=== PATIENT | male | born 1950 | race Caucasian/White ===

== ENCOUNTER 2021-09-29 06:18 | Inpatient (IN) ==
--- NOTE | 2021-09-11 10:18 | PAT Medication Instructions ---
Medication Instructions Date of Service September 11, 2021 Home Medications aspirin 81 mg tablet 81 mg PO QAM lisinopril 5 mg tablet 5 mg PO QAM pravastatin 10 mg tablet 10 mg PO QAM ASK your prescriber and surgeon aspirin 81 mg tablet 81 mg PO QAM DO NOT take the morning of surgery lisinopril 5 mg tablet 5 mg PO QAM Take morning of surgery With a small sip of water, OTHERWISE NOTHING TO EAT OR DRINK AFTER MIDNIGHT: pravastatin 10 mg tablet 10 mg PO QAM Other Notes If you have any questions please call us at [phone] or [phone] or [phone] or [phone]
--- NOTE | 2021-09-16 12:11 | Anesthesiology Consultation ---
Date of Service September 16, 2021 Assessment & Plan (1) Encounter for pre-operative examination: - COVID screening: Per assessment on 09/16: Travel screen negative, no known COVID-19 positive contacts or current COVID-19 related symptoms. Surgeon arrmisa ng preop COVID testing. Awaiting results. 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 Medication instructions provided according to the PAT guidelines. History Surgery Operation Date: 09/29/21 07:30 Proposed Procedures p Robotic Radical Cystoprostetectomy with Ileal Conduit Urinary Diversion and Lymph Node Dissection - Petey Quintero MD Height/Weight Height: 5 ft 7 in Weight: 70.4 kg Allergies Allergy/AdvReac Type Severity Reaction Status Date / Time No Known Allergies Allergy Verified 09/16/21 11:18 Medications Home Medications Medication Instructions Recorded Confirmed Last Taken aspirin 81 mg tablet 81 mg PO QAM 01/12/21 09/16/21 07/05/21 08:00 lisinopril 5 mg tablet 5 mg PO QAM 01/12/21 09/16/21 07/06/21 08:00 pravastatin 10 mg tablet 10 mg PO QAM 01/12/21 09/16/21 07/06/21 08:00 Past Medical History Medical History Bladder cancer hx chemotherapy (Fall 2020) BPH (benign prostatic hyperplasia) Hyperlipidemia Hypertension Lung nodules Under CT surveillance Stroke 2016, 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 Exercise / Class Metabolic Activity II 4-5 Yardwork/Stairs/Walk up hill (one FS (no CP, no SOB)) Past Family History Family History Son Family history of diabetes mellitus Other No family history of adverse response to anesthesia Past Surgical History Surgical History History of bilateral cataract extraction History of bladder surgery TURBT (07/07/21): LMA#5 at [facility] History of cystoscopy Past Anesthesia History No Hx of Anesthesia Complications and No Family Hx of Anesthesia Complications History of PONV No Hx of PONV and No Hx of Motion Sickness Social History Smoking Status: Former smoker tobacco type: cigarettes and pipe Smoking cigarettes per day: Quit pipe 6 yrs ago, Quit cigs 40 yrs ago Do You Dip or Chew Tobacco: No Hx Alcohol Use: Yes Alcohol type: beer alcohol intake frequency: 3 or more drinks per day (3-4 beers daily (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 Physical Exam Vital Signs VITALS BP 120/79 P 83 TEMP 98.2 SP02 98%RA RESP 16 PHYSICAL Decreased cervical extension range of motion. Full TMJ range of motion. TMD 3.5 finger breaths Mallampati Score 3 Dentition: edentulous, + upper/lower dentures Lungs: clear throughout to auscultation Cardiac: regular rate and rhythm, no murmurs noted Spine: normal Carotid arteries: negative bruit Extremities: no edema Lab Results Anesthesia Preop Results Results Anesthesia Widget: WBC 5.91 K/uL (4.8-10.8) 09/16/21 Hgb 12.6 g/dL (14.0-18.0) L 09/16/21 Hct 38.1 % (42-52) L 09/16/21 Plt 229 K/uL (130-400) 09/16/21 Na 137 mmol/L (136-145) 09/16/21 K 4.6 mmol/L (3.5-5.1) 09/16/21 Cl 101 mmol/L (98-107) 09/16/21 CO2 28 mmol/L (21-32) 09/16/21 BUN 18 mg/dl (6-23) 09/16/21 Creat 1.27 mg/dl (0.6-1.4) 09/16/21 Glucose Level 118 mg/dl (70-99(Fasting)) H 09/16/21 Urine Color Yellow 09/16/21 Urine Appearance Clear (Clear) 09/16/21 Urine pH 6.5 (4.5-7.5) 09/16/21 Urine Specific Smoot 1.013 (1.000-1.030) 09/16/21 Urine Protein Negative (Negative) 09/16/21 Urine Glucose (UA) Negative (Negative) 09/16/21 Urine Ketones Negative (Negative) 09/16/21 Urine Blood Negative (Negative) 09/16/21 Urine Nitrite Negative (Negative) 09/16/21 Urine Bilirubin Negative (Negative) 09/16/21 Urine Urobilinogen Negative (Negative) 09/16/21 Urine Leukocyte Esterase Negative (Negative) 09/16/21 Blood Type O Positive 09/16/21 Antibody Screen NEGATIVE 09/16/21 Testing Electrocardiogram Date: 07/03/21 Sinus rhythm with occasional PVCs at 75 bpm. Rightward axis. Chest X-Ray Date: 07/07/21 FINDINGS: Lung volumes are normal. Minimal bibasilar opacities represent atelectasis. There is no pneumothorax or pleural effusion. Cardiac size is normal. Mediastinal contours are normal. There is no evidence for pulmonary edema. IMPRESSION: No acute cardiopulmonary findings. Echocardiogram Date: 02/11/16 LVEF 65%. No significant valvular disease. Valves not well visualized.
[~2021-09-29 06:18] MED LIST: HEPARIN SOD 5,000 UNIT/0.5 ML VIAL SQ SCH; LR 15ML/HR IV SCH; LR 60ML/HR IV SCH; ceFAZolin 2000MG 2,000 MG/15 ML SYR IV SCH; metroNIDAZOLE 500 MG/100 ML BAG IV SCH
--- NOTE | 2021-09-29 06:54 | History & Physical Report ---
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 presenting now for radical cystoprostatectomy with ileal conduit Allergies Allergy/AdvReac Type Severity Reaction Status Date / Time No Known Allergies Allergy Verified 09/29/21 06:36 Home Medications Medication Instructions Recorded Confirmed Type aspirin 81 mg tablet 81 mg PO QAM 01/12/21 09/29/21 History lisinopril 5 mg tablet 5 mg PO QAM 01/12/21 09/29/21 History pravastatin 10 mg tablet 10 mg PO QAM 01/12/21 09/29/21 History Past Med/Surg History Medical History Bladder cancer hx chemotherapy (Fall 2020) BPH (benign prostatic hyperplasia) Hyperlipidemia Hypertension Lung nodules Under CT surveillance Stroke 2015, 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 Surgical History History of bilateral cataract extraction History of bladder surgery TURBT (07/07/21): LMA#5 at [facility] History of cystoscopy Family History Son Family history of diabetes mellitus Other No family history of adverse response to anesthesia Social History Smoking Status: Former smoker Cigarettes Per Day: Quit pipe 6 yrs ago, Quit cigs 40 yrs ago; Second Hand Exposure: No; Do You Dip or Chew Tobacco: No; Tobacco Cessation Education Requested by Patient: No Hx Alcohol Use: Yes Alcohol type: beer Hx Substance Use: No Preferred Language: Malay Communication Ability: Effective 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 Beliefs That Will Affect Care: None Current Living Situation: Spouse Other Information That Helps Us Care for You: No Feels Safe at Home: Yes Safety Concerns: Feels Safe At This Time Assistive Devices: Glasses Physical Exam Constitutional: well developed and well nourished Neck: neck nontender Respiratory: normal respiratory effort; no respiratory distress and does not use accessory muscles Cardiovascular: Rate/Rhythm: regular rate Vessels: radial pulses present Extremities: no edema Gastrointestinal (Abdomen): Inspection/Auscultation: abdomen normal to inspection Percussion/Palpation: abdomen soft; abdomen nontender and no guarding Musculoskeletal: Head/Neck/Chest: normocephalic and head atraumatic Extremities: extremities normal to inspection Skin: no rashes and no lesions Trauma: no evidence of skin trauma Neurologic: awake; not obtunded Speech / Cognition: normal speech Motor/Sensory: no tremor Psychiatric: Orientation: alert and oriented x 3 Genitourinary: no CVA tenderness Lymphatic: no lymphadenopathy
[2021-09-29] MEDS ORDERED: ATROPINE SULFATE 0.1 MG/ML 10ML SYR IV PRN (07:20)
[2021-09-29] MEDS ORDERED: fentaNYL citrate 100 MCG/2 ML VIAL IV PRN (07:20)
[2021-09-29] MEDS ORDERED: ePHEDrine sulfate 50 MG/ML AMP IV PRN (07:20)
[2021-09-29] MEDS ORDERED: ONDANSETRON INJ 2 MG/ML 2 ML VIAL IV PRN (07:20)
[2021-09-29] MEDS ORDERED: HYDROmorphone INJ 1 MG/ML SYRINGE IV PRN (07:20)
[2021-09-29] MEDS ORDERED: NEOSTIGMINE METHYLSULFATE 1 MG/ML 10ML VIAL ONE (07:36)
[2021-09-29] MEDS ORDERED: DEXAMETHASONE SOD INJ 4 MG/ML VIAL ONE (07:36)
[2021-09-29] MEDS ORDERED: ONDANSETRON INJ 2 MG/ML 2 ML VIAL ONE (07:36)
[2021-09-29] MEDS ORDERED: PROPOFOL IV EMULSION 10 MG/ML 20 ML VIAL IV ONE (07:36)
[2021-09-29] MEDS ORDERED: ePHEDrine sulfate 50 MG/ML AMP ONE (07:36)
[2021-09-29] MEDS ORDERED: PHENYLEPHRINE 100MCG/ML 5ML SYR ONE (07:36)
[2021-09-29] MEDS ORDERED: GLYCOPYRROLATE 0.2 MG/ML VIAL ONE (07:36)
[2021-09-29] MEDS ORDERED: LARYING-O-JET KIT (LTA) ONE (07:36)
[2021-09-29] MEDS ORDERED: LIDOCAINE 2% 2 ML VIAL/AMP(20MG/ML) INFIL ONE (07:36)
[2021-09-29] MEDS ORDERED: ROCURONIUM BROMIDE 10 MG/ML 5 ML VIAL IV ONE ×11 (07:36→14:55)
[2021-09-29] MEDS ORDERED: MIDAZOLAM HCL 1 MG/ML 2ML VIAL ONE (07:37)
[2021-09-29] MEDS ORDERED: fentaNYL citrate 100 MCG/2 ML VIAL ONE ×4 (07:37→12:50)
[2021-09-29] MEDS ORDERED: BUPIVACAINE 0.5 % 5 MG/1 ML MPF 30ML VIAL ONE (08:09)
[2021-09-29] MEDS ORDERED: HYDROmorphone INJ 2 MG/ML SYR/VIAL ONE (09:08)
[2021-09-29] MEDS ORDERED: ceFAZolin 330 MG/ML 1 GM VIAL ONE (09:17)
[2021-09-29] MEDS ORDERED: SURGICEL ABSORB HEMOSTAT 2IN X 14IN TOP ONE (10:13)
[2021-09-29] MEDS ORDERED: ceFAZolin 2000MG 2,000 MG/15 ML SYR IV STA (12:45)
--- NOTE | 2021-09-29 16:31 | Operative Report ---
PG Post Operative Report Pre & Post Diagnosis Operation Date: 09/29/21 08:00 Pre-Op Diagnosis: Bladder Cancer Post-Op Diagnosis: Bladder Cancer; duplicated right ureter I identified the patient and participated in the time-out.: Yes Procedure Operation Date: 09/29/21 08:00 Actual Procedures p Robotic assisted Radical Cystoprostatectomy with uretero-ureterostomy and Ileal Conduit Urinary Diversion and Lymph Node Dissection(Not Applicable) - Petey Quintero MD Surgeon Lucio Quintero MD Chief Program Officer Kalin Martinez; Neena Jessica Estimated Blood Loss 150 Findings Consistent with Post-Op Diagnosis Specimens 1. Frozen section of right distal ureter x2 (duplicated system)ureteral 7 #1free of cancer, ureteral segment #2suspected squamous cell/TCC 2. Frozen section of left distal ureterFree of cancer 3. Prostate and bladder 4. Left pelvic lymph nodes 5. Right pelvic lymph nodes 6. Distal left ureter for permanent pathology 7. Distal right ureterduplication, labeled for permanent, however, this specimen was taken distal to a second frozen section as it was resected prior to the return of frozen pathology on the first specimen 8. Second frozen section of the right distal ureter, taken proximal to the permanent specimenreactive atypia, no cancer Description of Procedure Patient was placed in supine position and sterilely prepped and draped in standard fashion, appropriate antibiotics were delivered in the form of Ancef and Flagyl. Subcutaneous heparin was administered and the patient received appropriate general anesthesia. Of note he was seen preoperatively by the stoma nurse and a tentative stomal site was marked, I also confirmed this by remarking him in my preferred location. To begin the case I passed a Veress needle per umbilicus inflated the abdomen to 15 mmHg. Insufflation was symmetrical. I placed the right lateralmost port12 mm Visiport without incident and inspected the abdomen. There was some adhesions around the cecum as well as the sigmoid colon but there was no conflict with port placement locations. I was able to place all other ports in standard fashion consistent with a robotic prostatectomy although shifted approximately 2 cm higher than I would normally have them position for a prostate. Of note, the right robotic port was positioned through the anticipated stomal site. I then docked the robot and began mobilizing the colon. First I began on the left and mobilized the sigmoid and recreated the pouch of Joe. I then proceeded to mobilize the cecum and appendix. I was able to visualize the terminal ileum at that time as well. I mobilized this medially over the anticipated location of the ureter. To my attention back to the left side and identified the ureter at a location just above the iliac vessels. I dissected around this ureter and controlled it circumferentially. I continued to dissect proximally to the maximal extent allowable. I then dissected distally until I encountered the bladder. Care was used throughout this dissection and an umbilical tape helped retract it. I was able to use a combination of monopolar and bipolar electrocautery as I dissected down to the bladder. When I reached the junction of the bladder I placed a Weck clip across the distalmost aspect of the ureter. A second clip was placed approximately 2 cm higher with a suture left attached to this clip to help with later retraction. I transected the ureter close to the distalmost clip and then resected another segment of the ureter which was subsequently passed off the table for frozen section analysis. This frozen section analysis was ultimately returned free of cancer. I then turned my attention to the right ureter. Of note on preoperative imaging he was noted to have a duplicated system. This is an incomplete duplication, however when I began dissecting it appears that this is likely a common sheath or at least the ureters are running in very close proximity to each other. I was able to dissect around both of these just above the level of the vessels and then again traced these down to the junction with the bladder. I treated these as a solitary unit as they reach the bladder. A solitary clip was placed across the distal duplication of the ureter. And 2 clips were placed across the more proximal area approximately 2 cm above the bladder. I transected the ureter close to the bladder but elected not to send a frozen section at that time because I thought it would be important to malissa the ureters and identify them in the future to interpret pathology. Of note, there was a suture left attached to the more proximal clip which helped with the future retraction. I then turned my attention back to the bladder. I incised the peritoneum in the pouch of Joe and identified the seminal vesicles and vasa. The vasa were transected and the seminal vesicles dissected entirely. I then created a plane posterior to the prostate between the prostate and the rectum splitting the fascia. I carried this to the apex of the prostate. I then came out of the pouch of Joe and started to incise the peritoneum lateral to the umbilical ligaments bilaterally. I dissected under the pubic arch and exposed the endopelvic fascia. I then opened the endopelvic fascia bilaterally. I did not entirely defat the prostate but I did incise the fat over the puboprostatic ligaments and traced it back onto the prostate to free the distalmost aspect of the prostate and allow closure and control of the dorsal venous complex. I accomplished this with a 3 OV lock suture in [id number] fashion. The anteriormost connections of the bladder was still intact at that time and I turned my attention to them entirely freeing the dome and anterior aspect of the bladder. I then utilized a vessel seal device to control the vascular pedicle to the bladder as well as the pedicle to the prostate. I traced the path along the lateral edge of the prostate leaving some vessels and nerves intact from the neurovascular bundle. When I reached the apex of the prostate I transected the DVC with a combination of bipolar monopolar electrocautery and then I removed the Savage catheter. I sutured the urethra closed with a 3 OV lock and transected the urethra just distal to my suture. This was used to prevent urine spillage. At that time the bladder and prostate had been entirely removed and the bed of the resection site was inspected for hemostasis which was excellent. I shifted the specimen out of my field and began working on the lymph node dissection I began on the right side and identified the iliac vessels. I dissected all tissue around the inferior aspect of the iliac vein through the superior aspect of the iliac artery and distally as far as the circumflex vein. I came under the pubic bone and identified the obturator nerve and removed all lymph tissue surrounding the nerve tracing this up to the bifurcation of the iliac vessels. This entire specimen was removed en bloc. I attempted to dissect further towards the aortic bifurcation but there was scant material left in that location so I elected to conclude my dissection at that time. I then turned my attention to the left side. The same dissection was performed beginning distally near the external iliac vein and carried my dissection up through the iliac bifurcation but not quite to the aortic bifurcation. The specimen was marked with a clip and placed into an Endo Catch bag with the right-sided specimen. Before concluding the robotic portion of the case, I created a window under the mesentery through which I could pass the left ureter. This was done with the help of the assistant front desk manager port and utilizing the suture that was previously fixed to the Weck clip on the distal ureter we were able to pass this successfully under the mesentery and confirmed that the ureter was not twisted. The cecum and appendix were easily visualized just underneath the right lateralmost port as was the terminal ileum. Because it was so readily visible I did not place any sutures into the ileum at that time. We then concluded the robotic portion of the case and made a midline incision which extended from just above the umbilicus to approximately 2 cm below it. It extended to the left of the umbilicus itself and I utilized an Cristiano retractor to open this wound. I initially grasped the specimen of prostate and bladder and removed it followed by the specimen bag containing the lymph nodes. We then repositioned the 2 ureters through this incision utilizing the previously attached stitches. I was able to visualize the terminal ileum and ileocecal valve I marked an area approximately 10 to 15 cm from the ileocecal valve as our distal transection. We marked a length of potential conduit of approximately 12 cm as well. We transilluminated the mesentery and marked an appropriate path through the mesentery. A stapler was used to control the proximal and distal aspects of our conduit and we used the harmonic scalpel to help transect through the mesentery to our previously marked locations. I oversewed some of the cut m esentery utilizing 2-0 silk pop-off's. The planned conduit portion was pushed distally and on the cephalad side we began reapproximating the bowel. Utilizing Lopez scissors we transected the corner of the previous staple line and passed a single arm of the KATARZYNA stapler down the proximal aspect of the ileum and a second arm down the distal aspect of the ileum. We performed a [id number] functional end-to-end anastomosis after firing the KATARZYNA stapler and then utilizing a TA stapler to control the remaining open area. I oversewed this edge and imbricated a portion of the staple line utilizing 2-0 silk sutures. There was a small amount of bleeding from the TA suture line and we oversewed that area with [id number] sutures of 2-0 silk. After confirming appropriate reconnection of the bowel, we turned our attention back to the conduit. Utilizing Lopez scissors a removed at the distal staple line which will ultimately become our stomal site. We then irrigated the conduit copiously. It was clear and he had been well prepped. We turned our attention to the ureters. Of note, I previously had a negative frozen section analysis of the distal left ureter but I had not yet sent 1 from the right distal ureter. He has a duplicated system and we carefully dissected into the common sheath to expose both ureters. We marked 1 ureter with a silk suture and another with a white Vicryl suture and labeled these as the ureter #1 and ureter #2. Of note ureter #2 was considerably smaller than ureter #1. These were then sent for frozen section analysis. While waiting for the frozen section we turned our attention back to the left ureter. We passed a Yankauer suction down the conduit and marked location near the base of the conduit for insertion of the ureter. We then dissected and expose the distal most aspect of the left ureter and spatulated it for approximately 1 cm in length. The ureter itself was quite healthy and there was a significant amount of urine after removal of the clip. Utilizing a series of 4-0 Vicryl interrupted sutures I was able to perform anastomosis of the ureter to the bowel. Before completing the anastomosis a diversionary urinary stent was plac ed without difficulty. Anastomosis appeared to be quite viable and watertight at the conclusion. I did insulate this with a small amount of the periureteral fat utilizing a 2-0 Vicryl suture. We are still waiting on the final frozen analysis of the distal right ureter. Given the duplication we elected to perform a ureteroureterostomy and solitary reimplant of this ureter. Functionally, this is a Hernandez type reimplant utilizing the duplicated right collecting system. I resected the distal aspect of the ureter for permanent specimen and then dissected and spatulated both ureters for a length of approximately 1 cm. We reanastomosed the back wall of these ureters leaving the front spatulation. Around that time received a call from pathology raising concerns that the second ureter on the right had some residual cancer. There was some squamous differentiation concerning for residual cancer of the ureter. The permanent specimen had already been placed in formalin and was thus not eligible for frozen section analysis. I took a more proximal specimen and sent it for frozen section. This was returned shortly thereafter and revealed reactive atypia but no residual cancer. We the refore elected to continue with our anastomosis and reimplant of the ureter. We picked a location approximately 2 cm more distal on the conduit from the the first implant. Utilizing a Yankauer suction to help identify this location we began to reapproximate the ureter to the ileum utilizing a series of 4-0 interrupted Vicryl sutures. Before completing the anastomosis a stent was placed through this and into the more dilated section of ureter. We did not place a second stent into the smaller ureteral segment. At the conclusion of the anastomosis it appeared to be watertight and quite viable. We then turned our attention to completion and maturation of the stoma. Utilizing the right lateral most robotic port which was through the rectus muscle. We excised a segment of skin and dissected down to the fascia. A cruciate incision was made through the fascia utilizing the previous port site entry and expanding it. This accommodated 2 fingers after full dilation. 4 individual 0 Vicryl sutures were placed through the fascia in each corner of this opening. I then guided the 2 ureteral stents and the stomal aspect of the conduit through this opening. We fixed the previously placed fascial stitches to the midportion of the conduit. We then proceeded to mature the stoma with a series of 2-0 Vicryl sutures which everted the mucosa and left the stoma proud to the skin surface. Care was taken to avoid injury to the mesenteric aspect of the stoma. Stoma remained pink and highly productive throughout the case. A JOSE drain was placed through one of the left robotic ports and positioned into the pelvis. The midline incision was closed with running PDS x2. 0 Vicryl was used to reapproximate some of the subcutaneous tissues before closure of the skin with 4-0 Monocryl. The remaining lap port sites were closed with 4-0 Monocryl. Dermabond was placed over all the incisions after infiltration with half percent Marcaine. A stomal device was placed over the urostomy. He was reversed from anesthesia and taken to the recovery room in stable condition. There were no complications. Dr. Kalin Martinez assisted throughout the case both during the robotic and the open portion. Neena Jessica assisted through all aspects of the case from incision to closure. I attest to the content of the Intraoperative Record and any orders documented therein. Any exceptions are noted below.
--- NOTE | 2021-09-29 16:57 | Anesthesiology Progress Note ---
Date of Service September 29, 2021 Anesthesia Post Procedure Vital Signs Vital Signs: Temp Pulse Pulse Resp BP Pulse Ox 09/29/21 16:50 87 16 132/79 96 09/29/21 16:40 36.5 C 87 16 138/89 96 09/29/21 16:30 97 H 16 144/91 H 96 09/29/21 16:20 93 H 16 163/94 H 96 09/29/21 16:10 98 H 16 159/93 H 98 09/29/21 16:02 36.4 C L 96 H 16 178/95 H 99 09/29/21 06:41 36.2 C L 54 L 20 155/80 H 99 Transfer of Care Handoff Completed per policy Notes Mental Status: alert / awake / arousable and participated in evaluation Patient Amnestic to Procedure: Yes Nausea / Vomiting: adequately controlled Pain: adequately controlled Airway Patency, RR, SpO2: stable & adequate BP & HR: stable & adequate Hydration State: stable & adequate Anesthetic Complications: no major complications apparent
[2021-09-29 17:02] LABS: Eosinophils # (auto) 0.01 K/uL (0-0.5); Eosinophils % (auto) 0.1 %; Hematocrit (blood only) 34.7 % (42-52); Hemoglobin 11.4 g/dL (14.0-18.0); Immature Granulocytes # (auto) 0.01 K/uL (0.00-0.02); Immature Granulocytes % (auto) 0.1 %; Lymphocytes # (auto) 0.59 K/uL (1.2-3.4); Lymphocytes % (auto) 7.1 %; Mean Corpuscular Volume 91.3 fL (80-100); Mean Platelet Volume 9.2 fL (7.4-10.4); Monocytes # (auto) 0.73 K/uL (0.11-0.59); Monocytes % (auto) 8.8 %; Neutrophils # (auto) 6.97 K/uL (1.4-6.5); Neutrophils % (auto) 83.9 %; Platelet Count 170 K/uL (130-400); RDW Coefficient of Variation 13.2 % (11.5-14.5); RDW Standard Deviation 43.8 fL (36.4-46.3); White Blood Count 8.31 K/uL (4.8-10.8)
[2021-09-29 17:18] LABS: BUN Creatinine Ratio 12.2 (10-20); Calcium 8.3 mg/dl (8.5-10.1); Creatinine Clr Calc Pharmacy 47.4 ml/min; Est GFR (African American) 55.6 ml/min; Potassium 4.4 mmol/L (3.5-5.1)
[2021-09-29] MEDS ORDERED: MoRPHine SULFATE 4 MG/ML 1 ML CARP\\VIAL IV PRN (17:24)
[2021-09-29] MEDS ORDERED: oxyCODONE HCL IR 5 MG TAB (IMMEDIATE RELEASE) PO PRN (17:24)
[2021-09-29] MEDS ORDERED: MoRPHine SULFATE 2 MG/ML CARP IV PRN (17:24)
[2021-09-29 17:26] LABS: Mean Corpuscular Hgb Conc 32.9 g/dL (32-36)
[2021-09-29] MEDS: ACETAMINOPHEN 325 MG TAB PO SCH ×2 (17:38→21:48)
[2021-09-29] MEDS: ceFAZolin 2000MG 2,000 MG/15 ML SYR IV SCH (17:54)
[2021-09-29] MEDS: LACTATED RINGER'S 1,000 ML IV SCH (18:23)
--- NOTE | 2021-09-29 19:04 | XRay Report ---
XR KUB/Abdomen 1 view CLINICAL HISTORY: Stent placement TECHNIQUE: 1 view of the abdomen was obtained. Comparison: None available at the time of this dictation. FINDINGS: Bilateral renal stents are seen. Degenerative changes are seen in the visualized skeleton. The bowel gas pattern is nonobstructive. A moderate amount of stool is noted within the large bowel. IMPRESSION: Bilateral renal stents are seen. ACT 112: Negative or not required by law. Electronically signed by: Pepe Keyes M.D. 09/29/2021 7:03 PM
[2021-09-29] MEDS: ONDANSETRON INJ 2 MG/ML 2 ML VIAL IV PRN (21:16)
[2021-09-29] MEDS: HEPARIN SOD 5,000 UNIT/0.5 ML VIAL SQ SCH (21:17)
[2021-09-29] MEDS: metroNIDAZOLE 500 MG TAB PO SCH (21:48)
[2021-09-30] MEDS: LACTATED RINGER'S 1,000 ML IV SCH ×3 (01:40→15:22)
[2021-09-30] MEDS: ceFAZolin 2000MG 2,000 MG/15 ML SYR IV SCH (01:40)
[2021-09-30] MEDS: HEPARIN SOD 5,000 UNIT/0.5 ML VIAL SQ SCH ×3 (05:17→22:07)
[2021-09-30] MEDS: ACETAMINOPHEN 325 MG TAB PO SCH ×4 (05:17→22:09)
[2021-09-30 06:43] LABS: Hematocrit (blood only) 32.5 % (42-52); Hemoglobin 10.8 g/dL (14.0-18.0); Immature Granulocytes # (auto) 0.01 K/uL (0.00-0.02); Immature Granulocytes % (auto) 0.1 %; Lymphocytes # (auto) 1.12 K/uL (1.2-3.4); Lymphocytes % (auto) 14.7 %; Mean Corpuscular Hemoglobin 30.3 pg (25-34); Mean Corpuscular Hgb Conc 33.2 g/dL (32-36); Mean Platelet Volume 9.6 fL (7.4-10.4); Monocytes # (auto) 0.88 K/uL (0.11-0.59); Monocytes % (auto) 11.5 %; Neutrophils # (auto) 5.63 K/uL (1.4-6.5); Neutrophils % (auto) 73.7 %; Platelet Count 192 K/uL (130-400); RDW Coefficient of Variation 13.5 % (11.5-14.5); Red Blood Count 3.57 M/uL (4.7-6.1); White Blood Count 7.64 K/uL (4.8-10.8)
[2021-09-30 07:10] LABS: BUN Creatinine Ratio 11.4 (10-20); Calcium 8.3 mg/dl (8.5-10.1); Creatinine Clr Calc Pharmacy 37.9 ml/min; Est GFR (African American) 42.4 ml/min; Est GFR (Non-African American) 36.6 ml/min; Potassium 4.3 mmol/L (3.5-5.1)
[2021-09-30] MEDS: lisinopril 5 MG TAB PO SCH (07:34)
[2021-09-30] MEDS: PRAVASTATIN SOD 10 MG TAB PO SCH (07:35)
[2021-09-30] MEDS: metroNIDAZOLE 500 MG TAB PO SCH ×3 (07:35→19:41)
[2021-09-30] MEDS: ASPIRIN 81 MG ECTAB PO SCH (07:35)
--- NOTE | 2021-09-30 08:49 | Urology Progress Note ---
Date of Service September 30, 2021 Assessment & Plan (1) Bladder cancer: Plan: Postop day #1 status post radical cystoprostatectomy Recovery seems to be on pace so far Have encouraged him to get out of bed and ambulate Presuming he does well this morning we will likely give him some clear liquids for lunch Creatinine 1.8, this is expected at this stage and I anticipate will plateau and start to come back down over the next several days His hematocrit is 32continue to monitor Admission and Anticipated Discharge Date Admission Date: September 29, 2021 Subjective Initial recovery seems to be very much be on pace He reports that he has modest pain that is tolerable Did have nausea after taking pain medication this morning but otherwise has not experienced nausea He does not have much hunger yet He has been out of bed He had good urine output Physical Exam Physical Exam: Comfortable appearing No respiratory distress Abdomen is soft and not distended Incisions appropriate Some congestion of the stoma but good clear urine output with stents in place JOSE serosanguineous slightly more sanguinous Results & Data ([facility]) Vital Signs (Past 12 Hours) Vital Signs Temp Pulse Resp BP BP Pulse Ox 09/30/21 07:32 36.9 C 91 H 16 101/68 94 09/30/21 03:13 36.6 C 102 H 20 125/82 92 09/29/21 22:19 36.7 C 97 H 16 127/80 94 PG Care Time/CCT Total # of Minutes Spent Total Time Spent with Patient: Total time spent is greater than 50% in coordination of care (as documented) at patient's floor/unit and/or counseling patient: Coding Level of Care Code 38751 Subseq Hosp Care Lvl 2 Diagnoses Bladder cancer C67.9
[2021-09-30] MEDS: MoRPHine SULFATE 2 MG/ML CARP IV PRN ×2 (13:57→22:10)
[2021-09-30] MEDS: oxyCODONE HCL IR 5 MG TAB (IMMEDIATE RELEASE) PO PRN (19:40)
[2021-10-01] MEDS: ACETAMINOPHEN 325 MG TAB PO SCH ×4 (04:30→21:02)
[2021-10-01] MEDS: LACTATED RINGER'S 1,000 ML IV SCH ×3 (04:30→17:14)
[2021-10-01] MEDS: HEPARIN SOD 5,000 UNIT/0.5 ML VIAL SQ SCH ×3 (04:33→21:01)
[2021-10-01 07:37] LABS: Hematocrit (blood only) 26.2 % (42-52); Hemoglobin 8.8 g/dL (14.0-18.0); Lymphocytes # (auto) 0.86 K/uL (1.2-3.4); Lymphocytes % (auto) 16.4 %; Mean Corpuscular Hemoglobin 30.4 pg (25-34); Mean Corpuscular Hgb Conc 33.6 g/dL (32-36); Mean Corpuscular Volume 90.7 fL (80-100); Mean Platelet Volume 9.1 fL (7.4-10.4); Monocytes % (auto) 11.4 %; Neutrophils # (auto) 3.79 K/uL (1.4-6.5); Neutrophils % (auto) 72.2 %; Platelet Count 143 K/uL (130-400); RDW Coefficient of Variation 13.7 % (11.5-14.5); RDW Standard Deviation 45.4 fL (36.4-46.3); Red Blood Count 2.89 M/uL (4.7-6.1); White Blood Count 5.25 K/uL (4.8-10.8)
[2021-10-01 07:53] LABS: BUN Creatinine Ratio 13.8 (10-20); Calcium 8.1 mg/dl (8.5-10.1); Creatinine Clr Calc Pharmacy 45.9 ml/min; Est GFR (African American) 53.4 ml/min; Est GFR (Non-African American) 46.1 ml/min; Potassium 3.9 mmol/L (3.5-5.1)
[2021-10-01] MEDS: ASPIRIN 81 MG ECTAB PO SCH (08:11)
[2021-10-01] MEDS: lisinopril 5 MG TAB PO SCH (08:11)
[2021-10-01] MEDS: PRAVASTATIN SOD 10 MG TAB PO SCH (08:11)
[2021-10-01] MEDS: metroNIDAZOLE 500 MG TAB PO SCH ×2 (08:12→14:58)
--- NOTE | 2021-10-01 10:39 | Urology Progress Note ---
Date of Service October 01, 2021 Assessment & Plan (1) Bladder cancer: Plan: - Postop day #2 status post radical cystoprostatectomy. - Recovery on pace so far. - He is afebrile, Labs reviewed - Wbc 5.25, Hemoglobin 8.8 (10.8 yesterday), Creatinine down to 1.52, previously 1.84. - Advanced to clear liquid diet yesterday, but reports no appetite. Will continue with clears for now. - Urostomy with good urine output, currently draining light red urine. Continue to monitor. - Maintain JOSE drain. - Encourage ambulation and use of incentive spirometer. - See attending note for additional details. Admission and Anticipated Discharge Date Admission Date: September 29, 2021 Supervising Physician Co-Signing Physician Notes Cr trending down, but Hgb is as well recheck hgb tonight ambulate - PT consult placed no bowel function yet - cont clears slow IVF to 100cc/hr stoma is congested/likely has a bit of a hematoma, but overall seems healthy overall, he looks good - making progress Subjective Pt examined at bedside this AM. Awake, resting in bed on arrival. No acute distress. No fevers. Reports pain is tolerable at present, had scheduled Tylenol this morning. He tried some clears yesterday, but felt nauseous/discomfort after. States he does not have an appetite. No nausea or vomiting. He was out of bed to chair yesterday. Urostomy with 350ml urine output overnight. JOSE with 100ml output overnight. Review of Systems Constitutional: as per Subjective / HPI Cardiovascular: no chest pain, no dyspnea and no lightheadedness Gastrointestinal: as per Subjective / HPI Genitourinary: + as per Subjective / HPI Physical Exam Constitutional: no acute distress Respiratory: normal respiratory effort; no respiratory distress and no labored breathing Cardiovascular: Extremities: no calf tenderness Gastrointestinal (Abdomen): Inspection/Auscultation: abdomen not distended Percussion/Palpation: abdomen soft JOSE to left abdomen with serosanguineous slightly more sanguinous Tenderness with palpation to left abdomen Incisions appropriate, dressings intact. Skin: Warm and dry Neurologic: awake Psychiatric: Orientation: alert and oriented x 3 Genitourinary: Urostomy to right abdomen, draining light red urine, with stents in place Results & Data ([facility]) Vital Signs (Past 12 Hours) Vital Signs Temp Pulse Pulse Resp BP Pulse Ox 10/01/21 08:09 37.4 C 99 H 18 97/65 L 94 10/01/21 02:00 36.9 C 81 14 108/66 97 09/30/21 22:40 37.5 C 110 H 16 90/57 L 91 PG Care Time/CCT Total # of Minutes Spent Total Time Spent with Patient: Total time spent is greater than 50% in coordination of care (as documented) at patient's floor/unit and/or counseling patient: Coding Level of Care Code None Diagnoses Bladder cancer C67.9
[2021-10-01 12:55] LABS: Hematocrit (blood only) 28.2 % (42-52); Hemoglobin 9.3 g/dL (14.0-18.0)
[2021-10-01] MEDS: ONDANSETRON INJ 2 MG/ML 2 ML VIAL IV PRN (21:00)
[2021-10-01] MEDS: MoRPHine SULFATE 2 MG/ML CARP IV PRN (21:01)
[2021-10-02] MEDS: oxyCODONE HCL IR 5 MG TAB (IMMEDIATE RELEASE) PO PRN (00:09)
[2021-10-02] MEDS ORDERED: PROMETHAZINE HCL 6.25 MG in SODIUM CHLORIDE 0.9% 50 ML IV STA (01:19)
[2021-10-02] MEDS: MELATONIN 3 MG TAB PO PRN (01:51)
[2021-10-02] MEDS: LANSOPRAZOLE 15 MG SOLTAB PO SCH ×3 (01:51→22:12)
[2021-10-02] MEDS: ONDANSETRON INJ 2 MG/ML 2 ML VIAL IV PRN (02:44)
[2021-10-02] MEDS: ACETAMINOPHEN 325 MG TAB PO SCH ×4 (04:06→22:12)
[2021-10-02] MEDS: HEPARIN SOD 5,000 UNIT/0.5 ML VIAL SQ SCH ×3 (05:12→22:37)
[2021-10-02] MEDS: LACTATED RINGER'S 1,000 ML IV SCH ×2 (05:13→13:03)
[2021-10-02 05:21] LABS: Eosinophils # (auto) 0.04 K/uL (0-0.5); Eosinophils % (auto) 0.7 %; Hematocrit (blood only) 27.9 % (42-52); Hemoglobin 9.3 g/dL (14.0-18.0); Immature Granulocytes # (auto) 0.01 K/uL (0.00-0.02); Immature Granulocytes % (auto) 0.2 %; Lymphocytes # (auto) 0.61 K/uL (1.2-3.4); Lymphocytes % (auto) 10.8 %; Mean Corpuscular Hemoglobin 30.8 pg (25-34); Mean Corpuscular Hgb Conc 33.3 g/dL (32-36); Mean Corpuscular Volume 92.4 fL (80-100); Mean Platelet Volume 9.1 fL (7.4-10.4); Monocytes # (auto) 0.53 K/uL (0.11-0.59); Monocytes % (auto) 9.4 %; Neutrophils # (auto) 4.44 K/uL (1.4-6.5); Neutrophils % (auto) 78.9 %; Platelet Count 159 K/uL (130-400); RDW Coefficient of Variation 13.8 % (11.5-14.5); RDW Standard Deviation 46.2 fL (36.4-46.3); Red Blood Count 3.02 M/uL (4.7-6.1); White Blood Count 5.63 K/uL (4.8-10.8)
[2021-10-02 05:58] LABS: BUN Creatinine Ratio 16.4 (10-20); Calcium 8.1 mg/dl (8.5-10.1); Creatinine Clr Calc Pharmacy 60.1 ml/min; Est GFR (African American) 74.1 ml/min; Est GFR (Non-African American) 63.9 ml/min; Potassium 3.4 mmol/L (3.5-5.1)
--- NOTE | 2021-10-02 07:07 | XRay Report ---
XR chest 1V portable CLINICAL HISTORY: Atypical chest pain. COMPARISON STUDY: Chest CT August 26, 2020. Chest radiograph July 07, 2021. FINDINGS: Lung volumes are diminished. Bibasilar opacities favor atelectasis. No evidence for pulmona ry edema or pneumonia. Cardiomediastinal silhouette is stable. IMPRESSION: Low lung volumes with bibasilar opacities that favor atelectasis. ACT 112: Negative or not required by law. Electronically signed by: Ronen Cartagena M.D. 10/02/2021 7:06 AM
--- NOTE | 2021-10-02 07:09 | XRay Report ---
XR KUB/Abdomen 1 view CLINICAL HISTORY: vomiting. COMPARISON STUDY: 09/29/2021 TECHNIQUE: Single view of the abdomen. FINDINGS: There are a few mildly dilated air-filled loops of small bowel seen within the mid abdomen. Additiona l air is seen within the stomach and within the colon. Findings are not significantly changed from th e previous study and most likely related to an ileus versus gastroenteritis. There is no definite alvarez dence for bowel loop obstruction. Bilateral double-J ureteral stents are again seen. There is no evid ence for organomegaly or gross intra-abdominal mass. No abnormal calcifications are seen along the co urse of the urinary tracts bilaterally. No acute osseous pathology. IMPRESSION: 1. Radiographic most characteristic of mild ileus versus gastroenteritis. No gross obstruction. 2. Bilateral double-J ureteral stents. ACT 112: Negative or not required by law. Electronically signed by: Emory Fuller M.D. 10/02/2021 7:08 AM
--- NOTE | 2021-10-02 08:39 | Urology Progress Note ---
Date of Service October 02, 2021 Assessment & Plan (1) Bladder cancer: Plan: s/p cystectomy with ileal conduit - progressing, but with anticipated ileus - hold diet - sips only - avoid NG tube for now, but if nausea/etc become worse, low threshold to insert - ambulate - dulcolax suppository now - avoid narcotics - ketorolac ok (cr now 1.1) - replete some K Admission and Anticipated Discharge Date Admission Date: September 29, 2021 Subjective difficult night distended abdomen nausea and vomiting x3 GERD symptoms eval of CP without cardiac source no abdominal pain still with nausea GERD is better this AM did ambulate x1 yesterday Physical Exam Physical Exam: uncomfortable appearing distended abdomen stoma healthy urine relatively clear stents in place JOSE serosang - mostly serous Results & Data ([facility]) Vital Signs (Past 12 Hours) Vital Signs Temp Pulse Pulse Resp BP Pulse Ox 10/02/21 08:20 37.0 C 116 H 20 145/89 H 96 10/02/21 03:41 37.2 C 117 H 117 H 18 132/85 94 10/01/21 22:25 37.7 C H 106 H 16 122/76 91 PG Care Time/CCT Total # of Minutes Spent Total Time Spent with Patient: Total time spent is greater than 50% in coordination of care (as documented) at patient's floor/unit and/or counseling patient: Coding Level of Care Code 60917 Subseq Hosp Care Lvl 2 Diagnoses Bladder cancer C67.9
[2021-10-02] MEDS ORDERED: KETOROLAC TROMETHAMINE 15 MG/ML VIAL IV PRN (08:40)
[2021-10-02] MEDS ORDERED: bisacodyL 10 MG SUPP PR STA (08:40)
[2021-10-02] MEDS: PRAVASTATIN SOD 10 MG TAB PO SCH (09:28)
[2021-10-02] MEDS: ASPIRIN 81 MG ECTAB PO SCH (09:29)
[2021-10-02] MEDS: lisinopril 5 MG TAB PO SCH (09:29)
[2021-10-02] MEDS: POTASSIUM CHLORIDE / WTR 10 MEQ/100 ML PLCT IV SCH ×2 (10:55→12:10)
[2021-10-03] MEDS: LACTATED RINGER'S 1,000 ML IV SCH ×3 (03:35→19:53)
[2021-10-03] MEDS: ACETAMINOPHEN 325 MG TAB PO SCH ×4 (05:35→22:11)
[2021-10-03] MEDS: HEPARIN SOD 5,000 UNIT/0.5 ML VIAL SQ SCH ×3 (05:35→22:13)
[2021-10-03 08:27] LABS: Basophils # (auto) 0.01 K/uL (0-0.2); Basophils % (auto) 0.2 %; Eosinophils # (auto) 0.07 K/uL (0-0.5); Eosinophils % (auto) 1.3 %; Hematocrit (blood only) 26.4 % (42-52); Hemoglobin 8.6 g/dL (14.0-18.0); Immature Granulocytes # (auto) 0.02 K/uL (0.00-0.02); Immature Granulocytes % (auto) 0.4 %; Lymphocytes # (auto) 0.78 K/uL (1.2-3.4); Lymphocytes % (auto) 14.7 %; Mean Corpuscular Hemoglobin 30.3 pg (25-34); Mean Corpuscular Hgb Conc 32.6 g/dL (32-36); Mean Platelet Volume 8.8 fL (7.4-10.4); Monocytes # (auto) 0.55 K/uL (0.11-0.59); Monocytes % (auto) 10.3 %; Neutrophils # (auto) 3.89 K/uL (1.4-6.5); Neutrophils % (auto) 73.1 %; Platelet Count 186 K/uL (130-400); RDW Coefficient of Variation 13.7 % (11.5-14.5); RDW Standard Deviation 46.7 fL (36.4-46.3); Red Blood Count 2.84 M/uL (4.7-6.1); White Blood Count 5.32 K/uL (4.8-10.8)
[2021-10-03 08:44] LABS: BUN Creatinine Ratio 22.2 (10-20); Calcium 8.1 mg/dl (8.5-10.1); Creatinine Clr Calc Pharmacy 48.4 ml/min; Est GFR (Non-African American) 49.2 ml/min; Potassium 3.6 mmol/L (3.5-5.1)
[2021-10-03] MEDS: lisinopril 5 MG TAB PO SCH (09:04)
[2021-10-03] MEDS: ASPIRIN 81 MG ECTAB PO SCH (09:04)
[2021-10-03] MEDS: LANSOPRAZOLE 15 MG SOLTAB PO SCH ×2 (09:04→20:22)
[2021-10-03] MEDS: PRAVASTATIN SOD 10 MG TAB PO SCH (09:05)
[2021-10-03] MEDS ORDERED: bisacodyL 10 MG SUPP PR STA (09:08)
--- NOTE | 2021-10-03 09:08 | Urology Progress Note ---
Date of Service October 03, 2021 Assessment & Plan (1) Bladder cancer: Plan: Postop day #4 status post radical cystoprostatectomy Progressing appropriately but still waiting on resumption of normal bowel function Hold n.p.o. 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 I think we will start to turn a corner towards discharge Labs all appropriate Admission and Anticipated Discharge Date Admission Date: September 29, 2021 Subjective Slightly better this morning No nausea or vomiting overnight Ambulated Still distended and still not passing any flatus Good urine output Physical Exam Physical Exam: Incisions all appropriate, stoma healthy, pink, clear urine Serosanguineous JOSE drainage Results & Data ([facility]) Vital Signs (Past 12 Hours) Vital Signs Temp Pulse Resp BP Pulse Ox 10/03/21 07:59 37.2 C 102 H 18 144/84 H 93 10/02/21 22:49 37 C 98 H 16 96/62 L 94 PG Care Time/CCT Total # of Minutes Spent Total Time Spent with Patient: Total time spent is greater than 50% in coordination of care (as documented) at patient's floor/unit and/or counseling patient: Coding Level of Care Code None Diagnoses Bladder cancer C67.9
[2021-10-03] MEDS ORDERED: bisacodyL 10 MG SUPP PR ONE (12:03)
--- NOTE | 2021-10-03 12:31 | Electrocardiogram Report ---
Test Reason : Blood Pressure : / mmHG Vent. Rate : 119 BPM Atrial Rate : 119 BPM P-R Int : 122 ms QRS Dur : 092 ms QT Int : 336 ms P-R-T Axes : 038 074 005 degrees QTc Int : 472 ms Sinus tachycardia with Premature supraventricular complexes and with occasional Premature ventricular complexes T wave abnormality, consider inferior ischemia Abnormal ECG When compared with ECG of 02-OCT-2021 03:57, (unconfirmed) HR has increased Present Confirmed by Adan Pantoja ([id number]) on 10/03/2021 12:31:39 PM Referred By: Petey Quintero Confirmed By:Adan Pantoja
[2021-10-03] MEDS: MELATONIN 3 MG TAB PO PRN (22:11)
[2021-10-04] MEDS: ONDANSETRON INJ 2 MG/ML 2 ML VIAL IV PRN (04:11)
[2021-10-04] MEDS: ACETAMINOPHEN 325 MG TAB PO SCH ×4 (04:11→23:38)
[2021-10-04] MEDS: LACTATED RINGER'S 1,000 ML IV SCH ×2 (05:47→15:52)
[2021-10-04] MEDS: HEPARIN SOD 5,000 UNIT/0.5 ML VIAL SQ SCH ×3 (05:49→23:37)
[2021-10-04 06:42] LABS: Basophils # (auto) 0.02 K/uL (0-0.2); Basophils % (auto) 0.3 %; Eosinophils # (auto) 0.06 K/uL (0-0.5); Hematocrit (blood only) 26.5 % (42-52); Hemoglobin 8.6 g/dL (14.0-18.0); Immature Granulocytes # (auto) 0.09 K/uL (0.00-0.02); Immature Granulocytes % (auto) 1.5 %; Lymphocytes # (auto) 0.86 K/uL (1.2-3.4); Lymphocytes % (auto) 14.3 %; Mean Corpuscular Hemoglobin 30.3 pg (25-34); Mean Corpuscular Hgb Conc 32.5 g/dL (32-36); Mean Corpuscular Volume 93.3 fL (80-100); Mean Platelet Volume 8.7 fL (7.4-10.4); Monocytes # (auto) 0.63 K/uL (0.11-0.59); Monocytes % (auto) 10.4 %; Neutrophils # (auto) 4.37 K/uL (1.4-6.5); Neutrophils % (auto) 72.5 %; Platelet Count 202 K/uL (130-400); RDW Coefficient of Variation 13.7 % (11.5-14.5); RDW Standard Deviation 47.2 fL (36.4-46.3); Red Blood Count 2.84 M/uL (4.7-6.1); White Blood Count 6.03 K/uL (4.8-10.8)
[2021-10-04 07:05] LABS: BUN Creatinine Ratio 22.1 (10-20); Est GFR (African American) 84.5 ml/min; Est GFR (Non-African American) 72.9 ml/min; Potassium 3.3 mmol/L (3.5-5.1)
[2021-10-04] MEDS: LANSOPRAZOLE 15 MG SOLTAB PO SCH ×2 (08:07→22:58)
[2021-10-04] MEDS: ASPIRIN 81 MG ECTAB PO SCH (08:07)
[2021-10-04] MEDS: PRAVASTATIN SOD 10 MG TAB PO SCH (08:07)
[2021-10-04] MEDS: lisinopril 5 MG TAB PO SCH (08:07)
--- NOTE | 2021-10-04 10:10 | XRay Report ---
KUB CLINICAL HISTORY: Ileus. FINDINGS: 2 AP supine abdominal radiographs are compared to study dated 10/02/2021 and correlated with abdominal CT dated 03/17/2021. Suture material projects in the right mid abdomen. A surgical drain is noted in the pelvis. Bilateral ureteral stents are in place and extend towards a conduit in the right lower quadrant. Again seen is gaseous distention of the small bowel loops which measure up to 4.7 cm . There is a paucity of gas in the colon. No evidence of intraperitoneal free air is seen on these [place] images. The lung bases are clear as imaged. The skeletal structures are osteopenic and appear in tact. There is mild lumbosacral spondylosis. IMPRESSION: 1. A ureteral stents are unchanged in position and there is a surgical drain of the pelvis. 2. There is persistent gaseous distention of the small bowel loops which is similar to previous. Give n findings of recent surgery this could represent a postoperative ileus. Small bowel obstruction is n ot excluded. Clinical correlation will be required. Electronically signed by: Wilfrid Palencia M.D. 10/04/2021 10:07 AM
--- NOTE | 2021-10-04 11:19 | Urology Progress Note ---
Date of Service October 04, 2021 Assessment & Plan (1) Bladder cancer: Plan: POD5 status post radical cystoprostatectomy 2 x Bowel movement since yesterday. Did have nausea and small amount of vomiting this AM. Not severe. Distended. Plan to continue with slow return to diet. Patient has not been Ambulating significantly. States issues with transition and need for assistance. PT and OT appear to be ordered. Will plan to encourage ambulation. Labs stable. No significant changes otherwise. Admission and Anticipated Discharge Date Admission Date: September 29, 2021 Subjective Postop from urologic surgery. Has Bladder Cancer s/p Cystoprostatectomy with diversion. Patient has been tolerating well, but is having some pain and discomf ort. Incisions have been mild sore. Having some abdominal distension/gas pains. No major issues with ostomy Has not had severe pain or uncontrollable pain. Patient has been ambulating but not well. Wants more assistance. Bowel movement x 2 Mild nausea and vomiting this am but resolving. Had tolerated anesthesia without major problems Was taken back to sips of clears. Review of Systems Review of Systems: All systems reviewed & are unremarkable except as noted in HPI & below Physical Exam Physical Exam: General: Alert in no acute distress. HEENT: Normocephalic Atraumatic. Inspection normal. Cranial Nerves 2-12 Rafael sly intact. Normal inspection of face. Normal inspection of neck. Psychologic: Normal affect. Respiratory: Nonlabored. No use of accessory muscles. No tachypnea or dyspnea. Cardiovascular: No tachycardia Skin: [place]mec[place] and Dry. No rashes or visible lesions. Ostomy : [place], patent, performing Abdomen: Appropriately tender. Moderately distended. No rebound or guarding. Wound: Clean, dry, covered. Results & Data ([facility]) Vital Signs (Past 12 Hours) Vital Signs Temp Pulse Resp BP Pulse Ox 10/04/21 07:50 37.0 C 92 H 18 130/84 96 10/03/21 23:31 36.7 C 92 H 16 113/67 95 PG Care Time/CCT Total # of Minutes Spent Total Time Spent with Patient: Total time spent is greater than 50% in coordination of care (as documented) at patient's floor/unit and/or counseling patient: Coding Level of Care Code 28551 Subseq Hosp Care Lvl 2 Diagnoses Bladder cancer C67.9
[2021-10-05] MEDS: LACTATED RINGER'S 1,000 ML IV SCH (02:09)
[2021-10-05 05:36] LABS: Basophils # (auto) 0.01 K/uL (0-0.2); Basophils % (auto) 0.1 %; Eosinophils % (auto) 1.4 %; Hematocrit (blood only) 24.9 % (42-52); Hemoglobin 8.2 g/dL (14.0-18.0); Immature Granulocytes # (auto) 0.12 K/uL (0.00-0.02); Immature Granulocytes % (auto) 1.7 %; Lymphocytes # (auto) 0.79 K/uL (1.2-3.4); Lymphocytes % (auto) 11.4 %; Mean Corpuscular Hemoglobin 30.1 pg (25-34); Mean Corpuscular Hgb Conc 32.9 g/dL (32-36); Mean Corpuscular Volume 91.5 fL (80-100); Mean Platelet Volume 8.2 fL (7.4-10.4); Monocytes # (auto) 0.76 K/uL (0.11-0.59); Neutrophils # (auto) 5.15 K/uL (1.4-6.5); Neutrophils % (auto) 74.4 %; Platelet Count 223 K/uL (130-400); RDW Coefficient of Variation 13.9 % (11.5-14.5); RDW Standard Deviation 45.9 fL (36.4-46.3); Red Blood Count 2.72 M/uL (4.7-6.1); White Blood Count 6.93 K/uL (4.8-10.8)
[2021-10-05 06:01] LABS: Creatinine Clr Calc Pharmacy 78.3 ml/min; Est GFR (African American) 101.1 ml/min; Est GFR (Non-African American) 87.2 ml/min; Potassium 3.4 mmol/L (3.5-5.1)
[2021-10-05] MEDS: ACETAMINOPHEN 325 MG TAB PO SCH ×2 (06:05→11:26)
[2021-10-05] MEDS: HEPARIN SOD 5,000 UNIT/0.5 ML VIAL SQ SCH (06:06)
--- NOTE | 2021-10-05 08:09 | Urology Progress Note ---
Date of Service October 05, 2021 Assessment & Plan (1) Bladder cancer: Plan: Status post cystectomy Doing very well Advance diet, DC drain DC homewe will continue Lovenox for 25 days Follow-up as an outpatient Admission and Anticipated Discharge Date Admission Date: September 29, 2021 Subjective Really turned the corner overnight Opened up his bowels and has been passing flatus and having bowel movement since that time Tolerating clear liquids without any issue, asking for regular food now Labs all appropriate Anxious to go home Physical Exam Physical Exam: Incisions all appropriate, stoma pink and healthy with clear urine, stent still in place, JOSE serosanguineous Results & Data ([facility]) Vital Signs (Past 12 Hours) Vital Signs Temp Pulse Resp BP BP Pulse Ox 10/05/21 07:46 37.1 C 99 H 18 157/82 H 97 10/04/21 22:35 36.8 C 106 H 18 141/73 H 98 PG Care Time/CCT Total # of Minutes Spent Total Time Spent with Patient: Total time spent is greater than 50% in coordination of care (as documented) at patient's floor/unit and/or counseling patient: Coding Level of Care Code None Diagnoses Bladder cancer C67.9
[2021-10-05] MEDS ORDERED: POTASSIUM CHLORIDE CRTAB 20 MEQ TABCR PO STA (08:10)
[2021-10-05] MEDS: PRAVASTATIN SOD 10 MG TAB PO SCH (08:22)
[2021-10-05] MEDS: LANSOPRAZOLE 15 MG SOLTAB PO SCH (08:22)
[2021-10-05] MEDS: ASPIRIN 81 MG ECTAB PO SCH (08:22)
[2021-10-05] MEDS: lisinopril 5 MG TAB PO SCH (08:22)
[2021-10-05] MEDS ORDERED: ENOXAPARIN INJ 40 MG/0.4 ML SYR SQ ONE (11:45)
--- NOTE | 2021-10-06 08:04 | Discharge Summary ---
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 Details of that surgery dictated previously, in summary he tolerated the surgery very well. 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 He was producing good urine immediately after surgery and had appropriate levels of drain output. Initial recovery was very much on pace and he was advanced to clear liquids but developed some nausea and distention on postoperative day #2. We backed him off to n.p.o. status and waited out the expected postoperative ileus. He did recover on day 5 and began having bowel movements and significant flatus. He was advanced again to clear liquids which he tolerated well and then to a regular diet. His creatinine improved substantially throughout his hospitalization and his hemoglobin remained stable throughout. He was discharged on the morning of postoperative day #6 in stable condition. Final pathology reported T0 disease with no lymph node involvement or extravesical disease. Total Time Total Time Spent Total Time Spent (In Minutes): 45 Discharge Plan Discharge Items Patient Disposition: Home - Home Health Services Reason For Visit: POST OP Discharge Diagnosis: Bladder Cancer; duplicated right ureter Activity: Per Instructions section Lifting: No more than 10 pounds Bathing Comment: No tub baths or soaks. Sexual Activity: Wait until after follow-up appointment Exercise/Sports: Wait until after follow-up appointment Driving/Machine Use: Do not drive if taking prescription pain medication. Non-emergency contact: Surgeon Call non-emergency contact if: you have any medication questions, your pain is not controlled, your pain is worsening, your wound has increased redness, your wound has increased drainage and your wound pain has increased Follow-up/Referrals: Petey Quintero MD [Physician] - Nakia Farnk MD [Primary Care Provider] - (Dr. Frank's office will call you at home with your follow up appointment time) Diet: Regular Addtl Attending Provider Instructions: Please take all medications as prescribed and keep all follow-ups as scheduled. Please call our office at [phone] with any questions, concerns or need to reschedule appointments for any reason. We are happy to assist you. The urology office will contact you to arrange your follow-up appointment. A prescription for Lovenox 40mg (0.4ml) subcutaneous once daily for 25 days has been sent to your pharmacy as well as a prescription for Colace (stool softener) to be taken twice daily. Please follow the instructions from wound care for caring for your urostomy at home. Recovering at home: We recommend having someone with you for the first few days after surgery to help care for you. It is okay to shower. Please avoid swimming, bathing or using hot tub until incisions are well healed. Avoid driving until you are not requiring pain medication any further. Walk at least a few times a day. Increase your distance, as you feel able. Stairs in your home are okay. Please avoid strenuous or sexual activity until your follow-up. We recommend using stool softener (i.e. Colace) to prevent constipation and straining, especially the first two weeks post operatively. Call [facility] at [phone] if you experience: Chest pain or trouble breathing (call [phone] or go to the hospital). Fever of 101F or higher Symptoms of infection at incision site, including redness or swelling, warmth, or bad-smelling drainage If you have catheter, and you notice: o Bloody urine or drainage that is dark red or has large clots (Please remember a small amount of blood is normal) o No drainage from the catheter for more than 6 hours Pain that is not controlled with medicines Pending Studies at Discharge: Yes (pathology) Stand-Alone Forms: My [employer], Smoking Cessation Medications and DC Order Prescriptions: New docusate sodium [Colace] 100 mg capsule 100 mg PO BID Qty: 30 RF: 0 enoxaparin [Lovenox] 40 mg/0.4 mL syringe 40 mg subcut DAILY 25 Days Qty: 10 RF: 0 Continued lisinopril 5 mg tablet 5 mg PO QAM RF: 0 aspirin 81 mg tablet 81 mg PO QAM RF: 0 pravastatin 10 mg tablet 10 mg PO QAM RF: 0 Discharge Orders: Discharge Order (Routine); Ordered 10/05/21 Ordered By: Lakisha Cortés/Other Patient Handouts: What Is a Urostomy?, Urostomy: Emptying Your Pouch, Urostomy: Changing Your Pouch, Urostomy Night Drainage System Admission Data Admit Date/Time: 09/29/21 15:59 Attending Provider: Petey Quintero Admit Provider: Petey Quintero Primary Care Provider: Nakia Frank Other Providers: [facility],Home Healthcare Other Interventions: Discharge Summary Assessment (RN) Last Done: 10/05/21 12:03 Coding Level of Care Code D/C DAY MANAGEMENT >30 MINS Diagnoses Bladder cancer C67.9
== END 2021-10-05 14:08 | disposition home health service (06) | DRG 654 ==
LOC: ASU 06:18 → 3N 15:59

== ENCOUNTER 2021-10-21 13:50 | Inpatient (IN) ==
[2021-10-21 14:52] LABS: Basophils # (auto) 0.02 K/uL (0-0.2); Basophils % (auto) 0.1 %; Hematocrit (blood only) 27.7 % (42-52); Hemoglobin 8.8 g/dL (14.0-18.0); Immature Granulocytes # (auto) 0.04 K/uL (0.00-0.02); Immature Granulocytes % (auto) 0.3 %; Lymphocytes # (auto) 1.65 K/uL (1.2-3.4); Lymphocytes % (auto) 11.1 %; Mean Corpuscular Hemoglobin 28.1 pg (25-34); Mean Corpuscular Hgb Conc 31.8 g/dL (32-36); Mean Corpuscular Volume 88.5 fL (80-100); Mean Platelet Volume 8.7 fL (7.4-10.4); Monocytes # (auto) 1.22 K/uL (0.11-0.59); Monocytes % (auto) 8.2 %; Neutrophils # (auto) 11.89 K/uL (1.4-6.5); Neutrophils % (auto) 80.3 %; Platelet Count 393 K/uL (130-400); RDW Coefficient of Variation 14.6 % (11.5-14.5); RDW Standard Deviation 47.7 fL (36.4-46.3); Red Blood Count 3.13 M/uL (4.7-6.1); White Blood Count 14.82 K/uL (4.8-10.8)
[2021-10-21 15:36] LABS: Alanine Aminotransferase 10 U/L (7-52); Albumin Globulin Ratio 0.9 (0.9-2); Albumin Level 3.7 gm/dl (3.4-5.0); Alkaline Phosphatase 122 U/L (34-104); Anion Gap 14 (3-11); Aspartate Aminotransferase 15 U/L (13-39); Bilirubin,Total 0.9 mg/dl (0.2-1.0); Blood Urea Nitrogen 16 mg/dl (6-23); Calcium 9.2 mg/dl (8.5-10.1); Carbon Dioxide 24 mmol/L (21-32); Chloride 96 mmol/L (98-107); Est GFR (African American) 50.2 ml/min; Est GFR (Non-African American) 43.3 ml/min; Globulin 3.9 gm/dl (2.5-4.0); Glucose 122 mg/dl (70-99(Fasting)); Lipase 11 U/L (11-82); Potassium 3.6 mmol/L (3.5-5.1); Sodium 134 mmol/L (136-145); Total Protein 7.6 gm/dl (6.0-8.3)
[2021-10-21] MEDS ORDERED: SODIUM CHLORIDE 0.9% 1000ML 2,000 ML IV ONE (15:38)
--- NOTE | 2021-10-21 15:38 | Emergency Department Note ---
Impression & Plan Sepsis, Pyelonephritis, JN (acute kidney injury), Dehydration ED Provider Note NAME: EMILY KEYES AGE: 71 SEX: M : 1950 ARRIVES VIA: Walk-In INFORMANT: Patient, ED PROVIDER(S): Agustín Tony MD Chief Complaint: Abnormal vital signs, fever patient referred HPI: Patient was referred by primary care after home health that evaluated the patient and they noted that his heart rate was elevated. The patient did have a temperature of 102 last night did take Tylenol. Patient did have a recent cystectomy. The patient has had some diarrhea today but no vomiting. The patient denies any abdominal pains. Patient currently does have a urostomy in place. Patient states that he does feel quite thirsty. The patient denies any flank or back pain. The patient did have chills and associated fevers. The p atient denies any lower extremity swelling. Patient was seen in the [address] Quintero. Patient is Pat is status post cyst ectomy which was performed on September 29 and surgical pathology showed no residual disease. No evidence of prostate CA. Patient was to return in 2 weeks to remove his stents. The patient is on Lovenox as prophylaxis but currently at the time of his visit had no evidence of lower extremity swelling or DVT. ROS: See HPI for pertinent positives and negatives. A total of 10 systems were reviewed and otherwise negative. Past medical history: See below Surgical history: See below Social history: See below Physical Exam: GENERAL: NAD, wearing a mask, non-toxic. EYE EXAM: Normal conjunctiva. PERRL, no anisocoria and EOM's grossly intact w/o pain. [OROPHARYNX: Dry mucous membranes, edentulous. NECK: Supple, no nuchal rigidity, no adenopathy, non-tender. No signs of meningismus. LUNGS: Clear to auscultation. Normal chest wall mechanics. HEART: Tachycardic and regular, no MRG. ABDOMEN: Abdomen soft, relatively midline ostomy with dark urine, stents within the cystostomy bag, left vertical incisional site well-appearing. Eschar forming no surrounding erythema or fluctuance normo-active bowel sounds, no masses, no rebound or guarding. BACK: No CVA TTP. SKIN: No rashes and no bruising. UPPER EXTREMITIES: Upper extremities are grossly normal. LOWER EXTREMITIES: Grossly normal, no edema. NEURO EXAM: A&O x3, cranial nerves II-XII grossly intact, normal speech, moves all 4 extremities on command w/o issue. Differential diagnoses: Sepsis, UTI, pneumonia, metabolic, electrolyte abnormalities, cardiac sources, intracerebral event, toxicologic, neurologic, as well as other pathologies. Course: Patient was seen and evaluated the bedside. Full history physical exam was performed. EKG interpreted by me Sinus tachycardia, rate of 1 CLAUDIA, normal intervals, normal axis. Imaging Studies: See Below Cardiac monitoring: An order was placed for continuous cardiac monitoring. The monitor shows a rate of 122 with tachycardic and regular rhythm. MDM: Patient was seen due to concern for fever and elevated heart rate. Blood work is obtained along with cultures and CT abdomen pelvis. Patient did have 2 L saline bolus ordered along with vancomycin and cefepime. Patient is white count of 14 with a hemoglobin of 8. The patient's hemoglobin is chronic and stable. Kidney function with a creat of 1.6 which is slightly changed and may be secondary to dehydration. Pro-Diaz is elevated 2.8. The patient's lactate is not elevated. CT does show possible seroma versus hematoma. I did speak with the on-call urologist Dr. Quintero who did look at t he CAT scan and states he does not require repeat operative treatment but does recommend continuing the antibiotics. There was comment on CT about possible appendicitis but the patient has no right lower quadrant pain. I did speak with the on-call hospitalist and the patient was admitted to the medicine service. I did speak with Valentina Hayward PA-C and the patient was admitted by Dr. Jacinto. 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 Dr Quintero, [facility] Family History Son Family history of diabetes mellitus Other No family history of adverse response to anesthesia Social History Smoking Status: Former smoker Cigarettes Per Day: Quit pipe 6 yrs ago, Quit cigs 40 yrs ago; Second Hand Exposure: No; Hx Alcohol Use: Yes Alcohol type: beer Hx Substance Use: No Preferred Language: Guamanian Communication Ability: Effective Crane Service Technician Required: No Beliefs That Will Affect Care: None Current Living Situation: Spouse Feels Safe at Home: Yes Assistive Devices: Walker Allergies Allergies Allergy/AdvReac Type Severity Reaction Status Date / Time No Known Allergies Allergy Verified 10/21/21 15:50 Home Meds Home Medications Medication Instructions Recorded Confirmed lisinopril 5 mg tablet 5 mg PO QAM 01/12/21 10/21/21 pravastatin 10 mg tablet 10 mg PO QAM 01/12/21 10/21/21 acetaminophen 325 mg tablet 650 mg PO DIRECTED PRN 10/21/21 10/21/21 (Tylenol) aspirin 81 mg tablet,delayed 81 mg PO DAILY 10/21/21 10/21/21 release Previous Rx's Medication Instructions Recorded enoxaparin 40 mg/0.4 mL 40 mg SUBCUT DAILY 25 Days #10 ml 10/05/21 subcutaneous syringe (Lovenox) zolpidem 5 mg tablet (Ambien) 5 mg PO DAILY PRN #30 tab 10/19/21 Results & Data (ED) Vital Signs Vital Signs - 24 hr 10/21/21 14:13 10/21/21 16:51 10/21/21 18:00 Temperature 37.2 C Temperature Source Oral Pulse Rate 95 H Pulse Rate [Apical] 101 H 125 H Pulse Rhythm [Apical] Regular Pulse Strength [Apical] Normal Respiratory Rate 20 21 20 Blood Pressure 157/113 H Blood Pressure [Right Arm] 130/80 128/81 Blood Pressure Mean 127 Blood Pressure Mean [Right Arm] 96 96 Pulse Oximetry 98 100 98 Oxygen Delivery Method Room Air Room Air Sepsis Recent Fever Within 48 Hours Yes Sepsis New/Unexplained Change in Mental Status N/A Sepsis Action Taken by Nursing No Action Required 10/21/21 20:00 Temperature Temperature Source Pulse Rate Pulse Rate [Apical] 117 H Pulse Rhythm [Apical] Pulse Strength [Apical] Respiratory Rate 21 Blood Pressure Blood Pressure [Right Arm] 130/80 Blood Pressure Mean Blood Pressure Mean [Right Arm] 96 Pulse Oximetry Oxygen Delivery Method Sepsis Recent Fever Within 48 Hours Sepsis New/Unexplained Change in Mental Status Sepsis Action Taken by [facility] Medications Current Medication List: was personally reviewed by me Laboratory Data Attestation: I reviewed the patient's lab results. Result diagrams: 10/21/21 14:36 10/21/21 14:36 Lab Results 10/21/21 10/21/21 10/21/21 Range/Units 14:36 14:36 15:58 WBC 14.82 H (4.8-10.8) K/uL RBC 3.13 L (4.7-6.1) M/uL Hgb 8.8 L (14.0-18.0) g/dL Hct 27.7 L (42-52) % MCV 88.5 (80-100) fL MCH 28.1 (25-34) pg MCHC 31.8 L (32-36) g/dL RDW Std Deviation 47.7 H (36.4-46.3) fL RDW Coeff of Concha 14.6 H (11.5-14.5) % Plt Count 393 (130-400) K/uL MPV 8.7 (7.4-10.4) fL Immature Gran % (Auto) 0.3 % Neut % (Auto) 80.3 % Lymph % (Auto) 11.1 % Jay % (Auto) 8.2 % Eos % (Auto) 0.0 % Baso % (Auto) 0.1 % Neut # (Auto) 11.89 H (1.4-6.5) K/uL Lymph # (Auto) 1.65 (1.2-3.4) K/uL Jay # (Auto) 1.22 H (0.11-0.59) K/uL Eos # (Auto) 0.00 (0-0.5) K/uL Baso # (Auto) 0.02 (0-0.2) K/uL Immature Gran # (Auto) 0.04 H (0.00-0.02) K/uL Sodium 134 L (136-145) mmol/L Potassium 3.6 (3.5-5.1) mmol/L Chloride 96 L (98-107) mmol/L Carbon Dioxide 24 (21-32) mmol/L Anion Gap 14 H (3-11) BUN 16 (6-23) mg/dl Creatinine 1.60 H (0.6-1.4) mg/dl Est Cr Clr Drug Dosing Not Reportable Est GFR ( Amer) 50.2 ml/min Est GFR (Non-Af Amer) 43.3 ml/min BUN/Creatinine Ratio 10.0 (10-20) Glucose 122 H (70-99(Fasting)) mg/dl Lactate (0.4-2.0) mmol/L Calcium 9.2 (8.5-10.1) mg/dl Total Bilirubin 0.9 (0.2-1.0) mg/dl AST 15 (13-39) U/L ALT 10 (7-52) U/L Alkaline Phosphatase 122 H (34-104) U/L Total Protein 7.6 (6.0-8.3) gm/dl Albumin 3.7 (3.4-5.0) gm/dl Globulin 3.9 (2.5-4.0) gm/dl Albumin/Globulin Ratio 0.9 (0.9-2) Lipase 11 (11-82) U/L Procalcitonin 2.83 H (0-0.5) ng/ml SARS-CoV-2, RNA, NAAT (NEGATIVE) 10/21/21 10/21/21 Range/Units 15:58 19:25 WBC (4.8-10.8) K/uL RBC (4.7-6.1) M/uL Hgb (14.0-18.0) g/dL Hct (42-52) % MCV (80-100) fL MCH (25-34) pg MCHC (32-36) g/dL RDW Std Deviation (36.4-46.3) fL RDW Coeff of Concha (11.5-14.5) % Plt Count (130-400) K/uL MPV (7.4-10.4) fL Immature Gran % (Auto) % Neut % (Auto) % Lymph % (Auto) % Jay % (Auto) % Eos % (Auto) % Baso % (Auto) % Neut # (Auto) (1.4-6.5) K/uL Lymph # (Auto) (1.2-3.4) K/uL Jay # (Auto) (0.11-0.59) K/uL Eos # (Auto) (0-0.5) K/uL Baso # (Auto) (0-0.2) K/uL Immature Gran # (Auto) (0.00-0.02) K/uL Sodium (136-145) mmol/L Potassium (3.5-5.1) mmol/L Chloride (98-107) mmol/L Carbon Dioxide (21-32) mmol/L Anion Gap (3-11) BUN (6-23) mg/dl Creatinine (0.6-1.4) mg/dl Est Cr Clr Drug Dosing Est GFR ( Amer) ml/min Est GFR (Non-Af Amer) ml/min BUN/Creatinine Ratio (10-20) Glucose (70-99(Fasting)) mg/dl Lactate 0.9 (0.4-2.0) mmol/L Calcium (8.5-10.1) mg/dl Total Bilirubin (0.2-1.0) mg/dl AST (13-39) U/L ALT (7-52) U/L Alkaline Phosphatase (34-104) U/L Total Protein (6.0-8.3) gm/dl Albumin (3.4-5.0) gm/dl Globulin (2.5-4.0) gm/dl Albumin/Globulin Ratio (0.9-2) Lipase (11-82) U/L Procalcitonin (0-0.5) ng/ml SARS-CoV-2, RNA, NAAT NEGATIVE (NEGATIVE) Administered Medications Discontinued Medications Sodium Chloride (Nss 1000ml) 2,000 mls @ 999 mls/hr IV .Q2H1M ONE Stop: 10/21/21 17:38 Last Admin: 10/21/21 16:11 Dose: 999 mls/hr Documented by: [id number] Cefepime HCl (Maxipime) 20 mls @ 5 mls/min IV NOW STA Stop: 10/21/21 15:53 Last Admin: 10/21/21 16:11 Dose: 5 mls/min Documented by: [id number] Vancomycin HCl 1,750 mg/ (Sodium Chloride) 535 mls @ 200 mls/hr IV NOW ONE Stop: 10/21/21 18:42 Last Admin: 10/21/21 16:50 Dose: 200 mls/hr Documented by: [id number] Ioversol (Optiray 320 100ml) 95 ml IV ONCE ONE Stop: 10/21/21 16:30 Last Admin: 10/21/21 16:32 Dose: 95 ml Documented by: [id number] Imaging Data Radiologist's Impression: Abdomen/Pelvis CT 10/21/21 16:03 CT OF THE ABDOMEN AND PELVIS WITH CONTRAST CLINICAL HISTORY: recent cystectomy, fever, tachycardia, stents in place COMPARISON STUDY: KUB October 04, 2021. CT of the abdomen and pelvis March 17, 2021. TECHNIQUE: Following IV administration of 95 mL of Optiray, axial images of the abdomen and pelvis were obtained from the lung bases to the proximal femurs. Images were reviewed in the axial, sagittal, and coronal planes. IV contrast was administered without complication. Automated exposure control was utilized for the study. A dose lowering technique was utilized adhering to the principles of ALARA. CT DOSE: 360.31 mGy.cm FINDINGS: Lung bases are unremarkable. No pneumatosis or portal venous gas is present. There are no hepatic lesions. There are gallstones within the gallbladder without evidence for acute cholecystitis. No biliary or pancreatic ductal dilatation is present. Spleen, adrenal glands and pancreas are unremarkable. There is pancreatic glandular atrophy. No peripancreatic in filtration is noted. Note is made of a 3.5 cm hypoenhancing focus within the medial cortex of the upper pole of the right kidney. A right renal cyst is present. Moderate right and mild left renal cortical thinning is present. No hydronephrosis. There are no urinary calculi. Bilateral ureteral stents are in place. Small amount of fluid stranding within the operative bed is noted. There are postoperative findings consistent with cystectomy. Note is made of a small 5.5 x 2.9 x 0.9 cm rim-enhancing cystectomy bed fluid collection. A few water attenuation pockets of fluid along the left iliac vessels are noted. These have no rim enhancement. These measure up to 2.9 cm. These favor seromas. No add itional rim-enhancing fluid collections are present. Colon is mildly fluid- filled. A few loops of mildly dilated small bowel measure up to 3.6 cm. Small bowel dilatation is decreased when compared to exam of October 04, 2021. Appendicoliths within the appendix is noted. The appendix measures 8 mm in c aliber. Appendiceal wall slightly thickened. There is no periappendiceal stranding. No suspicious lesions within the visualized skeletal structures. No abdominal or pelvic lymphadenopathy is present. Small amount gas and fluid within the anterior abdominal wall is postsurgical. IMPRESSION: 1. Status post cystectomy with right lower quadrant ileal loop diversion. No hydronephrosis. Ureteral stents in place. Small 5.5 x 2.9 x 0.9 cm rim-enhancing cyst cystectomy bed fluid collection. This could reflect a resolving hematoma. However, sterility cannot be assessed by CT. Small pockets of fluid along the left iliac vessels favor seromas. 2. Hypoenhancing focus within the medial cortex of the upper pole of the right kidney. This could reflect pyelonephritis or less likely a renal infarct. 3. Mild small bowel dilatation, decreased since KUB of October 04, 2021. This favors a mild ileus. A partial small bowel obstruction could appear similar although is considered less likely. 4. Mildly dilated appendix which contains an appendicolith. Appendix adjacent to operative bed which makes evaluation difficult. Although acute appendicitis is considered unlikely, although this possibility cannot be excluded. 5. Cholelithiasis. No evidence for acute cholecystitis. ACT 112: Negative or not required by law. Electronically signed by: Ronen Cartagena M.D. 10/21/2021 4:55 PM Discharge Plan Visit Data Chief Complaint: Dehydration Stated Complaint: REFERRED, HR HIGH, FEVER, VOMITING, DIARRHEA ED Provider: Agustín Tony Discharge Problem: Sepsis, Pyelonephritis, JN (acute kidney injury), Dehydration Patient Disposition: Admitted As Inpatient Discharge Instructions Interventions: ED Discharge Assessment Last Done: 10/21/21 21:08 Forms Stand Alone Forms: [facility] [place] Prescriptions Prescriptions: No Action lisinopril 5 mg tablet 5 mg PO QAM RF: 0 pravastatin 10 mg tablet 10 mg PO QAM RF: 0 zolpidem [Ambien] 5 mg tablet 5 mg PO DAILY PRN (Reason: insomnia) Qty: 30 RF: 3 enoxaparin [Lovenox] 40 mg/0.4 mL syringe 40 mg subcut DAILY 25 Days Qty: 10 RF: 0 acetaminophen [Tylenol] 325 mg Tablet 650 mg PO DIRECTED PRN (Reason: Pain) RF: 0 aspirin 81 mg Tablet,Delayed Release (Dr/Ec) 81 mg PO DAILY RF: 0 Referrals Referrals: Nakia Frank MD [Primary Care Provider] - Discharge Problem: Sepsis Qualifiers: Sepsis type: sepsis due to unspecified organism Sepsis acute organ dysfunction status: unspecified Qualified Code(s): A41.9 - Sepsis, unspecified organism
[2021-10-21] MEDS ORDERED: CEFEPIME 20 ML IV STA (15:50)
[2021-10-21] MEDS ORDERED: VANCOMYCIN CONSULT ACTIVE PRN (16:02)
[2021-10-21] MEDS ORDERED: VANCOMYCIN HCL 1,750 MG in SODIUM CHLORIDE 0.9% 500 ML IV ONE (16:02)
[2021-10-21] MEDS ORDERED: OPTIRAY 320 100ml IV ONE (16:29)
--- NOTE | 2021-10-21 16:58 | CT Scan Report ---
CT OF THE ABDOMEN AND PELVIS WITH CONTRAST CLINICAL HISTORY: recent cystectomy, fever, tachycardia, stents in place COMPARISON STUDY: KUB October 04, 2021. CT of the abdomen and pelvis March 17, 2021. TECHNIQUE: Following IV administration of 95 mL of Optiray, axial images of the abdomen and pelvis we re obtained from the lung bases to the proximal femurs. Images were reviewed in the axial, sagittal, and coronal planes. IV contrast was administered without complication. Automated exposure control wa s utilized for the study. A dose lowering technique was utilized adhering to the principles of ALARA . CT DOSE: 360.31 mGy.cm FINDINGS: Lung bases are unremarkable. No pneumatosis or portal venous gas is present. There are no h epatic lesions. There are gallstones within the gallbladder without evidence for acute cholecystitis. No biliary or pancreatic ductal dilatation is present. Spleen, adrenal glands and pancreas are unrem arkable. There is pancreatic glandular atrophy. No peripancreatic infiltration is noted. Note is made of a 3.5 cm hypoenhancing focus within the medial cortex of the upper pole of the right kidney. A ri ght renal cyst is present. Moderate right and mild left renal cortical thinning is present. No hydron ephrosis. There are no urinary calculi. Bilateral ureteral stents are in place. Small amount of fluid stranding within the operative bed is noted. There are postoperative findings consistent with cystec dennis. Note is made of a small 5.5 x 2.9 x 0.9 cm rim-enhancing cystectomy bed fluid collection. A few water attenuation pockets of fluid along the left iliac vessels are noted. These have no rim enhance ment. These measure up to 2.9 cm. These favor seromas. No additional rim-enhancing fluid collections are present. Colon is mildly fluid-filled. A few loops of mildly dilated small bowel measure up to 3. 6 cm. Small bowel dilatation is decreased when compared to exam of October 04, 2021. Appendicoliths wit hin the appendix is noted. The appendix measures 8 mm in caliber. Appendiceal wall slightly thickened . There is no periappendiceal stranding. No suspicious lesions within the visualized skeletal structu res. No abdominal or pelvic lymphadenopathy is present. Small amount gas and fluid within the anterio r abdominal wall is postsurgical. IMPRESSION: 1. Status post cystectomy with right lower quadrant ileal loop diversion. No hydronephrosis. Ureteral stents in place. Small 5.5 x 2.9 x 0.9 cm rim-enhancing cyst cystectomy bed fluid collection. This c ould reflect a resolving hematoma. However, sterility cannot be assessed by CT. Small pockets of flui d along the left iliac vessels favor seromas. 2. Hypoenhancing focus within the medial cortex of the upper pole of the right kidney. This could ref lect pyelonephritis or less likely a renal infarct. 3. Mild small bowel dilatation, decreased since KUB of October 04, 2021. This favors a mild ileus. A pa rtial small bowel obstruction could appear similar although is considered less likely. 4. Mildly dilated appendix which contains an appendicolith. Appendix adjacent to operative bed which makes evaluation difficult. Although acute appendicitis is considered unlikely, although this possibi lity cannot be excluded. 5. Cholelithiasis. No evidence for acute cholecystitis. ACT 112: Negative or not required by law. Electronically signed by: Ronen Cartagena M.D. 10/21/2021 4:55 PM
--- NOTE | 2021-10-21 18:01 | History & Physical Report ---
Date of Service October 21, 2021 Assessment & Plan (1) Sepsis: (2) Pyelonephritis: Plan: Patient is 71-year-old male with PMH bladder CA s/p chemo, s/p TURBT, s/p cystoprostatectomy with ileal conduit on 09/29/[address] Quintero, HTN, HLD, CVA, essential tremor presented to ER with complaint of fever 102F, chills, vomiting, diarrhea In ER patient afebrile, P: 95, R: 20, BP 157/113 down to 130/80, 98% on room air. WBC: 14, lactate: 0.9, procalcitonin: 0.8 CT abdomen pelvis: Status post cystectomy with right lower quadrant ileal loop diversion. No hydronephrosis. Ureteral stents in place. Small 5.5 x 2.9 x 0.9 cm rim-enhancing cyst cystectomy bed fluid collection. This could reflect a resolving hematoma. However, sterility cannot be assessed by CT. Small pockets of fluid along the left iliac vessels favor seromas. Hypoenhancing focus within the medial cortex of the upper pole of the right kidney. This could reflect pyelonephritis or less likely a renal infarct. In ER given 2 L NSS, cefepime, vancomycin Blood cultures pending UA, urine culture pending Stool studies, C-diff pending Zosyn, daptomycin IVF Consider ID consult upon culture results CBC, BMP in a.m. (3) JN (acute kidney injury): Plan: Cr: 1.6. Baseline~1.2 Avoid nephrotoxic agents when possible Monitor renal functions If no improvement or worsening consider nephrology consult (4) Ileus: Plan: R/O SBO CT ABD/PELVIS: Mild small bowel dilatation, decreased since KUB of October 04, 2021. This favors a mild ileus. A partial small bowel obstruction could appear similar although is considered less likely. Mildly dilated appendix which contains an appendicolith. Appendix adjacent to operative bed which makes evaluation difficult. Although acute appendicitis is considered unlikely, although this possibility cannot be excluded. Cholelithiasis. No evidence for acute cholecystitis. No reported abdominal pain. No abdominal tenderness to palpation on examination. Clear liquids N.p.o. midnight KUB in a.m. General surgery consult (5) Anemia: Plan: Hgb: 8.8. Was 8.2 on 10/05/2021 postop day 6. Baseline in the 9s Monitor H&H (6) Hypertension: Plan: Currently stable Hold lisinopril secondary to JN (7) Hyperlipidemia: Plan: Hold pravastatin secondary to daptomycin (8) Stroke: Plan: Continue aspirin Holding statin as above DVT Prophylaxis Lovenox SQ Full code as per discussion with pt Follows with Dr Nakia Frank in [place] for routine care Pt was seen and care coordinated with Dr Jacinto. See addendum History of Present Illness Chief Complaint: Fever Primary Care Provider: Nakia Frank MD Patient is 71-year-old male with PMH bladder CA s/p chemo, s/p TURBT, s/p cystoprostatectomy with ileal conduit on 09/29/[address] Quintero, HTN, HLD, CVA, essential tremor presented to ER with complaint of fever. History obtained from patient and patient's . Reported yesterday patient with chills and last evening with temp of 102F. During the middle the night had episode of vomiting and diarrhea. This morning another episode of vomiting and diarrhea. Reports has had several other episodes of diarrhea today. Denies any hematemesis, melena, hematochezia. Reports had constipation upon hospital discharge and this week has been having bowel movements small hard stool. Denies abdominal pain. Patient states this morning had pain across low back which resolved after taking Tylenol. Denies any recurrent back pain. Reports urine in bag is yellow in coloration without noted hematuria. Denies diaphoresis, ALFARO, dizziness, syncope, vision changes, neck pain, CP, SOB, orthopnea, palpitations, cough, sore throat, choking, otalgia, rhinorrhea, paresthesias, weakness, extremity weakness, extremity edema, rashes. Allergies Allergy/AdvReac Type Severity Reaction Status Date / Time No Known Allergies Allergy Verified 10/21/21 15:50 Home Medications Medication Instructions Recorded Confirmed Type lisinopril 5 mg tablet 5 mg PO QAM 01/12/21 10/21/21 History pravastatin 10 mg tablet 10 mg PO QAM 01/12/21 10/21/21 History enoxaparin 40 mg/0.4 mL 40 mg SUBCUT DAILY 25 Days #10 ml 10/05/21 10/21/21 Rx subcutaneous syringe (Lovenox) zolpidem 5 mg tablet (Ambien) 5 mg PO DAILY PRN #30 tab 10/19/21 10/21/21 Rx acetaminophen 325 mg tablet 650 mg PO DIRECTED PRN 10/21/21 10/21/21 History (Tylenol) aspirin 81 mg tablet,delayed 81 mg PO DAILY 10/21/21 10/21/21 History release Past Med/Surg History Medical History Bladder cancer hx chemotherapy (Fall 2020) BPH (benign prostatic hyperplasia) Essential tremor Hyperlipidemia Hypertension Lung nodules Under CT surveillance Stroke 2015, 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 Surgical History History of bilateral cataract extraction History of bladder surgery TURBT (07/07/21): LMA#5 at [facility] History of cystoscopy S/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 Dr Quintero, [facility] Family History Son Family history of diabetes mellitus Other No family history of adverse response to anesthesia Social History Smoking Status: Former smoker Cigarettes Per Day: Quit pipe 6 yrs ago, Quit cigs 40 yrs ago; Second Hand Exposure: No; Hx Alcohol Use: Yes Alcohol type: beer Hx Substance Use: No Preferred Language: Botswanan Communication Ability: Effective Dental Laboratory Supervisor Required: No Beliefs That Will Affect Care: None Current Living Situation: Spouse Feels Safe at Home: Yes Assistive Devices: Walker Review of Systems Review of Systems: All systems reviewed & are unremarkable except as noted in HPI & below Physical Exam Physical Exam: General: no acute distress, ill appearing, WDWN Head: normocephalic, atraumatic Eyes: PERRL, EOM's intact, conjunctiva non-injected, anicteric ENT: normal inspection external ears, nose, mucous membranes dry Neck: supple, trachea midline Lungs: clear, no respiratory distress, no wheezing/rhonchi/rales CV: rate 102, regular rhythm, no murmur, no pretibial edema Abd: +incisions appear healing without discharge or erythema, +urine in bag yellow in color, normal BS, soft, non-tender Ext: no cyanosis, no calf tenderness Neuro: A&O x 3, no focal deficits noted, normal affect Skin: warm, dry Results & Data Results & Data ([facility]) Vital Signs (Past 12 Hours) Vital Signs Temp Pulse Pulse Resp BP BP Pulse Ox 10/21/21 16:51 101 H 21 130/80 100 10/21/21 14:13 37.2 C 95 H 20 157/113 H 98 Laboratory Results Short CBC 10/21/21 Range/Units 14:36 WBC 14.82 H (4.8-10.8) K/uL Hgb 8.8 L (14.0-18.0) g/dL Hct 27.7 L (42-52) % Plt Count 393 (130-400) K/uL BMP 10/21/21 14:36 Sodium 134 L Potassium 3.6 Chloride 96 L Carbon Dioxide 24 BUN 16 Creatinine 1.60 H Glucose 122 H Calcium 9.2 Liver Function 10/21/21 Range/Units 14:36 Total Bilirubin 0.9 (0.2-1.0) mg/dl AST 15 (13-39) U/L ALT 10 (7-52) U/L Alkaline Phosphatase 122 H (34-104) U/L Albumin 3.7 (3.4-5.0) gm/dl Diagnostic Findings Abdomen/Pelvis CT 10/21/21 16:03 CT OF THE ABDOMEN AND PELVIS WITH CONTRAST CLINICAL HISTORY: recent cystectomy, fever, tachycardia, stents in place COMPARISON STUDY: KUB October 04, 2021. CT of the abdomen and pelvis March 17, 2021. TECHNIQUE: Following IV administration of 95 mL of Optiray, axial images of the abdomen and pelvis were obtained from the lung bases to the proximal femurs. Images were reviewed in the axial, sagittal, and coronal planes. IV contrast was administered without complication. Automated exposure control was utilized for the study. A dose lowering technique was utilized adhering to the principles of ALARA. CT DOSE: 360.31 mGy.cm FINDINGS: Lung bases are unremarkable. No pneumatosis or portal venous gas is present. There are no hepatic lesions. There are gallstones within the gallbladder without evidence for acute cholecystitis. No biliary or pancreatic ductal dilatation is present. Spleen, adrenal glands and pancreas are unremarkable. There is pancreatic glandular atrophy. No peripancreatic infiltration is noted. Note is made of a 3.5 cm hypoenhancing focus within the medial cortex of the upper pole of the right kidney. A right renal cyst is present. Moderate right and mild left renal cortical thinning is present. No hydronephrosis. There are no urinary calculi. Bilateral ureteral stents are in place. Small amount of fluid stranding within the operative bed is noted. There are postoperative findings consistent with cystectomy. Note is made of a small 5.5 x 2.9 x 0.9 cm rim-enhancing cystectomy bed fluid collection. A few water attenuation pockets of fluid along the left iliac vessels are noted. These have no rim enhancement. These measure up to 2.9 cm. These favor seromas. No additional rim-enhancing fluid collections are present. Colon is mildly fluid- filled. A few loops of mildly dilated small bowel measure up to 3.6 cm. Small bowel dilatation is decreased when compared to exam of October 04, 2021. Appendicoliths within the appendix is noted. The appendix measures 8 mm in caliber. Appendiceal wall slightly thickened. There is no periappendiceal stranding. No suspicious lesions within the visualized skeletal structures. No abdominal or pelvic lymphadenopathy is present. Small amount gas and fluid within the anterior abdominal wall is postsurgical. IMPRESSION: 1. Status post cystectomy with right lower quadrant ileal loop diversion. No hydronephrosis. Ureteral stents in place. Small 5.5 x 2.9 x 0.9 cm rim-enhancing cyst cystectomy bed fluid collection. This could reflect a resolving hematoma. However, sterility cannot be assessed by CT. Small pockets of fluid along the left iliac vessels favor seromas. 2. Hypoenhancing focus within the medial cortex of the upper pole of the right kidney. This could reflect pyelonephritis or less likely a renal infarct. 3. Mild small bowel dilatation, decreased since KUB of October 04, 2021. This favors a mild ileus. A partial small bowel obstruction could appear similar although is considered less likely. 4. Mildly dilated appendix which contains an appendicolith. Appendix adjacent to operative bed which makes evaluation difficult. Although acute appendicitis is considered unlikely, although this possibility cannot be excluded. 5. Cholelithiasis. No evidence for acute cholecystitis. ACT 112: Negative or not required by law. Electronically signed by: Ronen Cartagena M.D. 10/21/2021 4:55 PM Supervising Physician Co-Signing Physician Notes Patient is a 71-year-old male with history of bladder cancer S/P TURP, cystoprostatectomy and other medical problems presents with history of fever, chills, back pain associated with the episode of vomiting and diarrhea since yesterday. Patient states back pain is all across lower back, nonradiating. Please review HPI for complete details of presentation. Blood work suggestive of leukocytosis 14.8, anemia hemoglobin 8.8, hematocrit 27.7, sodium 134, chloride 96, creatinine 1.6, glucose 122, procalcitonin 2.83, lactate 0.9. CT abdomen suggestive of postoperative changes, resolving hematoma, findings suggestive of pyelonephritis, ileus mildly dilated appendix. Blood, urine cultures pending. EKG showed sinus tachycardia. QTC of 465. On exam patient is ill-appearing, no apparent distress, normocephalic atraumatic, EOMI, normal breath sounds, clear to auscultation, S1-S2, tachycardic, no murmur, no pedal edema, abdomen soft, nontender, mildly distended, surgical site in dressing,+ colostomy, decreased bowel sounds, alert, awake, oriented, grossly no focal deficits. Patient is admitted for management of sepsis, pyelonephritis. Also JN, ileus. Agree with starting on broad-spectrum antibiotics Dapto, Zosyn. Follow-up cultures. Consulted urology for further recommendations. Consult surgery as CT findings suggestive of developing bowel obstruction. Stool studies requested. Avoid nephrotoxic agents. IV fluids. I personally reviewed the record. Patient is interviewed and examined at bedside. Patient's care is coordinated with America Hayward PA-C. Please refer to the documentation above for details of patient's presentation and for discussion of other issues. (1) Sepsis Sepsis acute organ dysfunction status: unspecified Sepsis type: sepsis due to unspecified organism Qualified Code(s): A41.9 - Sepsis, unspecified organism
[2021-10-21] MEDS ORDERED: CONSULT PHARMACY STA (19:15)
--- NOTE | 2021-10-21 20:14 | Surgery Consultation ---
Date of Consultation October 21, 2021 Assessment & Plan (1) Ileus: pt is consult CT scan finding- ileus, pt denies abdominal pain, IMP: ileus plan, no surgery indication now, recommend conservative treatment, will F/U, History of Present Illness Reason for Consultation: Ileus Requesting Physician: America Galindo History of Present Illness Chief Complaint: Fever Primary Care Provider: Nakia Frank MD Patient is 71-year-old male with PMH bladder CA s/p chemo, s/p TURBT, s/p cystoprostatectomy with ileal conduit on 09/29/[address] Quintero, HTN, HLD, CVA, essential tremor presented to ER with complaint of fever. History obtained from patient and patient's . Reported yesterday patient with chills and last evening with temp of 102F. During the middle the night had episode of vomiting and diarrhea. This morning another episode of vomiting and diarrhea. Reports has had several other episodes of diarrhea today. Denies any hematemesis, melena, hematochezia. Reports had constipation upon hospital discharge and this week has been having bowel movements small hard stool. Denies abdominal pain. Patient states this morning had pain across low back which resolved after taking Tylenol. Denies any recurrent back pain. Reports urine in bag is yellow in coloration without noted hematuria. Denies diaphoresis, ALFARO, dizziness, syncope, vision changes, neck pain, CP, SOB, orthopnea, palpitations, cough, sore throat, choking, otalgia, rhinorrhea, paresthesias, weakness, extremity weakness, extremity edema, rashes. I ( Vanesa Harman MD ) got a call for consult ileus, I reviewed pt's H/P, labs CT scan with pt, pt denies abdominal pain, some diarrhea, Allergies Allergy/AdvReac Type Severity Reaction Status Date / Time No Known Allergies Allergy Verified 10/21/21 15:50 Home Medications Medication Instructions Recorded Confirmed Type lisinopril 5 mg tablet 5 mg PO QAM 01/12/21 10/21/21 History pravastatin 10 mg tablet 10 mg PO QAM 01/12/21 10/21/21 Histor y enoxaparin 40 mg/0.4 mL 40 mg SUBCUT DAILY 25 Days #10 ml 10/05/21 Rx subcutaneous syringe (Lovenox) zolpidem 5 mg tablet (Ambien) 5 mg PO DAILY PRN #30 tab 10/19/2109/26 Rx acetaminophen 325 mg tablet 650 mg PO DIRECTED PRN 10/21/21 History (Tylenol) aspirin 81 mg tablet,delayed 81 mg PO DAILY 10/21/21 10/21/21 Hi story release Past Med/Surg History Medical History(Updated 10/21/21 @ 19:24 by America Hayward PA-C) Bladder cancer hx chemotherapy (Fall 2020)BPH (benign prostatic hyperplasia) Essential tremor Hyperlipidemia Hypertension Lung nodules Under CT surveillanceStroke 2015, 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 Surgical History(Updated 10/21/21 @ 19:25 by America Hayward PA-C) History of bilateral cataract extraction History of bladder [facility]21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 Dr Quintero, [facility] Family History Son Family history of diabetes mellitusOther No family history of adverse response to anesthesia Social History Smoking Status: Former smoker Cigarettes Per Day: Quit pipe 6 yrs ago, Quit cigs 40 yrs ago; Second Hand Exposure: No; Hx Alcohol Use: Yes Alcohol type: beer Hx Substance Use: No Preferred Language: Mosotho Communication Ability: Effective Rn Surgical Required: No Beliefs That Will Affect Care: None Current Living Situation: Spouse Feels Safe at Home: Yes Assistive Devices: Walker Review of Systems Review of Systems: All systems reviewed & are unremarkable except as noted in HPI & below Allergies Allergy/AdvReac Type Severity Reaction Status Date / Time No Known Allergies Allergy Verified 10/21/21 15:50 Home Medications Medication Instructions Recorded Confirmed Type lisinopril 5 mg tablet 5 mg PO QAM 01/12/21 10/21/21 History pravastatin 10 mg tablet 10 mg PO QAM 01/12/21 10/21/21 History enoxaparin 40 mg/0.4 mL 40 mg SUBCUT DAILY 25 Days #10 ml 10/05/21 10/21/21 Rx subcutaneous syringe (Lovenox) zolpidem 5 mg tablet (Ambien) 5 mg PO DAILY PRN #30 tab 10/19/21 10/21/21 Rx acetaminophen 325 mg tablet 650 mg PO DIRECTED PRN 10/21/21 10/21/21 History (Tylenol) aspirin 81 mg tablet,delayed 81 mg PO DAILY 10/21/21 10/21/21 History release Patient History Medical History (Updated 10/21/21 @ 19:24 by America Hayward PA-C) Bladder cancer hx chemotherapy (Fall 2020) BPH (benign prostatic hyperplasia) Essential tremor Hyperlipidemia Hypertension Lung nodules Under CT surveillance Stroke 2015, 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 Surgical History (Updated 10/21/21 @ 19:25 by America Hayward PA-C) History of bilateral cataract extraction History of bladder surgery TURBT (07/07/21): LMA#5 at [facility] History of cystoscopy S/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 Dr Quintero, [facility] Family History Son Family history of diabetes mellitus Other No family history of adverse response to anesthesia Social History Smoking Status: Former smoker Cigarettes Per Day: Quit pipe 6 yrs ago, Quit cigs 40 yrs ago; Second Hand Exposure: No; Hx Alcohol Use: Yes Alcohol type: beer Hx Substance Use: No Preferred Language: Mosotho Communication Ability: Effective Rn Surgical Required: No Beliefs That Will Affect Care: None Current Living Situation: Spouse Feels Safe at Home: Yes Assistive Devices: Walker Physical Exam Constitutional: WD/WN, vitals as above no distress Eyes: PERRL, conjunctivae normal, anicteric sclerae Neck: trachea midline, no thyromegaly Respiratory: normal respiratory effort, lungs clear to auscultation Cardiovascular: RRR, no murmur, no edema Gastrointestinal (Abdomen): soft, no distend, no tenderness, urine bag intact, BS + Neurologic: patellar DTR's 2+ bilat, sensation intact Psychiatric: A+Ox3, euthymic affect Results & Data ([facility]) Vital Signs (Past 12 Hours) Vital Signs Temp Pulse Pulse Resp BP BP Pulse Ox 10/21/21 18:00 125 H 20 128/81 98 10/21/21 16:51 101 H 21 130/80 100 10/21/21 14:13 37.2 C 95 H 20 157/113 H 98 Laboratory Results Abnormal lab results 10/21/21 10/21/21 10/21/21 Range/Units 14:36 14:36 15:58 WBC 14.82 H (4.8-10.8) K/uL RBC 3.13 L (4.7-6.1) M/uL Hgb 8.8 L (14.0-18.0) g/dL Hct 27.7 L (42-52) % MCHC 31.8 L (32-36) g/dL RDW Std Deviation 47.7 H (36.4-46.3) fL RDW Coeff of [place] 14.6 H (11.5-14.5) % Neut # (Auto) 11.89 H (1.4-6.5) K/uL [place] # (Auto) 1.22 H (0.11-0.59) K/uL Immature Gran # (Auto) 0.04 H (0.00-0.02) K/uL Sodium 134 L (136-145) mmol/L Chloride 96 L (98-107) mmol/L Anion Gap 14 H (3-11) Creatinine 1.60 H (0.6-1.4) mg/dl Glucose 122 H (70-99(Fasting)) mg/dl Alkaline Phosphatase 122 H (34-104) U/L Procalcitonin 2.83 H (0-0.5) ng/ml Diagnostic Findings CT OF THE ABDOMEN AND PELVIS WITH CONTRAST CLINICAL HISTORY: recent cystectomy, fever, tachycardia, stents in place COMPARISON STUDY: KUB October 04, 2021. CT of the abdomen and pelvis March 17, 2021. TECHNIQUE: Following IV administration of 95 mL of Optiray, axial images of the abdomen and pelvis were obtained from the lung bases to the proximal femurs. Images were reviewed in the axial, sagittal, and coronal planes. IV contrast was administered without complication. Automated exposure control was utilized for the study. A dose lowering technique was utilized adhering to the principles of ALARA. CT DOSE: 360.31 mGy.cm FINDINGS: Lung bases are unremarkable. No pneumatosis or portal venous gas is present. There are no hepatic lesions. There are gallstones within the gallbladder without evidence for acute cholecystitis. No biliary or pancreatic ductal dilatation is present. Spleen, adrenal glands and pancreas are unremarkable. There is pancreatic glandular atrophy. No peripancreatic infiltration is noted. Note is made of a 3.5 cm hypoenhancing focus within the medial cortex of the upper pole of the right kidney. A right renal cyst is present. Moderate right and mild left renal cortical thinning is present. No hydronephrosis. There are no urinary calculi. Bilateral ureteral stents are in place. Small amount of fluid stranding within the operative bed is noted. There are postoperative findings consistent with cystectomy. Note is made of a small 5.5 x 2.9 x 0.9 cm rim-enhancing cystectomy bed fluid collection. A few water attenuation pockets of fluid along the left iliac vessels are noted. These have no rim enhancement. These measure up to 2.9 cm. These favor seromas. No additional rim-enhancing fluid collections are present. Colon is mildly fluid- filled. A few loops of mildly dilated small bowel measure up to 3.6 cm. Small bowel dilatation is decreased when compared to exam of October 04, 2021. Appendicoliths within the appendix is noted. The appendix measures 8 mm in caliber. Appendiceal wall slightly thickened. There is no periappendiceal stranding. No suspicious lesions within the visualized skeletal structures. No abdominal or pelvic lymphadenopathy is present. Small amount gas and fluid within the anterior abdominal wall is postsurgical. IMPRESSION: 1. Status post cystectomy with right lower quadrant ileal loop diversion. No hydronephrosis. Ureteral stents in place. Small 5.5 x 2.9 x 0.9 cm rim-enhancing cyst cystectomy bed fluid collection. This could reflect a resolving hematoma. However, sterility cannot be assessed by CT. Small pockets of fluid along the left iliac vessels favor seromas. 2. Hypoenhancing focus within the medial cortex of the upper pole of the right kidney. This could reflect pyelonephritis or less likely a renal infarct. 3. Mild small bowel dilatation, decreased since KUB of October 04, 2021. This favors a mild ileus. A partial small bowel obstruction could appear similar although is considered less likely. 4. Mildly dilated appendix which contains an appendicolith. Appendix adjacent to operative bed which makes evaluation difficult. Although acute appendicitis is considered unlikely, although this possibility cannot be excluded. 5. Cholelithiasis. No evidence for acute cholecystitis.
[2021-10-21] MEDS ORDERED: POLYETHYLENE (MIRALAX) 17 GM PACK PO PRN (21:34)
[2021-10-21] MEDS ORDERED: ONDANSETRON INJ 2 MG/ML 2 ML VIAL IV PRN (21:34)
[2021-10-21] MEDS ORDERED: ACETAMINOPHEN 325 MG TAB PO PRN (21:34)
[2021-10-21] MEDS ORDERED: PIPERACILL/TAZOBAC CONSULT ACTIVE PRN (21:56)
[2021-10-21] MEDS ORDERED: PIPERACILLIN/TAZOBACTAM 4.5 GM in DEXTROSE 5% 100 ML IV ONE (22:00)
[2021-10-21] MEDS: DOCUSATE SODIUM 100 MG CAP PO SCH (22:13)
[2021-10-21] MEDS: SODIUM CHLORIDE 0.9% 1000ML 1,000 ML IV SCH (22:16)
[2021-10-22] MEDS: DAPTOmycin 400 MG in SYRINGE 0 ML IV SCH ×2 (01:14→22:57)
[2021-10-22] MEDS: PIPERACILLIN/TAZOBACTAM 3.375 GM in DEXTROSE 5% 100 ML IV SCH ×3 (04:00→21:05)
[2021-10-22 05:54] LABS: Basophils # (auto) 0.01 K/uL (0-0.2); Basophils % (auto) 0.1 %; Eosinophils # (auto) 0.02 K/uL (0-0.5); Eosinophils % (auto) 0.3 %; Hematocrit (blood only) 22.9 % (42-52); Hemoglobin 7.5 g/dL (14.0-18.0); Immature Granulocytes # (auto) 0.02 K/uL (0.00-0.02); Immature Granulocytes % (auto) 0.3 %; Lymphocytes # (auto) 0.84 K/uL (1.2-3.4); Mean Corpuscular Hemoglobin 28.7 pg (25-34); Mean Corpuscular Hgb Conc 32.8 g/dL (32-36); Mean Corpuscular Volume 87.7 fL (80-100); Mean Platelet Volume 8.4 fL (7.4-10.4); Monocytes # (auto) 0.71 K/uL (0.11-0.59); Monocytes % (auto) 9.3 %; Neutrophils # (auto) 6.07 K/uL (1.4-6.5); Platelet Count 266 K/uL (130-400); RDW Coefficient of Variation 14.6 % (11.5-14.5); RDW Standard Deviation 47.3 fL (36.4-46.3); Red Blood Count 2.61 M/uL (4.7-6.1); White Blood Count 7.67 K/uL (4.8-10.8)
[2021-10-22 06:14] LABS: Ovalocytes 1+
[2021-10-22 06:26] LABS: BUN Creatinine Ratio 9.8 (10-20); Calcium 7.8 mg/dl (8.5-10.1); Creatinine Clr Calc Pharmacy 49.8 ml/min; Est GFR (African American) 63.3 ml/min; Est GFR (Non-African American) 54.7 ml/min; Potassium 2.7 mmol/L (3.5-5.1)
[2021-10-22] MEDS: SODIUM CHLORIDE 0.9% 1000ML 1,000 ML IV SCH (06:26)
[2021-10-22] MEDS: POTASSIUM CHLORIDE / WTR 10 MEQ/100 ML PLCT IV SCH ×4 (09:11→13:19)
[2021-10-22] MEDS: ASPIRIN 81 MG ECTAB PO SCH (09:12)
[2021-10-22] MEDS: ENOXAPARIN INJ 40 MG/0.4 ML SYR SQ SCH (09:12)
[2021-10-22] MEDS: DOCUSATE SODIUM 100 MG CAP PO SCH ×2 (09:13→21:06)
--- NOTE | 2021-10-22 10:13 | Urology Consultation ---
Date of Consultation October 22, 2021 Assessment & Plan (1) Bladder cancer: (2) Parkinsonism: (3) Pyelonephritis: (4) Ileus: readmitted after cystoprostatectomy with ileal conduit - predominantly GI related - imaging raised question of pyelo - some fluid/blood in the pelvis - overall, not an unexpected finding given the size of his surgery - stents are still in place - on dapto/zosyn - replete lytes - cont IVF - transfer to our service - keep NPO for now - keep rectal tube for now - I suspect he will get back on track with some supportive care and nurturing History of Present Illness Attending Physician: Christiano Camacho MD History of Present Illness recently status post cystectomy admitted last night with nausea/vomiting and low grade temps subjectively much better today no nausea rectal tube in place - but reports he had a sudden release of flatus and decompression of his abdomen with passage of the tube labs have changed significantly overnight will continue to monitor hg is fatoumata wbc is down repleting K now IVF running now Allergies Allergy/AdvReac Type Severity Reaction Status Date / Time No Known Allergies Allergy Verified 10/21/21 15:50 Home Medications Medication Instructions Recorded Confirmed Type lisinopril 5 mg tablet 5 mg PO QAM 01/12/21 10/21/21 History pravastatin 10 mg tablet 10 mg PO QAM 01/12/21 10/21/21 History enoxaparin 40 mg/0.4 mL 40 mg SUBCUT DAILY 25 Days #10 ml 10/05/21 10/21/21 Rx subcutaneous syringe (Lovenox) zolpidem 5 mg tablet (Ambien) 5 mg PO DAILY PRN #30 tab 10/19/21 10/21/21 Rx acetaminophen 325 mg tablet 650 mg PO DIRECTED PRN 10/21/21 10/21/21 History (Tylenol) aspirin 81 mg tablet,delayed 81 mg PO DAILY 10/21/21 10/21/21 History release Patient History Medical History Bladder cancer hx chemotherapy (Fall 2020) BPH (benign prostatic hyperplasia) Essential tremor Hyperlipidemia Hypertension Lung nodules Under CT surveillance Stroke 2015, 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 Surgical History History of bilateral cataract extraction History of bladder surgery TURBT (07/07/21): LMA#5 at [facility] History of cystoscopy S/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 Dr Quintero, [facility] Family History Son Family history of diabetes mellitus Other No family history of adverse response to anesthesia Social History Smoking Status: Former smoker Cigarettes Per Day: Quit pipe 6 yrs ago, Quit cigs 40 yrs ago; Second Hand Exposure: No; Do You Dip or Chew Tobacco: No; Tobacco Cessation Education Requested by Patient: No Hx Alcohol Use: Yes Alcohol type: beer Hx Substance Use: No Preferred Language: Surinamese Communication Ability: Effective Parking Enforcement Officer Required: No Beliefs That Will Affect Care: None Current Living Situation: Spouse Other Information That Helps Us Care for You: No Feels Safe at Home: Yes Safety Concerns: Feels Safe At This Time Assistive Devices: Denture - Upper, Denture - Lower and Walker Assistive Devices Comment: States he does not wear his dentures Review of Systems Review of Systems: nausea and vomiting abnormal bowel function Physical Exam Physical Exam: comfortable appearing no resp distress borderline tachy abd soft stoma pink/productive incisions ok urine clear rectal tube in place Results & Data ([facility]) Vital Signs (Past 12 Hours) Vital Signs Temp Pulse Pulse Resp BP Pulse Ox 10/22/21 08:00 37.0 C 103 H 20 97 10/22/21 04:44 37.8 C H 103 H 18 126/55 L 96 10/22/21 00:00 106 H PG Care Time/CCT Total # of Minutes Spent Total Time Spent with Patient: Total time spent is greater than 50% in coordination of care (as documented) at patient's floor/unit and/or counseling patient: Coding Level of Care Code 44965 Inpt Consult Level 3 Diagnoses Bladder cancer C67.9 Parkinsonism G20 Pyelonephritis N12 Ileus K56.7
[2021-10-22 10:47] LABS: Adenovirus F 40/41 PCR Not Detected (NotDetected); Astrovirus PCR Not Detected (NotDetected); Campylobacter PCR Not Detected (NotDetected); Clostridium diff Toxin A/B PCR Not Detected (NotDetected); Cryptosporidium PCR Not Detected (NotDetected); Cyclospora cayetanensis PCR Not Detected (NotDetected); Entamoeba histolytica PCR Not Detected (NotDetected); Enteroaggregative E.coli(EAEC) Not Detected (NotDetected); Enteropathogenic E.coli (EPEC) Not Detected (NotDetected); Enterotoxigenic E.coli (ETEC) Not Detected (NotDetected); Giardia lamblia PCR Not Detected (NotDetected); Norovirus GI/GII PCR Not Detected (NotDetected); Plesiomonas shigelloides PCR Not Detected (NotDetected); Rotavirus A PCR Not Detected (NotDetected); Salmonella PCR Not Detected (NotDetected); Sapovirus PCR Not Detected (NotDetected); Shiga-like Toxin E.coli (STEC) Not Detected (NotDetected); Shigella/Enteroinvasive E.coli Not Detected (NotDetected); Vibrio cholerae PCR Not Detected (NotDetected); Vibrio species PCR Not Detected (NotDetected); Yersinia enterocolitica PCR Not Detected (NotDetected)
--- NOTE | 2021-10-22 11:13 | XRay Report ---
KUB HISTORY: ileus COMPARISON: Abdomen and pelvis CT 10/21/2021 FINDINGS: Borderline dilated gas-filled loops of large and small bowel have improved in the interval. This suggests a resolving ileus. The right lower quadrant ileal loop diversion with nephroureteral s tents in place. No renal calculi. No ureteral calculi. No pneumoperitoneum or pneumatosis. IMPRESSION: Borderline dilated gas-filled loops of large and small bowel which have improved in the interval. Thi s suggests a resolving ileus. ACT 112: Negative or not required by law. Electronically signed by: Kelby Hanley M.D. 10/22/2021 11:10 AM
--- NOTE | 2021-10-22 13:21 | Surgery Progress Note ---
Date of Service October 22, 2021 Assessment & Plan (1) Ileus: Plan: Abdomen is soft with liquid stool via rectal tube No abdominal pain No nausea or vomiting No leukocytosis Plan: No surgical intervention required at this time Continue conservative management as urology recommendations Replace potassium Continue IV fluids Keep n.p.o. per urology Continue to closely monitor Dr. Harman was present during my examination and agrees with above Admission and Anticipated Discharge Date Admission Date: October 21, 2021 Subjective Feeling better today No abdominal pain No nausea no vomiting Really hungry and would like something to eat Physical Exam Constitutional: WD/WN, vitals as above no acute distress and not ill appearing Neck: normal visual inspection and trachea midline Respiratory: normal respiratory effort; no respiratory distress Gastrointestinal (Abdomen): Inspection/Auscultation: + abdominal surgical incision (Covered with clean and dry dressing); abdomen not distended Percussion/Palpation: abdomen soft; abdomen nontender, no guarding and abdomen not rigid Right lower quadrant stoma with clear urine in the bag Rectal tube with liquid stool in the bag Skin: no rashes, warm and dry Psychiatric: Orientation: alert and oriented x 3 Results & Data ([facility]) Vital Signs (Past 12 Hours) Vital Signs Temp Pulse Resp BP Pulse Ox 10/22/21 11:49 36.9 C 95 H 18 111/70 96 10/22/21 08:00 37.0 C 103 H 20 97 10/22/21 04:44 37.8 C H 103 H 18 126/55 L 96 Laboratory Results 10/22/21 10/22/21 10/22/21 Range/Units 09:15 05:30 05:30 WBC 7.67 (4.8-10.8) K/uL RBC 2.61 L (4.7-6.1) M/uL Hgb 7.5 L (14.0-18.0) g/dL Hct 22.9 L (42-52) % MCV 87.7 (80-100) fL MCH 28.7 (25-34) pg MCHC 32.8 (32-36) g/dL RDW Std Deviation 47.3 H (36.4-46.3) fL RDW Coeff of Concha 14.6 H (11.5-14.5) % Plt Count 266 (130-400) K/uL MPV 8.4 (7.4-10.4) fL Immature Gran % (Auto) 0.3 % Neut % (Auto) 79.0 % Lymph % (Auto) 11.0 % Piatt % (Auto) 9.3 % Eos % (Auto) 0.3 % Baso % (Auto) 0.1 % Neut # (Auto) 6.07 (1.4-6.5) K/uL Lymph # (Auto) 0.84 L (1.2-3.4) K/uL Piatt # (Auto) 0.71 H (0.11-0.59) K/uL Eos # (Auto) 0.02 (0-0.5) K/uL Baso # (Auto) 0.01 (0-0.2) K/uL Immature Gran # (Auto) 0.02 (0.00-0.02) K/uL Ovalocytes 1+ Sodium 133 L (136-145) mmol/L Potassium 2.7 L D (3.5-5.1) mmol/L Chloride 103 (98-107) mmol/L Carbon Dioxide 20 L (21-32) mmol/L Anion Gap 10 (3-11) BUN 13 (6-23) mg/dl Creatinine 1.32 (0.6-1.4) mg/dl Est Cr Clr Drug Dosing 49.8 Est GFR ( Amer) 63.3 ml/min Est GFR (Non-Af Amer) 54.7 ml/min BUN/Creatinine Ratio 9.8 L (10-20) Glucose 115 H (70-99(Fasting)) mg/dl Lactate (0.4-2.0) mmol/L Calcium 7.8 L (8.5-10.1) mg/dl Total Bilirubin (0.2-1.0) mg/dl AST (13-39) U/L ALT (7-52) U/L Alkaline Phosphatase (34-104) U/L Total Protein (6.0-8.3) gm/dl Albumin (3.4-5.0) gm/dl Globulin (2.5-4.0) gm/dl Albumin/Globulin Ratio (0.9-2) Lipase (11-82) U/L Procalcitonin (0-0.5) ng/ml Stl C. cayetanensis PCR Not Detected (NotDetected) Stool Rotavirus A PCR Not Detected (NotDetected) Stl Adenov F 40/41 PCR Not Detected (NotDetected) Stool Astrovirus (PCR) Not Detected (NotDetected) Stool Campylobacter PCR Not Detected (NotDetected) Stl C. diff Tox B Gene (Neg) Stl C. diff Tox A/B PCR Not Detected (NotDetected) Stool Cryptosporidium PCR Not Detected (NotDetected) Stl E.coli Shiga Tox PCR Not Detected (NotDetected) Stl Enterotoxigenic E PCR Not Detected (NotDetected) Stool EPEC (PCR) Not Detected (NotDetected) Stool EAEC (PCR) Not Detected (NotDetected) Stl E. histolytica PCR Not Detected (NotDetected) Stool Giardia Lamblia PCR Not Detected (NotDetected) Stool Salmonella PCR Not Detected (NotDetected) Stool Sapovirus (PCR) Not Detected (NotDetected) Stl P. shigelloides PCR Not Detected (NotDetected) Stl Shigella/EIEC PCR Not Detected (NotDetected) St Y.enterocolitica PCR Not Detected (NotDetected) Stool Vibrio (PCR) Not Detected (NotDetected) Stl Vibrio cholerae PCR Not Detected (NotDetected) Stl Norovirus GI/GII PCR Not Detected (NotDetected) SARS-CoV-2, RNA, NAAT (NEGATIVE) 10/21/21 10/21/21 10/21/21 Range/Units 21:50 19:25 15:58 WBC (4.8-10.8) K/uL RBC (4.7-6.1) M/uL Hgb (14.0-18.0) g/dL Hct (42-52) % MCV (80-100) fL MCH (25-34) pg MCHC (32-36) g/dL RDW Std Deviation (36.4-46.3) fL RDW Coeff of Concha (11.5-14.5) % Plt Count (130-400) K/uL MPV (7.4-10.4) fL Immature Gran % (Auto) % Neut % (Auto) % Lymph % (Auto) % Piatt % (Auto) % Eos % (Auto) % Baso % (Auto) % Neut # (Auto) (1.4-6.5) K/uL Lymph # (Auto) (1.2-3.4) K/uL Piatt # (Auto) (0.11-0.59) K/uL Eos # (Auto) (0-0.5) K/uL Baso # (Auto) (0-0.2) K/uL Immature Gran # (Auto) (0.00-0.02) K/uL Ovalocytes Sodium (136-145) mmol/L Potassium (3.5-5.1) mmol/L Chloride (98-107) mmol/L Carbon Dioxide (21-32) mmol/L Anion Gap (3-11) BUN (6-23) mg/dl Creatinine (0.6-1.4) mg/dl Est Cr Clr Drug Dosing Est GFR ( Amer) ml/min Est GFR (Non-Af Amer) ml/min BUN/Creatinine Ratio (10-20) Glucose (70-99(Fasting)) mg/dl Lactate 0.9 (0.4-2.0) mmol/L Calcium (8.5-10.1) mg/dl Total Bilirubin (0.2-1.0) mg/dl AST (13-39) U/L ALT (7-52) U/L Alkaline Phosphatase (34-104) U/L Total Protein (6.0-8.3) gm/dl Albumin (3.4-5.0) gm/dl Globulin (2.5-4.0) gm/dl Albumin/Globulin Ratio (0.9-2) Lipase (11-82) U/L Procalcitonin (0-0.5) ng/ml Stl C. cayetanensis PCR (NotDetected) Stool Rotavirus A PCR (NotDetected) Stl Adenov F 40/41 PCR (NotDetected) Stool Astrovirus (PCR) (NotDetected) Stool Campylobacter PCR (NotDetected) Stl C. diff Tox B Gene Negative Cdiff Gene (Neg) Stl C. diff Tox A/B PCR (NotDetected) Stool Cryptosporidium PCR (NotDetected) Stl E.coli Shiga Tox PCR (NotDetected) Stl Enterotoxigenic E PCR (NotDetected) Stool EPEC (PCR) (NotDetected) Stool EAEC (PCR) (NotDetected) Stl E. histolytica PCR (NotDetected) Stool Giardia Lamblia PCR (NotDetected) Stool Salmonella PCR (NotDetected) Stool Sapovirus (PCR) (NotDetected) Stl P. shigelloides PCR (NotDetected) Stl Shigella/EIEC PCR (NotDetected) St Y.enterocolitica PCR (NotDetected) Stool Vibrio (PCR) (NotDetected) Stl Vibrio cholerae PCR (NotDetected) Stl Norovirus GI/GII PCR (NotDetected) SARS-CoV-2, RNA, NAAT NEGATIVE (NEGATIVE) 10/21/21 10/21/21 10/21/21 Range/Units 15:58 14:36 14:36 WBC 14.82 H (4.8-10.8) K/uL RBC 3.13 L (4.7-6.1) M/uL Hgb 8.8 L (14.0-18.0) g/dL Hct 27.7 L (42-52) % MCV 88.5 (80-100) fL MCH 28.1 (25-34) pg MCHC 31.8 L (32-36) g/dL RDW Std Deviation 47.7 H (36.4-46.3) fL RDW Coeff of Concha 14.6 H (11.5-14.5) % Plt Count 393 (130-400) K/uL MPV 8.7 (7.4-10.4) fL Immature Gran % (Auto) 0.3 % Neut % (Auto) 80.3 % Lymph % (Auto) 11.1 % Piatt % (Auto) 8.2 % Eos % (Auto) 0.0 % Baso % (Auto) 0.1 % Neut # (Auto) 11.89 H (1.4-6.5) K/uL Lymph # (Auto) 1.65 (1.2-3.4) K/uL Piatt # (Auto) 1.22 H (0.11-0.59) K/uL Eos # (Auto) 0.00 (0-0.5) K/uL Baso # (Auto) 0.02 (0-0.2) K/uL Immature Gran # (Auto) 0.04 H (0.00-0.02) K/uL Ovalocytes Sodium 134 L (136-145) mmol/L Potassium 3.6 (3.5-5.1) mmol/L Chloride 96 L (98-107) mmol/L Carbon Dioxide 24 (21-32) mmol/L Anion Gap 14 H (3-11) BUN 16 (6-23) mg/dl Creatinine 1.60 H (0.6-1.4) mg/dl Est Cr Clr Drug Dosing Not Reportable Est GFR ( Amer) 50.2 ml/min Est GFR (Non-Af Amer) 43.3 ml/min BUN/Creatinine Ratio 10.0 (10-20) Glucose 122 H (70-99(Fasting)) mg/dl Lactate (0.4-2.0) mmol/L Calcium 9.2 (8.5-10.1) mg/dl Total Bilirubin 0.9 (0.2-1.0) mg/dl AST 15 (13-39) U/L ALT 10 (7-52) U/L Alkaline Phosphatase 122 H (34-104) U/L Total Protein 7.6 (6.0-8.3) gm/dl Albumin 3.7 (3.4-5.0) gm/dl Globulin 3.9 (2.5-4.0) gm/dl Albumin/Globulin Ratio 0.9 (0.9-2) Lipase 11 (11-82) U/L Procalcitonin 2.83 H (0-0.5) ng/ml Stl C. cayetanensis PCR (NotDetected) Stool Rotavirus A PCR (NotDetected) Stl Adenov F 40/41 PCR (NotDetected) Stool Astrovirus (PCR) (NotDetected) Stool Campylobacter PCR (NotDetected) Stl C. diff Tox B Gene (Neg) Stl C. diff Tox A/B PCR (NotDetected) Stool Cryptosporidium PCR (NotDetected) Stl E.coli Shiga Tox PCR (NotDetected) Stl Enterotoxigenic E PCR (NotDetected) Stool EPEC (PCR) (NotDetected) Stool EAEC (PCR) (NotDetected) Stl E. histolytica PCR (NotDetected) Stool Giardia Lamblia PCR (NotDetected) Stool Salmonella PCR (NotDetected) Stool Sapovirus (PCR) (NotDetected) Stl P. shigelloides PCR (NotDetected) Stl Shigella/EIEC PCR (NotDetected) St Y.enterocolitica PCR (NotDetected) Stool Vibrio (PCR) (NotDetected) Stl Vibrio cholerae PCR (NotDetected) Stl Norovirus GI/GII PCR (NotDetected) SARS-CoV-2, RNA, NAAT (NEGATIVE)
[2021-10-22] MEDS: ZOLPIDEM TARTRATE 5 MG TAB PO PRN (21:05)
--- NOTE | 2021-10-22 22:56 | Electrocardiogram Report ---
Test Reason : Blood Pressure : / mmHG Vent. Rate : 117 BPM Atrial Rate : 117 BPM P-R Int : 156 ms QRS Dur : 096 ms QT Int : 346 ms P-R-T Axes : 055 072 032 degrees QTc Int : 482 ms Sinus tachycardia Otherwise normal ECG When compared with ECG of 02-OCT-2021 03:58, Premature ventricular complexes are no longer Present Premature supraventricular complexes are no longer Present Confirmed by Osiel Jiménez ([id number]) on 10/22/2021 10:55:50 PM Referred By: Nakia Frank Confirmed By:Osiel Jiménez
[2021-10-23] MEDS: PIPERACILLIN/TAZOBACTAM 3.375 GM in DEXTROSE 5% 100 ML IV SCH ×3 (03:30→20:59)
[2021-10-23] MEDS ORDERED: FAMOTIDINE 20 MG TAB PO ONE (05:48)
[2021-10-23 08:23] LABS: Basophils # (auto) 0.01 K/uL (0-0.2); Basophils % (auto) 0.2 %; Eosinophils # (auto) 0.02 K/uL (0-0.5); Eosinophils % (auto) 0.3 %; Hematocrit (blood only) 26.4 % (42-52); Hemoglobin 8.2 g/dL (14.0-18.0); Immature Granulocytes # (auto) 0.02 K/uL (0.00-0.02); Immature Granulocytes % (auto) 0.3 %; Lymphocytes # (auto) 0.47 K/uL (1.2-3.4); Lymphocytes % (auto) 7.7 %; Mean Corpuscular Hemoglobin 27.9 pg (25-34); Mean Corpuscular Hgb Conc 31.1 g/dL (32-36); Mean Corpuscular Volume 89.8 fL (80-100); Mean Platelet Volume 8.8 fL (7.4-10.4); Monocytes # (auto) 0.48 K/uL (0.11-0.59); Monocytes % (auto) 7.9 %; Neutrophils # (auto) 5.09 K/uL (1.4-6.5); Neutrophils % (auto) 83.6 %; Platelet Count 297 K/uL (130-400); RDW Coefficient of Variation 14.4 % (11.5-14.5); RDW Standard Deviation 47.6 fL (36.4-46.3); Red Blood Count 2.94 M/uL (4.7-6.1); White Blood Count 6.09 K/uL (4.8-10.8)
--- NOTE | 2021-10-23 08:42 | Urology Progress Note ---
Date of Service October 23, 2021 Assessment & Plan (1) Bladder cancer: Plan: Gradually recovering with hydration and observation Abdomen notably softer DC rectal tube Culture showing Klebsiella/E. coli in urine, we will get rid of daptomycin as coverage and taper him to Zosyn for nowlikely to Bactrim for outpatient coverage after discharge home Hold on a clear liquid diet for the time being Ambulate I would like to remove his ureteral stents prior to discharge out of the hospitalthese can be removed at the bedside Admission and Anticipated Discharge Date Admission Date: October 21, 2021 Subjective Did okay overnight Tolerating clears, does report that he vomited once yesterday afternoon/evening Had a rectal tube in place which was putting out a significant amount of relatively liquid stool He has had good urine output He has not experienced fevers chills rigors He does not have any current abdominal pain Did have some GERD symptoms last night He has not been ambulating Physical Exam Physical Exam: Abdomen is soft, less distended than yesterday Stoma healthy, clear urine, stents in place Rectal tube in place with liquid stool Results & Data ([facility]) Vital Signs (Past 12 Hours) Vital Signs Temp Pulse Pulse Resp BP Pulse Ox 10/23/21 07:49 98 H 10/23/21 07:02 36.4 C L 99 H 18 153/89 H 97 10/23/21 03:58 36.7 C 102 H 18 158/84 H 97 10/22/21 23:22 100 H 10/22/21 22:53 36.9 C 101 H 18 144/78 H 99 PG Care Time/CCT Total # of Minutes Spent Total Time Spent with Patient: Total time spent is greater than 50% in coordination of care (as documented) at patient's floor/unit and/or counseling patient: Coding Level of Care Code 96718 Subseq Hosp Care Lvl 3 Diagnoses Bladder cancer C67.9
[2021-10-23 08:45] LABS: BUN Creatinine Ratio 10.8 (10-20); Calcium 8.8 mg/dl (8.5-10.1); Creatinine Clr Calc Pharmacy 56.9 ml/min; Est GFR (African American) 78.1 ml/min; Est GFR (Non-African American) 67.4 ml/min; Potassium 3.3 mmol/L (3.5-5.1)
[2021-10-23] MEDS: DOCUSATE SODIUM 100 MG CAP PO SCH ×3 (08:52→20:59)
[2021-10-23] MEDS: ENOXAPARIN INJ 40 MG/0.4 ML SYR SQ SCH (08:52)
[2021-10-23] MEDS: ASPIRIN 81 MG ECTAB PO SCH (08:52)
[2021-10-23] MEDS: POTASSIUM CHLORIDE CRTAB 20 MEQ TABCR PO SCH (11:49)
[2021-10-23] MEDS: ZOLPIDEM TARTRATE 5 MG TAB PO PRN (20:59)
[2021-10-24 06:27] LABS: Basophils # (auto) 0.01 K/uL (0-0.2); Basophils % (auto) 0.1 %; Eosinophils # (auto) 0.05 K/uL (0-0.5); Eosinophils % (auto) 0.7 %; Hematocrit (blood only) 25.2 % (42-52); Hemoglobin 8.2 g/dL (14.0-18.0); Immature Granulocytes # (auto) 0.01 K/uL (0.00-0.02); Immature Granulocytes % (auto) 0.1 %; Lymphocytes # (auto) 0.94 K/uL (1.2-3.4); Lymphocytes % (auto) 13.7 %; Mean Corpuscular Hemoglobin 27.8 pg (25-34); Mean Corpuscular Hgb Conc 32.5 g/dL (32-36); Mean Corpuscular Volume 85.4 fL (80-100); Mean Platelet Volume 8.8 fL (7.4-10.4); Monocytes # (auto) 0.82 K/uL (0.11-0.59); Neutrophils # (auto) 5.02 K/uL (1.4-6.5); Neutrophils % (auto) 73.4 %; Platelet Count 282 K/uL (130-400); RDW Coefficient of Variation 14.2 % (11.5-14.5); RDW Standard Deviation 44.6 fL (36.4-46.3); Red Blood Count 2.95 M/uL (4.7-6.1); White Blood Count 6.85 K/uL (4.8-10.8)
[2021-10-24 06:47] LABS: BUN Creatinine Ratio 10.4 (10-20); Calcium 8.7 mg/dl (8.5-10.1); Creatinine Clr Calc Pharmacy 65.8 ml/min; Est GFR (African American) 93.1 ml/min; Est GFR (Non-African American) 80.3 ml/min; Magnesium 1.6 mg/dl (1.7-2.4); Potassium 2.8 mmol/L (3.5-5.1)
[2021-10-24] MEDS: ASPIRIN 81 MG ECTAB PO SCH (08:05)
[2021-10-24] MEDS: POTASSIUM CHLORIDE CRTAB 20 MEQ TABCR PO SCH ×2 (08:05→08:08)
[2021-10-24] MEDS: ENOXAPARIN INJ 40 MG/0.4 ML SYR SQ SCH (08:06)
[2021-10-24] MEDS: DOCUSATE SODIUM 100 MG CAP PO SCH ×2 (08:06→20:01)
--- NOTE | 2021-10-24 10:32 | Urology Progress Note ---
Date of Service October 24, 2021 Assessment & Plan (1) Bladder cancer: (2) Ileus: (3) JN (acute kidney injury): Plan: Patient had increase in abdominal issues with repeat episodes of vomiting with inability to tolerate p.o. meds this morning. Has been having electrolyte abnormality with some tachycardia. Has not been tolerating hydration orally however is having increasing issues. Did have a number of bowel movements throughout the admission however was also having significant constipation issues. Has been tolerating stents with good urine output. No major other changes. Ostomy is performing well. Patient did have considerable issues with distention of small bowel on imaging. Will need to continue to monitor with KUB imaging. We will plan to use a slow controlled liquid diet. We will switch to IV hydration with electrolyte replacement due to significant abnormality. Magnesium was also found to be significantly low. Will replace both potassium and mag IV. Patient is encouraged to ambulate. Has been significantly deconditioned. Physical therapy has been ordered and will need to have aggressive management in order to improve not just deconditioning issues as well as his significant ileus and bowel related concerns. We will plan to continue to monitor. Significant increasing issues this morning we will plan to continue to actively manage. Patient is requesting milk products. Is currently on clear liquids can advance to the full liquids with still plan to maintain a moderate restriction to not overload until ileus has more completely resolved Admission and Anticipated Discharge Date Admission Date: October 21, 2021 Subjective Postop From radical cystectomy with ileal diversion. Patient has had ileus issues with significant constipation that has somewhat relieved. He is having some issues with tolerating p.o. medication. Is able to handle liquid diet. Due to distention, having some pain and discomfort. Mild relief of abdominal distension/gas pains. Has tolerated stents within diversion. Good urine output. Has not had severe pain or uncontrollable pain. Patient has been ambulating. Tello s not had bowel movement or major change. Patient was unable to tolerate p.o. medication this morning and did have some nausea/vomiting. Review of Systems Review of Systems: All systems reviewed & are unremarkable except as noted in HPI & below Physical Exam Physical Exam: General: Alert in no acute distress. HEENT: Normocephalic Atraumatic. Inspection normal. Cranial Nerves 2-12 Grossly intact. Normal inspection of face. Normal inspection of neck. Psychologic: Normal affect. Respiratory: Nonlabored. No use of accessory muscles. No tachypnea or dyspnea. Cardiovascular: No tachycardia Skin: [place] and Dry. No rashes or visible lesions. Extremities/Lymphatics: No edema Abdomen: Mild distention. Ostomy: PPP Results & Data ([facility]) Vital Signs (Past 12 Hours) Vital Signs Temp Pulse Pulse Resp BP Pulse Ox 10/24/21 07:41 37.0 C 108 H 18 119/67 98 10/24/21 07:24 95 H 10/24/21 03:09 36.8 C 107 H 18 128/72 97 10/23/21 22:56 106 H 10/23/21 22:55 37.0 C 102 H 18 121/77 98 PG Care Time/CCT Total # of Minutes Spent Total Time Spent with Patient: Total time spent is greater than 50% in coordination of care (as documented) at patient's floor/unit and/or counseling patient: Coding Level of Care Code 05578 Subseq Hosp Care Lvl 3 Diagnoses Bladder cancer C67.9 Ileus K56.7 JN (acute kidney injury) N17.9
[2021-10-24] MEDS ORDERED: POTASSIUM CHLORIDE / WTR 10 MEQ/100 ML PLCT IV ONE (10:45)
[2021-10-24] MEDS: D5W AND 1/2NSS + 20MEQ KCL 20 MEQ/1,000 ML BAG IV SCH (11:53)
[2021-10-24] MEDS: MAGNESIUM SULFATE / D5W 1 GM/100 ML BAG IV SCH ×2 (11:54→14:33)
[2021-10-24] MEDS ORDERED: SULFAMETHOXAZOLE/TRIMETHOPRIM DS 800/160MG TAB PO SCH (16:00)
[2021-10-24] MEDS: SULFAMETHOXAZOLE/TRIMETHOPRIM DS 800/160MG TAB PO SCH (18:09)
[2021-10-24] MEDS: ZOLPIDEM TARTRATE 5 MG TAB PO PRN (20:15)
[2021-10-25] MEDS: D5W AND 1/2NSS + 20MEQ KCL 20 MEQ/1,000 ML BAG IV SCH ×2 (00:34→14:40)
[2021-10-25] MEDS: SULFAMETHOXAZOLE/TRIMETHOPRIM DS 800/160MG TAB PO SCH ×2 (06:01→18:24)
[2021-10-25 06:37] LABS: Basophils # (auto) 0.01 K/uL (0-0.2); Basophils % (auto) 0.2 %; Eosinophils # (auto) 0.17 K/uL (0-0.5); Eosinophils % (auto) 3.1 %; Hematocrit (blood only) 23.6 % (42-52); Hemoglobin 7.7 g/dL (14.0-18.0); Immature Granulocytes # (auto) 0.03 K/uL (0.00-0.02); Immature Granulocytes % (auto) 0.5 %; Lymphocytes % (auto) 18.3 %; Mean Corpuscular Hemoglobin 27.7 pg (25-34); Mean Corpuscular Hgb Conc 32.6 g/dL (32-36); Mean Corpuscular Volume 84.9 fL (80-100); Mean Platelet Volume 8.8 fL (7.4-10.4); Monocytes # (auto) 0.57 K/uL (0.11-0.59); Monocytes % (auto) 10.4 %; Neutrophils # (auto) 3.68 K/uL (1.4-6.5); Neutrophils % (auto) 67.5 %; Platelet Count 308 K/uL (130-400); RDW Coefficient of Variation 14.1 % (11.5-14.5); Red Blood Count 2.78 M/uL (4.7-6.1); White Blood Count 5.46 K/uL (4.8-10.8)
[2021-10-25 06:57] LABS: BUN Creatinine Ratio 11.1 (10-20); Calcium 8.3 mg/dl (8.5-10.1); Creatinine Clr Calc Pharmacy 76.3 ml/min; Est GFR (African American) 105.1 ml/min; Est GFR (Non-African American) 90.7 ml/min; Potassium 2.8 mmol/L (3.5-5.1)
[2021-10-25 07:05] LABS: RBC Morphology Unremarkable
[2021-10-25] MEDS: ASPIRIN 81 MG ECTAB PO SCH (08:45)
[2021-10-25] MEDS: DOCUSATE SODIUM 100 MG CAP PO SCH ×2 (08:46→20:25)
[2021-10-25] MEDS: ENOXAPARIN INJ 40 MG/0.4 ML SYR SQ SCH (08:46)
[2021-10-25] MEDS: POTASSIUM CHLORIDE CRTAB 20 MEQ TABCR PO SCH (08:51)
--- NOTE | 2021-10-25 12:44 | Urology Progress Note ---
Date of Service October 25, 2021 Assessment & Plan (1) Bladder cancer: (2) Ileus: (3) JN (acute kidney injury): Plan: Patient had improved. Diet up to full liquids but trying to control overload/overeating with frequent small meals. Continue to have a number of loose and poorly controlled bowel movements throughout the admission however was also having significant constipation issues. Has been tolerating stents with good urine output. No major other changes. Ost sabra is performing well. We will plan to use a slow controlled full liquid diet. We will switch to IV hydration with electrolyte replacement due to significant abnormality. Patient is encouraged to ambulate. Has been significantly deconditioned. Physical therapy has been ordered and will need to have aggressive management in order to improve not just deconditioning issues as well as his significant ileus and bowel related concerns. We will plan to continue to monitor. Will monitor. If continue to improve and stablize may be able to discharge in the near future. Admission and Anticipated Discharge Date Admission Date: October 21, 2021 Subjective Postop From radical cystectomy with ileal diversion. Patient has had ileus issues with significant constipation that has somewhat relieved. Advanced to full liquids. Tolerating without issue. Decreased distention but still having some pain and discomfort. Mild relief of abdominal distension/gas pains. Has tolerated stents within diversion. Good urine output. Has not had severe pain or uncontrollable pain. Patient has been ambulating but not significantly. Continues to have loose bowel movements with poor control No nausea/vomiting. Review of Systems Review of Systems: All systems reviewed & are unremarkable except as noted in HPI & below Physical Exam Physical Exam: General: Alert in no acute distress. HEENT: Normocephalic Atraumatic. Inspection normal. Cranial Nerves 2-12 Grossly intact. Normal inspection of face. Normal inspection of neck. Psychologic: Normal affect. Respiratory: Nonlabored. No use of accessory muscles. No tachypnea or dyspnea. Cardiovascular: No tachycardia Skin: [place] and Dry. No rashes or visible lesions. Extremities/Lymphatics: No edema Abdomen: Mild distention. Ostomy: PPP Results & Data ([facility]) Vital Signs (Past 12 Hours) Vital Signs Temp Pulse Resp BP Pulse Ox 10/25/21 12:20 36.6 C 86 16 112/74 97 10/25/21 06:55 36.8 C 93 H 19 112/71 98 10/25/21 04:00 36.8 C 93 H 18 122/87 97 PG Care Time/CCT Total # of Minutes Spent Total Time Spent with Patient: Total time spent is greater than 50% in coordination of care (as documented) at patient's floor/unit and/or counseling patient: Coding Level of Care Code 29843 Subseq Hosp Care Lvl 2 Diagnoses Bladder cancer C67.9 Ileus K56.7 JN (acute kidney injury) N17.9
[2021-10-25] MEDS: ZOLPIDEM TARTRATE 5 MG TAB PO PRN (20:44)
[2021-10-26] MEDS: D5W AND 1/2NSS + 20MEQ KCL 20 MEQ/1,000 ML BAG IV SCH (02:56)
[2021-10-26] MEDS: SULFAMETHOXAZOLE/TRIMETHOPRIM DS 800/160MG TAB PO SCH ×2 (05:32→18:17)
[2021-10-26 08:51] LABS: Hematocrit (blood only) 24.2 % (42-52); Hemoglobin 7.8 g/dL (14.0-18.0); Mean Corpuscular Hemoglobin 27.6 pg (25-34); Mean Corpuscular Hgb Conc 32.2 g/dL (32-36); Mean Corpuscular Volume 85.5 fL (80-100); Mean Platelet Volume 8.7 fL (7.4-10.4); Platelet Count 355 K/uL (130-400); RDW Coefficient of Variation 14.3 % (11.5-14.5); RDW Standard Deviation 44.8 fL (36.4-46.3); Red Blood Count 2.83 M/uL (4.7-6.1); White Blood Count 5.62 K/uL (4.8-10.8)
[2021-10-26 09:11] LABS: BUN Creatinine Ratio 7.1 (10-20); Calcium 8.6 mg/dl (8.5-10.1); Creatinine Clr Calc Pharmacy 73.1 ml/min; Est GFR (Non-African American) 88.9 ml/min; Magnesium 1.5 mg/dl (1.7-2.4); Potassium 3.6 mmol/L (3.5-5.1)
[2021-10-26 09:21] LABS: ALC (manual) 0.98 K/uL (1.2-3.4); ANC (manual) 3.99 K/uL (1.4-6.5); Eosinophils # (manual) 0.25 K/uL (0-0.5); Eosinophils % (manual) 4.4 %; Lymphocytes # (manual) 0.98 K/uL (1.2-3.4); Lymphocytes % (manual) 17.5 %; Metamyelocytes # (manual) 0.05 K/uL (0-0); Metamyelocytes % (manual) 0.9 %; Monocytes % (manual) 5.3 %; Myelocytes # (manual) 0.05 K/uL (0-0); Myelocytes % (manual) 0.9 %; Neutrophils # (manual) 3.99 K/uL (1.4-6.5); RBC Morphology Unremarkable
[2021-10-26] MEDS: ASPIRIN 81 MG ECTAB PO SCH (09:42)
[2021-10-26] MEDS: ENOXAPARIN INJ 40 MG/0.4 ML SYR SQ SCH (09:42)
[2021-10-26] MEDS: POTASSIUM CHLORIDE CRTAB 20 MEQ TABCR PO SCH (09:42)
[2021-10-26] MEDS: DOCUSATE SODIUM 100 MG CAP PO SCH ×2 (09:42→20:12)
--- NOTE | 2021-10-26 10:20 | Urology Progress Note ---
Date of Service October 26, 2021 Assessment & Plan (1) Bladder cancer: (2) Ileus: Plan: 71yo M readmitted with ileus and UTI after cystoprostatectomy with ileal conduit on 09/29 - Afebrile, hemodynamically stable. - White count and creatinine normal. - Magnesium 1.5, Potassium 3.6 today. - Tolerating stents with good urine output. - UCx grew Klebsiella/E. coli, sensitive to Bactrim. Plan - - Reviewed with Dr. Gamboa. - Mag found to be low - Will replace with IV mag x 2bags. - Will continue with Klor 20meq daily. - KUB today. - Continue PO Bactrim. - Encourage OOB and ambulation. - Continue full liquid diet. - Repeat CBC/BMP in AM. -If continues to improve and stabilize, may be able to discharge in the near future. Admission and Anticipated Discharge Date Admission Date: October 21, 2021 Subjective Pt examined at bedside this AM. Awake, resting in bed on arrival. No acute distress. Denies any pain or discomfort at present. No fevers or chills. Denies nausea/vomiting. Continues to have loose bowel movements. Passing flatus. He has not been ambulating. Continues on full liquid diet. Review of Systems Constitutional: as per Subjective / HPI Cardiovascular: no chest pain, no dyspnea and no lightheadedness Gastrointestinal: as per Subjective / HPI Genitourinary: + as per Subjective / HPI Physical Exam Constitutional: no acute distress Respiratory: no respiratory distress and no labored breathing Cardiovascular: Extremities: no calf tenderness Gastrointestinal (Abdomen): Percussion/Palpation: abdomen soft; abdomen nontender and no guarding Right lower quadrant stoma with clear yellow urine in the bag, stents in place. Midline abdominal incision is scabbed and open to air. Skin: Warm and dry. No visible rashes/lesions. Neurologic: awake Psychiatric: Orientation: alert, oriented x 3 and cooperative Results & Data ([facility]) Vital Signs (Past 12 Hours) Vital Signs Temp Pulse Pulse Resp BP Pulse Ox 10/26/21 07:47 37.0 C 54 L 18 107/66 99 10/26/21 02:55 36.8 C 89 18 114/76 97 10/26/21 01:49 82 PG Care Time/CCT Total # of Minutes Spent Total Time Spent with Patient: Total time spent is greater than 50% in coordination of care (as documented) at patient's floor/unit and/or counseling patient: Coding Level of Care Code 07873 Subseq Hosp Care Lvl 2 Diagnoses Bladder cancer C67.9 Ileus K56.7
--- NOTE | 2021-10-26 11:50 | XRay Report ---
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 No urolith identified. Surgi vira suture material within the abdominal right lower quadrant. Air-filled loops of large and small shima wel are redemonstrated with small bowel distention measuring up to 3.9 cm, previously 3.5 cm. No pneu moperitoneum or pneumatosis. Degenerative changes of the spine, pelvis and hips. No fracture. IMPRESSION: Persistent air-filled loops of large and small bowel with mildly progressed small bowel distention. F indings are again suggestive of an ileus. Follow-up recommended. ACT 112: Negative or not required by law. The above report was generated using voice recognition software. It may contain grammatical, syntax o r spelling errors. Electronically signed by: Min Singh M.D. 10/26/2021 11:49 AM
[2021-10-26] MEDS: MAGNESIUM SULFATE / D5W 1 GM/100 ML BAG IV SCH ×2 (12:59→14:29)
[2021-10-26] MEDS: ZOLPIDEM TARTRATE 5 MG TAB PO PRN (20:20)
[2021-10-27] MEDS: SULFAMETHOXAZOLE/TRIMETHOPRIM DS 800/160MG TAB PO SCH ×2 (05:25→18:06)
[2021-10-27 06:04] LABS: Hematocrit (blood only) 25.7 % (42-52); Hemoglobin 8.3 g/dL (14.0-18.0); Mean Corpuscular Hemoglobin 27.5 pg (25-34); Mean Corpuscular Hgb Conc 32.3 g/dL (32-36); Mean Corpuscular Volume 85.1 fL (80-100); Mean Platelet Volume 8.6 fL (7.4-10.4); Platelet Count 420 K/uL (130-400); RDW Coefficient of Variation 14.5 % (11.5-14.5); RDW Standard Deviation 45.2 fL (36.4-46.3); Red Blood Count 3.02 M/uL (4.7-6.1); White Blood Count 6.04 K/uL (4.8-10.8)
[2021-10-27 06:37] LABS: BUN Creatinine Ratio 8.3 (10-20); Calcium 9.1 mg/dl (8.5-10.1); Creatinine Clr Calc Pharmacy 62.4 ml/min; Est GFR (African American) 93.1 ml/min; Est GFR (Non-African American) 80.3 ml/min; Potassium 3.8 mmol/L (3.5-5.1)
[2021-10-27] MEDS: POTASSIUM CHLORIDE CRTAB 20 MEQ TABCR PO SCH (09:18)
[2021-10-27] MEDS: ASPIRIN 81 MG ECTAB PO SCH (09:18)
[2021-10-27] MEDS: ENOXAPARIN INJ 40 MG/0.4 ML SYR SQ SCH (09:18)
[2021-10-27] MEDS: DOCUSATE SODIUM 100 MG CAP PO SCH ×2 (10:40→20:49)
--- NOTE | 2021-10-27 12:39 | Urology Progress Note ---
Date of Service October 27, 2021 Assessment & Plan (1) Bladder cancer: Plan: Gradually improving Admitted with question of infection versus simple postoperative ileus Went over the case he is afebrile Is still on antibiotics Is moving his bowels He does have some distention of the small bowel on x-ray but clinically seems to be doing okay I will advance his diet this morning, possible discharge home tomorrow Admission and Anticipated Discharge Date Admission Date: October 21, 2021 Subjective Subjectively seems to be doing quite well Tells me he feels great He is hungry He wants to go home Denies any pain Moving his bowels and passing flatus Physical Exam Physical Exam: Tachycardic Abdomen soft, not distended Stoma pink and healthy [address]I removed both stents today No edema of his lower extremities Results & Data ([facility]) Vital Signs (Past 12 Hours) Vital Signs Temp Pulse Pulse Resp BP Pulse Ox 10/27/21 11:48 36.4 C L 113 H 20 133/80 99 10/27/21 07:46 36.6 C 94 H 22 123/79 98 10/27/21 07:07 87 10/27/21 04:13 36.4 C L 93 H 18 126/84 98 10/27/21 00:41 93 H PG Care Time/CCT Total # of Minutes Spent Total Time Spent with Patient: Total time spent is greater than 50% in coordination of care (as documented) at patient's floor/unit and/or counseling patient: Coding Level of Care Code 38198 Subseq Hosp Care Lvl 2 Diagnoses Bladder cancer C67.9
[2021-10-27] MEDS: ZOLPIDEM TARTRATE 5 MG TAB PO PRN (21:00)
[2021-10-28] MEDS: SULFAMETHOXAZOLE/TRIMETHOPRIM DS 800/160MG TAB PO SCH (06:00)
--- NOTE | 2021-10-28 08:14 | Urology Progress Note ---
Date of Service October 28, 2021 Assessment & Plan (1) Bladder cancer: Plan: Seems to be very much be back on track I suspect his big underlying issue when he arrived was predominantly dehydration He did have bacteria in his urine but that is somewhat expected given his ileal conduit We will cover with an additional 7 days of Bactrim Will continue to have a low level potassium supplement for 1 more week I have encouraged him to continue eating a regular diet we will avoid any stringent bowel regimen Plan for discharge home this morning Admission and Anticipated Discharge Date Admission Date: October 21, 2021 Subjective No issues overnight Happy with his current status He is tolerating diet well and is extremely anxious to go home Physical Exam Physical Exam: Good urine production Domino stoma Abdomen soft Very comfortable appearing Results & Data ([facility]) Vital Signs (Past 12 Hours) Vital Signs Temp Pulse Pulse Resp BP Pulse Ox 10/28/21 08:02 36.8 C 77 18 105/68 97 10/28/21 04:00 36.3 C L 97 H 18 112/81 96 10/28/21 02:13 88 10/28/21 00:00 36.4 C L 98 H 20 115/73 97 PG Care Time/CCT Total # of Minutes Spent Total Time Spent with Patient: Total time spent is greater than 50% in coordination of care (as documented) at patient's floor/unit and/or counseling patient: Coding Level of Care Code 58048 Subseq Hosp Care Lvl 2 Diagnoses Bladder cancer C67.9
[2021-10-28] MEDS: DOCUSATE SODIUM 100 MG CAP PO SCH (08:57)
[2021-10-28] MEDS: POTASSIUM CHLORIDE CRTAB 20 MEQ TABCR PO SCH (08:57)
[2021-10-28] MEDS: ENOXAPARIN INJ 40 MG/0.4 ML SYR SQ SCH (08:58)
[2021-10-28] MEDS: ASPIRIN 81 MG ECTAB PO SCH (10:03)
--- NOTE | 2021-11-13 09:33 | Discharge Summary ---
Date of Service November 13, 2021 Admission HPI Per Admitting Provider Patient is 71-year-old male with PMH bladder CA s/p chemo, s/p TURBT, s/p cystoprostatectomy with ileal conduit on 09/29/[address] Nolan, HTN, HLD, CVA, essential tremor presented to ER with complaint of fever. History obtained from patient and patient's . Reported yesterday patient with chills and last evening with temp of 102F. During the middle the night had episode of vomiting and diarrhea. This morning another episode of vomiting and diarrhea. Reports has had several other episodes of diarrhea today. Denies any hematemesis, melena, hematochezia. Reports had constipation upon hospital discharge and this week has been having bowel movements small hard stool. Denies abdominal pain. Patient states this morning had pain across low back which resolved after taking Tylenol. Denies any recurrent back pain. Reports urine in bag is yellow in coloration without noted hematuria. Denies diaphoresis, ALFARO, dizziness, syncope, vision changes, neck pain, CP, SOB, orthopnea, palpitations, cough, sore throat, choking, otalgia, rhinorrhea, paresthesias, weakness, extremity weakness, extremity edema, rashes. Principal Diagnosis Bladder cancer Discharge Data Allergies Allergy/AdvReac Type Severity Reaction Status Date / Time No Known Allergies Allergy Verified 10/21/21 15:50 Consultations 10/21/21 19:15 Consult General Surgery Routine 10/21/21 19:31 ED Decision to Admit Stat 10/21/21 21:34 Consult Urology Routine Ordered Studies 10/21/21 16:03 CT abd pelvis IV con only Stat Hospital Course (1) Bladder cancer: Patient was readmitted several weeks after discharge from his radical cystoprostatectomy. I believe he was severely dehydrated at the time He had been experiencing some diarrhea. There was a question of sepsis but I believe this was all related to dehydration and fluctuations in his blood pressure and heart rate because of it. Once el ectrolytes were repleted and he was hydrated with IV fluids he stabilized considerably. He was tolerating a normal diet and his bowel function had returned to normal. His stents were removed prior to discharge home. He felt very well and was ambulatory and functioning well. He was discharged home in stable condition. Total Time Total Time Spent Total Time Spent (In Minutes): 30 Discharge Plan Discharge Items Patient Disposition: Home - Home Health Services Reason For Visit: SEPSIS Discharge Diagnosis: Ileus, UTI Activity: Per Instructions section Non-emergency contact: Surgeon and Urologist Call non-emergency contact if: you have any medication questions, your pain is not controlled, your pain is worsening, you have a fever, your temperature is above 101, your wound has increased redness, your wound has increased drainage and your wound pain has increased Follow-up/Referrals: Lucio Nolan MD [Physician] - (DR. NOLAN'S OFFICE WILL CONTACT YOU WITH AN APPT DATE/TIME) Nakia Frank MD [Primary Care Provider] - (OFFICE WILL CONTACT YOU WITH APPT DATE/TIME) Diet: Regular Addtl Attending Provider Instructions: Please take all medications as prescribed and keep all follow-ups as scheduled. Please call our office at [phone] with any questions, concerns or need to reschedule appointments for any reason. We are happy to assist you. The urology office will contact you to arrange your follow-up appointment. A prescription for an antibiotic has been sent to your pharmacy -Bactrim DS 1 tab twice daily for 7 days A prescription for a potassium supplement has also been sent -Potassium 20meq once daily for 7 days. Drink plenty of fluids during the day. Be sure to finish the antibiotics as prescribed. When to call [facility] at [phone]: Fever of 101F or higher Symptoms of infection at incision site, including redness or swelling, warmth, or bad-smelling drainage Pain that is not controlled with medicines If you have catheter, and you notice: o Bloody urine or drainage that is dark red or has large clots (Please remember a small amount of blood is normal) o No drainage from the catheter for more than 6 hours Pending Studies at Discharge: No Stand-Alone Forms: My KeepRecipes, Smoking Cessation Medications and DC Order Prescriptions: Continued lisinopril 5 mg tablet 5 mg PO QAM RF: 0 pravastatin 10 mg tablet 10 mg PO QAM RF: 0 zolpidem [Ambien] 5 mg tablet 5 mg PO DAILY PRN (Reason: insomnia) Qty: 30 RF: 3 acetaminophen [Tylenol] 325 mg Tablet 650 mg PO DIRECTED PRN (Reason: Pain) RF: 0 aspirin 81 mg Tablet,Delayed Release (Dr/Ec) 81 mg PO DAILY RF: 0 Discontinued enoxaparin [Lovenox] 40 mg/0.4 mL syringe 40 mg subcut DAILY 25 Days Qty: 10 RF: 0 Discharge Orders: Discharge Order (Routine); Ordered 10/28/21 Ordered By: Lakisha Nielsen Admission Data Admit Date/Time: 10/21/21 18:11 Attending Provider: Lucio Nolan Admit Provider: Lucio Nolan Primary Care Provider: Nakia Frank Other Providers: Vanesa Harman ; Sree Jacinto ; Lucio Nolan ; [facility] Other Interventions: Discharge Summary Assessment (RN) Last Done: 10/28/21 09:50 Coding Level of Care Code D/C DAY MANAGEMENT >30 MINS Diagnoses Bladder cancer C67.9
== END 2021-10-28 10:48 | disposition home health service (06) | DRG 389 ==
LOC: ED 13:50 → SUATTDRO 18:11 → 2S 18:11

== ENCOUNTER 2021-11-15 18:27 | Inpatient (IN) ==
[2021-11-15] MEDS ORDERED: ONDANSETRON INJ 2 MG/ML 2 ML VIAL IV STA (18:45)
[2021-11-15] MEDS ORDERED: FAMOTIDINE 20MG IV PUSH 20 MG/5 ML SYR IV STA (18:45)
[2021-11-15] MEDS ORDERED: SODIUM CHLORIDE 0.9% 1000ML 2,000 ML IV ONE (18:45)
[2021-11-15] MEDS ORDERED: PIPERACILL/TAZOBAC CONSULT ACTIVE PRN (18:47)
[2021-11-15] MEDS ORDERED: PIPERACILLIN/TAZOBACTAM 4.5 GM/120 ML BAG IV ONE (18:47)
--- NOTE | 2021-11-15 19:15 | Emergency Department Note ---
Impression & Plan Acute UTI, Acute hypotension, Acute renal failure, Hypomagnesemia ED Provider Note NAME: EMILY KEYES AGE: 71 SEX: M ARRIVES VIA: Walk-In INFORMANT: Patient, ED PROVIDER(S): Avtar Kang MD CHIEF COMPLAINT: Fever, weakness, nausea PLAN: Disposition: Home MEDICAL DECISION MAKING: The patient is a pleasant 71-year-old gentleman with a past medical history of bladder cancer status postchemotherapy, status post TURBT, status post cystopro statectomy with ileal conduit on 09/[address] Quintero, hypertension, hyperlipidemia, CVA, essential tremor who presents emergency department, by his for evaluation of generalized weakness, nausea and fever to 101 that began yesterday. He denies any cough or congestion, chest pain or shortness of breath. On arrival the patient is fatigued chronically ill-appearing but no acute distress, heart rate in the 130s and blood pressure 80s/60s but mentating at his baseline. He is a febrile at this time but did take Tylenol prior to arrival. He appears clinically dry. He is moving all extremities at his baseline in setting of having chronic right sided weakness from prior stroke. EKG without overt acute ischemia. CXR negative for acute cardiopulmonary process. WBC and platelets within normal limits. H/H 8.6/27.2 similar to prior values. Chemistry with bicarbonate of 18 consistent with the patient's clinically dry appearance. Creatinine 2.0 increased from recent normal values. Magnesium 1.2 with repletion provided. LFTs without significant abnormality. High- sensitivity troponin 10.9, within normal limits. Procalcitonin is mildly elevated at 0.67. UA obtained from the patient's ileal conduit urosomty is suspicious for infection with positive nitrites, WBCs although no bacteria. Treated empirically with Zosyn given review of prior cultures. Covid-19 PCR negative. Influenza and RSV PCR negative. Per preliminary stat rad report CT of the abdomen pelvis demonstrates nonsp ecific findings including asymmetric mild left hydroureteronephrosis with left perinephric and periureteral fat stranding. Upon reevaluation the patient's blood pressure was improved in the 90s-100s/60. Patient and his at the bedside agree with plan for admission. Case was discussed with Dr. Cruz, [facility] who will evaluate the patient for admission. Triage Nursing notes reviewed and agree them. Prior medical records reviewed Vital Signs: reviewed and remarkable for hypotension. Differential diagnosis: Sepsis, UTI, pneumonia, metabolic, electrolyte abnormalities, cardiac sources, intracerebral event, toxicologic, neurologic, as well as other pathologies. ER treatment provided: See below. Diagnostics interpreted by me: ECG: Normal sinus rhythm, 99 bpm, no ectopy, no overt ST elevation or depression, QTC 467, QRS 94 Cardiac Monitoring: An order for continuous cardiac monitoring was placed and demonstrated normal sinus rhythm, 99 bpm, no ectopy. Laboratory studies: See below Imaging studies: See below Consultation(s): Case was discussed with Dr. Cruz, [facility] hospitalist who will evaluate the patient for admission. HPI: The patient is a pleasant 71-year-old gentleman with a past medical history of bladder cancer status postchemotherapy, status post TURBT, status post cystoprostatectomy with ileal conduit on 09/[address] Quintero, hypertension, hyperlipidemia, CVA, essential tremor who presents emergency department, by his for evaluation of generalized weakness, nausea and fever to 101 that began yesterday. He denies any cough or congestion, chest pain or shortness of breath. ROS: See above HPI for pertinent positives & negatives. A total of 10 systems reviewed and were otherwise negative. VITALS:See Below PHYSICAL EXAMINATION: GENERAL: Awake, alert, acute on chornically ill-appearing, in no distress HENT: Normocephalic, atraumatic. Oropharynx with dry mucous membranes and otherwise unremarkable. EYES: Normal conjunctiva. Sclera non-icteric. NECK: Supple. No nuchal rigidity. FROM. No JVD. RESPIRATORY: Clear to auscultation. CARDIAC: Tachycardic rate, normal rhythm. Extremities warm and well perfused. Pulses equal. ABDOMEN: Soft, non-distended. No tenderness to palpation. No rebound or guarding. No masses. RECTAL: Deferred. MUSCULOSKELETAL: Chest examination reveals no tenderness. The back is symmetrical on inspection without obvious abnormality. There is no CVA tenderness to palpation. No joint edema. LOWER EXTREMITIES: Calves are equal size bilaterally and non-tender. No edema. No discoloration. NEURO: Normal sensorium. No sensory or motor deficits noted. SKIN: No rash or jaundice noted. ED COURSE: Critical Care: I have personally spent greater than 55 minutes of critical care time in the direct management of this patient. This includes bedside care, interpretation of diagnostic studies, and testing, discussion with consultants, patient, and family members, and other required patient management activities. This 55 minutes is in excess of all separately billable procedures. Avtar Kang MD Past Med/Surg History Medical History Bladder cancer hx chemotherapy (Fall 2020) BPH (benign prostatic hyperplasia) Essential tremor Hyperlipidemia Hypertension Lung nodules Under CT surveillance Stroke 2015, 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 Surgical History History of bilateral cataract extraction History of bladder surgery TURBT (07/07/21): LMA#5 at [facility] History of cystoscopy S/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 Required: No Beliefs That Will Affect Care: None marital status: Current Living Situation: Spouse How many Children do You have: 2 Other Information That Helps Us Care for You: No Feels Safe at Home: Yes Safety Concerns: Feels Safe At This Time Assistive Devices: Walker Allergies Allergies Allergy/AdvReac Type Severity Reaction Status Date / Time No Known Allergies Allergy Verified 10/21/21 15:50 Home Meds Home Medications Medication Instructions Recorded Confirmed lisinopril 5 mg tablet 5 mg PO QAM 01/12/21 11/15/21 pravastatin 10 mg tablet 10 mg PO QAM 01/12/21 11/15/21 acetaminophen 325 mg tablet 650 mg PO DIRECTED PRN 10/21/21 11/15/21 (Tylenol) aspirin 81 mg tablet,delayed 81 mg PO DAILY 10/21/21 11/15/21 release Previous Rx's Medication Instructions Recorded zolpidem 5 mg tablet (Ambien) 5 mg PO DAILY PRN #30 tab 10/19/21 Results & Data (ED) Vital Signs Vital Signs - 24 hr 11/15/21 19:27 11/15/21 19:29 11/15/21 19:30 Pulse Rate [Left Finger] 94 H Respiratory Rate 20 Respiratory Effort / Characteristics Non-Labored Spontaneous Non-Labored Spontaneous Non-Labored Spontaneous Respiratory Depth Normal Blood Pressure [Left Arm] 98/61 L Blood Pressure Mean [Left Arm] 73 Blood Pressure Position [Left Arm] Sitting Pulse Oximetry 100 100 100 Oxygen Delivery Method Room Air Room Air Room Air 11/15/21 20:00 11/15/21 20:35 11/15/21 21:30 Pulse Rate [Left Finger] 93 H 95 H Respiratory Rate 18 20 19 Respiratory Effort / Characteristics Non-Labored Spontaneous Non-Labored Spontaneous Non-Labored Spontaneous Respiratory Depth Normal Normal Blood Pressure [Left Arm] 107/67 89/55 L Blood Pressure Mean [Left Arm] 80 66 Blood Pressure Position [Left Arm] Pulse Oximetry 100 100 99 Oxygen Delivery Method Room Air Room Air Room Air 11/15/21 21:51 11/15/21 22:14 11/15/21 23:33 Pulse Rate [Left Finger] 96 H 92 H 99 H Respiratory Rate 20 20 18 Respiratory Effort / Characteristics Non-Labored Spontaneous Non-Labored Spontaneous Respiratory Depth Normal Normal Blood Pressure [Left Arm] 96/82 L 94/62 L 104/64 Blood Pressure Mean [Left Arm] 86 72 77 Blood Pressure Position [Left Arm] Pulse Oximetry 100 99 97 Oxygen Delivery Method Room Air Room Air Room Air 11/16/21 00:09 Pulse Rate [Left Finger] 101 H Respiratory Rate 18 Respiratory Effort / Characteristics Non-Labored Spontaneous Respiratory Depth Normal Blood Pressure [Left Arm] 103/65 Blood Pressure Mean [Left Arm] 77 Blood Pressure Position [Left Arm] Pulse Oximetry 97 Oxygen Delivery Method Room Air Laboratory Data Attestation: I reviewed the patient's lab results. Result diagrams: 11/16/21 14:04 11/16/21 05:42 Lab Results 11/15/21 11/15/21 11/15/21 Range/Units 19:00 19:00 19:00 WBC 9.99 (4.8-10.8) K/uL RBC 3.17 L (4.7-6.1) M/uL Hgb 8.6 L (14.0-18.0) g/dL Hct 27.2 L (42-52) % MCV 85.8 (80-100) fL MCH 27.1 (25-34) pg MCHC 31.6 L (32-36) g/dL RDW Std Deviation 47.8 H (36.4-46.3) fL RDW Coeff of Concha 15.2 H (11.5-14.5) % Plt Count 261 (130-400) K/uL MPV 9.4 (7.4-10.4) fL Immature Gran % (Auto) 0.3 % Neut % (Auto) 72.1 % Lymph % (Auto) 16.3 % Divide % (Auto) 10.7 % Eos % (Auto) 0.5 % Baso % (Auto) 0.1 % Neut # (Auto) 7.20 H (1.4-6.5) K/uL Lymph # (Auto) 1.63 (1.2-3.4) K/uL Divide # (Auto) 1.07 H (0.11-0.59) K/uL Eos # (Auto) 0.05 (0-0.5) K/uL Baso # (Auto) 0.01 (0-0.2) K/uL Immature Gran # (Auto) 0.03 H (0.00-0.02) K/uL PT 11.0 (9.0-12.0) Seconds INR 1.0 (0.9-1.1) APTT 28.5 (21.0-31.0) Seconds PTT Ratio 1.0 Sodium 132 L (136-145) mmol/L Potassium 3.9 (3.5-5.1) mmol/L Chloride 101 (98-107) mmol/L Carbon Dioxide 18 L (21-32) mmol/L Anion Gap 13 H (3-11) BUN 23 (6-23) mg/dl Creatinine 2.10 H (0.6-1.4) mg/dl Est Cr Clr Drug Dosing Not Reportable Est GFR ( Amer) 36.1 ml/min Est GFR (Non-Af Amer) 31.2 ml/min BUN/Creatinine Ratio 11.0 (10-20) Glucose 127 H (70-99(Fasting)) mg/dl Estimat Average Glucose mg/dl Hemoglobin A1c (4.5-5.6) % Lactate (0.4-2.0) mmol/L Calcium 9.7 (8.5-10.1) mg/dl Phosphorus 3.3 (2.5-4.9) mg/dl Magnesium 1.2 L (1.7-2.4) mg/dl Total Bilirubin 1.3 H (0.2-1.0) mg/dl AST 14 (13-39) U/L ALT 13 (7-52) U/L Alkaline Phosphatase 134 H (34-104) U/L Total Creatine Kinase (30-223) U/L Troponin I High Sens 10.9 (0-20) pg/ml Total Protein 8.1 (6.0-8.3) gm/dl Albumin 4.2 (3.4-5.0) gm/dl Globulin 3.9 (2.5-4.0) gm/dl Albumin/Globulin Ratio 1.1 (0.9-2) Procalcitonin (0-0.5) ng/ml TSH (0.300-4.500) uIu/ml Urine Color Urine Appearance (Clear) Urine pH (4.5-7.5) Ur Specific [place] (1.000-1.030) Urine Protein (Negative) Urine Glucose (UA) (Negative) Urine Ketones (Negative) Urine Blood (Negative) Urine Nitrite (Negative) Urine Bilirubin (Negative) Urine Urobilinogen (Negative) Ur Leukocyte Esterase (Negative) Urine WBC (Auto) (0-5) /hpf Urine RBC (Auto) (0-4) /hpf U Hyaline Cast (Auto) (0-5) /lpf U Epithel Cells (Auto) (0-5) /lpf Urine Bacteria (Auto) (Negative) SARS-CoV-2 (PCR) (Negative) Influenza Type A (PCR) (Neg) Influenza Type B (PCR) (Neg) RSV (RT-PCR) (Neg) 11/15/21 11/15/21 11/15/21 Range/Units 19:00 19:00 19:00 WBC (4.8-10.8) K/uL RBC (4.7-6.1) M/uL Hgb (14.0-18.0) g/dL Hct (42-52) % MCV (80-100) fL MCH (25-34) pg MCHC (32-36) g/dL RDW Std Deviation (36.4-46.3) fL RDW Coeff of Concha (11.5-14.5) % Plt Count (130-400) K/uL MPV (7.4-10.4) fL Immature Gran % (Auto) % Neut % (Auto) % Lymph % (Auto) % Divide % (Auto) % Eos % (Auto) % Baso % (Auto) % Neut # (Auto) (1.4-6.5) K/uL Lymph # (Auto) (1.2-3.4) K/uL Divide # (Auto) (0.11-0.59) K/uL Eos # (Auto) (0-0.5) K/uL Baso # (Auto) (0-0.2) K/uL Immature Gran # (Auto) (0.00-0.02) K/uL PT (9.0-12.0) Seconds INR (0.9-1.1) APTT (21.0-31.0) Seconds PTT Ratio Sodium (136-145) mmol/L Potassium (3.5-5.1) mmol/L Chloride (98-107) mmol/L Carbon Dioxide (21-32) mmol/L Anion Gap (3-11) BUN (6-23) mg/dl Creatinine (0.6-1.4) mg/dl Est Cr Clr Drug Dosing Est GFR ( Amer) ml/min Est GFR (Non-Af Amer) ml/min BUN/Creatinine Ratio (10-20) Glucose (70-99(Fasting)) mg/dl Estimat Average Glucose 105 mg/dl Hemoglobin A1c 5.3 (4.5-5.6) % Lactate 0.9 (0.4-2.0) mmol/L Calcium (8.5-10.1) mg/dl Phosphorus (2.5-4.9) mg/dl Magnesium (1.7-2.4) mg/dl Total Bilirubin (0.2-1.0) mg/dl AST (13-39) U/L ALT (7-52) U/L Alkaline Phosphatase (34-104) U/L Total Creatine Kinase (30-223) U/L Troponin I High Sens (0-20) pg/ml Total Protein (6.0-8.3) gm/dl Albumin (3.4-5.0) gm/dl Globulin (2.5-4.0) gm/dl Albumin/Globulin Ratio (0.9-2) Procalcitonin 0.67 H (0-0.5) ng/ml TSH (0.300-4.500) uIu/ml Urine Color Urine Appearance (Clear) Urine pH (4.5-7.5) Ur Specific [place] (1.000-1.030) Urine Protein (Negative) Urine Glucose (UA) (Negative) Urine Ketones (Negative) Urine Blood (Negative) Urine Nitrite (Negative) Urine Bilirubin (Negative) Urine Urobilinogen (Negative) Ur Leukocyte Esterase (Negative) Urine WBC (Auto) (0-5) /hpf Urine RBC (Auto) (0-4) /hpf U Hyaline Cast (Auto) (0-5) /lpf U Epithel Cells (Auto) (0-5) /lpf Urine Bacteria (Auto) (Negative) SARS-CoV-2 (PCR) (Negative) Influenza Type A (PCR) (Neg) Influenza Type B (PCR) (Neg) RSV (RT-PCR) (Neg) 11/15/21 11/15/21 11/15/21 Range/Units 19:00 19:00 19:24 WBC (4.8-10.8) K/uL RBC (4.7-6.1) M/uL Hgb (14.0-18.0) g/dL Hct (42-52) % MCV (80-100) fL MCH (25-34) pg MCHC (32-36) g/dL RDW Std Deviation (36.4-46.3) fL RDW Coeff of Concha (11.5-14.5) % Plt Count (130-400) K/uL MPV (7.4-10.4) fL Immature Gran % (Auto) % Neut % (Auto) % Lymph % (Auto) % Divide % (Auto) % Eos % (Auto) % Baso % (Auto) % Neut # (Auto) (1.4-6.5) K/uL Lymph # (Auto) (1.2-3.4) K/uL Divide # (Auto) (0.11-0.59) K/uL Eos # (Auto) (0-0.5) K/uL Baso # (Auto) (0-0.2) K/uL Immature Gran # (Auto) (0.00-0.02) K/uL PT (9.0-12.0) Seconds INR (0.9-1.1) APTT (21.0-31.0) Seconds PTT Ratio Sodium (136-145) mmol/L Potassium (3.5-5.1) mmol/L Chloride (98-107) mmol/L Carbon Dioxide (21-32) mmol/L Anion Gap (3-11) BUN (6-23) mg/dl Creatinine (0.6-1.4) mg/dl Est Cr Clr Drug Dosing Est GFR ( Amer) ml/min Est GFR (Non-Af Amer) ml/min BUN/Creatinine Ratio (10-20) Glucose (70-99(Fasting)) mg/dl Estimat Average Glucose mg/dl Hemoglobin A1c (4.5-5.6) % Lactate (0.4-2.0) mmol/L Calcium (8.5-10.1) mg/dl Phosphorus (2.5-4.9) mg/dl Magnesium (1.7-2.4) mg/dl Total Bilirubin (0.2-1.0) mg/dl AST (13-39) U/L ALT (7-52) U/L Alkaline Phosphatase (34-104) U/L Total Creatine Kinase 20 L (30-223) U/L Troponin I High Sens (0-20) pg/ml Total Protein (6.0-8.3) gm/dl Albumin (3.4-5.0) gm/dl Globulin (2.5-4.0) gm/dl Albumin/Globulin Ratio (0.9-2) Procalcitonin (0-0.5) ng/ml TSH 0.862 (0.300-4.500) uIu/ml Urine Color Urine Appearance (Clear) Urine pH (4.5-7.5) Ur Specific [place] (1.000-1.030) Urine Protein (Negative) Urine Glucose (UA) (Negative) Urine Ketones (Negative) Urine Blood (Negative) Urine Nitrite (Negative) Urine Bilirubin (Negative) Urine Urobilinogen (Negative) Ur Leukocyte Esterase (Negative) Urine WBC (Auto) (0-5) /hpf Urine RBC (Auto) (0-4) /hpf U Hyaline Cast (Auto) (0-5) /lpf U Epithel Cells (Auto) (0-5) /lpf Urine Bacteria (Auto) (Negative) SARS-CoV-2 (PCR) NEGATIVE (Negative) Influenza Type A (PCR) Negative (Neg) Influenza Type B (PCR) Negative (Neg) RSV (RT-PCR) Negative (Neg) 11/15/21 Range/Units 23:24 WBC (4.8-10.8) K/uL RBC (4.7-6.1) M/uL Hgb (14.0-18.0) g/dL Hct (42-52) % MCV (80-100) fL MCH (25-34) pg MCHC (32-36) g/dL RDW Std Deviation (36.4-46.3) fL RDW Coeff of Concha (11.5-14.5) % Plt Count (130-400) K/uL MPV (7.4-10.4) fL Immature Gran % (Auto) % Neut % (Auto) % Lymph % (Auto) % Divide % (Auto) % Eos % (Auto) % Baso % (Auto) % Neut # (Auto) (1.4-6.5) K/uL Lymph # (Auto) (1.2-3.4) K/uL Divide # (Auto) (0.11-0.59) K/uL Eos # (Auto) (0-0.5) K/uL Baso # (Auto) (0-0.2) K/uL Immature Gran # (Auto) (0.00-0.02) K/uL PT (9.0-12.0) Seconds INR (0.9-1.1) APTT (21.0-31.0) Seconds PTT Ratio Sodium (136-145) mmol/L Potassium (3.5-5.1) mmol/L Chloride (98-107) mmol/L Carbon Dioxide (21-32) mmol/L Anion Gap (3-11) BUN (6-23) mg/dl Creatinine (0.6-1.4) mg/dl Est Cr Clr Drug Dosing Est GFR ( Amer) ml/min Est GFR (Non-Af Amer) ml/min BUN/Creatinine Ratio (10-20) Glucose (70-99(Fasting)) mg/dl Estimat Average Glucose mg/dl Hemoglobin A1c (4.5-5.6) % Lactate (0.4-2.0) mmol/L Calcium (8.5-10.1) mg/dl Phosphorus (2.5-4.9) mg/dl Magnesium (1.7-2.4) mg/dl Total Bilirubin (0.2-1.0) mg/dl AST (13-39) U/L ALT (7-52) U/L Alkaline Phosphatase (34-104) U/L Total Creatine Kinase (30-223) U/L Troponin I High Sens (0-20) pg/ml Total Protein (6.0-8.3) gm/dl Albumin (3.4-5.0) gm/dl Globulin (2.5-4.0) gm/dl Albumin/Globulin Ratio (0.9-2) Procalcitonin (0-0.5) ng/ml TSH (0.300-4.500) uIu/ml Urine Color Yellow Urine Appearance Cloudy A (Clear) Urine pH 5.5 (4.5-7.5) Ur Specific [place] 1.013 (1.000-1.030) Urine Protein 1+ H (Negative) Urine Glucose (UA) Negative (Negative) Urine Ketones Negative (Negative) Urine Blood 1+ H (Negative) Urine Nitrite Positive A (Negative) Urine Bilirubin Negative (Negative) Urine Urobilinogen Negative (Negative) Ur Leukocyte Esterase 3+ H (Negative) Urine WBC (Auto) >30 H (0-5) /hpf Urine RBC (Auto) 5-10 H (0-4) /hpf U Hyaline Cast (Auto) 1-5 (0-5) /lpf U Epithel Cells (Auto) 5-10 H (0-5) /lpf Urine Bacteria (Auto) Negative (Negative) SARS-CoV-2 (PCR) (Negative) Influenza Type A (PCR) (Neg) Influenza Type B (PCR) (Neg) RSV (RT-PCR) (Neg) Administered Medications Aspirin (Aspirin 81 Mg Ectab) 81 mg PO DAILY THOR Stop: 12/16/21 08:59 Last Admin: 11/16/21 08:25 Dose: 81 mg Documented by: [id number] Heparin Sodium (Porcine) (Heparin Sod 5,000 Unit/0.5 Ml Vial) 5,000 units SQ Q8 THOR Stop: 12/16/21 05:59 Last Admin: 11/16/21 14:39 Dose: 5,000 units Documented by: [id number] Admin: 11/16/21 06:18 Dose: 5,000 units Documented by: [id number] Cefepime HCl 1,000 mg/ Syringe 11.3 mls @ 5.5 mls/min IV Q12H THOR; Protocol Stop: 11/26/21 13:59 Last Admin: 11/16/21 14:38 Dose: 5.5 mls/min Documented by: [id number] Lactated Ringer's (Lr) 1,000 mls @ 100 mls/hr IV .Q10H THOR Stop: 11/17/21 09:29 Last Admin: 11/16/21 09:42 Dose: 100 mls/hr Documented by: [id number] Pravastatin Sodium (Pravastatin Sod 10 Mg Tab) 10 mg PO QAM THOR Stop: 12/16/21 08:59 Last Admin: 11/16/21 08:25 Dose: 10 mg Documented by: [id number] Discontinued Medications Sodium Chloride (Nss 1000ml) 2,000 mls @ 999 mls/hr IV .Q2H1M ONE Stop: 11/15/21 20:45 Last Infusion: 11/15/21 22:47 Dose: 0 mls/hr Documented by: [id number] Admin: 11/15/21 19:19 Dose: 999 mls/hr Documented by: [id number] Famotidine (Pepcid 20mg Iv Push) 20 mg in 5 mls @ 2.5 mls/min IV NOW STA Stop: 11/15/21 18:46 Last Admin: 11/15/21 19:18 Dose: 2.5 mls/min Documented by: [id number] Piperacillin Sod/Tazobactam Sod (Zosyn) 4.5 gm in 120 mls @ 240 mls/hr IV NOW ONE Stop: 11/15/21 19:16 Last Infusion: 11/15/21 20:02 Dose: 0 mls/hr Documented by: [id number] Admin: 11/15/21 19:17 Dose: 240 mls/hr Documented by: [id number] Magnesium Sulfate/Dextrose (Magnesium Sulfate / D5w) 1 gm in 100 mls @ 100 mls/hr IV Q1H THOR Stop: 11/15/21 22:13 Last Infusion: 11/15/21 23:32 Dose: 0 mls/hr Documented by: [id number] Admin: 11/15/21 22:24 Dose: 100 mls/hr Documented by: [id number] Infusion: 11/15/21 22:24 Dose: 100 mls/hr Documented by: [id number] Admin: 11/15/21 22:23 Dose: 100 mls/hr Documented by: [id number] Lactated Ringer's (Lr) 1,000 mls @ 100 mls/hr IV .Q10H ONE Stop: 11/16/21 09:31 Last Infusion: 11/16/21 09:41 Dose: 0 mls/hr Documented by: [id number] Admin: 11/16/21 01:58 Dose: 100 mls/hr Documented by: [id number] Magnesium Sulfate/Dextrose (Magnesium Sulfate / D5w) 1 gm in 100 mls @ 50 mls/ hr IV ONE ONE Stop: 11/16/21 02:15 Last Infusion: 11/16/21 04:34 Dose: 0 mls/hr Documented by: [id number] Admin: 11/16/21 01:58 Dose: 50 mls/hr Documented by: [id number] Cefepime HCl 2,000 mg/ Syringe 20 mls @ 5 mls/min IV NOW ONE Stop: 11/16/21 02:03 Last Admin: 11/16/21 02:04 Dose: 5 mls/min Documented by: [id number] Miscellaneous (Patient's Height &/Or Weight Needed) 1 ea N/A Q2H THOR Stop: 12/16/21 01:59 Last Admin: 11/16/21 02:53 Dose: Not Given Documented by: [id number] Ondansetron HCl (Ondansetron Inj 2 Mg/Ml 2 Ml Vial) 4 mg IV NOW STA Stop: 11/15/21 18:46 Last Admin: 11/15/21 19:17 Dose: 4 mg Documented by: [id number] Imaging Data Radiologist's Impression: Abdomen/Pelvis CT 11/15/21 20:12 CT abd pelvis wo con CLINICAL HISTORY: weakness, ?urosepsis TECHNIQUE: Helical axial images of the abdomen and pelvis were obtained. Automated dose lowering techniques and/or adjustment according to patient size were utilized for this exam. This exam was performed without intravenous contrast. CT DOSE: 277.16 mGy.cm COMPARISON: Comparison is made to CT abdomen pelvis 10/21/2021 FINDINGS: Lower chest: Bibasilar atelectasis versus scarring is seen. Liver: Unremarkable. No focal lesions are seen. Gallbladder and biliary tree: Cholelithiasis is seen without evidence of cholecystitis. No intra- or extrahepatic biliary ductal dilation. Pancreas: Unremarkable, no focal lesions. Spleen: Unremarkable. Adrenals: Unremarkable. Kidneys and ureters: There is left hydroureteronephrosis with perinephric/periureteral fat stranding. No obstructive stones are seen. Ileal conduit is unremarkable in appearance. Reproductive organs: Unremarkable. Bowel: Postsurgical changes of ileal conduit creation and bowel resection are seen. Lymph nodes Retroperitoneal: Subcentimeter lymph nodes are noted. Mesenteric: Unremarkable. Pelvic: Unremarkable. Peritoneum: Normal. Vessels: Atherosclerotic calcifications are seen. Abdominal wall: A fat-containing umbilical hernia is seen. Bones: Degenerative changes in the visualized spine. IMPRESSION: 1. There is perinephric/periureteral stranding and mild hydronephrosis and hydroureter on the left which is new from prior exam. Findings are nonspecific but infectious etiology cannot be excluded. No evidence of obstructive stone. 2. Postsurgical changes of cystectomy and ileal conduit creation. 3. Cholelithiasis without cholecystitis. ACT 112: Negative or not required by law. Electronically signed by: Pepe Keyes M.D. 11/16/2021 8:26 AM [facility] Preliminary Findings Only See Final Report For Complete Findings CT ABDOMEN & PELVIS Without Contrast: There is asymmetric mild left hydroureteronephrosis with left perinephric and periureteral fat stranding. No definitive renal collecting stones identified. Differential consideration includes inflammation of the left urothelium versus developing distal anastomotic stricture at the ileal conduit. No perinephric abscess. There is a 5 mm calcification in a loop of bowel involving the right anterior pelvis which is stable from the examination 10/21/2021, not consistent with a recently passed renal collecting stone in the conduit. No bowel obstruction. No pneumoperitoneum. No significant free intraperitoneal fluid. Layering hyperdensity in the gallbladder is similar to the previous exam and may represent granular stones or hyperdense sludge. No CT evidence for gallbladder wall thickening or biliary dilatation. The unenhanced liver, pancreas, spleen, adrenal glands and right kidney are unremarkable. Status post cystectomy. No acute osseous or significant overlying soft tissue abnormality. Radiologist: Oracio Crystal MD Study ready at 20:43 and initial results transmitted at 22:42 Discharge Plan Visit Data Chief Complaint: Vomiting Stated Complaint: FEVER, VOMITING ED Provider: Avtar Kang Discharge Problem: Acute UTI, Acute hypotension, Acute renal failure, Hypomagnesemia Patient Disposition: Admitted As Inpatient Discharge Instructions Interventions: ED Discharge Assessment Last Done: 11/16/21 01:09 Discharge Problem: Acute renal failure Qualifiers: Acute renal failure type: unspecified Qualified Code(s): N17.9 - Acute kidney failure, unspecified
[2021-11-15 19:40] LABS: Partial Thromboplastin Time 28.5 Seconds (21.0-31.0)
[2021-11-15 19:46] LABS: Alanine Aminotransferase 13 U/L (7-52); Albumin Globulin Ratio 1.1 (0.9-2); Albumin Level 4.2 gm/dl (3.4-5.0); Alkaline Phosphatase 134 U/L (34-104); Anion Gap 13 (3-11); Aspartate Aminotransferase 14 U/L (13-39); Bilirubin,Total 1.3 mg/dl (0.2-1.0); Blood Urea Nitrogen 23 mg/dl (6-23); Calcium 9.7 mg/dl (8.5-10.1); Carbon Dioxide 18 mmol/L (21-32); Chloride 101 mmol/L (98-107); Est GFR (African American) 36.1 ml/min; Est GFR (Non-African American) 31.2 ml/min; Globulin 3.9 gm/dl (2.5-4.0); Glucose 127 mg/dl (70-99(Fasting)); Magnesium 1.2 mg/dl (1.7-2.4); Phosphorus 3.3 mg/dl (2.5-4.9); Potassium 3.9 mmol/L (3.5-5.1); Sodium 132 mmol/L (136-145); Total Protein 8.1 gm/dl (6.0-8.3)
[2021-11-15 19:47] LABS: Troponin I High Sensitivity 10.9 pg/ml (0-20)
[2021-11-15 19:52] LABS: Basophils # (auto) 0.01 K/uL (0-0.2); Basophils % (auto) 0.1 %; Eosinophils # (auto) 0.05 K/uL (0-0.5); Eosinophils % (auto) 0.5 %; Hematocrit (blood only) 27.2 % (42-52); Hemoglobin 8.6 g/dL (14.0-18.0); Immature Granulocytes # (auto) 0.03 K/uL (0.00-0.02); Immature Granulocytes % (auto) 0.3 %; Lymphocytes # (auto) 1.63 K/uL (1.2-3.4); Lymphocytes % (auto) 16.3 %; Mean Corpuscular Hemoglobin 27.1 pg (25-34); Mean Corpuscular Hgb Conc 31.6 g/dL (32-36); Mean Corpuscular Volume 85.8 fL (80-100); Mean Platelet Volume 9.4 fL (7.4-10.4); Monocytes # (auto) 1.07 K/uL (0.11-0.59); Monocytes % (auto) 10.7 %; Neutrophils % (auto) 72.1 %; Platelet Count 261 K/uL (130-400); RDW Coefficient of Variation 15.2 % (11.5-14.5); RDW Standard Deviation 47.8 fL (36.4-46.3); Red Blood Count 3.17 M/uL (4.7-6.1); White Blood Count 9.99 K/uL (4.8-10.8)
--- NOTE | 2021-11-15 19:58 | XRay Report ---
XR chest 1V portable CLINICAL HISTORY: SEPSIS. COMPARISON STUDY: 10/02/2021 TECHNIQUE: 1 view of the chest FINDINGS: Single frontal view of the chest demonstrates the cardiomediastinal silhouette to be within normal li mits. The lungs are clear of alveolar opacities. There is no evidence for pleural effusion. There is no evidence for vascular congestion. There is no acute osseous pathology. IMPRESSION: 1. No acute cardiopulmonary disease. ACT 112: Negative or not required by law. Electronically signed by: Emory Fuller M.D. 11/15/2021 7:57 PM
[2021-11-15 20:11] LABS: Influenza A virus by PCR Negative (Neg); Influenza B virus by PCR Negative (Neg); RSV by PCR Negative (Neg); SARS CoV2 RNA(COVID-19) InHosp NEGATIVE (Negative)
[2021-11-15] MEDS: MAGNESIUM SULFATE / D5W 1 GM/100 ML BAG IV SCH ×2 (22:23→22:24)
[2021-11-15] MEDS ORDERED: LACTATED RINGER'S 1,000 ML IV ONE (23:32)
--- NOTE | 2021-11-15 23:41 | History & Physical Report ---
Date of Service November 15, 2021 History of Present Illness Primary Care Provider: Nakia Frank MD Allergies Allergy/AdvReac Type Severity Reaction Status Date / Time No Known Allergies Allergy Verified 10/21/21 15:50 Home Medications Medication Instructions Recorded Confirmed Type lisinopril 5 mg tablet 5 mg PO QAM 01/12/21 11/15/21 History pravastatin 10 mg tablet 10 mg PO QAM 01/12/21 11/15/21 History zolpidem 5 mg tablet (Ambien) 5 mg PO DAILY PRN #30 tab 10/19/21 11/15/21 Rx acetaminophen 325 mg tablet 650 mg PO DIRECTED PRN 10/21/21 11/15/21 History (Tylenol) aspirin 81 mg tablet,delayed 81 mg PO DAILY 10/21/21 11/15/21 History release Past Med/Surg History Medical History Bladder cancer hx chemotherapy (Fall 2020) BPH (benign prostatic hyperplasia) Essential tremor Hyperlipidemia Hypertension Lung nodules Under CT surveillance Stroke 2015, 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 Surgical History History of bilateral cataract extraction History of bladder surgery TURBT (07/07/21): LMA#5 at [facility] History of cystoscopy S/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 Required: No Beliefs That Will Affect Care: None marital status: Current Living Situation: Spouse How many Children do You have: 2 Feels Safe at Home: Yes Assistive Devices: Walker Results & Data Results & Data ([facility]) Vital Signs (Past 12 Hours) Vital Signs Temp Pulse Pulse Resp BP BP Pulse Ox 11/15/21 23:33 99 H 18 104/64 97 11/15/21 22:14 92 H 20 94/62 L 99 11/15/21 21:51 96 H 20 96/82 L 100 11/15/21 21:30 95 H 19 89/55 L 99 11/15/21 20:35 93 H 20 107/67 100 11/15/21 20:00 18 100 11/15/21 19:30 100 11/15/21 19:29 100 11/15/21 19:27 94 H 20 98/61 L 100 11/15/21 18:30 36.9 C 131 H 18 88/60 L 98 Laboratory Results There is asymmetric mild left hydroureteronephrosiswith left perinephric and periureteral fat stranding. No definitive renal collecting stones identified. Differential consideration includes inflammation of the left urotheliumversus developing distal anastomotic stricture at the ileal conduit. No perinephric abscess. There is a 5 mmcalcification in a loop of bowel involving the right anterior pelviswhich is stable from the examination 10/21/2021, not consistent with a recentlypassed renal collecting stone in the conduit. No bowel obstruction. No pneumoperitoneum. No significant free intraperitoneal fluid. Layering hyperdensityin the gallbladder is similar to the previous examand mayrepresent granular stones or hyperdense sludge. No CT evidence for gallbladder wall thickening or biliarydilatation. The unenhanced liver, pancreas, spleen, adrenal glands and right kidneyare unremarkable. Status post cystectomy. No acute osseous or significant overlying soft tissue abnormality
[2021-11-15 23:51] LABS: Appearance Urine Cloudy (Clear); Bacteria Urine Automated Negative (Negative); Bilirubin Urine Negative (Negative); Blood Urine 1+ (Negative); Color Urine Yellow; Glucose Urine UA Negative (Negative); Ketones Urine Negative (Negative); Leukocyte Esterase Urine 3+ (Negative); Nitrite Urine Positive (Negative); Protein Urine 1+ (Negative); Specific Gravity Urine 1.013 (1.000-1.030); Urobilinogen Urine Negative (Negative); WBC Urine Automated >30 /hpf (0-5); pH Urine 5.5 (4.5-7.5)
--- NOTE | 2021-11-16 00:08 | History & Physical Report ---
Date of Service November 16, 2021 Assessment & Plan (1) Complicated UTI (urinary tract infection): Plan: Hydronephrosis on CT hx bladder cancer status post surgery status post chemotherapy ARF secondary to illness AG MA secondary to above hypertension, patient initially hypotensive upon arrival at the ER hyperlipidemia, on statin Rx history CVA chronic anemia, hemoglobin at baseline Hyperglycemia rule out DM past tobacco abuse Medical telemetry Follow CS, cefepime Urology consult Re: Hydronephrosis, complicated UTI N.p.o. until patient seen by urologist in a.m. anticipation of procedure. Monitor creatinine response to IVF Appropriate to hold lisinopril until creatinine back to baseline Check hemoglobin A1c DVT prophylaxis. Heparin subcu Full code Patient requesting updates from providers. Ms. Wise Chuy, contact #[phone]. Text document was generated using [employer] voice recognition software. It may contain grammatical or spelling errors. Kindly contact undersigned for clarification of any documentation item in question. History of Present Illness Chief Complaint: Fever, vomiting Primary Care Provider: Nakia Frank MD History obtained from patient, family, and records. Medical history significant for bladder cancer status post surgery status post chemotherapy, hypertension, hyperlipidemia, history CVA, history essential tremor, chronic anemia (baseline hemoglobin of 8 ), past tobacco abuse. Last confinement last month for diarrhea, sepsis, complicated UTI. [facility] u[facility]. CS grew Klebsiella and E. coli. Patient completed antibiotic course. Yesterday, patient woke up feeling ill, subsequent generalized weakness, nausea, fever 101 at home. Patient denies chest pain, SOB, abdominal/flank pain/gross hematuria. Urine was noted to be cloudy as per . Initial SBP at the ER was 80s. Patient given Zosyn at the ER for possible UTI. Medical History as above Surgical History : Cataract surgeries, radical cystoprostatectomy, ileal conduit Family History : DM Personal/Social history : Past tobacco abuse, occasional EtOH intake, lives with Allergies Allergy/AdvReac Type Severity Reaction Status Date / Time No Known Allergies Allergy Verified 10/21/21 15:50 Home Medications Medication Instructions Recorded Confirmed Type lisinopril 5 mg tablet 5 mg PO QAM 01/12/21 11/15/21 History pravastatin 10 mg tablet 10 mg PO QAM 01/12/21 11/15/21 History zolpidem 5 mg tablet (Ambien) 5 mg PO DAILY PRN #30 tab 10/19/21 11/15/21 Rx acetaminophen 325 mg tablet 650 mg PO DIRECTED PRN 10/21/21 11/15/21 History (Tylenol) aspirin 81 mg tablet,delayed 81 mg PO DAILY 10/21/21 11/15/21 History release Past Med/Surg History Medical History Bladder cancer hx chemotherapy (Fall 2020) BPH (benign prostatic hyperplasia) Essential tremor Hyperlipidemia Hypertension Lung nodules Under CT surveillance Stroke 2015, 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 Surgical History History of bilateral cataract extraction History of bladder surgery TURBT (07/07/21): LMA#5 at [facility] History of cystoscopy S/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 Dr Quintero, [facility] Family History Son Family history of diabetes mellitus Other No family history of adverse response to anesthesia Social History Smoking Status: Never smoker Cigarettes Per Day: Quit pipe 6 yrs ago, Quit cigs 40 yrs ago; Second Hand Exposure: No; Hx Alcohol Use: Yes Alcohol type: beer Hx Substance Use: No Preferred Language: Serbian Communication Ability: Effective Community Ambassador Required: No Beliefs That Will Affect Care: None marital status: Current Living Situation: Spouse How many Children do You have: 2 Feels Safe at Home: Yes Assistive Devices: Walker Review of Systems Review of Systems: As per HPI, all other systems reviewed and negative Physical Exam Physical Exam: GENERAL: Comfortable, dysarthric (chronic) no respiratory distress SKIN: Pallor , warm HEENT: Alopecia, pale palpebral conjunctivae, chronic facial asymmetry, dry buccal mucosa NECK : Supple, no tenderness CHEST : CTA, no tenderness HEART : Tachycardic , no obvious murmurs ABDOMEN: Some distention, urostomy bag noted EXTREMITIES : No LE swelling/tenderness, no other conspicuous deformities noted NEUROLOGIC : Coherent, chronic facial asymmetry, dysarthric, gait and stance not assessed Results & Data Results & Data ([facility]) Vital Signs (Past 12 Hours) Vital Signs Temp Pulse Pulse Resp BP BP Pulse Ox 11/15/21 23:33 99 H 18 104/64 97 11/15/21 22:14 92 H 20 94/62 L 99 11/15/21 21:51 96 H 20 96/82 L 100 11/15/21 21:30 95 H 19 89/55 L 99 11/15/21 20:35 93 H 20 107/67 100 11/15/21 20:00 18 100 11/15/21 19:30 100 11/15/21 19:29 100 11/15/21 19:27 94 H 20 98/61 L 100 11/15/21 18:30 36.9 C 131 H 18 88/60 L 98 Laboratory Results Laboratory Results WBC 9.99 K/uL (4.8-10.8) 11/15/21 19:00 RBC 3.17 M/uL (4.7-6.1) L 11/15/21 19:00 Hgb 8.6 g/dL (14.0-18.0) L 11/15/21 19:00 Hct 27.2 % (42-52) L 11/15/21 19:00 MCV 85.8 fL (80-100) 11/15/21 19:00 MCH 27.1 pg (25-34) 11/15/21 19:00 MCHC 31.6 g/dL (32-36) L 11/15/21 19:00 RDW Std Deviation 47.8 fL (36.4-46.3) H 11/15/21 19:00 RDW Coeff of Concha 15.2 % (11.5-14.5) H 11/15/21 19:00 Plt Count 261 K/uL (130-400) 11/15/21 19:00 MPV 9.4 fL (7.4-10.4) 11/15/21 19:00 Immature Gran % (Auto) 0.3 % 11/15/21 19:00 Neut % (Auto) 72.1 % 11/15/21 19:00 Lymph % (Auto) 16.3 % 11/15/21 19:00 Bryan % (Auto) 10.7 % 11/15/21 19:00 Eos % (Auto) 0.5 % 11/15/21 19:00 Baso % (Auto) 0.1 % 11/15/21 19:00 Neut # (Auto) 7.20 K/uL (1.4-6.5) H 11/15/21 19:00 Lymph # (Auto) 1.63 K/uL (1.2-3.4) 11/15/21 19:00 Bryan # (Auto) 1.07 K/uL (0.11-0.59) H 11/15/21 19:00 Eos # (Auto) 0.05 K/uL (0-0.5) 11/15/21 19:00 Baso # (Auto) 0.01 K/uL (0-0.2) 11/15/21 19:00 Immature Gran # (Auto) 0.03 K/uL (0.00-0.02) H 11/15/21 19:00 PT 11.0 Seconds (9.0-12.0) 11/15/21 19:00 INR 1.0 (0.9-1.1) 11/15/21 19:00 APTT 28.5 Seconds (21.0-31.0) 11/15/21 19:00 PTT Ratio 1.0 11/15/21 19:00 Sodium 132 mmol/L (136-145) L 11/15/21 19:00 Potassium 3.9 mmol/L (3.5-5.1) 11/15/21 19:00 Chloride 101 mmol/L (98-107) 11/15/21 19:00 Carbon Dioxide 18 mmol/L (21-32) L 11/15/21 19:00 Anion Gap 13 (3-11) H 11/15/21 19:00 BUN 23 mg/dl (6-23) 11/15/21 19:00 Creatinine 2.10 mg/dl (0.6-1.4) H 11/15/21 19:00 Est Cr Clr Drug Dosing Not Reportable 11/15/21 19:00 Est GFR ( Amer) 36.1 ml/min 11/15/21 19:00 Est GFR (Non-Af Amer) 31.2 ml/min 11/15/21 19:00 BUN/Creatinine Ratio 11.0 (10-20) 11/15/21 19:00 Glucose 127 mg/dl (70-99(Fasting)) H 11/15/21 19:00 Lactate 0.9 mmol/L (0.4-2.0) 11/15/21 19:00 Calcium 9.7 mg/dl (8.5-10.1) 11/15/21 19:00 Phosphorus 3.3 mg/dl (2.5-4.9) 11/15/21 19:00 Magnesium 1.2 mg/dl (1.7-2.4) L 11/15/21 19:00 Total Bilirubin 1.3 mg/dl (0.2-1.0) H 11/15/21 19:00 AST 14 U/L (13-39) 11/15/21 19:00 ALT 13 U/L (7-52) 11/15/21 19:00 Alkaline Phosphatase 134 U/L (34-104) H 11/15/21 19:00 Troponin I High Sens 10.9 pg/ml (0-20) 11/15/21 19:00 Total Protein 8.1 gm/dl (6.0-8.3) 11/15/21 19:00 Albumin 4.2 gm/dl (3.4-5.0) 11/15/21 19:00 Globulin 3.9 gm/dl (2.5-4.0) 11/15/21 19:00 Albumin/Globulin Ratio 1.1 (0.9-2) 11/15/21 19:00 Procalcitonin 0.67 ng/ml (0-0.5) H 11/15/21 19:00 Urine Color Yellow 11/15/21 23:24 Urine Appearance Cloudy (Clear) A 11/15/21 23: Urine pH 5.5 (4.5-7.5) 11/15/21 23:24 Ur Specific [place] 1.013 (1.000-1.030) 11/15/21 23:24 Urine Protein 1+ (Negative) H 11/15/21 23:24 Urine Glucose (UA) Negative (Negative) 11/15/21 23:24 Urine Ketones Negative (Negative) 11/15/21 23:24 Urine Blood 1+ (Negative) H 11/15/21 23:24 Urine Nitrite Positive (Negative) A 11/15/21 23:24 Urine Bilirubin Negative (Negative) 11/15/21 23:24 Urine Urobilinogen Negative (Negative) 11/15/21 23:24 Ur Leukocyte Esterase 3+ (Negative) H 11/15/21 23:24 Urine WBC (Auto) >30 /hpf (0-5) H 11/15/21 23:24 Urine RBC (Auto) 5-10 /hpf (0-4) H 11/15/21 23:24 U Hyaline Cast (Auto) 1-5 /lpf (0-5) 11/15/21 23:24 U Epithel Cells (Auto) 5-10 /lpf (0-5) H 11/15/21 23:24 Urine Bacteria (Auto) Negative (Negative) 11/15/21 23:24 SARS-CoV-2 (PCR) NEGATIVE (Negative) 11/15/21 19:24 Influenza Type A (PCR) Negative (Neg) 11/15/21 19:24 Influenza Type B (PCR) Negative (Neg) 11/15/21 19:24 RSV (RT-PCR) Negative (Neg) 11/15/21 19:24 Impressions Chest X-Ray 11/15/21 18:43 XR chest 1V portable CLINICAL HISTORY: SEPSIS. COMPARISON STUDY: 10/02/2021 TECHNIQUE: 1 view of the chest FINDINGS: Single frontal view of the chest demonstrates the cardiomediastinal silhouette to be within normal limits. The lungs are clear of alveolar opacities. There is no evidence for pleural effusion. There is no evidence for vascular congestion. There is no acute osseous pathology. IMPRESSION: 1. No acute cardiopulmonary disease. ACT 112: Negative or not required by law. Electronically signed by: Emory Fuller M.D. 11/15/2021 7:[address] abdomen pelvis initial read: There is asymmetric mild left hydroureteronephrosiswith left perinephric and periureteral fat stranding. No definitive renal collecting stones identified. Differential consideration includes inflammation of the left urotheliumversus developing distal anastomotic stricture at the ileal conduit. No perinephric abscess. There is a 5 mmcalcification in a loop of bowel involving the right anterior pelviswhich is stable from the examination 10/21/2021, not consistent with a recentlypassed renal collecting stone in the conduit. No bowel obstruction. No pneumoperitoneum. No significant free intraperitoneal fluid. Layering hyperdensityin the gallbladder is similar to the previous examand mayrepresent granular stones or hyperdense sludge. No CT evidence for gallbladder wall thickening or biliarydilatation. The unenhanced liver, pancreas, spleen, adrenal glands and right kidneyare unremarkable. Status post cystectomy. No acute osseous or significant overlying soft tissue abnormalies. EKG as per my interpretation: Rate 100, NSR, normal axis, no ischemia
[2021-11-16] MEDS ORDERED: MAGNESIUM SULFATE / D5W 1 GM/100 ML BAG IV ONE (00:16)
[2021-11-16] MEDS ORDERED: oxyCODONE HCL IR 5 MG TAB (IMMEDIATE RELEASE) PO PRN (00:16)
[2021-11-16] MEDS ORDERED: PROMETHAZINE HCL 6.25 MG in SODIUM CHLORIDE 0.9% 50 ML IV PRN (00:16)
[2021-11-16] MEDS ORDERED: ACETAMINOPHEN 325 MG TAB PO PRN (01:42)
[2021-11-16] MEDS ORDERED: CEFEPIME 2,000 MG in SYRINGE 0 ML IV ONE (02:00)
[2021-11-16] MEDS ORDERED: Patient's HEIGHT &/or WEIGHT Needed SCH (02:00)
[2021-11-16 06:07] LABS: Base Excess VBG -4.9 mEq/L; HCO3 VBG 20 mmol/L; PCO2 VBG 35 mmHg (38-50); PO2 VBG 18 mmHg; pH VBG 7.37 (7.36-7.41)
[2021-11-16] MEDS: HEPARIN SOD 5,000 UNIT/0.5 ML VIAL SQ SCH ×3 (06:18→22:17)
[2021-11-16 06:21] LABS: BUN Creatinine Ratio 11.3 (10-20); Calcium 8.5 mg/dl (8.5-10.1); Creatinine Clr Calc Pharmacy 36.7 ml/min; Est GFR (African American) 47.3 ml/min; Est GFR (Non-African American) 40.8 ml/min; Magnesium 2.2 mg/dl (1.7-2.4); Potassium 4.2 mmol/L (3.5-5.1)
[2021-11-16 06:25] LABS: Hematocrit (blood only) 20.9 % (42-52); Hemoglobin 6.8 g/dL (14.0-18.0); Mean Corpuscular Hemoglobin 27.9 pg (25-34); Mean Corpuscular Hgb Conc 32.5 g/dL (32-36); Mean Corpuscular Volume 85.7 fL (80-100); Mean Platelet Volume 8.7 fL (7.4-10.4); Platelet Count 173 K/uL (130-400); RDW Coefficient of Variation 15.4 % (11.5-14.5); RDW Standard Deviation 49.1 fL (36.4-46.3); Red Blood Count 2.44 M/uL (4.7-6.1); White Blood Count 5.64 K/uL (4.8-10.8)
[2021-11-16 06:26] LABS: Basophils # (auto) 0.01 K/uL (0-0.2); Basophils % (auto) 0.2 %; Eosinophils # (auto) 0.03 K/uL (0-0.5); Eosinophils % (auto) 0.5 %; Immature Granulocytes # (auto) 0.01 K/uL (0.00-0.02); Immature Granulocytes % (auto) 0.2 %; Lymphocytes # (auto) 1.01 K/uL (1.2-3.4); Lymphocytes % (auto) 17.9 %; Monocytes # (auto) 0.62 K/uL (0.11-0.59); Neutrophils # (auto) 3.96 K/uL (1.4-6.5); Neutrophils % (auto) 70.2 %; RBC Morphology Unremarkable
[2021-11-16] MEDS ORDERED: SODIUM CHLORIDE 0.9% 250 ML IV PRN (06:27)
--- NOTE | 2021-11-16 06:31 | Communication Note ---
Date of Service: November 16, 2021 Notified by RN of a.m. hemoglobin of 6.8 (admitting hemoglobin of 8.6 last night) No overt bleeding as per RN AP Acute on chronic anemia Likely dilutional secondary to IVF Transfuse PRBC to maintain hemoglobin greater than 8 (hx CVA)
[2021-11-16 07:18] LABS: Oxygen Saturation VBG < 60.0 %
[2021-11-16] MEDS: PRAVASTATIN SOD 10 MG TAB PO SCH (08:25)
[2021-11-16] MEDS: ASPIRIN 81 MG ECTAB PO SCH (08:25)
--- NOTE | 2021-11-16 08:27 | CT Scan Report ---
CT abd pelvis wo con CLINICAL HISTORY: weakness, ?urosepsis TECHNIQUE: Helical axial images of the abdomen and pelvis were obtained. Automated dose lowering tech niques and/or adjustment according to patient size were utilized for this exam. This exam was perfor med without intravenous contrast. CT DOSE: 277.16 mGy.cm COMPARISON: Comparison is made to CT abdomen pelvis 10/21/2021 FINDINGS: Lower chest: Bibasilar atelectasis versus scarring is seen. Liver: Unremarkable. No focal lesions are seen. Gallbladder and biliary tree: Cholelithiasis is seen without evidence of cholecystitis. No intra- or extrahepatic biliary ductal dilation. Pancreas: Unremarkable, no focal lesions. Spleen: Unremarkable. Adrenals: Unremarkable. Kidneys and ureters: There is left hydroureteronephrosis with perinephric/periureteral fat stranding. No obstructive stones are seen. Ileal conduit is unremarkable in appearance. Reproductive organs: Unremarkable. Bowel: Postsurgical changes of ileal conduit creation and bowel resection are seen. Lymph nodes Retroperitoneal: Subcentimeter lymph nodes are noted. Mesenteric: Unremarkable. Pelvic: Unremarkable. Peritoneum: Normal. Vessels: Atherosclerotic calcifications are seen. Abdominal wall: A fat-containing umbilical hernia is seen. Bones: Degenerative changes in the visualized spine. IMPRESSION: 1. There is perinephric/periureteral stranding and mild hydronephrosis and hydroureter on the left w hich is new from prior exam. Findings are nonspecific but infectious etiology cannot be excluded. No evidence of obstructive stone. 2. Postsurgical changes of cystectomy and ileal conduit creation. 3. Cholelithiasis without cholecystitis. ACT 112: Negative or not required by law. Electronically signed by: Pepe Keyes M.D. 11/16/2021 8:26 AM
[2021-11-16 08:28] LABS: Estimated Average Glucose 105 mg/dl; Hemoglobin A1C 5.3 % (4.5-5.6)
[2021-11-16] MEDS: LACTATED RINGER'S 1,000 ML IV SCH ×2 (09:42→20:08)
--- NOTE | 2021-11-16 10:43 | Urology Consultation ---
Date of Consultation November 16, 2021 Assessment & Plan (1) Complicated UTI (urinary tract infection): (2) Acute renal failure: 71yo M with a hx of bladder cancer s/p cystoprostatectomy with ileal conduit who presented with weakness, nausea, fever and was admitted for complicated UTI and acute on chronic anemia. Urology consulted due to hydronephrosis, complicated UTI. - CTAP reviewed - perinephric/periureteral stranding and mild hydronephrosis and hydroureter on the left, no evidence of obstructive stone. - Afebrile at present - TMAX 37.8 earlier this morning. - Labs reviewed - Wbc 5.64, Creatinine down from 2.10 -1.68 today, Hemoglobin 6.8 - Receiving PRBC transfusion. - Urine and blood cultures pending, On IV Cefepime. - Urostomy with good output, currently draining cloudy yellow urine. Plan- - Plan of care and imaging reviewed with Dr. Gamboa, on-call urologist. - No acute intervention warranted at this time. - Hydronephrosis likely due to refluxing system, would plan to monitor for now and will likely need repeat imaging in the next 1-2 days. - OK to have diet back from perspective. - Recommend initiating bowel regimen. - Monitor H&H, transfuse as felt necessary per primary team. - Continue supportive care, antibiotic therapy, and close monitoring. - Urology will follow. History of Present Illness Reason for Consultation: Hydronephrosis, UTI Attending Physician: Ruchi Leon MD History of Present Illness 71yo M with a past medical history significant for bladder cancer s/p cystoprostatectomy with ileal conduit, hypertension, hyperlipidemia, history CVA, history essential tremor, chronic anemia, past tobacco abuse who presented with generalized weakness, nausea and fever to 101 at home. On arrival, he was noted to be afebrile and blood pressure 80s/60s but mentating at his baseline.Labs revealed a normal white count and hemoglobin 8.6. Creatinine 2.10 which is increased from recent values. UA obtained from the patient's ileal conduit with positive nitrites, 1+blood, 3+LE, >30WBCs, 5-10RBC, negative bacteria. A CT abdomen pelvis was obtained and demonstrated nonspecific findings including asymmetric mild left hydroureteronephrosis with left perinephric and periureteral fat stranding, no evidence of obstructive stone. Pt was treated with Zosyn for possible UTI and admitted to medicine service for further management. Urology consulted for hydronephrosis, UTI. Pt is well known to the urology service, follows with Dr. Quintero. He is s/p cystoprostatectomy with ileal conduit on 09/29/21. Recent hospitalization last month for ileus, UTI, dehydration. Prior CS grew Klebsiella and E. coli, patient completed antibiotic course. CT abdomen pelvis - 1. There is perinephric/periureteral stranding and mild hydronephrosis and hydroureter on the left which is new from prior exam. Findings are nonspecific but infectious etiology cannot be excluded. No evidence of obstructive stone. 2. Postsurgical changes of cystectomy and ileal conduit creation. 3. Cholelithiasis without cholecystitis. Pt examined at bedside this AM. Asleep on arrival, awakened to name. No acute distress. Receiving PRBC transfusion. Urostomy intact, draining cloudy yellow urine. Denies abdominal, flank, and back pain at present. Low grade temp this morning at 37.8C. Denies fever or chills at present. No nausea or vomiting. Has been NPO. Offered no additional complaints at time of exam. Allergies Allergy/AdvReac Type Severity Reaction Status Date / Time No Known Allergies Allergy Verified 10/21/21 15:50 Home Medications Medication Instructions Recorded Confirmed Type lisinopril 5 mg tablet 5 mg PO QAM 01/12/21 11/15/21 History pravastatin 10 mg tablet 10 mg PO QAM 01/12/21 11/15/21 History zolpidem 5 mg tablet (Ambien) 5 mg PO DAILY PRN #30 tab 10/19/21 11/15/21 Rx acetaminophen 325 mg tablet 650 mg PO DIRECTED PRN 10/21/21 11/15/21 History (Tylenol) aspirin 81 mg tablet,delayed 81 mg PO DAILY 10/21/21 11/15/21 History release Patient History Medical History Bladder cancer hx chemotherapy (Fall 2020) BPH (benign prostatic hyperplasia) Essential tremor Hyperlipidemia Hypertension Lung nodules Under CT surveillance Stroke 2015, 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 Surgical History History of bilateral cataract extraction History of bladder surgery TURBT (07/07/21): LMA#5 at [facility] History of cystoscopy S/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 Dr Quintero, [facility] Family History Son Family history of diabetes mellitus Other No family history of adverse response to anesthesia Social History Smoking Status: Never smoker Cigarettes Per Day: Quit pipe 6 yrs ago, Quit cigs 40 yrs ago; Second Hand Exposure: No; Hx Alcohol Use: Yes Alcohol type: beer Hx Substance Use: No Preferred Language: Djiboutian Communication Ability: Effective Answering Service Telephone Operator Required: No Beliefs That Will Affect Care: None marital status: Current Living Situation: Spouse How many Children do You have: 2 Other Information That Helps Us Care for You: No Feels Safe at Home: Yes Safety Concerns: Feels Safe At This Time Assistive Devices: Walker Review of Systems Review of Systems: All systems reviewed & are unremarkable except as noted in HPI & below Physical Exam Constitutional: comfortable; no acute distress Neck: normal visual inspection Respiratory: normal respiratory effort and able to speak in complete sentences; no labored breathing and no audible wheezes Cardiovascular: Extremities: no calf tenderness Gastrointestinal (Abdomen): Percussion/Palpation: abdomen soft; abdomen nontender and no guarding Right lower quadrant stoma with cloudy yellow urine in bag Musculoskeletal: Head/Neck/Chest: normocephalic Skin: No visible rashes or lesions to exposed skin areas Neurologic: moves all extremities and awake Psychiatric: Orientation: alert, oriented x 3 and cooperative Genitourinary: no CVA tenderness Results & Data ([facility]) Vital Signs (Past 12 Hours) Vital Signs Temp Pulse Pulse Resp BP BP Pulse Ox 11/16/21 10:22 104 H 11/16/21 09:35 87 14 100/65 97 11/16/21 09:05 37.3 C 88 16 100/64 97 11/16/21 08:50 37.1 C 95 H 16 91/55 L 97 11/16/21 08:28 37.3 C 101 H 19 99/62 L 97 11/16/21 07:13 37.7 C H 105 H 101/65 98 11/16/21 03:45 37.6 C H 97 H 16 100/67 99 11/16/21 01:43 37.1 C 98 H 16 104/63 100 11/16/21 00:09 101 H 18 103/65 97 11/15/21 23:33 99 H 18 104/64 97 PG Care Time/CCT Total # of Minutes Spent Total Time Spent with Patient: Total time spent is greater than 50% in coordination of care (as documented) at patient's floor/unit and/or counseling patient: Coding Level of Care Code 06960 Initial Inpt Care Lvl 2 Diagnoses Complicated UTI (urinary tract infection) N39.0 Acute renal failure N17.9 Acute renal failure type: unspecified (1) Acute renal failure Acute renal failure type: unspecified Qualified Code(s): N17.9 - Acute kidney failure, unspecified
[2021-11-16] MEDS ORDERED: CEFEPIME 2,000 MG in SYRINGE 0 ML IV SCH (14:00)
--- NOTE | 2021-11-16 14:07 | Electrocardiogram Report ---
Test Reason : Blood Pressure : / mmHG Vent. Rate : 099 BPM Atrial Rate : 099 BPM P-R Int : 158 ms QRS Dur : 094 ms QT Int : 364 ms P-R-T Axes : 072 075 032 degrees QTc Int : 467 ms Poor data quality, interpretation may be adversely affected Normal sinus rhythm Normal ECG When compared with ECG of 21-OCT-2021 19:17, No significant change was found Confirmed by James Purvis ([id number]) on 11/16/2021 2:07:06 PM Referred By: REFERRED SELF Confirmed By:James Purvis
[2021-11-16 14:38] LABS: Hematocrit (blood only) 28.7 % (42-52); Hemoglobin 9.4 g/dL (14.0-18.0)
[2021-11-16] MEDS: CEFEPIME 1,000 MG in SYRINGE 0 ML IV SCH (14:38)
--- NOTE | 2021-11-16 15:48 | Hospitalist Progress Note ---
Date of Service November 16, 2021 Assessment & Plan (1) Complicated UTI (urinary tract infection): Plan: 71-year-old gentleman with PMH of bladder cancer s/p surgery and chemo, HTN, HLD, CVA, essential tremor, chronic anemia [baseline hemoglobin of 8], past tobacco abuse presented to our ED 11/15 with complaint of waking up ill for 1 day, subsequent generalized weakness, nausea, vomiting x2 and fever 101 at home. Urine was noted to be cloudy as per . Patient denies any chest pain or shortness of breath or abdominal/flank pain/gross hematuria. Is being managed for the following: #. Complicated UTI #. Hydronephrosis #. History of bladder cancer s/p surgery and chemo Constitutional signs and symptoms associated with cloudy urine collection in urostomy bag at the time of presentation. Admitting CTAP: Perinephric/periureteral stranding and mild hydronephrosis and hydroureter on the left which is new from prior exam. Postsurgical changes of cystectomy and ileal conduit creation. Admitting urinalysis suggestive of UTI. Await admitting urine and blood culture. Continue with Cefepime 11/16. Urology evaluated: No plan for acute intervention, continue conservative management. #. Acute on chronic anemia Baseline hemoglobin around 8, admitting hemoglobin 6.8, likely secondary to IV fluid resuscitation Patient denies blood in stool or dark stool. No gross hematuria noted. Status post 2 unit PRBC transfusion 11/16 Maintain hemoglobin greater than 8, history of CVA Send FOBT, iron panel. #. JN Baseline creatinine around 1, admitting creatinine 2.1 Likely prerenal, patient was hypotensive at presentation. Status post IV fluid, continue with IV fluid, monitor BMP daily. Avoid nephrotoxic's. #. Other chronic medical condition: HLD, history of CVA, past tobacco abuse Continue with/resume home meds as and when appropriate. Continue to hold lisinopril. DVT prophylaxis. Heparin subcu Full code Patient Ms. Billie Vera, contact #[phone]. Admission and Anticipated Discharge Date Admission Date: November 16, 2021 Subjective Patient seen and examined at bedside as a follow-up of complicated UTI, hydronephrosis and acute on chronic anemia likely dilutional secondary to IVF. Patient was lying in bed, on room air, NAD, no new acute events overnight per patient. Patient was n.p.o., no urologic intervention at this point. We will start him on diet. Get FOBT, patient was getting blood transfusion. Patient denies any headache/dizziness/chest pain/palpitations/belly pain/other review of symptoms. Patient does report having 2 vomitings prior to arrival but no further vomiting while in hospital. Patient denies any blood in stool or dark stool. Physical Exam Physical Exam: GENERAL: Alert and oriented x3. NAD, on RA. HEENT: No pallor, no icterus. Pupils equal, round and reactive to light. Oral mucosa moist. NECK: No JVD, no neck masses. HEART: S1 and S2 heard. Regular rate and rhythm. No murmur, no gallop. RESPIRATORY SYSTEM: Normal AP diameter. No accessory muscle use. No wheezing, no crackles. ABDOMEN: Soft, bowel sounds present, nontender, no distention. Urostomy bag w/ ? cloudy yellow urine. CENTRAL NERVOUS SYSTEM: No facial droop. Speech is clear. Obeys simple commands. Moves extremities. EXTREMITIES: No edema, no erythema seen. Results & Data Results & Data ([facility]) Vital Signs (Past 12 Hours) Vital Signs Temp Pulse Pulse Resp BP BP Pulse Ox 11/16/21 13:27 37.3 C 105 H 18 128/81 98 11/16/21 12:38 37 C 88 14 119/73 98 11/16/21 12:08 36.9 C 90 14 110/68 98 11/16/21 11:55 36.8 C 84 18 108/67 98 11/16/21 11:53 36.9 C 89 14 110/68 97 11/16/21 11:36 37.8 C H 90 18 97/62 L 99 11/16/21 11:33 37.7 C H 91 H 18 97/62 L 99 11/16/21 10:35 37.1 C 94 H 16 115/73 100 11/16/21 10:22 104 H 11/16/21 09:35 87 14 100/65 97 11/16/21 09:05 37.3 C 88 16 100/64 97 11/16/21 08:50 37.1 C 95 H 16 91/55 L 97 11/16/21 08:28 37.3 C 101 H 19 99/62 L 97 11/16/21 07:13 37.7 C H 105 H 101/65 98 11/16/21 03:45 37.6 C H 97 H 16 100/67 99
[2021-11-16 17:24] LABS: Ferritin 569.9 ng/ml (8-388)
[2021-11-16 17:34] LABS: Folate (Folic Acid) 19.53 ng/ml (>5.38)
[2021-11-17] MEDS: CEFEPIME 1,000 MG in SYRINGE 0 ML IV SCH ×2 (01:32→14:14)
[2021-11-17] MEDS: HEPARIN SOD 5,000 UNIT/0.5 ML VIAL SQ SCH ×3 (05:41→21:09)
[2021-11-17] MEDS: LACTATED RINGER'S 1,000 ML IV SCH (05:41)
[2021-11-17] MEDS: PRAVASTATIN SOD 10 MG TAB PO SCH (08:11)
[2021-11-17] MEDS: ASPIRIN 81 MG ECTAB PO SCH (08:11)
[2021-11-17] MEDS: POLYETHYLENE (MIRALAX) 17 GM PACK PO SCH (08:12)
[2021-11-17 08:57] LABS: Mean Corpuscular Hemoglobin 28.2 pg (25-34); Mean Corpuscular Hgb Conc 33.3 g/dL (32-36); Mean Corpuscular Volume 84.6 fL (80-100); Mean Platelet Volume 8.7 fL (7.4-10.4); Platelet Count 181 K/uL (130-400); RDW Coefficient of Variation 14.7 % (11.5-14.5); RDW Standard Deviation 46.4 fL (36.4-46.3); Red Blood Count 3.19 M/uL (4.7-6.1); White Blood Count 4.58 K/uL (4.8-10.8)
[2021-11-17 09:26] LABS: BUN Creatinine Ratio 12.2 (10-20); Calcium 8.9 mg/dl (8.5-10.1); Creatinine Clr Calc Pharmacy 45.5 ml/min; Est GFR (African American) 59.5 ml/min; Est GFR (Non-African American) 51.3 ml/min; Magnesium 1.6 mg/dl (1.7-2.4); Phosphorus 2.3 mg/dl (2.5-4.9); Potassium 3.7 mmol/L (3.5-5.1)
[2021-11-17] MEDS: MAGNESIUM SULFATE / D5W 1 GM/100 ML BAG IV SCH ×2 (09:51→11:58)
[2021-11-17] MEDS: CYANOCOBALAMIN (B-12) 100 MCG TABLET PO SCH (10:36)
[2021-11-17] MEDS: POT PHOSPHATE MONOBASIC W/ SOD TAB PO SCH ×3 (12:55→20:10)
--- NOTE | 2021-11-17 13:50 | Urology Progress Note ---
Date of Service November 17, 2021 Assessment & Plan (1) Complicated UTI (urinary tract infection): Plan: 71yo M with a hx of bladder cancer s/p cystoprostatectomy with ileal conduit who presented with weakness, nausea, fever and was admitted for complicated UTI and acute on chronic anemia. Urology consulted due to hydronephrosis, complicated UTI. - CTAP noted perinephric/periureteral stranding and mild hydronephrosis and hydroureter on the left, no evidence of obstructive stone. - Hydronephrosis likely due to refluxing system. - Pt subjectively feeling better today. - Afebrile, hemodynamically stable. - Labs reviewed - Wbc 4.58, Creatinine improved to 1.39 today, Hemoglobin 9.0 (s/p 2unit PRBC transfusion 11/16) - Urine culture preliminary gram negative bacilli, probable enterococcus; Blood cultures prelim NGTD - On IV Zosyn. - Urostomy with good output, currently draining clear yellow urine. - Continue antibiotics and tailor as culture data becomes available. - Continue supportive care. - Urology will follow. Admission and Anticipated Discharge Date Admission Date: November 16, 2021 Subjective Pt examined at bedside this AM. Awake, resting in bed on arrival. No acute distress. Urostomy intact, draining clear yellow urine. Denies any pain or discomfort at present. No fevers or chills. Denies nausea or vomiting. Tolerating diet. +BM today. Eager to go home. Review of Systems Constitutional: as per Subjective / HPI Gastrointestinal: as per Subjective / HPI Genitourinary: + as per Subjective / HPI Physical Exam Constitutional: comfortable; no acute distress Respiratory: normal respiratory effort and able to speak in complete sentences; no labored breathing and no audible wheezes Cardiovascular: Extremities: no calf tenderness Gastrointestinal (Abdomen): Percussion/Palpation: abdomen soft; abdomen nontender and no guarding Right lower quadrant stoma with clear yellow urine in bag Skin: No visible rashes or lesions to exposed skin areas Neurologic: moves all extremities and awake Psychiatric: Orientation: alert, oriented x 3 and cooperative Genitourinary: no CVA tenderness Results & Data ([facility]) Vital Signs (Past 12 Hours) Vital Signs Temp Pulse Pulse Resp BP BP Pulse Ox 11/17/21 11:14 36.8 C 71 18 130/80 98 11/17/21 08:00 77 11/17/21 07:01 36.8 C 79 18 121/70 100 PG Care Time/CCT Total # of Minutes Spent Total Time Spent with Patient: Total time spent is greater than 50% in coordination of care (as documented) at patient's floor/unit and/or counseling patient: Coding Level of Care Code 51807 Subseq Hosp Care Lvl 2 Diagnoses Complicated UTI (urinary tract infection) N39.0
[2021-11-17] MEDS ORDERED: PIPERACILL/TAZOBAC CONSULT ACTIVE PRN (14:10)
[2021-11-17] MEDS ORDERED: PIPERACILLIN/TAZOBACTAM 3.375 GM in DEXTROSE 5% 100 ML IV ONE (14:30)
--- NOTE | 2021-11-17 17:17 | Hospitalist Progress Note ---
Date of Service November 17, 2021 Assessment & Plan (1) Complicated UTI (urinary tract infection): Plan: 71-year-old gentleman with PMH of bladder cancer s/p surgery and chemo, HTN, HLD, CVA, essential tremor, chronic anemia [baseline hemoglobin of 8], past tobacco abuse presented to our ED 11/15 with complaint of waking up ill for 1 day, subsequent generalized weakness, nausea, vomiting x2 and fever 101 at home. Urine was noted to be cloudy as per . Patient denies any chest pain or shortness of breath or abdominal/flank pain/gross hematuria. Is being managed for the following: #. Complicated UTI/Urostomy related UTI #. Hydronephrosis #. History of bladder cancer s/p surgery and chemo Constitutional signs and symptoms associated with cloudy urine collection in urostomy bag at the time of presentation. Admitting CTAP: Perinephric/periureteral stranding and mild hydronephrosis and hydroureter on the left which is new from prior exam. Postsurgical changes of cystectomy and ileal conduit creation. Admitting urinalysis suggestive of UTI. Await admitting urine and blood culture. Continue with Cefepime 11/16 --> 11/17 [facility] Urology evaluated: No plan for acute intervention, continue conservative management. f/u final Urine Cx to tailor atb #. Acute on chronic anemia Baseline hemoglobin around 8, admitting hemoglobin 6.8, likely secondary to IV fluid resuscitation Patient denies blood in stool or dark stool. No gross hematuria noted. Status post 2 unit PRBC transfusion 11/16 Maintain hemoglobin greater than 8, history of CVA Sent FOBT, iron panel. #. JN Baseline creatinine around 1, admitting creatinine 2.1 Likely prerenal, patient was hypotensive at presentation. Resolved, monitor BMP daily or prn. Avoid nephrotoxic's. #. Other chronic medical condition: HLD, history of CVA, past tobacco abuse Continue with/resume home meds as and when appropriate. resume lisinopril DVT prophylaxis. Heparin subcu Full code Patient Ms. Billie Vera, contact #[phone]. Dispo: upon final urine Cx result. Ok from URO for DC. Admission and Anticipated Discharge Date Admission Date: November 16, 2021 Subjective Patient seen and examined at bedside as a follow-up of complicated UTI, hydronephrosis and acute on chronic anemia likely dilutional secondary to IVF. Patient was lying in bed, on room air, NAD, no new acute events overnight per patient. Pt eating ok. Get FOBT. Patient denies any headache/dizziness/chest pain/palpitations/belly pain/other review of symptoms. Patient does report having 2 vomitings prior to arrival but no further vomiting while in hospital. Patient denies any blood in stool or dark stool. Physical Exam Physical Exam: GENERAL: Alert and oriented x3. NAD, on RA. HEENT: No pallor, no icterus. Pupils equal, round and reactive to light. Oral mucosa moist. NECK: No JVD, no neck masses. HEART: S1 and S2 heard. Regular rate and rhythm. No murmur, no gallop. RESPIRATORY SYSTEM: Normal AP diameter. No accessory muscle use. No wheezing, no crackles. ABDOMEN: Soft, bowel sounds present, nontender, no distention. Urostomy bag w/ urine clearing up. CENTRAL NERVOUS SYSTEM: No facial droop. Speech is clear. Obeys simple commands. Moves extremities. EXTREMITIES: No edema, no erythema seen. Results & Data Results & Data ([facility]) Vital Signs (Past 12 Hours) Vital Signs Temp Pulse Pulse Resp BP BP Pulse Ox 11/17/21 15:09 36.7 C 75 18 129/79 98 11/17/21 14:20 65 11/17/21 11:38 73 11/17/21 11:14 36.8 C 71 18 130/80 98 11/17/21 08:00 77 11/17/21 07:01 36.8 C 79 18 121/70 100
[2021-11-17] MEDS ORDERED: MELATONIN 3 MG TAB PO PRN (19:49)
[2021-11-17] MEDS: PIPERACILLIN/TAZOBACTAM 3.375 GM in DEXTROSE 5% 100 ML IV SCH (20:09)
[2021-11-18] MEDS: PIPERACILLIN/TAZOBACTAM 3.375 GM in DEXTROSE 5% 100 ML IV SCH ×2 (03:55→11:43)
[2021-11-18] MEDS ORDERED: Nursing to Pharmacy Communication SCH (04:15)
[2021-11-18] MEDS: HEPARIN SOD 5,000 UNIT/0.5 ML VIAL SQ SCH ×3 (05:43→21:36)
[2021-11-18 07:47] LABS: Hematocrit (blood only) 29.9 % (42-52); Hemoglobin 9.6 g/dL (14.0-18.0); Mean Corpuscular Hemoglobin 27.2 pg (25-34); Mean Corpuscular Hgb Conc 32.1 g/dL (32-36); Mean Corpuscular Volume 84.7 fL (80-100); Mean Platelet Volume 9.1 fL (7.4-10.4); Platelet Count 246 K/uL (130-400); RDW Coefficient of Variation 15.1 % (11.5-14.5); RDW Standard Deviation 46.9 fL (36.4-46.3); Red Blood Count 3.53 M/uL (4.7-6.1); White Blood Count 3.69 K/uL (4.8-10.8)
[2021-11-18 08:29] LABS: BUN Creatinine Ratio 9.2 (10-20); Creatinine Clr Calc Pharmacy 44.2 ml/min; Magnesium 1.8 mg/dl (1.7-2.4); Phosphorus 4.1 mg/dl (2.5-4.9); Potassium 3.4 mmol/L (3.5-5.1)
[2021-11-18] MEDS ORDERED: POTASSIUM CHLORIDE CRTAB 20 MEQ TABCR PO STA (08:31)
[2021-11-18] MEDS: CYANOCOBALAMIN (B-12) 100 MCG TABLET PO SCH (08:44)
[2021-11-18] MEDS: lisinopril 5 MG TAB PO SCH (08:48)
[2021-11-18] MEDS: ASPIRIN 81 MG ECTAB PO SCH (08:48)
[2021-11-18] MEDS: PRAVASTATIN SOD 10 MG TAB PO SCH (08:49)
[2021-11-18] MEDS: POT PHOSPHATE MONOBASIC W/ SOD TAB PO SCH ×3 (08:49→17:12)
[2021-11-18] MEDS: POLYETHYLENE (MIRALAX) 17 GM PACK PO SCH (10:23)
--- NOTE | 2021-11-18 10:53 | Urology Progress Note ---
Date of Service November 18, 2021 Assessment & Plan (1) Complicated UTI (urinary tract infection): Plan: 71yo M with a hx of bladder cancer s/p cystoprostatectomy with ileal conduit who presented with weakness, nausea, fever and was admitted for complicated UTI and acute on chronic anemia. Urology consulted due to hydronephrosis, complicated UTI. - CTAP noted perinephric/periureteral stranding and mild hydronephrosis and hydroureter on the left, no evidence of obstructive stone. - Hydronephrosis likely due to refluxing system. - Pt subjectively feeling well. - Afebrile, hemodynamically stable. - Labs reviewed - Wbc 3.69, Creatinine 1.42, Hemoglobin 9.6 - Urine culture preliminary with E.coli and probable enterococcus; Blood cultures prelim no growth x 48 hours - Continues on IV Zosyn, follow cultures. - Urostomy with good output, currently draining clear yellow urine. - Continue supportive care and antibiotics, tailor as culture data becomes available. - Will arrange outpatient follow-up with urology service. - Thank you for allowing us to participate in the acute care of Mr. Vera. Please reconsult us with additional questions, concerns or changes in patient status. Admission and Anticipated Discharge Date Admission Date: November 16, 2021 Supervising Physician Co-Signing Physician Notes Discussed patient with DEMARCO. Agree with plan. Subjective Pt examined at bedside this AM. Awake, sitting in bedside chair on arrival. Appears comfortable, no acute distress. Urostomy intact, draining clear yellow urine. Denies any pain or discomfort at present. No fevers or chills. Tolerating diet, no nausea or vomiting. Reports he is ambulating without issue. Eager to go home. Review of Systems Constitutional: as per Subjective / HPI Gastrointestinal: as per Subjective / HPI Genitourinary: + as per Subjective / HPI Physical Exam Constitutional: comfortable; no acute distress Respiratory: normal respiratory effort and able to speak in complete sentences; no labored breathing and no audible wheezes Cardiovascular: Extremities: no calf tenderness Gastrointestinal (Abdomen): Percussion/Palpation: abdomen soft; abdomen nontender and no guarding Right lower quadrant stoma with clear yellow urine in bag Skin: No visible rashes or lesions to exposed skin areas Neurologic: moves all extremities and awake Psychiatric: Orientation: alert, oriented x 3 and cooperative Genitourinary: no CVA tenderness Results & Data ([facility]) Vital Signs (Past 12 Hours) Vital Signs Temp Pulse Pulse Resp BP BP Pulse Ox 11/18/21 07:00 36.5 C 76 18 133/74 96 11/18/21 06:11 75 11/18/21 03:33 36.7 C 77 16 131/73 97 11/18/21 00:39 75 11/17/21 23:03 36.6 C 87 18 131/82 98 PG Care Time/CCT Total # of Minutes Spent Total Time Spent with Patient: Total time spent is greater than 50% in coordination of care (as documented) at patient's floor/unit and/or counseling patient: Coding Level of Care Code 30973 Subseq Hosp Care Lvl 2 Diagnoses Complicated UTI (urinary tract infection) N39.0
--- NOTE | 2021-11-18 14:58 | Hospitalist Progress Note ---
Date of Service November 18, 2021 Assessment & Plan (1) Complicated UTI (urinary tract infection): Plan: 71-year-old gentleman with PMH of bladder cancer s/p surgery and chemo, HTN, HLD, CVA, essential tremor, chronic anemia [baseline hemoglobin of 8], past tobacco abuse presented to our ED 11/15 with complaint of waking up ill for 1 day, subsequent generalized weakness, nausea, vomiting x2 and fever 101 at home. Urine was noted to be cloudy as per . Patient denies any chest pain or shortness of breath or abdominal/flank pain/gross hematuria. Is being managed for the following: Complicated UTI/Urostomy related UTI Hydronephrosis History of bladder cancer s/p surgery and chemo Constitutional signs and symptoms associated with cloudy urine collection in urostomy bag at the time of presentation. Admitting CTAP: Perinephric/periureteral stranding and mild hydronephrosis and hydroureter on the left which is new from prior exam. Postsurgical changes of cystectomy and ileal conduit creation. Admitting urinalysis suggestive of UTI. Await admitting urine and blood culture. Continue with Cefepime 11/16 --> 11/17 [facility] Urology evaluated: No plan for acute intervention, continue conservative management. Urine culture grew E. coli and Enterococcus faecalis sensitive to fluoroquinolones and Macrobid Will start oral Cipro and monitor for QT prolongation Likely discharge tomorrow Plan: Acute on chronic anemia Baseline hemoglobin around 8, admitting hemoglobin 6.8, likely secondary to IV fluid resuscitation Patient denies blood in stool or dark stool. No gross hematuria noted. Status post 2 unit PRBC transfusion 11/16 Maintain hemoglobin greater than 8, history of CVA Hemoglobin remains more than 9 at 9.6 on 11/18/2021 Sent FOBT, iron panel-negative. JN Baseline creatinine around 1, admitting creatinine 2.1 Likely prerenal, patient was hypotensive at presentation. Resolved, monitor BMP daily or prn. Avoid nephrotoxic's Fattening went up to 1.42-advised to drink more fluid We will give a small amount of intravenous fluid as well Other chronic medical condition: HLD, history of CVA, past tobacco abuse Continue with/resume home meds as and when appropriate. Resume lisinopril DVT prophylaxis. Heparin subcu Full code Patient Ms. Billie Vera, contact #[phone]. Dispo: upon final urine Cx result. Ok from URO for DC. Admission and Anticipated Discharge Date Admission Date: November 16, 2021 Subjective 11/18/2021 The patient was seen and examined in medical telemetry unit He has been feeling much better and denies any significant symptoms He wants to go home Review of Systems Review of Systems: All systems reviewed and are unremarkable except as noted below Physical Exam Physical Exam: Lying in bed comfortably Constitutional: well developed and well nourished; not ill appearing Eyes: PERRL, conjunctivae normal, anicteric sclerae ENMT: external ear and nose normal, oropharynx normal Neck: trachea midline, no thyromegaly Respiratory: no respiratory distress Auscultation: lungs clear to auscultation bilaterally Cardiovascular: Rate/Rhythm: regular rate and regular rhythm; not tachycardic Heart Sounds: normal S1 and normal S2; no murmur Extremities: no edema Gastrointestinal (Abdomen): Inspection/Auscultation: normal bowel sounds; abdomen not distended Percussion/Palpation: abdomen soft; abdomen nontender Musculoskeletal: No acute arthritis in any joint Neurologic: Alert, awake and oriented x3 Results & Data Results & Data ([facility]) Vital Signs (Past 12 Hours) Vital Signs Temp Pulse Pulse Resp BP BP Pulse Ox 11/18/21 14:25 36.5 C 81 18 141/77 H 99 11/18/21 11:00 36.6 C 75 18 135/78 98 11/18/21 07:00 36.5 C 76 18 133/74 96 11/18/21 06:11 75 11/18/21 03:33 36.7 C 77 16 131/73 97 Laboratory Results Short CBC 11/18/21 Range/Units 06:58 WBC 3.69 L (4.8-10.8) K/uL Hgb 9.6 L (14.0-18.0) g/dL Hct 29.9 L (42-52) % Plt Count 246 (130-400) K/uL BMP 11/18/21 06:58 Sodium 138 Potassium 3.4 L Chloride 105 Carbon Dioxide 23 BUN 13 Creatinine 1.42 H Glucose 114 H Calcium 9.0 Medications Administered Current Inpatient Medications Acetaminophen (Acetaminophen 325 Mg Tab) 650 mg PO Q4H PRN PRN Reason: Pain or Fever Stop: 12/16/21 01:41 Aspirin (Aspirin 81 Mg Ectab) 81 mg PO DAILY [facility] Stop: 12/16/21 08:59 Last Admin: 11/18/21 08:48 Dose: 81 mg Documented by: Cyanocobalamin (Cyanocobalamin (B-12) 100 Mcg Tablet) 100 mcg PO QAM [facility] Stop: 12/01/21 09:01 Last Admin: 11/18/21 08:44 Dose: 100 mcg Documented by: Heparin Sodium (Porcine) (Heparin Sod 5,000 Unit/0.5 Ml Vial) 5,000 units SQ Q8 [facility] Stop: 12/16/21 05:59 Last Admin: 11/18/21 13:24 Dose: 5,000 units Documented by: Promethazine HCl 6.25 mg/ (Sodium Chloride) 50.25 mls @ 201 mls/hr IV Q6H PRN PRN Reason: Nausea And Vomiting Stop: 12/16/21 00:15 Piperacillin Sod/Tazobactam (Sod 3.375 gm/ Dextrose) 115 mls @ 28.75 mls/hr IV Q8H [facility]; Protocol Stop: 11/27/21 19:59 Last Admin: 11/18/21 11:43 Dose: 28.8 mls/hr Documented by: Lisinopril (Lisinopril 5 Mg Tab) 5 mg PO [facility] Stop: 12/18/21 08:59 Last Admin: 11/18/21 08:48 Dose: 5 mg Documented by: Melatonin (Melatonin 3 Mg Tab) 3 mg PO HS PRN PRN Reason: Sleep Stop: 12/17/21 19:48 Last Admin: 11/17/21 20:09 Dose: 3 mg Documented by: Miscellaneous Information (Piperacill/Tazobac Consult Active) 1 ea N/A UD PRN PRN Reason: Consult Stop: 12/17/21 14:09 Oxycodone HCl (Oxycodone Hcl Ir 5 Mg Tab (Immediate Release)) 5 mg PO Q4H PRN PRN Reason: Pain Stop: 11/30/21 00:15 Polyethylene Glycol (Polyethylene (Miralax) 17 Gm Pack) 17 gm PO DAILY [facility] Stop: 12/17/21 08:59 Last Admin: 11/18/21 10:23 Dose: Not Given Documented by: Potassium Phosphate (Pot Phosphate Monobasic W/ Sod Tab) 2 tab PO QID [facility] Stop: 11/18/21 17:01 Last Admin: 11/18/21 12:09 Dose: 2 tab Documented by: Pravastatin Sodium (Pravastatin Sod 10 Mg Tab) 10 mg PO QAM [facility] Stop: 12/16/21 08:59 Last Admin: 11/18/21 08:49 Dose: 10 mg Documented by:
[2021-11-18] MEDS ORDERED: NSS + 20MEQ KCL 20 MEQ/1,000 ML BAG IV SCH (15:30)
[2021-11-18] MEDS: CIPROFLOXACIN 500 MG TAB PO SCH (21:36)
[2021-11-19] MEDS: HEPARIN SOD 5,000 UNIT/0.5 ML VIAL SQ SCH ×2 (06:16→14:28)
[2021-11-19 07:39] LABS: Hematocrit (blood only) 28.3 % (42-52); Hemoglobin 9.2 g/dL (14.0-18.0); Mean Corpuscular Hemoglobin 27.5 pg (25-34); Mean Corpuscular Hgb Conc 32.5 g/dL (32-36); Mean Corpuscular Volume 84.7 fL (80-100); Mean Platelet Volume 8.4 fL (7.4-10.4); Platelet Count 231 K/uL (130-400); RDW Standard Deviation 46.9 fL (36.4-46.3); Red Blood Count 3.34 M/uL (4.7-6.1); White Blood Count 4.24 K/uL (4.8-10.8)
[2021-11-19] MEDS: CIPROFLOXACIN 500 MG TAB PO SCH (09:35)
[2021-11-19] MEDS: CYANOCOBALAMIN (B-12) 100 MCG TABLET PO SCH (09:35)
[2021-11-19] MEDS: lisinopril 5 MG TAB PO SCH (09:35)
[2021-11-19] MEDS: PRAVASTATIN SOD 10 MG TAB PO SCH (09:36)
[2021-11-19] MEDS: ASPIRIN 81 MG ECTAB PO SCH (09:36)
[2021-11-19] MEDS: POLYETHYLENE (MIRALAX) 17 GM PACK PO SCH (09:37)
--- NOTE | 2021-11-19 11:25 | Hospitalist Progress Note ---
Date of Service November 19, 2021 Assessment & Plan (1) Complicated UTI (urinary tract infection): Plan: 71-year-old gentleman with PMH of bladder cancer s/p surgery and chemo, HTN, HLD, CVA, essential tremor, chronic anemia [baseline hemoglobin of 8], past tobacco abuse presented to our ED 11/15 with complaint of waking up ill for 1 day, subsequent generalized weakness, nausea, vomiting x2 and fever 101 at home. Urine was noted to be cloudy as per . Patient denies any chest pain or shortness of breath or abdominal/flank pain/gross hematuria. Is being managed for the following: Complicated UTI/Urostomy related UTI Hydronephrosis History of bladder cancer s/p surgery and chemo Constitutional signs and symptoms associated with cloudy urine collection in urostomy bag at the time of presentation. Admitting CTAP: Perinephric/periureteral stranding and mild hydronephrosis and hydroureter on the left which is new from prior exam. Postsurgical changes of cystectomy and ileal conduit creation. Admitting urinalysis suggestive of UTI. Await admitting urine and blood culture. Continue with Cefepime 11/16 --> 11/17 [facility] Urology evaluated: No plan for acute intervention, continue conservative management. Urine culture grew E. coli and Enterococcus faecalis sensitive to fluoroquinolones and Macrobid Will start oral Cipro and monitor for QT prolongation Likely discharge tomorrow Remains asymptomatic EKG from this morning reviewed and did not have any QT prolongation We will continue oral ciprofloxacin for a total of 10 days Plan: Acute on chronic anemia Baseline hemoglobin around 8, admitting hemoglobin 6.8, likely secondary to IV fluid resuscitation Patient denies blood in stool or dark stool. No gross hematuria noted. Status post 2 unit PRBC transfusion 11/16 Maintain hemoglobin greater than 8, history of CVA Hemoglobin remains more than 9 at 9.6 on 11/18/2021 Sent FOBT, iron panel-negative. JN Baseline creatinine around 1, admitting creatinine 2.1 Likely prerenal, patient was hypotensive at presentation. Resolved, monitor BMP daily or prn. Avoid nephrotoxic's Fattening went up to 1.42-advised to drink more fluid We will give a small amount of intravenous fluid as well Advised to drink more fluid as an outpatient Other chronic medical condition: HLD, history of CVA, past tobacco abuse Continue with/resume home meds as and when appropriate. Resume lisinopril DVT prophylaxis. Heparin subcu Full code Patient Ms. Billie Vera, contact #[phone]. Dispo: upon final urine Cx result. Ok from URO for DC. Discussed with the yesterday-11/18/2021 Will be discharged home this afternoon Admission and Anticipated Discharge Date Admission Date: November 16, 2021 Subjective 11/18/2021 The patient was seen and examined in medical telemetry unit He has been feeling much better and denies any significant symptoms He wants to go home 11/19/2021 The patient was seen and examined in medical telemetry unit He is out of bed on a chair and waiting to be discharged Denies any significant symptoms EKG reviewed this morning and did not have any QT prolongation Review of Systems Review of Systems: All systems reviewed and are unremarkable except as noted below Physical Exam Physical Exam: Lying in bed comfortably Constitutional: well developed and well nourished; not ill appearing Eyes: PERRL, conjunctivae normal, anicteric sclerae ENMT: external ear and nose normal, oropharynx normal Neck: trachea midline, no thyromegaly Respiratory: no respiratory distress Auscultation: lungs clear to auscultation bilaterally Cardiovascular: Rate/Rhythm: regular rate and regular rhythm; not tachycardic Heart Sounds: normal S1 and normal S2; no murmur Extremities: no edema Gastrointestinal (Abdomen): Inspection/Auscultation: normal bowel sounds; abdomen not distended Percussion/Palpation: abdomen soft; abdomen nontender Musculoskeletal: No acute arthritis in any joint Neurologic: Alert, awake and oriented x3. No focal sensory or no motor deficit appreciated Results & Data Results & Data ([facility]) Vital Signs (Past 12 Hours) Vital Signs Temp Pulse Pulse Resp BP Pulse Ox 11/19/21 11:07 36.5 C 99 H 16 154/73 H 98 11/19/21 07:13 36.7 C 74 18 156/95 H 100 11/19/21 06:20 65 11/19/21 03:02 36.7 C 80 18 131/63 96 Laboratory Results Short CBC 11/19/21 Range/Units 07:21 WBC 4.24 L (4.8-10.8) K/uL Hgb 9.2 L (14.0-18.0) g/dL Hct 28.3 L (42-52) % Plt Count 231 (130-400) K/uL Medications Administered Current Inpatient Medications Acetaminophen (Acetaminophen 325 Mg Tab) 650 mg PO Q4H PRN PRN Reason: Pain or Fever Stop: 12/16/21 01:41 Aspirin (Aspirin 81 Mg Ectab) 81 mg PO DAILY [facility] Stop: 12/16/21 08:59 Last Admin: 11/19/21 09:36 Dose: 81 mg Documented by: Ciprofloxacin (Ciprofloxacin 500 Mg Tab) 500 mg PO BID [facility] Stop: 11/28/21 20:59 Last Admin: 11/19/21 09:35 Dose: 500 mg Documented by: Cyanocobalamin (Cyanocobalamin (B-12) 100 Mcg Tablet) 100 mcg PO QAM [facility] Stop: 12/01/21 09:01 Last Admin: 11/19/21 09:35 Dose: 100 mcg Documented by: Heparin Sodium (Porcine) (Heparin Sod 5,000 Unit/0.5 Ml Vial) 5,000 units SQ Q8 [facility] Stop: 12/16/21 05:59 Last Admin: 11/19/21 06:16 Dose: 5,000 units Documented by: Promethazine HCl 6.25 mg/ (Sodium Chloride) 50.25 mls @ 201 mls/hr IV Q6H PRN PRN Reason: Nausea And Vomiting Stop: 12/16/21 00:15 Lisinopril (Lisinopril 5 Mg Tab) [facility] [place]: 12/18/21 08:59 Last Admin: 11/19/21 09:35 Dose: 5 mg Documented by: Melatonin (Melatonin 3 Mg Tab) 3 mg PO HS PRN PRN Reason: Sleep Stop: 12/17/21 19:48 Last Admin: 11/17/21 20:09 Dose: 3 mg Documented by: Oxycodone HCl (Oxycodone Hcl Ir 5 Mg Tab (Immediate Release)) 5 mg PO Q4H PRN PRN Reason: Pain Stop: 11/30/21 00:15 Polyethylene Glycol (Polyethylene (Miralax) 17 Gm Pack) 17 gm PO DAILY [facility] Stop: 12/17/21 08:59 Last Admin: 11/19/21 09:37 Dose: Not Given Documented by: Pravastatin Sodium (Pravastatin Sod 10 Mg Tab) 10 mg PO QAM [facility] Stop: 12/16/21 08:59 Last Admin: 11/19/21 09:36 Dose: 10 mg Documented by:
--- NOTE | 2021-11-19 17:29 | Discharge Summary ---
Date of Service November 19, 2021 Admission HPI Per Admitting Provider History obtained from patient, family, and records. Medical history significant for bladder cancer status post surgery status post chemotherapy, hypertension, hyperlipidemia, history CVA, history essential tremor, chronic anemia (baseline hemoglobin of 8 ), past tobacco abuse. Last confinement last month for diarrhea, sepsis, complicated UTI. [facility] but discharged by [facility] u rologist. CS grew Klebsiella and E. coli. Patient completed antibiotic course. Yesterday, patient woke up feeling ill, subsequent generalized weakness, nausea, fever 101 at home. Patient denies chest pain, SOB, abdominal/flank pain/gross hematuria. Urine was noted to be cloudy as per . Initial SBP at the ER was 80s. Patient given Zosyn at the ER for possible UTI. Medical History as above Surgical History : Cataract surgeries, radical cystoprostatectomy, ileal conduit Family History : DM Personal/Social history : Past tobacco abuse, occasional EtOH intake, lives with Admission Exam Per Admitting Provider Physical Exam: GENERAL: Comfortable, dysarthric (chronic) no respiratory distress SKIN: Pallor , warm HEENT: Alopecia, pale palpebral conjunctivae, chronic facial asymmetry, dry buccal mucosa NECK : Supple, no tenderness CHEST : CTA, no tenderness HEART : Tachycardic , no obvious murmurs ABDOMEN: Some distention, urostomy bag noted EXTREMITIES : No LE swelling/tenderness, no other conspicuous deformities noted NEUROLOGIC : Coherent, chronic facial asymmetry, dysarthric, gait and stance not assessed Principal Diagnosis Complicated UTI, hypertension, bladder cancer s/p surgery and chemo Discharge Exam Constitutional well developed and well nourished; not ill appearing Eyes PERRL, conjunctivae normal, anicteric sclerae ENMT external ear and nose normal, oropharynx normal Neck trachea midline, no thyromegaly Respiratory no respiratory distress Auscultation: lungs clear to auscultation bilaterally Cardiovascular Rate/Rhythm: regular rate and regular rhythm; not tachycardic Heart Sounds: normal S1 and normal S2; no murmur Extremities: no edema Gastrointestinal (Abdomen) Inspection/Auscultation: normal bowel sounds; abdomen not distended Percussion/Palpation: abdomen soft; abdomen nontender Discharge Data Allergies Allergy/AdvReac Type Severity Reaction Status Date / Time No Known Allergies Allergy Verified 10/21/21 15:50 Consultations 11/15/21 22:56 ED Decision to Admit Stat 11/16/21 01:42 Consult Urology Routine Ordered Studies 11/15/21 20:12 CT abd pelvis wo con Urgent Hospital Course (1) Complicated UTI (urinary tract infection): 71-year-old gentleman with PMH of bladder cancer s/p surgery and chemo, HTN, HLD, CVA, essential tremor, chronic anemia [baseline hemoglobin of 8], past tobacco abuse presented to our ED 11/15 with complaint of waking up ill for 1 day, subsequent generalized weakness, nausea, vomiting x2 and fever 101 at home. Urine was noted to be cloudy as per . Patient denies any chest pain or shortness of breath or abdominal/flank pain/gross hematuria. Is being managed for the following: Complicated UTI/Urostomy related UTI Hydronephrosis History of bladder cancer s/p surgery and chemo Constitutional signs and symptoms associated with cloudy urine collection in urostomy bag at the time of presentation. Admitting CTAP: Perinephric/periureteral stranding and mild hydronephrosis and hydroureter on the left which is new from prior exam. Postsurgical changes of cystectomy and ileal conduit creation. Admitting urinalysis suggestive of UTI. Await admitting urine and blood culture. Continue with Cefepime 11/16 --> 11/17 [facility] Urology evaluated: No plan for acute intervention, continue conservative management. Urine culture grew E. coli and Enterococcus faecalis sensitive to fluoroquinolones and Macrobid Will start oral Cipro and monitor for QT prolongation Likely discharge tomorrow Remains asymptomatic EKG from this morning reviewed and did not have any QT prolongation We will continue oral ciprofloxacin for a total of 10 days Acute on chronic anemia Baseline hemoglobin around 8, admitting hemoglobin 6.8, likely secondary to IV fluid resuscitation Patient denies blood in stool or dark stool. No gross hematuria noted. Status post 2 unit PRBC transfusion 11/16 Maintain hemoglobin greater than 8, history of CVA Hemoglobin remains more than 9 at 9.6 on 11/18/2021 Sent FOBT, iron panel-negative. JN Baseline creatinine around 1, admitting creatinine 2.1 Likely prerenal, patient was hypotensive at presentation. Resolved, monitor BMP daily or prn. Avoid nephrotoxic's Fattening went up to 1.42-advised to drink more fluid We will give a small amount of intravenous fluid as well Advised to drink more fluid as an outpatient Other chronic medical condition: HLD, history of CVA, past tobacco abuse Continue with/resume home meds as and when appropriate. Resume lisinopril DVT prophylaxis. Heparin subcu Full code Patient Ms. Billie Vera, contact #[phone]. Dispo: upon final urine Cx result. Ok from URO for DC. Discussed with the yesterday-11/18/2021 Will be discharged home this afternoon Total Time Total Time Spent Total Time Spent (In Minutes): 35 minutes Discharge Plan Discharge Items Patient Disposition: Home - Home Health Services Reason For Visit: LOW BP, COMP UTI Discharge Diagnosis: Complicated UTI, hypertension, bladder cancer s/p surgery and chemo Condition on Discharge: Fair Activity: Resume your previous activity Non-emergency contact: Primary Care Provider Call non-emergency contact if: you have any medication questions and your symptoms worsen Follow-up/Referrals: [facility] Urology [Other] (The Urology office will call you with a hospital follow up appointment [phone]) Nakia Frank MD [Primary Care Provider] - 12/07/21 9:00 am Diet: Heart Healthy Addtl Attending Provider Instructions: Please take precautions to avoid fall Please finish the course of antibiotic Keep appointments with your healthcare providers You can try [id number] probiotics to prevent any C. difficile infection Pending Studies at Discharge: No Stand-Alone Forms: [facility] [employer], Smoking Cessation Medications and DC Order Prescriptions: New cyanocobalamin (vitamin B-12) [Vitamin B-12] 100 mcg Tablet 100 mcg PO QAM 30 Days Qty: 30 RF: 0 ciprofloxacin HCl 500 mg Tablet 500 mg PO BID 6 Days Qty: 12 RF: 0 Lactinex 1 million cell tablet,chewable 1 tab PO BID Qty: 20 RF: 0 Continued lisinopril 5 mg tablet 5 mg PO QAM RF: 0 pravastatin 10 mg tablet 10 mg PO QAM RF: 0 zolpidem [Ambien] 5 mg tablet 5 mg PO DAILY PRN (Reason: insomnia) Qty: 30 RF: 3 acetaminophen [Tylenol] 325 mg Tablet 650 mg PO DIRECTED PRN (Reason: Pain) RF: 0 aspirin 81 mg Tablet,Delayed Release (Dr/Ec) 81 mg PO DAILY RF: 0 Discharge Orders: Discharge Order (Routine); Ordered 11/19/21 Ordered By: Glo Cortés/Other Patient Handouts: Vitamin B-12, Cipro Oral Tablet 500 mg Admission Data Admit Date/Time: 11/16/21 00:10 Attending Provider: Glo Castro Admit Provider: Chuck Cruz Primary Care Provider: Nakia Frank Other Providers: Chuck Cruz ; Adan Cunningham ; Doug Ayala ; Lucio Quintero ; Lakisha Nielsen ; Davidson Gamboa ; Neena Jessica ; Oumou Hernandez ; Morenita Jackson ; Gomez Martinez ; Moshe Rodriguez ; Beatriz Saha ; Eva Jackson ; Ajay Thurman ; [facility] ; Ruchi Leon Other Interventions: Discharge Summary Assessment (RN) Last Done: 11/19/21 15:57
--- NOTE | 2021-11-20 06:15 | Electrocardiogram Report ---
Test Reason : Blood Pressure : / mmHG Vent. Rate : 070 BPM Atrial Rate : 070 BPM P-R Int : 160 ms QRS Dur : 088 ms QT Int : 412 ms P-R-T Axes : 056 061 023 degrees QTc Int : 444 ms Normal sinus rhythm with sinus arrhythmia Normal ECG When compared with ECG of 15-NOV-2021 19:34, No significant change was found Confirmed by Osiel Jiménez ([id number]) on 11/20/2021 6:14:45 AM Referred By: REFERRED SELF Confirmed By:Osiel Jiménez
== END 2021-11-19 17:13 | disposition home health service (06) | DRG 699 ==
LOC: ED 18:27 → 2S 11-16 00:10 → SUATTDRO 11-16 00:10 → 2S 11-16 01:09 → 2N 11-17 11:07

== ENCOUNTER 2025-06-09 11:33 | Inpatient (IN) ==
--- NOTE | 2025-06-09 11:56 | Emergency Department Note ---
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 Patient was found to have an ESBL as an outpatient was referred in for admission and IV antibiotics. Patient denies any headache or change in vision. No chest pain or shortness of breath. He admits to feeling very weak. Family at bedside confirms she has been very weak and rundown for the past 5 days. ADDITIONAL HISTORY OBTAINED: Per HPI Chronic Medical/Social Conditions Affecting Care: Per HPI PAST MEDICAL HISTORY:See Below PAST SURGICAL HISTORY:See Below FAMILY HISTORY:See Below SOCIAL HISTORY:See Below HOME MEDICATIONS:See Below ALLERGIES:See Below VITALS:See Below PHYSICAL EXAMINATION: GENERAL: Sitting up in bed, alert, well appearing, well nourished, no distress, non-toxic EYE EXAM: normal conjunctiva. OROPHARYNX: mucous membranes are moist LUNGS: Clear to auscultation. Normal chest wall mechanics HEART: no murmurs, S1 normal and S2 normal ABDOMEN: abdomen soft, non-tender, normo-active bowel sounds, no masses, no rebound or guarding. BACK: Back is symmetrical on inspection and there is no deformity, no midline tenderness, no CVA tenderness. SKIN: no rashes and no bruising UPPER EXTREMITIES: upper extremities are grossly normal. LOWER EXTREMITIES: No pitting edema. NEURO EXAM: Normal sensorium, cranial nerves II-XII grossly intact, normal speech, no gross weakness of arms, no gross weakness of legs. MEDICAL DECISION MAKING: Patient is a 74-year-old male who presents ER for the above-stated complaint. IV was established and blood work was obtained. Labs show mild leukopenia 4.5 thousand. Mild anemia 9.4. BMP with a hyponatremia 134. Creatinine 2.1 fairly consistent with previous. LFTs bilirubin was unremarkable. Lipase was normal. Urine was not rechecked. External records were reviewed and he did grow out a Klebsiella ESBL. Ertapenem was ordered and patient was updated bedside discussed case with the hospitalist for further evaluation management treatment. Consults/Care Managements Discussions: Per MDM Triage Nursing notes reviewed. Limited review of prior medical records performed Vital Signs: reviewed and remarkable for no significant abnormalities Differential diagnosis: Infection, dehydration, metabolic abnormality, hypo/hyperglycemia, electrolyte disturbance, anemia, hypoxia, cardiac sources, intracerebral event, toxicologic, neurologic, as well as other pathologies. ER treatment provided: See below Diagnostics interpreted by me include EKG and cardiac monitoring as listed below: -Cardiac Monitoring: An order was placed for continuous cardiac monitoring. The monitor shows a rate of 90 with sinus rhythm. -ECG: none -Laboratory studies:Interpreted by me as stated above in MDM and shown below. Imaging studies: Xrays: As interpreted by me:none CTs show: none Procedures:none Critical Care: None Past Med/Surg History Problem List (Updated 06/09/25 @ 16:59 by Son Awan DO) CKD (chronic kidney disease) (Acute) Anemia (Acute) Leukopenia (Acute) Urinary tract infection due to ESBL Klebsiella (Acute) CKD stage 3b, GFR 30-44 ml/min Iron deficiency anemia Wilkins's esophagus determined by biopsy (Chronic) Chronic kidney disease (Chronic) Essential tremor (Chronic) Hyperlipidemia (Chronic) Hypertension (Chronic) Medical History Lung nodules History of CVA (cerebrovascular accident) (2015) with speech difficulty, right sided hemiparesis Vitamin D deficiency Bladder cancer hx chemotherapy (Fall 2020), s/p cystectomy / ileal conduit 2021 Surgical History S/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 Dr Quintero, [facility] History of cystoscopy History of bladder surgery TURBT (07/07/21): LMA#5 at [facility] History of bilateral cataract extraction Family History Son Family history of diabetes mellitus Other No family history of adverse response to anesthesia Social History Smoking Status: Former smoker Tobacco Type: Cigarettes Cigarettes Per Day: Quit pipe 6 yrs ago, Quit cigs 40 yrs ago; Second Hand Exposure: No; Do You Dip or Chew Tobacco: No; Hx Alcohol Use: Yes Alcohol type: beer Hx Substance Use: No Preferred Language: Tunisian Communication Ability: 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: No Beliefs That Will Affect Care: None marital status: Current Living Situation: Spouse current occupational status: retired How many Children do You have: 2 Feels Safe at Home: Yes Childhood Exposure to Second-Hand Smoke: Yes Diet: regular caffeine: Yes Dental Care, Regularly: No Physical Activity Frequency: Daily Physical Activity Frequency Comment: Walks outside daily Seatbelt Use: always Sunscreen Use: No Assistive Devices: Walker Allergies Allergies Allergy/AdvReac Type Severity Reaction Status Date / Time No Known Allergies Allergy Verified 06/05/25 10:14 Home Meds Home Medications Medication Instructions Recorded Confirmed acetaminophen 325 mg tablet 650 mg PO DIRECTED PRN Pain 10/21/21 06/09/25 (Tylenol) cholecalciferol (vitamin D3) 50 50 mcg PO DAILY 01/14/23 06/09/25 mcg (2,000 unit) capsule ferrous sulfate 325 mg (65 mg 325 mg PO DAILY 01/14/23 06/09/25 iron) tablet (Feosol) cyanocobalamin (vitamin B-12) 1,000 mcg PO DAILY 02/26/25 06/09/25 1,000 mcg tablet tamsulosin 0.4 mg capsule 0.4 mg PO DAILY 06/05/25 06/09/25 Previous Rx's Medication Instructions Recorded pantoprazole 40 mg tablet,delayed 40 mg PO BID #200 tabs 02/26/25 release pravastatin 10 mg tablet 10 mg PO DAILY #90 tabs 05/06/25 sertraline 25 mg tablet 25 mg PO DAILY #90 tabs 05/21/25 Results & Data (ED) Vital Signs Vital Signs - 24 hr 06/09/25 11:37 06/09/25 12:21 Temperature 37 C Temperature Source Temporal Artery Scan Pulse Rate 90 Pulse Rate [Left Finger] 73 Respiratory Rate 18 18 Respiratory Effort / Characteristics Non-Labored Respiratory Depth Normal Blood Pressure 108/74 Blood Pressure [Right Arm] 108/72 Blood Pressure Mean 85 Blood Pressure Mean [Right Arm] 84 Pulse Oximetry 98 98 Oxygen Delivery Method Room Air Room Air Sepsis Recent Fever Within 48 Hours Yes Sepsis New/Unexplained Change in Mental Status No Sepsis Action Taken by Nursing No Action Required Laboratory Data 06/09/25 12:05 06/09/25 12:05 Lab Results 06/09/25 Range/Units 12:05 WBC 4.58 L (4.8-10.8) K/ul RBC 3.87 L (4.70-6.10) M/uL Hgb 9.4 L (14.0-18.0) g/dL Hct 30.5 L (42.0-52.0) % MCV 78.8 L (80.0-100.0) fL MCH 24.3 L (25.0-34.0) pg MCHC 30.8 L (32.0-36.0) g/dL RDW Std Deviation 44.5 (36.4-46.3) fL RDW Coeff of [place]cha 15.6 H (11.5-14.5) % Plt Count 280 (130-400) K/uL MPV 9.6 (9.4-12.4) fL Immature Gran % (Auto) 0.2 % Neut % (Auto) 80.8 % Lymph % (Auto) 12.9 % Marinette % (Auto) 5.9 % Eos % (Auto) 0.2 % Baso % (Auto) 0.0 % Neut # (Auto) 3.70 (1.40-6.50) K/uL Lymph # (Auto) 0.59 L (1.20-3.40) K/uL Marinette # (Auto) 0.27 (0.11-0.59) K/uL Eos # (Auto) 0.01 (0.00-0.50) K/uL Baso # (Auto) 0.00 (0.00-0.20) K/uL Immature Gran # (Auto) 0.01 (0.01-0.20) K/uL Sodium 134 L (136-145) mmol/L Potassium 4.3 (3.5-5.1) mmol/L Chloride 98 (98-107) mmol/L Carbon Dioxide 24 (21-32) mmol/L Anion Gap 12 H (3-11) BUN 24 H (6-23) mg/dl Creatinine 2.13 H (0.6-1.4) mg/dl Est Cr Clr Drug Dosing 26.6 ml/min eGFR 32.27 BUN/Creatinine Ratio 11.3 (10-20) Glucose 129 H (70-99(Fasting)) mg/dl Calcium 9.3 (8.6-10.3) mg/dl Total Bilirubin 0.7 (0.2-1.0) mg/dl AST 24 (13-39) U/L ALT 15 (7-52) U/L Alkaline Phosphatase 234 H (34-104) U/L Total Protein 7.8 (6.0-8.3) gm/dl Albumin 3.6 (3.4-5.0) gm/dl Globulin 4.2 H (2.5-4.0) gm/dl Albumin/Globulin Ratio 0.9 (0.9-2) Lipase 17 (11-82) U/L Administered Medications Enoxaparin Sodium (Enoxaparin Inj 30 Mg/0.3 Ml Syr) 30 mg SQ Q24H THOR Stop: 07/09/25 15:59 Last Admin: 06/09/25 16:28 Dose: 30 mg Documented By: SEJAL Ferrous Sulfate (Ferrous Sulfate 325 Mg Tab) 325 mg PO Q48H THOR Stop: 07/09/25 15:59 Last Admin: 06/09/25 16:29 Dose: 325 mg Documented By: SEJAL Discontinued Medications Ertapenem (Invanz 1000mg) 1,000 mg in 10 mls @ 2 mls/min IV NOW STA Stop: 06/09/25 11:58 Last Admin: 06/09/25 12:12 Dose: 2 mls/min Documented By: nrs Discharge Plan Visit Data Chief Complaint: Need IV Start Stated Complaint: NEED IV ANTIBIOTIC PER DR HE ED Provider: Son Awan Discharge Problem: Urinary tract infection due to ESBL Klebsiella, Leukopenia, Anemia, CKD (chronic kidney disease) Patient Disposition: Admitted As Inpatient Condition: Fair Discharge Instructions Interventions: ED Discharge Assessment Last Done: 06/09/25 14:11 Discharge Problem: Leukopenia Qualifiers: Leukopenia type: unspecified Qualified Code(s): D72.819 - Decreased white blood cell count, unspecified Anemia Qualifiers: Anemia type: unspecified type Qualified Code(s): D64.9 - Anemia, unspecified CKD (chronic kidney disease) Qualifiers: Chronic kidney disease stage: unspecified stage Qualified Code(s): N18.9 - Chronic kidney disease, unspecified
[2025-06-09] MEDS: ERTAPENEM 1000MG 1,000 MG/10 ML SYR IV STA (12:12)
[2025-06-09 12:20] LABS: Hematocrit (blood only) 30.5 % (42.0-52.0); Hemoglobin 9.4 g/dL (14.0-18.0); Immature Granulocytes # (auto) 0.01 K/uL (0.01-0.20); Immature Granulocytes % (auto) 0.2 %; Mean Corpuscular Hemoglobin 24.3 pg (25.0-34.0); Mean Corpuscular Volume 78.8 fL (80.0-100.0); Platelet Count 280 K/uL (130-400); RDW Standard Deviation 44.5 fL (36.4-46.3); Red Blood Count 3.87 M/uL (4.70-6.10); White Blood Count 4.58 K/ul (4.8-10.8)
[2025-06-09 12:41] LABS: Alanine Aminotransferase 15.0 U/L (7-52); Albumin Globulin Ratio 0.9 (0.9-2); Albumin Level 3.6 gm/dl (3.4-5.0); Alkaline Phosphatase 234.0 U/L (34-104); Anion Gap 12.0 (3-11); Bilirubin,Total 0.7 mg/dl (0.2-1.0); Blood Urea Nitrogen 24.0 mg/dl (6-23); Calcium 9.3 mg/dl (8.6-10.3); Carbon Dioxide 24.0 mmol/L (21-32); Chloride 98.0 mmol/L (98-107); Creatinine Clr Calc Pharmacy 26.6 ml/min; Globulin 4.2 gm/dl (2.5-4.0); Glucose 129.0 mg/dl (70-99(Fasting)); Lipase 17.0 U/L (11-82); Potassium 4.3 mmol/L (3.5-5.1); Sodium 134.0 mmol/L (136-145); Total Protein 7.8 gm/dl (6.0-8.3)
--- NOTE | 2025-06-09 13:53 | History & Physical Report ---
Date of Service June 09, 2025 Assessment & Plan (1) Complicated UTI (urinary tract infection): (2) Iron deficiency anemia: (3) Bladder cancer: (4) CKD stage 3b, GFR 30-44 ml/min: (5) Hyperlipidemia: Plan 74-year-old man with a history of bladder cancer status post prostate assisted to ectomy and ileal conduit who is admitted with ESBL Klebsiella UTI # ESBL Klebsiella UTI Complicated UTI due to radical cystoprostatectomy, ileal conduit, and recent instrumentation (05/27/2025). His Klebsiella is resistant to everything but carbapenems - No signs of sepsis. - IV ertapenem for 10 days - Discussed option of home infusion and his would be able/willing to do this. Consult care coordination # CKD stage 3b Stable creatinine. - Monitor BMP daily, avoid nephrotoxins # Iron deficiency anemia Likely due to hematuria. - Continue ferrous sulfate 325 mg every other day. He has been on oral ferrous sulfate long-term - Iron studies (06/06/2025): Serum iron <10, transferrin 268, ferritin 73. - Will treat with IV Venofer since he will be in the hospital for 3 days - Continue vitamin B12 supplement - Follow-up in primary care # Right renal pelvis tumor Recent biopsy, laser ablation, stent placement. - Ongoing hematuria. - Follow-up with urology. Pathology results are not available to me # Cholelithiasis, recent ERCP does not have a biliary stent Elective laparoscopic cholecystectomy deferred until after renal pelvis tumor treatment # Pulmonary nodule 7 mm enlarging nodule requires further outpatient evaluation -outpatient referral to pulmonary clinic # Colonic thickening at splenic flexure Outpatient colonoscopy recommendedfollow-up with GI as outpatient # Recent traumatic subarachnoid hemorrhage - Reviewed neurosurgery notes from [facility]. According to their notes he is okay for DVT prophylaxis and aspirin. # Hypertension History of hypertension, not currently on antihypertensives # Hyperlipidemia Continue pravastatin # Generalized weakness and ambulatory dysfunction PT and OT evaluations ordered # DVT Prophylaxis: Enoxaparin 30 mg subcu daily Medical Complexity: Medical decision making was complex, high risk for clinical deterioration morbidity, or mortality for this encounter. He prefers to be full code which we discussed. I updated his at the bedside today History of Present Illness Chief Complaint: Referred in by physician for antibiotic resistant urinary tract infection Primary Care Provider: Pilar Cartagena MD 74-year-old male with bladder cancer treated with radical cystoprostatectomy and ileal conduit in [id number], referred for ESBL Klebsiella UTI. He recently had urological procedure on May 27 for a right renal pelvis tumor included right ureteroscopy and biopsy, laser ablation of the tumor, right ureteral stent. He was treated with 5 days of Bactrim after discharge. His wrote reports that he recently expelled the stent spontaneously she did discuss with his urologist. He was doing well progressing with home health PT and OT until about 4 to 5 days ago when he developed malaise, poor appetite, lethargy. His home physical therapist noted on 05/1125 that he was tachycardic with a heart rate 112 at rest and 120s to 130s with exertion and febrile to 99.8. He was seen in primary care, symptomatic anemia was suspected and labs were ordered, he had CT angiogram of the chest which was negative for pulmonary embolism or pneumonia he did have a moderate right-sided pleural effusion and mild left-sided pleural effusion. He was started on ciprofloxacin pending urine culture. His states that he took 2 doses of the Cipro and he actually looks better today than previously. He has had hematuria since last spring and actually his urine has now cleared over the last few days or a week. Urine culture identified ESBL Klebsiella, resistant to all antibiotics except carbapenems, leading to ED referral today. Recent medical issues: Traumatic subarachnoid hemorrhage on 05/21/2025, evaluated by neurosurgery at [facility], no surgical intervention. Enterococcus bacteremia from choledocholithiasis, treated with ERCP and sphincterotomy on 04/30/2025, followed by pip-tazo and amoxicillin under direction of the [facility] infectious disease specialist. TTE on 04/30/2025 showed no vegetations, normal LV (EF 55%-59%), mild mitral regurgitation, normal RV. Imaging revealed 7 mm enlarging right lower lobe pulmonary nodule (requires follow-up) and colon thickening at splenic flexure (colonoscopy recommended). Bladder cancer followed by Dr. Cecil Foote (oncology) and Dr. Quintero (urology). Medical problems: CKD stage 3b (GFR ~30), hypertension, hyperlipidemia, bladder cancer, cholelithiasis, COPD, stroke in 2016 with residual dysarthria and R facial droop, dysphagia, dementia. Given 1g ertapenem in ED. I spent an extensive amount of time reviewing outpatient records including primary care notes, discharge summaries from 2 hospitalizations at [facility], operative notes, discharge from recent rehab stay at [facility], previous imaging Allergies Allergy/AdvReac Type Severity Reaction Status Date / Time No Known Allergies Allergy Verified 06/05/25 10:14 Home Medications Medication Instructions Recorded Confirmed Type acetaminophen 325 mg tablet 650 mg PO DIRECTED PRN Pain 10/21/21 06/09/25 History (Tylenol) cholecalciferol (vitamin D3) 50 50 mcg PO DAILY 01/14/23 06/09/25 History mcg (2,000 unit) capsule ferrous sulfate 325 mg (65 mg 325 mg PO DAILY 01/14/23 06/09/25 History iron) tablet (Feosol) cyanocobalamin (vitamin B-12) 1,000 mcg PO DAILY 02/26/25 06/09/25 History 1,000 mcg tablet pantoprazole 40 mg tablet,delayed 40 mg PO BID #200 tabs 02/26/25 06/09/25 Rx release pravastatin 10 mg tablet 10 mg PO DAILY #90 tabs 05/06/25 06/09/25 Rx sertraline 25 mg tablet 25 mg PO DAILY #90 tabs 05/21/25 06/09/25 Rx tamsulosin 0.4 mg capsule 0.4 mg PO DAILY 06/05/25 06/09/25 History Past Med/Surg History Problem List (Updated 06/09/25 @ 14:03 by Mikaela Hunter MD) CKD stage 3b, GFR 30-44 ml/min Iron deficiency anemia Wilkins's esophagus determined by biopsy (Chronic) Chronic kidney disease (Chronic) Essential tremor (Chronic) Hyperlipidemia (Chronic) Hypertension (Chronic) Medical History Lung nodules History of CVA (cerebrovascular accident) (2015) with speech difficulty, right sided hemiparesis Vitamin D deficiency Bladder cancer hx chemotherapy (Fall 2020), s/p cystectomy / ileal conduit 2021 Surgical History S/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 Dr Quintero, [facility] History of cystoscopy History of bladder surgery TURBT (07/07/21): LMA#5 at [facility] History of bilateral cataract extraction Family History Son Family history of diabetes mellitus Other No family history of adverse response to anesthesia Social History Smoking Status: Former smoker Tobacco Type: Cigarettes Cigarettes Per Day: Quit pipe 6 yrs ago, Quit cigs 40 yrs ago; Second Hand Exposure: No; Do You Dip or Chew Tobacco: No; Hx Alcohol Use: Yes (2-3 beers per day) Alcohol type: beer Hx Substance Use: No Preferred Language: Setswana Communication Ability: Effective Chain Person Required: No Beliefs That Will Affect Care: None marital status: Current Living Situation: Spouse current occupational status: retired How many Children do You have: 2 Feels Safe at Home: Yes Childhood Exposure to Second-Hand Smoke: Yes Diet: regular caffeine: Yes Dental Care, Regularly: No Physical Activity Frequency: Daily Physical Activity Frequency Comment: Walks outside daily Seatbelt Use: always Sunscreen Use: No Assistive Devices: Denture - Upper, Denture - Lower, Glasses and Walker Review of Systems Review of Systems: he has had a chronic sounding cough, potentially worse recently, he does have some rhinitis from seasonal allergies, has Wilkins's esophagus on twice daily PPI and also history of dysphagia from a remote stroke and was recently seen by speech pathology at [facility] for swallow evaluation Physical Exam Physical Exam: General Appearance: Normal. Vital signs: Reviewed past 24h vital signs in EMR, unremarkable. HEENT: Within normal limits. Respiratory: Clear to auscultation bilaterally, prolonged expiratory phase, diminished right base. Cardiovascular: Regular, no murmurs, rubs, or gallops. No JVD. Gastrointestinal: Abdomen soft NT/ND, normal active bowel tones. urostomy right lower quadrant, the stoma is pink and healthy appearing it is draining a good amount of clear yellow urine Extremities: Warm, well perfused, no edema. Skin: Warm, dry, no rashes. Neurological: Awake, alert, oriented to place and situation, slightly forgetful, slight right facial droop, dysarthria. Psychiatric: Normal. Results & Data Results & Data Vital Signs (Past 12 Hours) Vital Signs Temp Pulse Pulse Resp BP BP Pulse Ox 06/09/25 13:01 72 06/09/25 12:21 73 18 108/72 98 06/09/25 11:37 37 C 90 18 108/74 98 O2 Del Method 06/09/25 13:01 06/09/25 12:21 Room Air 06/09/25 11:37 Room Air Diagnostic Findings - Labs: - WBC: 4.5 - Hgb: 9.4 - Platelets: 280 - Na: 134 - K: 4.3 - Anion gap: 12 - BUN: 24 - Cr: 2.13 - LFTs: Normal - Bilirubin: 0.7 - AST: 24 - ALT: 15 - Alk Phos: 234 - Lipase: 17 - Serum iron: <10 (06/06/2025) - Transferrin: 268 (06/06/2025) - Ferritin: 73 (06/06/2025) - Imaging from [facility]: - TTE (04/30/2025): No vegetations, normal LV (EF 55%-59%), mild mitral regurgitation, normal RV - CT: 7 mm enlarging pulmonary nodule (requires follow-up) - CT: Colon thickening at splenic flexure CTA chest 06/07 No definite sign of pulmonary embolism, bilateral hydronephrosis, right larger than left pleural effusions, interval increase in size of right lower lobe pulmonary nodule now measuring 7 mm indeterminate in nature. Emphysema, cholelithiasis, small hiatal hernia, multiple small thyroid nodules, extensive coronary atherosclerosis Code Status & VTE Plan VTE Prophylaxis Plan VTE Prophylaxis will be ordered: Yes PG Care Time/CCT Total # of Minutes Spent Total Time Spent with Patient: I personally spent: 80 minutes today on clinical care activities including: reviewing chart notes and vital signs reviewing labs reviewing studies - recent CTA extensive review of recent outside records counseling the patient's family writing orders documentation Coding Level of Care Code 96668 INT INP/OBS CARE 3/75MIN Diagnoses Complicated UTI (urinary tract infection) N39.0 Iron deficiency anemia D50.9 Bladder cancer C67.9 CKD stage 3b, GFR 30-44 ml/min N18.32 Hyperlipidemia E78.5
[2025-06-09] MEDS ORDERED: ALUMINUM/MAGNESIUM SUSP 30 ML UDC PO PRN (14:57)
[2025-06-09] MEDS ORDERED: MAGNESIUM HYDROXIDE SUSP 30 ML UDC PO PRN (14:57)
[2025-06-09] MEDS ORDERED: POLYETHYLENE (MIRALAX) 17 GM PACK PO PRN (14:57)
[2025-06-09] MEDS ORDERED: ONDANSETRON INJ 2 MG/ML 2 ML VIAL IV PRN (14:57)
[2025-06-09] MEDS: ENOXAPARIN INJ 30 MG/0.3 ML SYR SQ SCH (16:28)
[2025-06-09] MEDS: FERROUS SULFATE 325 MG TAB PO SCH (16:29)
[2025-06-10 06:47] LABS: Hematocrit (blood only) 26.5 % (42.0-52.0); Hemoglobin 8.3 g/dL (14.0-18.0); Mean Corpuscular Hemoglobin 24.1 pg (25.0-34.0); Mean Corpuscular Volume 76.8 fL (80.0-100.0); Platelet Count 273 K/uL (130-400); RDW Standard Deviation 43.5 fL (36.4-46.3); Red Blood Count 3.45 M/uL (4.70-6.10); White Blood Count 3.58 K/ul (4.8-10.8)
[2025-06-10 07:18] LABS: Anion Gap 12.0 (3-11); Blood Urea Nitrogen 20.0 mg/dl (6-23); Calcium 8.5 mg/dl (8.6-10.3); Carbon Dioxide 23.0 mmol/L (21-32); Chloride 100.0 mmol/L (98-107); Creatinine Clr Calc Pharmacy 27.9 ml/min; Glucose 104.0 mg/dl (70-99(Fasting)); Potassium 3.5 mmol/L (3.5-5.1); Sodium 135.0 mmol/L (136-145)
[2025-06-10] MEDS: TAMSULOSIN HCL 0.4 MG CAP PO SCH (10:00)
[2025-06-10] MEDS: CHOLECALCIFEROL 25 MCG (1000 UNITS) TAB PO SCH (10:00)
[2025-06-10] MEDS: CYANOCOBALAMIN (B-12) 500 MCG TABLET PO SCH (10:00)
[2025-06-10] MEDS: SERTRALINE HCL 50 MG TABLET PO SCH (10:00)
[2025-06-10] MEDS: IRON SUCROSE 300 MG in SODIUM CHLORIDE 0.9% 250 ML IV SCH (10:01)
[2025-06-10] MEDS: PRAVASTATIN SOD 10 MG TAB PO SCH (10:01)
[2025-06-10] MEDS ORDERED: ERTAPENEM 1000MG 500 MG/5 ML SYR IV SCH (12:00)
[2025-06-10] MEDS: ERTAPENEM 500MG 500 MG/5 ML SYR IV SCH (14:10)
--- NOTE | 2025-06-10 16:40 | Hospitalist Progress Note ---
Date of Service June 10, 2025 Assessment & Plan (1) Complicated UTI (urinary tract infection): (2) Iron deficiency anemia: (3) Bladder cancer: (4) CKD stage 3b, GFR 30-44 ml/min: (5) Hyperlipidemia: Plan 74-year-old man with a history of bladder cancer status post prostate assisted to ectomy and ileal conduit who is admitted with ESBL Klebsiella UTI # ESBL Klebsiella UTI Complicated UTI due to radical cystoprostatectomy, ileal conduit, and recent instrumentation (05/27/2025). His Klebsiella is resistant to everything but carbapenems - No signs of sepsis. - IV ertapenem for 10 daystolerating, continue - PT recommended rehab stay however family has declined this - Discussed option of home infusion and his would be able/willing to do this. discussed with care coordination referrals have been placed to home infusion agencies, will write prescription for IV antibiotics, ultrasound-guided peripheral IV. Anticipate patient discharge midweek when he is a little bit stronger # CKD stage 3b creatinine 2.0 today which is his baseline, stable - Monitor BMP daily, avoid nephrotoxins # Iron deficiency anemia, acute on chronic blood loss anemia due to ongoing hematuria as of 3 to 4 days ago hematuria has resolved. Previously had been going on since early summer and there was a transient increase after his recent urological procedure - Continue ferrous sulfate 325 mg every other day. He has been on oral ferrous sulfate long-term - Iron studies (06/06/2025): Serum iron <10, transferrin 268, ferritin 73. - Will treat with IV Venofer since he will be in the hospital for 3 days - ordered Venofer 300 mg x 3 days - Continue vitamin B12 supplement - Follow-up in primary care # Right renal pelvis tumor Recent biopsy, laser ablation, stent placement. - Ongoing hematuria. - Follow-up with urology. Pathology results are not available to me # Cholelithiasis, recent ERCP does not have a biliary stent Elective laparoscopic cholecystectomy deferred until after renal pelvis tumor treatment # Pulmonary nodule 7 mm enlarging nodule requires further outpatient evaluation -outpatient referral to pulmonary clinic # Colonic thickening at splenic flexure Outpatient colonoscopy recommendedfollow-up with GI as outpatient # Recent traumatic subarachnoid hemorrhage - Reviewed neurosurgery notes from [facility]. According to their notes he is okay for DVT prophylaxis and aspirin. # Hypertension History of hypertension, not currently on antihypertensives # Hyperlipidemia Continue pravastatin # Generalized weakness and ambulatory dysfunction PT and OT evaluations ordered # DVT Prophylaxis: Enoxaparin 30 mg subcu daily He prefers to be full code which we discussed. I updated his at the bedside 06/09, 06/10 Admission and Anticipated Discharge Date Admission Date: June 09, 2025 Subjective he is a poor historian he denies any complaints told me he was eating well and did not have any pain in his chest or abdomen his is at the bedside reports that he only ate 2 or 3 bites of lunch and remains weaker than baseline, though improved compared to 3 days ago Physical Exam Physical Exam: General Appearance: Normal. Vital signs: Reviewed past 24h vital signs in EMR, unremarkable. HEENT: Dry mucous membranes. Respiratory: Lungs clear bilaterally, no rhonchi, rales, or wheezes. Cardiovascular: Regular rate and rhythm, no murmur. Gastrointestinal: Abdomen soft, nontender, nondistended, active bowel sounds. Genitourinary: [place], healthy urostomy in right lower quadrant draining clear, yellow urine. Back, Musculoskeletal: Normal. Extremities: Extremities warm, well perfused, no edema. Skin: Skin warm, dry, no rashes. Neurological: Oriented to hospital. Psychiatric: Normal. Results & Data Results & Data Vital Signs (Past 12 Hours) Vital Signs Temp Pulse Resp BP Pulse Ox O2 Del Method 06/10/25 14:46 36.6 C 83 16 129/74 95 Room Air 06/10/25 12:02 37.0 C 87 16 133/76 93 Room Air 06/10/25 10:25 36.8 C 84 123/75 97 Room Air 06/10/25 09:58 36.5 C 87 16 121/75 95 Room Air 06/10/25 07:40 Room Air 06/10/25 07:12 36.7 C 85 16 124/74 96 Room Air Laboratory Results - Laboratory Studies: - Sodium: 135 - Potassium: 3.5 - Creatinine: 2.03 - WBC: 3.5 - Hemoglobin: 8.3 - Platelets: 273 PG Care Time/CCT Total # of Minutes Spent Total Time Spent with Patient: Total time spent is greater than 50% in coordination of care (as documented) at patient's floor/unit and/or counseling patient: Coding Level of Care Code 66039 SUB INP/OBS CARE 3/50MIN Diagnoses Complicated UTI (urinary tract infection) N39.0 Iron deficiency anemia D50.9 Bladder cancer C67.9 CKD stage 3b, GFR 30-44 ml/min N18.32 Hyperlipidemia E78.5
[2025-06-11 06:59] LABS: Anion Gap 10.0 (3-11); Blood Urea Nitrogen 17.0 mg/dl (6-23); Calcium 8.7 mg/dl (8.6-10.3); Carbon Dioxide 25.0 mmol/L (21-32); Chloride 102.0 mmol/L (98-107); Creatinine Clr Calc Pharmacy 28.1 ml/min; Glucose 107.0 mg/dl (70-99(Fasting)); Potassium 3.5 mmol/L (3.5-5.1); Sodium 137.0 mmol/L (136-145)
--- NOTE | 2025-06-11 19:19 | Hospitalist Progress Note ---
Date of Service June 11, 2025 Assessment & Plan (1) Complicated UTI (urinary tract infection): (2) Iron deficiency anemia: (3) Bladder cancer: (4) CKD stage 3b, GFR 30-44 ml/min: (5) Hyperlipidemia: Plan 74-year-old man with a history of bladder cancer status post prostate assisted to ectomy and ileal conduit who is admitted with ESBL Klebsiella UTI # ESBL Klebsiella UTI Complicated UTI due to radical cystoprostatectomy, ileal conduit, and recent instrumentation (05/27/2025). His Klebsiella is resistant to everything but carbapenems - No signs of sepsis. - IV ertapenem for 10 days - Discussed option of home infusion and his would be able/willing to do this. discussed with care coordination and wrote prescription for ertapenem 1 g daily end of treatment 06/18, and ultrasound-guided IV can be placed prior to discharge he did a little better with PT today was able to walk 20 feet then 30 feet with a walker he does have unsteadiness and PT and OT are still recommending rehab, however he and his prefer home with home infusion which I think is a pos sibility within a day or 2 # CKD stage 3b creatinine unchanged at 2.0 today which is his baseline, stable - Monitor BMP daily, avoid nephrotoxins # Iron deficiency anemia, acute on chronic blood loss anemia due to ongoing hematuria as of 3 to 4 days ago hematuria has resolved. Previously had been going on since early summer and there was a transient increase after his recent urological procedure - Continue ferrous sulfate 325 mg every other day. He has been on oral ferrous sulfate long-term - Iron studies (06/06/2025): Serum iron <10, transferrin 268, ferritin 73. - Will treat with IV Venofer since he will be in the hospital for 3 days - ordered Venofer 300 mg x 3 days. today's date 07/30 - Continue vitamin B12 supplement - Follow-up in primary care # Right renal pelvis tumor Recent biopsy, laser ablation, stent placement. - Ongoing hematuria. - Follow-up with urology. Pathology results are not available to me as this was done at [facility] # Cholelithiasis, recent ERCP does not have a biliary stent Elective laparoscopic cholecystectomy deferred until after renal pelvis tumor treatment # Pulmonary nodule 7 mm enlarging nodule requires further outpatient evaluation -outpatient referral to pulmonary clinic # Colonic thickening at splenic flexure Outpatient colonoscopy recommendedfollow-up with GI as outpatient # Recent traumatic subarachnoid hemorrhage - Reviewed neurosurgery notes from [facility]. According to their notes he is okay for DVT prophylaxis and aspirin. # Hypertension History of hypertension, not currently on antihypertensives # Hyperlipidemia Continue pravastatin # Generalized weakness and ambulatory dysfunction PT and OT or seeing him, some improvement today but remains quite weak # DVT Prophylaxis: Enoxaparin 30 mg subcu daily He prefers to be full code which we discussed. I updated his at the bedside 06/09, 06/10 Admission and Anticipated Discharge Date Admission Date: June 09, 2025 Subjective Haris seems about the same today still fairly lethargic when no one is around, oriented to hospital but not which 1 and says he was here because he fell which is partially true he has been having a productive cough, no chest pain or shortness of breath, no abdominal pain nausea vomiting or diarrhea his is not here right now he did a little better with PT today was able to walk 20 feet then 30 feet with a walker he does have unsteadiness and PT and OT are still recommending rehab Results & Data Results & Data Vital Signs (Past 12 Hours) Vital Signs Temp Pulse Resp BP Pulse Ox O2 Del Method 06/11/25 15:27 36.5 C 68 16 116/70 97 Room Air 06/11/25 11:55 36.7 C 80 16 115/76 95 Room Air 06/11/25 10:05 36.7 C 83 14 130/78 95 Room Air 06/11/25 08:05 Room Air 06/11/25 08:03 36.4 C L 89 16 159/71 H 96 Room Air Laboratory Results - Laboratory Studies: - Na: 137 - K: 3.5 - BUN: 17 - Cr: 2.01 (unchanged) PG Care Time/CCT Total # of Minutes Spent Total Time Spent with Patient: Total time spent is greater than 50% in coordination of care (as documented) at patient's floor/unit and/or counseling patient: Coding Level of Care Code 62198 SUB INP/OBS CARE 2/35MIN Diagnoses Complicated UTI (urinary tract infection) N39.0 Iron deficiency anemia D50.9 Bladder cancer C67.9 CKD stage 3b, GFR 30-44 ml/min N18.32 Hyperlipidemia E78.5
[2025-06-12 07:50] LABS: Anion Gap 11.0 (3-11); Blood Urea Nitrogen 17.0 mg/dl (6-23); Calcium 8.8 mg/dl (8.6-10.3); Carbon Dioxide 24.0 mmol/L (21-32); Chloride 103.0 mmol/L (98-107); Creatinine Clr Calc Pharmacy 28.1 ml/min; Glucose 106.0 mg/dl (70-99(Fasting)); Potassium 3.6 mmol/L (3.5-5.1); Sodium 138.0 mmol/L (136-145)
[2025-06-12 09:43] LABS: Alanine Aminotransferase 7.0 U/L (7-52); Albumin Level 3.4 gm/dl (3.4-5.0); Alkaline Phosphatase 176.0 U/L (34-104); Bilirubin,Total 0.5 mg/dl (0.2-1.0); Total Protein 6.9 gm/dl (6.0-8.3)
--- NOTE | 2025-06-12 12:10 | Hospitalist Progress Note ---
Date of Service June 12, 2025 Assessment & Plan (1) Complicated UTI (urinary tract infection): (2) Complication of urostomy: (3) Urinary tract infection due to ESBL Klebsiella: (4) Subarachnoid hemorrhage: (5) Dysphagia: (6) Iron deficiency anemia: (7) CKD stage 3b, GFR 30-44 ml/min: (8) Hyperlipidemia: (9) History of CVA (cerebrovascular accident): (10) S/P radical cystoprostatectomy: (11) History of bladder cancer: (12) Ureteral stent present: Plan 74yo male with history of bladder cancer s/p radical cystoprostatectomy with ileal conduit/urostomy creation who was admitted with ESBL Klebsiella UTI. #ESBL Klebsiella UTI - -Complicated UTI due to prior radical cystoprostatectomy, ileal conduit status, and recent instrumentation (05/27/2025 at [facility]) -IV ertapenem x 10 days; today is day #4 of such #history of SAH - 04/27/25 - hospitalized at [facility] - -did not require surgical intervention -records reviewed -- was to have a repeat CT head about this time -given that he needs the repeat study and given his mental status will obtain CT head today -if head CT is stable - per neurosurgery notes from [facility] for chemical DVT prophylaxis and aspirin #cough, dysphagia - -dysphagia was noted while at [facility] in April as well -prior stroke, recent SAH, confusion 2nd to UTI, etc could all be playing roles -will ask speech therapy to see in consult for swallow eval -due to abnormal lung sounds and his cough will obtain chest x-ray - r/o worsening effusion, r/o new pneumonia, etc. #altered mental status - -will need to speak with his /family to determine what his baseline mental status is #CKD stage 3b - -Cr today is 2 --- baseline #Iron deficiency anemia - -by report had several months of gross hematuria thus much of the iron deficiency is from chronic blood loss -Iron studies (06/06/2025) - Serum iron <10, transferrin 268, ferritin 73 -currently on IV Venofer x 3 doses - today is dose #3 of 300mg -continue vitamin B12 supplement -recheck B12/folate levels am -recheck full CBC in am #Right renal pelvis tumor - -05/27/25 - s/p biopsy, laser ablation, right ureteral stent placement at [facility] -will attempt to get pathology results from [facility] #Cholelithiasis/choledocholithiasis - -s/p ERCP at [facility] on 04/30/25 -no stent deployed -ultimately will need elective lap boogie -LFTs today are stable/improved from prior LFTS; no signs of recurrent CBD stones #Pulmonary nodule - -7mm enlarging nodule - will need f/u for this with pulmonary #Colonic thickening at splenic flexure - -seen on prior CT scan -outpatient colonoscopy recommended #Hypertension - -not on BP meds and BPs remain acceptable -reason for flomax? to help prevent ureteral stent spasm?? #Hyperlipidemia - -Continue pravastatin #Generalized weakness and ambulatory dysfunction - -cont PT/OT #DVT Prophylaxis - -Enoxaparin 30 mg subcu daily Admission and Anticipated Discharge Date Admission Date: June 09, 2025 Subjective per staff Mr East appetite has been poor ate very little at breakfast staff also concerned he is aspirating -- this am took his pills and had immediate coughing he also had liquid running out of his mouth after taking the meds during the visit he was coughing intermittently he was confused, stating he was in [place] denied pain in any location Review of Systems Review of Systems: CV - no chest pain pulm - no dyspnea, but is coughing GI - no abd pain; no N/V neuro - admits to weakness on the right; no headache Physical Exam Physical Exam: gen - sitting in chair, looks weak, he initially had his head forward/flexed as if he was asleep - then woke up neck - no JVD mouth - MM modestly dry heart - irregular, s1 s2, no murmur lungs - decreased BS right base, airation fair at best, no rales, no wheeze, no increased work of breathing abd - soft, NT, ND, BS+; urostomy in place with slightly cloudy yellow urine ext - no edema, pulses 2+ b/l feet neuro - right facial droop; strength right arm about 4/5; left arm 5/5 psych - oriented to person and place (hospital) but not the city and not the time Results & Data Results & Data Vital Signs (Past 12 Hours) Vital Signs Temp Pulse Resp BP Pulse Ox O2 Del Method 06/12/25 09:23 Room Air 06/12/25 06:54 36.8 C 80 14 128/78 96 Room Air Laboratory Results Laboratory Results - last 24 hr 06/12/25 07:02 Sodium 138 Potassium 3.6 Chloride 103 Carbon Dioxide 24 Anion Gap 11 BUN 17 Creatinine 2.01 H Est Cr Clr Drug Dosing 28.1 eGFR 34.60 BUN/Creatinine Ratio 8.5 L Glucose 106 H Calcium 8.8 Total Bilirubin 0.5 Direct Bilirubin 0.1 AST 11 L ALT 7 Alkaline Phosphatase 176 H Total Protein 6.9 Albumin 3.4 PG Care Time/CCT Total # of Minutes Spent Total Time Spent with Patient: Total time spent is greater than 50% in coordination of care (as documented) at patient's floor/unit and/or counseling patient: Coding Level of Care Code 56199 SUB INP/OBS CARE 3/50MIN Diagnoses Complicated UTI (urinary tract infection) N39.0 Complication of urostomy N99.528 Urinary tract infection due to ESBL Klebsiella N39.0; B96.89 Subarachnoid hemorrhage I60.9 Dysphagia R13.10 Iron deficiency anemia D50.9 CKD stage 3b, GFR 30-44 ml/min N18.32 Hyperlipidemia E78.5 History of CVA (cerebrovascular accident) Z86.73 S/P radical cystoprostatectomy Z90.79; Z90.6 History of bladder cancer Z85.51 Ureteral stent present Z96.0
--- NOTE | 2025-06-12 12:24 | XRay Report ---
XR chest 1V portable CLINICAL HISTORY: b/l effusions, cough COMPARISON STUDY: 06/05/2025 FINDINGS: The heart is normal in size. There is radiographic evidence of underlying emphysema. There is a small right pleural effusion with associated right basilar atelectasis/consolidation. There is no overt fa ilure. There is no pneumothorax. IMPRESSION: 1. Pulmonary emphysema 2. Small right pleural effusion with associated right basilar atelectasis/consolidation ACT 112: Negative or not required by law. Electronically signed by: Ministerio Chavez M.D. 06/12/2025 12:22 PM
--- NOTE | 2025-06-12 13:04 | CT Scan Report ---
CT SCAN OF THE BRAIN WITHOUT IV CONTRAST CLINICAL HISTORY: Change in mental status. History of recent subarachnoid hemorrhage COMPARISON STUDY: CT of the brain dated 04/27/2025 TECHNIQUE: Unenhanced CT scan of the brain is performed from the vertex to the skull base. Images are reviewed in the axial, sagittal, coronal planes. A dose lowering technique was utilized adhering to the principles of ALARA. CT DOSE: 663.26 mGy.cm FINDINGS: Brain parenchyma: There is age-related involutional change noting moderate to advanced confluent subc ortical and periventricular microangiopathic disease. There is no hemorrhage, mass effect, or evidenc e of acute territorial ischemia by CT criteria. Small chronic lacunar infarcts are noted in the basal ganglia. Yanez-white matter differentiation is preserved. No extra-axial fluid collection is seen. Ventricles, sulci, cisterns: Prominent secondary to involutional change. Intracranial vasculature: There is atherosclerotic calcification of the cavernous carotid and vertebr al artery. Calvarium: Unremarkable. Sinuses and mastoids: There is moderate mucosal thickening within the left ethmoid and left frontal s inuses. Mild mucosal thickening is seen within the right frontal and right ethmoid sinuses. The masto id air cells are well pneumatized. Orbits: The bony orbits are grossly intact. There are bilateral ocular lens implants. IMPRESSION: 1. There is no hemorrhage, mass effect, or evidence of acute territorial ischemia by CT criteria. 2. Subarachnoid hemorrhage seen on 04/27/2025 has resolved. ACT 112: Negative or not required by law. Electronically signed by: Wilfrid Palencia M.D. 06/12/2025 1:03 PM
[2025-06-13 10:16] LABS: Base Excess VBG -0.2 mEq/L; HCO3 VBG 25 mmol/L; Oxygen Saturation VBG 79.8 %; PCO2 VBG 41 mmHg (38-50); PO2 VBG 49 mmHg; pH VBG 7.39 (7.36-7.41)
[2025-06-13 10:35] LABS: Hematocrit (blood only) 27.9 % (42.0-52.0); Hemoglobin 8.8 g/dL (14.0-18.0); Immature Granulocytes # (auto) 0.19 K/uL (0.01-0.20); Immature Granulocytes % (auto) 3.6 %; Mean Corpuscular Hemoglobin 24.9 pg (25.0-34.0); Mean Corpuscular Volume 78.8 fL (80.0-100.0); Platelet Count 351 K/uL (130-400); RDW Standard Deviation 43.8 fL (36.4-46.3); Red Blood Count 3.54 M/uL (4.70-6.10); White Blood Count 5.32 K/ul (4.8-10.8)
[2025-06-13 10:47] LABS: Anion Gap 8.0 (3-11); Blood Urea Nitrogen 19.0 mg/dl (6-23); Calcium 9.0 mg/dl (8.6-10.3); Carbon Dioxide 25.0 mmol/L (21-32); Chloride 105.0 mmol/L (98-107); Creatinine Clr Calc Pharmacy 30.3 ml/min; Glucose 108.0 mg/dl (70-99(Fasting)); Potassium 3.7 mmol/L (3.5-5.1); Sodium 138.0 mmol/L (136-145)
--- NOTE | 2025-06-13 14:23 | Hospitalist Progress Note ---
Date of Service June 13, 2025 Assessment & Plan (1) Complicated UTI (urinary tract infection): (2) Complication of urostomy: (3) Urinary tract infection due to ESBL Klebsiella: (4) Subarachnoid hemorrhage: (5) Dysphagia: (6) Iron deficiency anemia: (7) CKD stage 3b, GFR 30-44 ml/min: (8) Hyperlipidemia: (9) History of CVA (cerebrovascular accident): (10) S/P radical cystoprostatectomy: (11) History of bladder cancer: (12) Ureteral stent present: Plan 74yo male with history of bladder cancer s/p radical cystoprostatectomy with ileal conduit/urostomy creation who was admitted with ESBL Klebsiella UTI. #ESBL Klebsiella UTI - -Complicated UTI due to prior radical cystoprostatectomy, ileal conduit status, and recent instrumentation (05/27/2025 at [facility]) -IV ertapenem x 10 days; today is day #5 of such #history of SAH - 04/27/25 - hospitalized at [facility] - -did not require surgical intervention -records reviewed -- was to have a repeat CT head about this time -performed CT head 06/[address] was negative for any residual SAH -per neurosurgery [place] from [place] for chemical DVT prophylaxis and aspirin #cough, dysphagia - -dysphagia was noted while at [facility] in April as well -prior stroke, recent SAH, confusion 2nd to UTI, etc could all be playing roles -appreciate speech therapy consult -they performed swallow eval -at this time no major modifications recommended -they do feel that at some point while here he will need a video swallow #altered mental status - -did speak with his about his baseline MS - at baseline he has mild confusion, gets names mixed up at times, is sometimes disoriented -during this stay his altered mental status has been worse than usual #CKD stage 3b - -Cr today is 1.87 -- stable #Iron deficiency anemia - -by report had several months of gross hematuria thus much of the iron deficiency is from chronic blood loss -Iron studies (06/06/2025) - Serum iron <10, transferrin 268, ferritin 73 -s/p IV Venofer x 3 doses -continue vitamin B12 supplement -recheck B12/folate levels this admission #Right renal pelvis tumor - -05/27/25 - s/p biopsy, laser ablation, right ureteral stent placement at [facility] -will attempt to get pathology results from [facility] ( reported that she was told that it was indeed cancer) #Cholelithiasis/choledocholithiasis - -s/p ERCP at [facility] on 04/30/25 -no stent deployed -ultimately will need elective lap boogie -LFTs have been stable/improved from prior LFTS; no signs of recurrent CBD stones #Pulmonary nodule - -7mm enlarging nodule - will need f/u for this with pulmonary #Colonic thickening at splenic flexure - -seen on prior CT scan -outpatient colonoscopy recommended #Hypertension - -not on BP meds and BPs remain acceptable -reason for flomax? to help prevent ureteral stent spasm?? #Hyperlipidemia - -Continue pravastatin #Generalized weakness and ambulatory dysfunction - -cont PT/OT #DVT Prophylaxis - -Enoxaparin 30 mg subcu daily #right thigh pain - -likely was a muscle spasm or cramp -can't rule out DVT -- certainly at high risk of such -will obtain RLE doppler - r/o DVT updated at bedside Admission and Anticipated Discharge Date Admission Date: June 09, 2025 Subjective no major events overnight pt's was present at bedside during the visit apparently he had a transient discomfort in his right anterior thigh earlier today when he was moving the pain is resolved and it has not returned no pain in the left leg he denies any other complaints he ate a bit better during the visit today Review of Systems Review of Systems: cv - no chest pain pulm - no dyspnea GI - no N/V/abd pain Physical Exam Physical Exam: gen - laying in bed, awake for most of the visit, but at one point fell asleep neck - no JVD mouth - MM still a little dry heart - irregular (extra beats?), s1 s2, no murmur lungs - mildly decreased BS right base, otherwise CTA b/l abd - soft, NT, ND, BS+; urostomy in place neuro - right facial droop; baseline dysarthria musculo - right thigh - considerable muscle atrophy of multiple muscles of right thigh; no redness, swelling, edema or tenderness; with passive ROM of the right hip this elicited no pain; with passive ROM of right knee this, too, did not elicit any pain Results & Data Results & Data Vital Signs (Past 12 Hours) Vital Signs Temp Pulse Resp BP Pulse Ox O2 Del Method 06/13/25 09:00 Room Air 06/13/25 07:00 36.9 C 79 16 132/72 97 Room Air Laboratory Results Laboratory Results 06/13/25 10:04 WBC 5.32 RBC 3.54 L Hgb 8.8 L Hct 27.9 L MCV 78.8 L MCH 24.9 L MCHC 31.5 L RDW Std Deviation 43.8 RDW Coeff of [place] 15.2 H Plt Count 351 MPV 9.7 Immature Gran % (Auto) 3.6 Neut % (Auto) 66.9 Lymph % (Auto) 19.7 [place] % (Auto) 8.6 Eos % (Auto) 0.8 Baso % (Auto) 0.4 Neut # (Auto) 3.56 Lymph # (Auto) 1.05 L Weston # (Auto) 0.46 Eos # (Auto) 0.04 Baso # (Auto) 0.02 Immature Gran # (Auto) 0.19 VBG pH 7.39 VBG pCO2 41 VBG pO2 49 VBG HCO3 25 VBG O2 Saturation 79.8 VBG Base Excess -0.2 Sodium 138 Potassium 3.7 Chloride 105 Carbon Dioxide 25 Anion Gap 8 BUN 19 Creatinine 1.87 H Est Cr Clr Drug Dosing 30.3 eGFR 37.73 BUN/Creatinine Ratio 10.2 Glucose 108 H Calcium 9.0 PG Care Time/CCT Total # of Minutes Spent Total Time Spent with Patient: Total time spent is greater than 50% in coordination of care (as documented) at patient's floor/unit and/or counseling patient: Coding Level of Care Code 07484 SUB INP/OBS CARE 2/35MIN Diagnoses Complicated UTI (urinary tract infection) N39.0 Complication of urostomy N99.528 Urinary tract infection due to ESBL Klebsiella N39.0; B96.89 Subarachnoid hemorrhage I60.9 Dysphagia R13.10 Iron deficiency anemia D50.9 CKD stage 3b, GFR 30-44 ml/min N18.32 Hyperlipidemia E78.5 History of CVA (cerebrovascular accident) Z86.73 S/P radical cystoprostatectomy Z90.79; Z90.6 History of bladder cancer Z85.51 Ureteral stent present Z96.0
--- NOTE | 2025-06-13 18:09 | Ultrasound Report ---
Clinical History: Pain Technique: Venous ultrasound evaluation was performed utilizing grayscale, color Doppler and wave form evaluation. Images were also obtained with and without compression Findings: The right common femoral, superficial femoral, popliteal, and visualized calf veins demonstrate normal anechoic lumens with full compressibility. Normal flow is seen on color Doppler images. Expected waveforms were produced with augmentation maneuvers Impression: No evidence of right leg deep venous thrombosis Electronically signed by Socrates Coleman 06-13-2025 6:08 PM
[2025-06-14 07:29] LABS: Creatinine Clr Calc Pharmacy 32.9 ml/min
[2025-06-14] MEDS: ENOXAPARIN INJ 40 MG/0.4 ML SYR SQ SCH (16:51)
--- NOTE | 2025-06-14 18:47 | Hospitalist Progress Note ---
Date of Service June 14, 2025 Assessment & Plan (1) Complicated UTI (urinary tract infection): (2) Complication of urostomy: (3) Urinary tract infection due to ESBL Klebsiella: (4) Subarachnoid hemorrhage: (5) Dysphagia: (6) Iron deficiency anemia: (7) CKD stage 3b, GFR 30-44 ml/min: (8) Hyperlipidemia: (9) History of CVA (cerebrovascular accident): (10) S/P radical cystoprostatectomy: (11) History of bladder cancer: (12) Ureteral stent present: Plan 74yo male with history of bladder cancer s/p radical cystoprostatectomy with ileal conduit/urostomy creation who was admitted with ESBL Klebsiella UTI. #ESBL Klebsiella UTI - -Complicated UTI due to prior radical cystoprostatectomy, ileal conduit status, and recent instrumentation (05/27/2025 at [facility]) -IV ertapenem x 10 days; today is day #6 of such #history of SAH - 04/27/25 - hospitalized at [facility] - -did not require surgical intervention -records reviewed -- was to have a repeat CT head about this time -performed CT head 06/[address] was negative for any residual SAH -per neurosurgery notes from [place] for chemical DVT prophylaxis and aspirin #cough, dysphagia - cough improved, no evidence of lower respiratory tract infection clinically - -dysphagia was noted while at [facility] in April as well -prior stroke, recent SAH, confusion 2nd to UTI, etc could all be playing roles -appreciate speech therapy consult -they performed swallow eval -at this time no major modifications recommended -they do feel that at some point while here he will need a video swallow #altered mental status - suspect acute met encephalopathy 2nd to UTI - -improving -does appear he has mild cognitive impairment at baseline #CKD stage 3b - -Cr today is 1.7 -- stable #Iron deficiency anemia - -by report had several months of gross hematuria thus much of the iron deficiency is from chronic blood loss -Iron studies (06/06/2025) - Serum iron <10, transferrin 268, ferritin 73 -s/p IV Venofer x 3 doses -continue vitamin B12 supplement -recheck B12/folate levels this admission #Right renal pelvis tumor - -05/27/25 - s/p biopsy, laser ablation, right ureteral stent placement at [facility] -will attempt to get pathology results from [facility] ( reported that she was told that it was indeed cancer) #Cholelithiasis/choledocholithiasis - -s/p ERCP at [facility] on 04/30/25 -no stent deployed -ultimately will need elective lap boogie -LFTs have been stable/improved from prior LFTS; no signs of recurrent CBD stones #Pulmonary nodule - -7mm enlarging nodule - will need f/u for this with pulmonary #Colonic thickening at splenic flexure - -seen on prior CT scan -outpatient colonoscopy recommended #Hypertension - -not on BP meds and BPs remain acceptable -reason for flomax? to help prevent ureteral stent spasm?? #Hyperlipidemia - -Continue pravastatin #Generalized weakness and ambulatory dysfunction - -cont PT/OT #DVT Prophylaxis - -Enoxaparin 40 mg daily #right thigh pain - -likely was a muscle spasm or cramp -obtained RLE doppler - no DVT updated at bedside 06/13 progressing disposition -- home with ? snf for rehab? Admission and Anticipated Discharge Date Admission Date: June 09, 2025 Subjective no events resting in bed watching TV during my visit eating about 50% of meals he denied any RLE pain today Review of Systems Review of Systems: CV - no chest pain pulm - no dyspnea GI - no abd pain or n/v Physical Exam Physical Exam: gen - laying in bed, looks better today; very awake/very alert today neck - no JVD mouth - MM slightly dry heart - irregular (extra beats?), s1 s2, no murmur; rate <100 lungs - mildly decreased BS right base, otherwise CTA b/l abd - soft, NT, ND, BS+; urostomy in place; clear yellow urine neuro - right facial droop; baseline dysarthria psych - more awake/alert Results & Data Results & Data Vital Signs (Past 12 Hours) Vital Signs Temp Pulse Resp BP Pulse Ox O2 Del Method 06/14/25 14:54 36.8 C 87 16 104/71 97 Room Air 06/14/25 06:53 36.9 C 80 16 131/72 97 Room Air Laboratory Results Laboratory Results - last 24 hr 06/14/25 06:20 Creatinine 1.72 H Est Cr Clr Drug Dosing 32.9 eGFR 41.71 PG Care Time/CCT Total # of Minutes Spent Total Time Spent with Patient: Total time spent is greater than 50% in coordination of care (as documented) at patient's floor/unit and/or counseling patient: Coding Level of Care Code 92573 SUB INP/OBS CARE 235MIN Diagnoses Complicated UTI (urinary tract infection) N39.0 Complication of urostomy N99.528 Urinary tract infection due to ESBL Klebsiella N39.0; B96.89 Subarachnoid hemorrhage I60.9 Dysphagia R13.10 Iron deficiency anemia D50.9 CKD stage 3b, GFR 30-44 ml/min N18.32 Hyperlipidemia E78.5 History of CVA (cerebrovascular accident) Z86.73 S/P radical cystoprostatectomy Z90.79; Z90.6 History of bladder cancer Z85.51 Ureteral stent present Z96.0
[2025-06-15] MEDS: ERTAPENEM 1000MG 1,000 MG/10 ML SYR IV SCH (09:29)
[2025-06-15 09:44] LABS: Hematocrit (blood only) 29.5 % (42.0-52.0); Hemoglobin 8.9 g/dL (14.0-18.0); Mean Corpuscular Hemoglobin 23.9 pg (25.0-34.0); Mean Corpuscular Volume 79.3 fL (80.0-100.0); Platelet Count 318 K/uL (130-400); RDW Standard Deviation 44.5 fL (36.4-46.3); Red Blood Count 3.72 M/uL (4.70-6.10); White Blood Count 5.46 K/ul (4.8-10.8)
[2025-06-15 10:05] LABS: Anion Gap 7.0 (3-11); Blood Urea Nitrogen 20.0 mg/dl (6-23); Calcium 8.9 mg/dl (8.6-10.3); Carbon Dioxide 27.0 mmol/L (21-32); Chloride 104.0 mmol/L (98-107); Creatinine Clr Calc Pharmacy 32.9 ml/min; Glucose 141.0 mg/dl (70-99(Fasting)); Magnesium 1.6 mg/dl (1.7-2.4); Potassium 3.6 mmol/L (3.5-5.1); Sodium 138.0 mmol/L (136-145)
[2025-06-15 10:28] LABS: Folate (Folic Acid),Ser orPlas 5.43 ng/ml (>5.38); Vitamin B12 737.0 pg/ml (180-914)
[2025-06-15] MEDS: FOLIC ACID 1 MG TAB PO SCH (13:08)
[2025-06-15] MEDS: MAGNESIUM SULFATE / D5W 1 GM/100 ML BAG IV SCH (13:11)
--- NOTE | 2025-06-15 18:37 | Hospitalist Progress Note ---
Date of Service June 15, 2025 Assessment & Plan (1) Complicated UTI (urinary tract infection): (2) Complication of urostomy: (3) Urinary tract infection due to ESBL Klebsiella: (4) Subarachnoid hemorrhage: (5) Dysphagia: (6) Iron deficiency anemia: (7) CKD stage 3b, GFR 30-44 ml/min: (8) Hyperlipidemia: (9) History of CVA (cerebrovascular accident): (10) S/P radical cystoprostatectomy: (11) History of bladder cancer: (12) Ureteral stent present: Plan 74yo male with history of bladder cancer s/p radical cystoprostatectomy with ileal conduit/urostomy creation who was admitted with ESBL Klebsiella UTI. #ESBL Klebsiella UTI - -Complicated UTI due to prior radical cystoprostatectomy, ileal conduit status, and recent instrumentation (05/27/2025 at [facility]) -IV ertapenem x 10 days; today is day #7 of such #history of SAH - 04/27/25 - hospitalized at [facility] - -did not require surgical intervention -records reviewed -- was to have a repeat CT head about this time -performed CT head 06/[address] was negative for any residual SAH -per neurosurgery [place] from [place] for chemical DVT prophylaxis and aspirin #cough, dysphagia - cough improved, no evidence of lower respiratory tract infection clinically - -dysphagia was noted while at [facility] in April as well -prior stroke, recent SAH, confusion 2nd to UTI, etc could all be playing roles -appreciate speech therapy consult -they performed swallow eval -at this time no major modifications recommended -they do feel that while here he will need a video swallow study -his cough has seemed better the last few days #altered mental status - suspect acute met encephalopathy 2nd to UTI - -improved - agrees his MS has indeed gotten better last several days -suspect mild-moderate cognitive impairment at baseline #CKD stage 3b - -Cr today is 1.7 -- stable #Iron deficiency anemia - -by report had several months of gross hematuria thus much of the iron deficiency is from chronic blood loss -Iron studies (06/06/2025) - Serum iron <10, transferrin 268, ferritin 73 -s/p IV Venofer x 3 doses -continue vitamin B12 supplement -rechecked B12/folate levels today --> B12 wnl; folate borderline low - start folic acid 1mg daily #Right renal pelvis tumor - -12/1/25 - s/p biopsy, laser ablation, right ureteral stent placement at [facility] -will attempt to get pathology results from [facility] ( reported that she was told that it was indeed cancer) #Cholelithiasis/choledocholithiasis - -s/p ERCP at [facility] on 04/30/25 -no stent deployed -ultimately will need elective lap boogie -LFTs have been stable/improved from prior LFTS; no signs of recurrent CBD stones #Pulmonary nodule - -7mm enlarging nodule - will need f/u for this with pulmonary #Colonic thickening at splenic flexure - -seen on prior CT scan -outpatient colonoscopy recommended #Hypertension - -not on BP meds and BPs remain acceptable #Hyperlipidemia - -Continue pravastatin -check CPK in am #Generalized weakness and ambulatory dysfunction - -cont PT/OT #DVT Prophylaxis - -Enoxaparin 40 mg daily #right thigh pain - occurred 1x and has not recurred - -likely was a muscle spasm or cramp -obtained RLE doppler - no DVT #hypomagnesemia - -give IV mag sulfate -repeat mag level am tomorrow updated at bedside 06/13 and again today, 06/15 progressing disposition -- rehab next week hyperalgesia -- will check B1, CPK, mag B12 level wnl TSH wnl Admission and Anticipated Discharge Date Admission Date: June 09, 2025 Subjective no issues overnight or today during the visit his was present at bedside he was 2+ assist to get OOB to chair did ask about rehab today apparently while Mr Vera was transferring to the chair he seemed very sensitive to touch his asked what that could mean Review of Systems Review of Systems: CV - no chest pain gen - appetite still not that great pulm - no dyspnea GI - no abd pain or N/V Physical Exam Physical Exam: gen - laying in bed, looks better today; very awake/very alert today neck - no JVD mouth - MM slightly dry heart - RRR, s1 s2, no murmur lungs - mildly decreased BS right base, otherwise CTA b/l abd - soft, NT, ND, BS+; urostomy in place; clear yellow urine neuro - right facial droop; baseline dysarthria psych - very awake/alert today Results & Data Results & Data Vital Signs (Past 12 Hours) Vital Signs Temp Pulse Resp BP Pulse Ox O2 Del Method 06/15/25 14:25 36.7 C 86 18 113/69 97 Room Air 06/15/25 07:27 Room Air 06/15/25 07:15 36.4 C L 107 H 18 114/76 98 Room Air Laboratory Results Laboratory Results - last 48 hr 06/15/25 09:20 WBC 5.46 RBC 3.72 L Hgb 8.9 L Hct 29.5 L MCV 79.3 L MCH 23.9 L MCHC 30.2 L RDW Std Deviation 44.5 RDW Coeff of Concha 15.9 H Plt Count 318 MPV 9.2 L Sodium 138 Potassium 3.6 Chloride 104 Carbon Dioxide 27 Anion Gap 7 BUN 20 Creatinine 1.72 H Est Cr Clr Drug Dosing 32.9 eGFR 41.71 BUN/Creatinine Ratio 11.6 Glucose 141 H Calcium 8.9 Magnesium 1.6 L Vitamin B12 737 Folate 5.43 PG Care Time/CCT Total # of Minutes Spent Total Time Spent with Patient: Total time spent is greater than 50% in coordination of care (as documented) at patient's floor/unit and/or counseling patient: Coding Level of Care Code 21268 SUB INP/OBS CARE 2/35MIN Diagnoses Complicated UTI (urinary tract infection) N39.0 Complication of urostomy N99.528 Urinary tract infection due to ESBL Klebsiella N39.0; B96.89 Subarachnoid hemorrhage I60.9 Dysphagia R13.10 Iron deficiency anemia D50.9 CKD stage 3b, GFR 30-44 ml/min N18.32 Hyperlipidemia E78.5 History of CVA (cerebrovascular accident) Z86.73 S/P radical cystoprostatectomy Z90.79; Z90.6 History of bladder cancer Z85.51 Ureteral stent present Z96.0
[2025-06-16 06:40] LABS: Anion Gap 7.0 (3-11); Blood Urea Nitrogen 17.0 mg/dl (6-23); Calcium 8.7 mg/dl (8.6-10.3); Carbon Dioxide 26.0 mmol/L (21-32); Chloride 105.0 mmol/L (98-107); Creatine Kinase 12.0 U/L (30-223); Creatinine Clr Calc Pharmacy 36.5 ml/min; Glucose 112.0 mg/dl (70-99(Fasting)); Magnesium 2.1 mg/dl (1.7-2.4); Potassium 3.5 mmol/L (3.5-5.1); Sodium 138.0 mmol/L (136-145)
--- NOTE | 2025-06-16 09:35 | Electrocardiogram Report ---
Test Reason : Blood Pressure : */* mmHG Vent. Rate : 71 BPM Atrial Rate : 71 BPM P-R Int : 172 ms QRS Dur : 96 ms QT Int : 370 ms P-R-T Axes : 78 75 13 degrees QTcB Int : 402 ms Normal sinus rhythm Normal ECG When compared with ECG of 27-Apr-2025 18:25, Vent. rate has decreased by 59 bpm Confirmed by James Purvis ([id number]) on 06/16/2025 9:35:30 AM Referred By: Pilar aCrtagena Confirmed By: James Purvis
--- NOTE | 2025-06-16 09:36 | Electrocardiogram Report ---
Test Reason : Blood Pressure : */* mmHG Vent. Rate : 73 BPM Atrial Rate : 73 BPM P-R Int : 172 ms QRS Dur : 92 ms QT Int : 406 ms P-R-T Axes : 80 77 21 degrees QTcB Int : 447 ms Normal sinus rhythm Normal ECG When compared with ECG of 15-Jun-2025 09:42, (unconfirmed) No significant change was found Confirmed by James Purvis ([id number]) on 06/16/2025 9:35:35 AM Referred By: Pilar Cartagena Confirmed By: James Purvis
--- NOTE | 2025-06-16 18:20 | Hospitalist Progress Note ---
Date of Service June 16, 2025 Assessment & Plan (1) Complicated UTI (urinary tract infection): (2) Complication of urostomy: (3) Urinary tract infection due to ESBL Klebsiella: (4) Subarachnoid hemorrhage: (5) Dysphagia: (6) Iron deficiency anemia: (7) CKD stage 3b, GFR 30-44 ml/min: (8) Hyperlipidemia: (9) History of CVA (cerebrovascular accident): (10) S/P radical cystoprostatectomy: (11) History of bladder cancer: (12) Ureteral stent present: Plan 74yo male with history of bladder cancer s/p radical cystoprostatectomy with ileal conduit/urostomy creation who was admitted with ESBL Klebsiella UTI. #ESBL Klebsiella UTI - -Complicated UTI due to prior radical cystoprostatectomy, ileal conduit status, and recent instrumentation (05/27/2025 at [facility]) -IV ertapenem x 10 days; today is day #8 of such #history of SAH - 04/27/25 - hospitalized at [facility] - -did not require surgical intervention -records reviewed -- was to have a repeat CT head about this time -performed CT head 06/[address] was negative for any residual SAH -per neurosurgery notes from [place] for chemical DVT prophylaxis and aspirin #cough, dysphagia - cough improved, no evidence of lower respiratory tract infection clinically - -dysphagia was noted while at [facility] in April as well -prior stroke, recent SAH, confusion 2nd to UTI, etc could all be playing roles -appreciate speech therapy consult -they performed swallow eval -at this time no major modifications recommended -they do feel that while here he will need a video swallow study -his cough has improved since last week and o2 sats remain wnl #altered mental status - suspect acute met encephalopathy 2nd to UTI - -improved - agrees his MS has indeed gotten better last several days -suspect mild-moderate cognitive impairment at baseline #CKD stage 3b - -Cr today is 1.55 -- stable #Iron deficiency anemia - -by report had several months of gross hematuria thus much of the iron deficiency is from chronic blood loss -Iron studies (06/06/2025) - Serum iron <10, transferrin 268, ferritin 73 -s/p IV Venofer x 3 doses -continue vitamin B12 supplement -rechecked B12/folate levels --> B12 wnl; folate borderline low - started folic acid 1mg daily #Right renal pelvis tumor - -05/27/25 - s/p biopsy, laser ablation, right ureteral stent placement at [facility] -will attempt to get pathology results from [facility] ( reported that she was told that it was indeed cancer) #Cholelithiasis/choledocholithiasis - -s/p ERCP at [facility] on 04/30/25 -no stent deployed -ultimately will need elective lap boogie -LFTs have been stable/improved from prior LFTS; no signs of recurrent CBD stones #Pulmonary nodule - -7mm enlarging nodule - will need f/u for this with pulmonary #Colonic thickening at splenic flexure - -seen on prior CT scan -outpatient colonoscopy recommended #Hypertension - -not on BP meds and BPs remain acceptable #Hyperlipidemia - -Continue pravastatin -CPK today wnl -recent LFTs acceptable #Generalized weakness and ambulatory dysfunction - -cont PT/OT #DVT Prophylaxis - -Enoxaparin 40 mg daily #right thigh pain - occurred 1x and has not recurred - -likely was a muscle spasm or cramp -obtained RLE doppler - no DVT #hypomagnesemia - -give IV mag sulfate -repeat mag level today wnl updated at bedside 06/13, 06/15 and today progressing nicely disposition -- rehab this week hyperalgesia of skin -- B12, TSH, CPK, mag all wnl B1 level pending Admission and Anticipated Discharge Date Admission Date: June 09, 2025 Subjective no events at bedside during the visit he was awake/alert suddenly he started grunting - he had to have a bowel movement visit was truncated because of the stool issues Review of Systems Review of Systems: no pain in any location Physical Exam Physical Exam: gen - laying in bed, awake/alert, grunting - has to have a bowel movement mouth - MM dry heart - RRR, s1 s2, no murmur lungs - CTA b/l anterior chest abd - soft, NT, ND, BS+; urostomy in place; clear yellow urine neuro - right facial droop; baseline dysarthria psych - awake/alert Results & Data Results & Data Vital Signs (Past 12 Hours) Vital Signs Temp Pulse Resp BP Pulse Ox O2 Del Method 06/16/25 14:54 36.3 C L 82 16 114/71 97 Room Air 06/16/25 07:32 Room Air 06/16/25 07:11 36.7 C 76 18 119/72 98 Room Air Laboratory Results Laboratory Results 06/16/25 06:07 Sodium 138 Potassium 3.5 Chloride 105 Carbon Dioxide 26 Anion Gap 7 BUN 17 Creatinine 1.55 H Est Cr Clr Drug Dosing 36.5 eGFR 47.26 BUN/Creatinine Ratio 11.0 Glucose 112 H Calcium 8.7 Magnesium 2.1 Total Creatine Kinase 12 L PG Care Time/CCT Total # of Minutes Spent Total Time Spent with Patient: Total time spent is greater than 50% in coordination of care (as documented) at patient's floor/unit and/or counseling patient: Coding Level of Care Code 67836 SUB INP/OBS CARE 2/35MIN Diagnoses Complicated UTI (urinary tract infection) N39.0 Complication of urostomy N99.528 Urinary tract infection due to ESBL Klebsiella N39.0; B96.89 Subarachnoid hemorrhage I60.9 Dysphagia R13.10 Iron deficiency anemia D50.9 CKD stage 3b, GFR 30-44 ml/min N18.32 Hyperlipidemia E78.5 History of CVA (cerebrovascular accident) Z86.73 S/P radical cystoprostatectomy Z90.79; Z90.6 History of bladder cancer Z85.51 Ureteral stent present Z96.0
[2025-06-16] MEDS: MELATONIN 3 MG TAB PO PRN (20:03)
--- NOTE | 2025-06-17 13:56 | Hospitalist Progress Note ---
Date of Service June 17, 2025 Assessment & Plan (1) Complicated UTI (urinary tract infection): (2) Complication of urostomy: (3) Urinary tract infection due to ESBL Klebsiella: (4) Subarachnoid hemorrhage: (5) Dysphagia: (6) Iron deficiency anemia: (7) CKD stage 3b, GFR 30-44 ml/min: (8) Hyperlipidemia: (9) History of CVA (cerebrovascular accident): (10) S/P radical cystoprostatectomy: (11) History of bladder cancer: (12) Ureteral stent present: Plan 74yo male with history of bladder cancer s/p radical cystoprostatectomy with ileal conduit/urostomy creation who was admitted with ESBL Klebsiella UTI. #unwitnessed fall vs slide out of bed - -fortunately no injuries noted except for minimal abrasions of right knee -optifoams to the right knee abrasions -he has been impulsive last 1-2 days as he has started to feel better on global basis -fall precautions -monitor carefully #ESBL Klebsiella UTI - -Complicated UTI due to prior radical cystoprostatectomy, ileal conduit status, and recent instrumentation (05/27/2025 at [facility]) -IV ertapenem x 10 days; today is day #9 of such #history of SAH - 04/27/25 - hospitalized at [facility] - -did not require surgical intervention -records reviewed -- was to have a repeat CT head about this time -performed CT head 06/[address] was negative for any residual SAH -per neurosurgery notes from [place] for chemical DVT prophylaxis and aspirin #dysphagia - cough improved, no evidence of lower respiratory tract infection clinically - -dysphagia was noted while at [facility] in April as well as here -prior stroke, recent SAH, confusion 2nd to UTI, etc could all be playing roles in his dysphagia -appreciate speech therapy consult -they performed swallow eval at bedside multiple times -at this time no major modifications recommended -video swallow study deferred for now #altered mental status - suspect acute met encephalopathy 2nd to UTI - -improved - agrees his MS has indeed gotten better last several days -suspect mild-moderate cognitive impairment at baseline #CKD stage 3b - -most recent Cr 1.55 -- stable #Iron deficiency anemia - -by report had several months of gross hematuria thus much of the iron deficiency is from chronic blood loss -Iron studies (06/06/2025) - Serum iron <10, transferrin 268, ferritin 73 -s/p IV Venofer x 3 doses -continue vitamin B12 supplement -rechecked B12/folate levels --> B12 wnl; folate borderline low - started folic acid 1mg daily -last hemoglobin 8.9 --> stable #Right renal pelvis tumor - -05/27/25 - s/p biopsy, laser ablation, right ureteral stent placement at [facility] -will attempt to get pathology results from [facility] ( reported that she was told that it was indeed cancer) #Cholelithiasis/choledocholithiasis - -s/p ERCP at [facility] on 04/30/25 -no stent deployed -ultimately will need elective lap boogie -LFTs have been stable/improved from prior LFTS; no signs of recurrent CBD stones #Pulmonary nodule - -7mm enlarging nodule - will need f/u for this with pulmonary #Colonic thickening at splenic flexure - -seen on prior CT scan -outpatient colonoscopy recommended #Hypertension - -not on BP meds and BPs remain acceptable #Hyperlipidemia - -Continue pravastatin -CPK wnl -recent LFTs wnl #Generalized weakness and ambulatory dysfunction - -cont PT/OT #DVT Prophylaxis - -Enoxaparin 40 mg daily #right thigh pain - occurred 1x and has not recurred - -likely was a muscle spasm or cramp -obtained RLE doppler - no DVT #hypomagnesemia - -give IV mag sulfate -repeat mag level wnl updated at bedside 06/13, 06/15, 06/16, and 06/17 krzysztof nicely I called our radiology dept - they pushed his CT head to [facility] at 's request corresponded with case management - referrals made to SNF for rehab dispo pending Admission and Anticipated Discharge Date Admission Date: June 09, 2025 Subjective 2 visits to pt's room today first was on rounds present at bedside she asked if we have pushed his CT head images to [facility] she asked about status of rehab she voiced concerns that while her is in rehab "how will he get his treatment?" (for renal cancer) pt denied any specific complaints has been taking him for trips in the wheelchair outside the room/throughout the hospital at one point he appeared to be trying to get up from the chair and his asked "where are you going?" he responded "I'm going home!" 2nd visit - afternoon patient slid out of bed onto the floor unwitnessed per staff no apparent injuries Review of Systems Review of Systems: CV - no chest pain pulm - no dyspnea GI - no abd pain Physical Exam Physical Exam: first visit: gen - sitting in chair; awake, alert; NAD; very dysarthric speech (no change) mouth - MM dry - similar to previous visits heart - RRR, s1 s2, no murmur lungs - CTA b/l, decreased BS bases abd - soft, NT, ND, BS+; urostomy in place; clear yellow urine neuro - right facial droop; baseline dysarthria psych - awake/alert 2nd visit: gen - laying in bed; NAD; awake/alert; denies pain any location skin - abrasions, several, about the right knee; no bruising or other signs of trauma on exam musculo - passive ROM of both hips without pain; palpation of pelvis without pain; no pain with passive ROM of both knees; passive ROM of b/l shoulders, elbows, wrists, ankles - no pain or tenderness psych - awake/alert head - no signs of trauma c-spine - no signs of trauma Results & Data Results & Data Vital Signs (Past 12 Hours) Vital Signs Temp Pulse Resp BP Pulse Ox O2 Del Method 06/17/25 11:40 Room Air 06/17/25 07:13 36.5 C 86 19 140/78 98 Room Air Laboratory Results Laboratory Results - last 48 hr 06/16/25 06:07 Sodium 138 Potassium 3.5 Chloride 105 Carbon Dioxide 26 Anion Gap 7 BUN 17 Creatinine 1.55 H Est Cr Clr Drug Dosing 36.5 eGFR 47.26 BUN/Creatinine Ratio 11.0 Glucose 112 H Calcium 8.7 Magnesium 2.1 Total Creatine Kinase 12 L PG Care Time/CCT Total # of Minutes Spent Total Time Spent with Patient: Total time spent is greater than 50% in coordination of care (as documented) at patient's floor/unit and/or counseling patient: Coding Level of Care Code 97453 SUB INP/OBS CARE 3/50MIN Diagnoses Complicated UTI (urinary tract infection) N39.0 Complication of urostomy N99.528 Urinary tract infection due to ESBL Klebsiella N39.0; B96.89 Subarachnoid hemorrhage I60.9 Dysphagia R13.10 Iron deficiency anemia D50.9 CKD stage 3b, GFR 30-44 ml/min N18.32 Hyperlipidemia E78.5 History of CVA (cerebrovascular accident) Z86.73 S/P radical cystoprostatectomy Z90.79; Z90.6 History of bladder cancer Z85.51 Ureteral stent present Z96.0
[2025-06-18 10:12] LABS: Anion Gap 10.0 (3-11); Blood Urea Nitrogen 16.0 mg/dl (6-23); Calcium 9.2 mg/dl (8.6-10.3); Carbon Dioxide 26.0 mmol/L (21-32); Chloride 105.0 mmol/L (98-107); Creatinine Clr Calc Pharmacy 36.2 ml/min; Glucose 131.0 mg/dl (70-99(Fasting)); Potassium 3.3 mmol/L (3.5-5.1); Sodium 141.0 mmol/L (136-145)
[2025-06-18] MEDS: ACETAMINOPHEN 325 MG TAB PO PRN (12:46)
[2025-06-18 14:46] VITALS: BP 121/76; PULSE 93; RESP 16; TEMP 98.1; O2SAT 93
--- NOTE | 2025-06-18 16:56 | Discharge Summary ---
Discharge Summary Date of Service June 18, 2025 Principal Dx & Hospital Course #1 = Principal Diagnosis (1) Complicated UTI (urinary tract infection): (2) Complication of urostomy: (3) Urinary tract infection due to ESBL Klebsiella: (4) Subarachnoid hemorrhage: (5) Dysphagia: (6) Iron deficiency anemia: (7) CKD stage 3b, GFR 30-44 ml/min: (8) Hyperlipidemia: (9) History of CVA (cerebrovascular accident): (10) S/P radical cystoprostatectomy: (11) History of bladder cancer: (12) Ureteral stent present: Plan 74yo male with history of bladder cancer s/p radical cystoprostatectomy with ileal conduit/urostomy creation who was admitted with ESBL Klebsiella UTI. #unwitnessed fall vs slide out of bed - -fortunately no injuries noted except for minimal abrasions of right knee -optifoams to the right knee abrasions -he has been impulsive last 1-2 days as he has started to feel better on global basis -fall precautions -monitor carefully #ESBL Klebsiella UTI - -Complicated UTI due to prior radical cystoprostatectomy, ileal conduit status, and recent instrumentation (05/27/2025 at [facility]) -IV ertapenem x 10 days; today is day #9 of such #history of SAH - 04/27/25 - hospitalized at [facility] - -did not require surgical intervention -records reviewed -- was to have a repeat CT head about this time -performed CT head 06/[address] was negative for any residual SAH -per neurosurgery notes from [facility] ok for chemical DVT prophylaxis and aspirin #dysphagia - cough improved, no evidence of lower respiratory tract infection clinically - -dysphagia was noted while at [facility] in April as well as here -prior stroke, recent SAH, confusion 2nd to UTI, etc could all be playing roles in his dysphagia -appreciate speech therapy consult -they performed swallow eval at bedside multiple times -at this time no major modifications recommended -video swallow study deferred for now #altered mental status - suspect acute met encephalopathy 2nd to UTI - -improved - agrees his MS has indeed gotten better last several days -suspect mild-moderate cognitive impairment at baseline #CKD stage 3b - -most recent Cr 1.55 -- stable #Iron deficiency anemia - -by report had several months of gross hematuria thus much of the iron deficiency is from chronic blood loss -Iron studies (06/06/2025) - Serum iron <10, transferrin 268, ferritin 73 -s/p IV Venofer x 3 doses -continue vitamin B12 supplement -rechecked B12/folate levels --> B12 wnl; folate borderline low - started folic acid 1mg daily -last hemoglobin 8.9 --> stable #Right renal pelvis tumor - -05/27/25 - s/p biopsy, laser ablation, right ureteral stent placement at [facility] -will attempt to get pathology results from [facility] ( reported that she was told that it was indeed cancer) #Cholelithiasis/choledocholithiasis - -s/p ERCP at [facility] on 04/30/25 -no stent deployed -ultimately will need elective lap boogie -LFTs have been stable/improved from prior LFTS; no signs of recurrent CBD stones #Pulmonary nodule - -7mm enlarging nodule - will need f/u for this with pulmonary #Colonic thickening at splenic flexure - -seen on prior CT scan -outpatient colonoscopy recommended #Hypertension - -not on BP meds and BPs remain acceptable #Hyperlipidemia - -Continue pravastatin -CPK wnl -recent LFTs wnl #Generalized weakness and ambulatory dysfunction - -cont PT/OT #DVT Prophylaxis - -Enoxaparin 40 mg daily #right thigh pain - occurred 1x and has not recurred - -likely was a muscle spasm or cramp -obtained RLE doppler - no DVT #hypomagnesemia - -give IV mag sulfate -repeat mag level wnl updated at bedside 06/13, 06/15, 06/16, and 06/17 krzysztof nicely I called our radiology dept - they pushed his CT head to [facility] at 's request corresponded with case management - referrals made to SNF for rehab dispo pending Admission HPI Per Admitting Provider 74-year-old male with bladder cancer treated with radical cystoprostatectomy and ileal conduit in [id number], referred for ESBL Klebsiella UTI. He recently had urological procedure on May 27 for a right renal pelvis tumor included right ureteroscopy and biopsy, laser ablation of the tumor, right ureteral stent. He was treated with 5 days of Bactrim after discharge. His wrote reports that he recently expelled the stent spontaneously she did discuss with his urologist. He was doing well progressing with home health PT and OT until about 4 to 5 days ago when he developed malaise, poor appetite, lethargy. His home physical therapist noted on 05/1125 that he was tachycardic with a heart rate 112 at rest and 120s to 130s with exertion and febrile to 99.8. He was seen in primary care, symptomatic anemia was suspected and labs were ordered, he had CT angiogram of the chest which was negative for pulmonary embolism or pneumonia he did have a moderate right-sided pleural effusion and mild left-sided pleural effusion. He was started on ciprofloxacin pending urine culture. His states that he took 2 doses of the Cipro and he actually looks better today than previously. He has had hematuria since last spring and actually his urine has now cleared over the last few days or a week. Urine culture identified ESBL Klebsiella, resistant to all antibiotics except carbapenems, leading to ED referral today. Recent medical issues: Traumatic subarachnoid hemorrhage on 05/21/2025, evaluated by neurosurgery at [facility], no surgical intervention. Enterococcus bacteremia from choledocholithiasis, treated with ERCP and sphincterotomy on 04/30/2025, followed by pip-tazo and amoxicillin under direction of the [facility] infectious disease specialist. TTE on 04/30/2025 showed no vegetations, normal LV (EF 55%-59%), mild mitral regurgitation, normal RV. Imaging revealed 7 mm enlarging right lower lobe pulmonary nodule (requires follow-up) and colon thickening at splenic flexure (colonoscopy recommended). Bladder cancer followed by Dr. Cecil Foote (oncology) and Dr. Quintero (urology). Medical problems: CKD stage 3b (GFR ~30), hypertension, hyperlipidemia, bladder cancer, cholelithiasis, COPD, stroke in 2016 with residual dysarthria and R facial droop, dysphagia, dementia. Given 1g ertapenem in ED. I spent an extensive amount of time reviewing outpatient records including primary care notes, discharge summaries from 2 hospitalizations at [facility], operative notes, discharge from recent rehab stay at [facility], previous imaging Discharge Exam first visit: gen - sitting in chair; awake, alert; NAD; very dysarthric speech (no change) mouth - MM dry - similar to previous visits heart - RRR, s1 s2, no murmur lungs - CTA b/l, decreased BS bases abd - soft, NT, ND, BS+; urostomy in place; clear yellow urine neuro - right facial droop; baseline dysarthria psych - awake/alert 2nd visit: gen - laying in bed; NAD; awake/alert; denies pain any location skin - abrasions, several, about the right knee; no bruising or other signs of trauma on exam musculo - passive ROM of both hips without pain; palpation of pelvis without pain; no pain with passive ROM of both knees; passive ROM of b/l shoulders, elbows, wrists, ankles - no pain or tenderness psych - awake/alert head - no signs of trauma c-spine - no signs of trauma Discharge Plan Discharge Items Patient Disposition: Transfer Halfway Fac Reason For Visit: ESBL KLEBSIELLA UTI Discharge Diagnosis: 1. ESBL Klebsiella UTI s/p 10 days of IV ertapenem 2. history of left-sided CVA with resulting dysarthria and right-sided weakness 3. history of bladder cancer 4. cystectomy/prostatectomy with ileal conduit/urostomy 5. failure to thrive / protein calorie malnutrition with ongoing poor appetite 6. iron deficiency anemia s/p IV venofer x 3 infusions 7. recent subarachnoid hemorrhage - 04/2025 at [facility] - no surgical intervention needed; CT head this admission showed full resolution 8. right renal pelvis tumor s/p biopsy, laser ablation, right ureteral stent placement at [facility] - 05/27/25 9. choledocholithiasis s/p ERCP at [facility] 04/30/25 10. 7mm pulmonary nodule 11. splenic flexure colonic thickening 12. HTN 13. hyperlipidemia 14. dysphagia Activity: Resume your previous activity Non-emergency contact: Primary Care Provider Call non-emergency contact if: you have any medication questions and your symptoms worsen Follow-up/Referrals: Pilar Cartagena MD [Primary Care Provider] - Diet: Regular Diet Texture: Dental soft (bite-sized) Addtl Attending Provider Instructions: Recommendations: 1. repeat CBC and BMP with magnesium in 3-5 days; results to medical staff assistant 2. PT/OT/speech - eval and Rx 3. consider appetite stimulant (low-dose Mirtazapine, etc) 4. fire control officer consult - patient with very poor appetite It was our pleasure to care for Mr Vera! -Barry Maldonado, [facility] Pending Studies at Discharge: No Stand-Alone Forms: My [facility] Skilled Items Patient informed of condition?: Yes DNR: No Discharge Level of Care: Skilled Communicable Disease: No Discharge Prognosis: Stable Lines: None Urinary Catheter: Yes (urostomy/ileal conduit) Medications and DC Order Prescriptions: New enoxaparin [Lovenox] 40 mg/0.4 mL Syringe 40 mg subcut Q24H 30 Days Qty: 12 0RF melatonin 3 mg Tablet 3 mg PO HS Qty: 30 0RF folic acid 1 mg Tablet 1 mg PO QAM 30 Days Qty: 30 0RF potassium chloride 20 mEq tablet extended release 20 meq PO DAILY Qty: 10 0RF Continued pravastatin 10 mg tablet 10 mg PO DAILY Qty: 90 3RF cholecalciferol (vitamin D3) 50 mcg (2,000 unit) capsule 50 mcg PO DAILY sertraline 25 mg tablet 25 mg PO DAILY Qty: 90 1RF pantoprazole 40 mg tablet,delayed release (DR/EC) 40 mg PO BID Qty: 200 3RF cyanocobalamin (vitamin B-12) 1,000 mcg tablet 1,000 mcg PO DAILY tamsulosin 0.4 mg capsule 0.4 mg PO DAILY Changed acetaminophen [Tylenol] 325 mg Tablet 650 mg PO Q4H PRN (Reason: Pain) Qty: 10 0RF Rx Instructions: max 3000mg in 24 hours. Discontinued ferrous sulfate [Feosol] 325 mg (65 mg iron) tablet 325 mg PO DAILY Discharge Orders: Discharge Order (Routine); Ordered 06/18/25 Ordered By: Barry Maldonado Admission Data Admit Date/Time: 06/09/25 12:55 Attending Provider: Barry Maldonado Admit Provider: Mikaela Hunter Primary Care Provider: Pilar Cartagena Other Providers: Mikaela Hunter; Gwen,Fax; [facility]; [place]; [facility] Stay Data Consultations 06/09/25 12:08 ED Decision to Admit Stat Diagnostic Imagining Performed 06/12/25 10:25 CT head/brain wo con Routine 06/13/25 14:21 US venous doppler LE RT Routine Pending Results Patient Have Any Pending Studies at Discharge: No Discharge Instructions Given to Patient (Per Discharging Provider) Recommendations: 1. repeat CBC and BMP with magnesium in 3-5 days; results to medical staff assistant 2. PT/OT/speech - eval and Rx 3. consider appetite stimulant (low-dose Mirtazapine, etc) 4. fire control officer consult - patient with very poor appetite It was our pleasure to care for Mr Vera! -Barry Maldonado, [facility] Coding Diagnoses Complicated UTI (urinary tract infection) N39.0 Complication of urostomy N99.528 Urinary tract infection due to ESBL Klebsiella N39.0; B96.89 Subarachnoid hemorrhage I60.9 Dysphagia R13.10 Iron deficiency anemia D50.9 CKD stage 3b, GFR 30-44 ml/min N18.32 Hyperlipidemia E78.5 History of CVA (cerebrovascular accident) Z86.73 S/P radical cystoprostatectomy Z90.79; Z90.6 History of bladder cancer Z85.51 Ureteral stent present Z96.0
== END 2025-06-18 17:27 | DRG 689 ==
LOC: ED 11:33 → SUATTDRO 12:55 → 3N 12:55

== ENCOUNTER 2025-06-21 20:06 | Inpatient (IN) ==
--- NOTE | 2025-06-21 20:23 | Emergency Department Note ---
History of Present Illness General Chief complaint: Tachycardia Stated complaint: Tachycardia Time Seen by Provider: 06/21/25 20:09 History of Present Illness Provider complaint: Illness 74-year-old male presents emergency department for illness. Patient arrives from [facility]. Per the senior living, the patient was having multiple falls since coming to the senior living 3 days ago. They report that the patient has been increasing confused and agitated. They reported that the patient was tachycardic and increasingly weak so they brought the patient back to the emergency department. Patient is reporting abdominal pain. No reported fever. No report of vomiting. Home Medications Medication Instructions Recorded Confirmed Type cholecalciferol (vitamin D3) 50 50 mcg PO QAM 01/14/23 06/21/25 History mcg (2,000 unit) capsule cyanocobalamin (vitamin B-12) 1,000 mcg PO QAM 02/26/25 06/21/25 History 1,000 mcg tablet pantoprazole 40 mg tablet,delayed 40 mg PO BID #200 tabs 02/26/25 06/21/25 Rx release tamsulosin 0.4 mg capsule 0.4 mg PO QAM 06/05/25 06/21/25 History folic acid 1 mg tablet 1 mg PO QAM 30 days #30 tabs 06/18/25 06/21/25 Rx acetaminophen 325 mg tablet 650 mg PO Q6 PRN temp > 100 06/21/25 06/21/25 History acetaminophen 325 mg tablet 650 mg PO Q6 PRN Pain 06/21/25 06/21/25 History (Tylenol) melatonin 3 mg tablet 9 mg PO HS 06/21/25 06/21/25 History potassium chloride 20 mEq 20 meq PO QAM 06/21/25 06/21/25 History tablet,extended release pravastatin 10 mg tablet 10 mg PO QPM 06/21/25 06/21/25 History sertraline 25 mg tablet 25 mg PO QAM 06/21/25 06/21/25 History Allergies Allergy/AdvReac Type Severity Reaction Status Date / Time No Known Allergies Allergy Verified 06/21/25 21:23 Past Med/Surg History Problem List (Updated 06/21/25 @ 22:11 by Tadeo Garcia MD) Acute UTI (Acute) Recurrent falls (Acute) Ureteral stent present History of bladder cancer Dysphagia CKD (chronic kidney disease) (Acute) Anemia (Acute) Leukopenia (Acute) Urinary tract infection due to ESBL Klebsiella (Acute) CKD stage 3b, GFR 30-44 ml/min Iron deficiency anemia Wilkins's esophagus determined by biopsy (Chronic) Chronic kidney disease (Chronic) Essential tremor (Chronic) Hypertension (Chronic) Medical History Lung nodules History of CVA (cerebrovascular accident) (2015) with speech difficulty, right sided hemiparesis Vitamin D deficiency Bladder cancer hx chemotherapy (Fall 2020), s/p cystectomy / ileal conduit 2021 Surgical History S/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 Dr Quintero, [facility] History of cystoscopy History of bladder surgery TURBT (07/07/21): LMA#5 at [facility] History of bilateral cataract extraction Family History Son Family history of diabetes mellitus Other No family history of adverse response to anesthesia Social History Smoking Status: Never smoker Tobacco Type: Cigarettes Cigarettes Per Day: Quit pipe 6 yrs ago, Quit cigs 40 yrs ago; Second Hand Exposure: No; Do You Dip or Chew Tobacco: No; Hx Alcohol Use: Yes Alcohol type: beer Hx Substance Use: No Preferred Language: Estonian Communication Ability: Effective [employer] Director Required: No Beliefs That Will Affect Care: None marital status: Current Living Situation: Spouse current occupational status: retired How many Children do You have: 2 Feels Safe at Home: Yes Childhood Exposure to Second-Hand Smoke: Yes Diet: regular caffeine: Yes Dental Care, Regularly: No Physical Activity Frequency: Daily Physical Activity Frequency Comment: Walks outside daily Seatbelt Use: always Sunscreen Use: No Assistive Devices: Walker Physical Exam Vital Signs Vital Signs - 24 hr 06/21/25 20:11 06/21/25 20:11 06/21/25 20:11 Temperature Temperature Source Pulse Rate Pulse Rate [Left] Pulse Rate from SpO2 Sensor Respiratory Rate Respiratory Depth Blood Pressure 145/85 H 145/85 H 145/85 H Blood Pressure [Left Arm] Blood Pressure Mean 108 108 108 Blood Pressure Mean [Left Arm] Pulse Oximetry Oxygen Delivery Method Sepsis Recent Fever Within 48 Hours Sepsis New/Unexplained Change in Mental Status Sepsis Action Taken by Nursing 06/21/25 20:11 06/21/25 20:11 06/21/25 20:12 Temperature Temperature Source Pulse Rate 97 H Pulse Rate [Left] Pulse Rate from SpO2 Sensor 94 H Respiratory Rate 24 Respiratory Depth Blood Pressure 145/85 H 145/85 H Blood Pressure [Left Arm] Blood Pressure Mean 108 108 Blood Pressure Mean [Left Arm] Pulse Oximetry 90 Oxygen Delivery Method Sepsis Recent Fever Within 48 Hours Sepsis New/Unexplained Change in Mental Status Sepsis Action Taken by Nursing 06/21/25 20:15 06/21/25 20:15 06/21/25 20:15 Temperature 36.5 C Temperature Source Oral Pulse Rate 75 94 H Pulse Rate [Left] Pulse Rate from SpO2 Sensor Respiratory Rate 16 16 Respiratory Depth Normal Blood Pressure 145/85 H Blood Pressure [Left Arm] Blood Pressure Mean 105 Blood Pressure Mean [Left Arm] Pulse Oximetry 98 98 98 Oxygen Delivery Method Room Air Room Air Room Air Sepsis Recent Fever Within 48 Hours No Sepsis New/Unexplained Change in Mental Status N/A Sepsis Action Taken by Nursing No Action Required 06/21/25 20:21 06/21/25 20:30 06/21/25 20:30 Temperature Temperature Source Pulse Rate 92 H 84 Pulse Rate [Left] Pulse Rate from SpO2 Sensor Respiratory Rate 17 17 Respiratory Depth Blood Pressure 120/80 Blood Pressure [Left Arm] Blood Pressure Mean 89 Blood Pressure Mean [Left Arm] Pulse Oximetry Oxygen Delivery Method Sepsis Recent Fever Within 48 Hours Sepsis New/Unexplained Change in Mental Status Sepsis Action Taken by Nursing 06/21/25 20:30 06/21/25 20:30 06/21/25 20:30 Temperature Temperature Source Pulse Rate Pulse Rate [Left] Pulse Rate from SpO2 Sensor Respiratory Rate Respiratory Depth Blood Pressure 120/80 120/80 120/80 Blood Pressure [Left Arm] Blood Pressure Mean 89 89 89 Blood Pressure Mean [Left Arm] Pulse Oximetry Oxygen Delivery Method Sepsis Recent Fever Within 48 Hours Sepsis New/Unexplained Change in Mental Status Sepsis Action Taken by Nursing 06/21/25 20:30 06/21/25 20:42 06/21/25 20:51 Temperature Temperature Source Pulse Rate 79 Pulse Rate [Left] 78 Pulse Rate from SpO2 Sensor 80 Respiratory Rate 16 21 Respiratory Depth Blood Pressure 120/80 Blood Pressure [Left Arm] 120/80 Blood Pressure Mean 89 Blood Pressure Mean [Left Arm] 93 Pulse Oximetry 98 96 Oxygen Delivery Method Room Air Sepsis Recent Fever Within 48 Hours Sepsis New/Unexplained Change in Mental Status Sepsis Action Taken by Nursing 06/21/25 21:00 06/21/25 21:00 06/21/25 21:00 Temperature Temperature Source Pulse Rate Pulse Rate [Left] Pulse Rate from SpO2 Sensor Respiratory Rate Respiratory Depth Blood Pressure 132/84 132/84 132/84 Blood Pressure [Left Arm] Blood Pressure Mean 95 95 95 Blood Pressure Mean [Left Arm] Pulse Oximetry Oxygen Delivery Method Sepsis Recent Fever Within 48 Hours Sepsis New/Unexplained Change in Mental Status Sepsis Action Taken by Nursing 06/21/25 21:00 06/21/25 21:00 06/21/25 21:00 Temperature Temperature Source Pulse Rate 90 Pulse Rate [Left] Pulse Rate from SpO2 Sensor 86 Respiratory Rate 28 H Respiratory Depth Blood Pressure 132/84 132/84 Blood Pressure [Left Arm] Blood Pressure Mean 95 95 Blood Pressure Mean [Left Arm] Pulse Oximetry 93 Oxygen Delivery Method Sepsis Recent Fever Within 48 Hours Sepsis New/Unexplained Change in Mental Status Sepsis Action Taken by Nursing 06/21/25 21:12 Temperature Temperature Source Pulse Rate 81 Pulse Rate [Left] Pulse Rate from SpO2 Sensor 82 Respiratory Rate 17 Respiratory Depth Blood Pressure 132/84 Blood Pressure [Left Arm] Blood Pressure Mean 100 Blood Pressure Mean [Left Arm] Pulse Oximetry 96 Oxygen Delivery Method Sepsis Recent Fever Within 48 Hours Sepsis New/Unexplained Change in Mental Status Sepsis Action Taken by Nursing Physical Exam HENT: Exam performed. - Head: Normocephalic and atraumatic. NECK: Normal range of motion. Neck supple. No JVD present. No spinous process tenderness present. CV: Tachycardic rate, regular rhythm, normal heart sounds and intact distal pulses. There is no peripheral edema. Palpable radial pulses bue. PULM/CHEST: Effort normal and breath sounds normal. No respiratory distress. No stridor. He has no wheezes. He has no rales. ABD: The abdomen is soft. Urostomy bag in place. There is diffuse tenderness to palpation of the abdomen. MUSC/SKEL: Pelvis stable. No T or L-spine tenderness. NEURO: Dysarthria.Motor and sensation are grossly intact. Course Course 2009: The patient was evaluated in room B2. A complete history and physical exam was performed Cardiac monitoring: An order was placed for continuous cardiac monitoring. The monitor shows a rate of 90 with sinus rhythm interpreted by me 2140: Vital signs stable. Labs are unremarkable. Urinalysis concerning for UTI. Imaging shows no acute traumatic injury. Given the patient's complicated UTI patient will be treated with ertapenem and [facility] to [facility]. Administered Medications Discontinued Medications Ertapenem (Invanz 1000mg) 1,000 mg in 10 mls @ 2 mls/min IV NOW STA Stop: 06/21/25 21:36 Last Admin: 06/21/25 21:43 Dose: 2 mls/min Documented By: PRIYA Medical Decision Making Medical Records Attestation: I reviewed the patient's medical records. Medical records reviewed. Patient was admitted from June 09 to June 18, 2025 for complicated UTI secondary to ESBL Klebsiella. Patient had falls during that admission also. Patient was treated with IV ertapenem for 10 days. Patient has a history of subarachnoid hemorrhage on April 27, 2025 but may not require any surgical intervention. Laboratory Data Attestation: I reviewed the patient's lab results. 06/21/25 20:27 06/21/25 20:27 Lab Results 06/21/25 06/21/25 06/21/25 Range/Units 20:26 20:27 20:52 WBC 6.67 (4.8-10.8) K/ul RBC 3.68 L (4.70-6.10) M/uL Hgb 9.1 L (14.0-18.0) g/dL POC Hgb 9.9 L (14.0-18.0) g/dl Hct 29.9 L (42.0-52.0) % POC Hct 29 L (42-52) % MCV 81.3 (80.0-100.0) fL MCH 24.7 L (25.0-34.0) pg MCHC 30.4 L (32.0-36.0) g/dL RDW Std Deviation 51.9 H (36.4-46.3) fL RDW Coeff of Concha 17.9 H (11.5-14.5) % Plt Count 328 (130-400) K/uL MPV 9.7 (9.4-12.4) fL Immature Gran % (Auto) 0.4 % Neut % (Auto) 76.3 % Lymph % (Auto) 14.7 % Poinsett % (Auto) 7.9 % Eos % (Auto) 0.4 % Baso % (Auto) 0.3 % Neut # (Auto) 5.08 (1.40-6.50) K/uL Lymph # (Auto) 0.98 L (1.20-3.40) K/uL Po[place]ett # (Auto) 0.53 (0.11-0.59) K/uL Eos # (Auto) 0.03 (0.00-0.50) K/uL Baso # (Auto) 0.02 (0.00-0.20) K/uL Immature Gran # (Auto) 0.03 (0.01-0.20) K/uL PT 10.2 (9.0-12.0) Seconds INR 1.0 (0.9-1.1) APTT 26 (21-31) Seconds PTT Ratio 1.0 POC Sodium 142 (135-144) mmol/L Sodium 140 (136-145) mmol/L POC Potassium 4.0 (3.3-5.0) mmol/L Potassium 3.8 (3.5-5.1) mmol/L POC Chloride 104 (101-112) mmol/L Chloride 107 (98-107) mmol/L Carbon Dioxide 26 (21-32) mmol/L POC Total CO2 25 (24-31) mmol/L Anion Gap 7 (3-11) POC Anion Gap 19.0 (16-25) mmol/L POC BUN 24 H (7-18) mg/dl BUN 22 (6-23) mg/dl Creatinine 1.64 H (0.6-1.4) mg/dl POC Creatinine 1.8 H (0.6-1.3) mg/dl Est Cr Clr Drug Dosing 34.1 ml/min eGFR 44.17 BUN/Creatinine Ratio 13.4 (10-20) Glucose 110 H (70-99(Fasting)) mg/dl POC Glucose (other) 105 H (70-99) mg/dl Lactate 1.0 (0.4-2.0) mmol/L Calcium 9.2 (8.6-10.3) mg/dl POC Ioniz Calcium Miles 1.16 (1.12-1.32) mmol/l Magnesium 1.6 L (1.7-2.4) mg/dl Total Bilirubin 0.5 (0.2-1.0) mg/dl Direct Bilirubin 0.1 (0-0.2) mg/dl AST 23 (13-39) U/L ALT 16 (7-52) U/L Alkaline Phosphatase 248 H (34-104) U/L Troponin I High Sens 8.0 (0-20) pg/ml Total Protein 7.5 (6.0-8.3) gm/dl Albumin 3.7 (3.4-5.0) gm/dl Procalcitonin 0.13 (0-0.5) ng/ml Urine Color Urine Appearance (Clear) Urine pH (4.5-7.5) Ur Specific Hartshorn (1.000-1.030) Urine Protein (Negative) Urine Glucose (UA) (Negative) Urine Ketones (Negative) Urine Blood (Negative) Urine Nitrite (Negative) Urine Bilirubin (Negative) Urine Urobilinogen (Negative) Ur Leukocyte Esterase (Negative) Urine WBC (Auto) (0-5) /hpf Urine RBC (Auto) (0-2) /hpf U Hyaline Cast (Auto) (0-2) /lpf U Epithel Cells (Auto) (0-2) /hpf Urine Bacteria (Auto) (None Seen) Urine Yeast (None Prsent) Urine Comment SARS-CoV-2 (PCR) (Negative) Influenza Type A (PCR) (Neg) Influenza Type B (PCR) (Neg) RSV (RT-PCR) (Neg) Blood Type O Positive Antibody Screen NEGATIVE 06/21/25 Range/Units Unknown WBC (4.8-10.8) K/ul RBC (4.70-6.10) M/uL Hgb (14.0-18.0) g/dL POC Hgb (14.0-18.0) g/dl Hct (42.0-52.0) % POC Hct (42-52) % MCV (80.0-100.0) fL MCH (25.0-34.0) pg MCHC (32.0-36.0) g/dL RDW Std Deviation (36.4-46.3) fL RDW Coeff of Concha (11.5-14.5) % Plt Count (130-400) K/uL MPV (9.4-12.4) fL Immature Gran % (Auto) % Neut % (Auto) % Lymph % (Auto) % Poinsett % (Auto) % Eos % (Auto) % Baso % (Auto) % Neut # (Auto) (1.40-6.50) K/uL Lymph # (Auto) (1.20-3.40) K/uL Po[place]ett # (Auto) (0.11-0.59) K/uL Eos # (Auto) (0.00-0.50) K/uL Baso # (Auto) (0.00-0.20) K/uL Immature Gran # (Auto) (0.01-0.20) K/uL PT (9.0-12.0) Seconds INR (0.9-1.1) APTT (21-31) Seconds PTT Ratio POC Sodium (135-144) mmol/L Sodium (136-145) mmol/L POC Potassium (3.3-5.0) mmol/L Potassium (3.5-5.1) mmol/L POC Chloride (101-112) mmol/L Chloride (98-107) mmol/L Carbon Dioxide (21-32) mmol/L POC Total CO2 (24-31) mmol/L Anion Gap (3-11) POC Anion Gap (16-25) mmol/L POC BUN (7-18) mg/dl BUN (6-23) mg/dl Creatinine (0.6-1.4) mg/dl POC Creatinine (0.6-1.3) mg/dl Est Cr Clr Drug Dosing ml/min eGFR BUN/Creatinine Ratio (10-20) Glucose (70-99(Fasting)) mg/dl POC Glucose (other) (70-99) mg/dl Lactate (0.4-2.0) mmol/L Calcium (8.6-10.3) mg/dl POC Ioniz Calcium Miles (1.12-1.32) mmol/l Magnesium (1.7-2.4) mg/dl Total Bilirubin (0.2-1.0) mg/dl Direct Bilirubin (0-0.2) mg/dl AST (13-39) U/L ALT (7-52) U/L Alkaline Phosphatase (34-104) U/L Troponin I High Sens (0-20) pg/ml Total Protein (6.0-8.3) gm/dl Albumin (3.4-5.0) gm/dl Procalcitonin (0-0.5) ng/ml Urine Color Yellow Urine Appearance Cloudy A (Clear) Urine pH 6.5 (4.5-7.5) Ur Specific Hartshorn 1.017 (1.000-1.030) Urine Protein 2+ H (Negative) Urine Glucose (UA) Negative (Negative) Urine Ketones Trace H (Negative) Urine Blood 3+ H (Negative) Urine Nitrite Negative (Negative) Urine Bilirubin Negative (Negative) Urine Urobilinogen Negative (Negative) Ur Leukocyte Esterase 2+ H (Negative) Urine WBC (Auto) 21-50 H (0-5) /hpf Urine RBC (Auto) >20 H (0-2) /hpf U Hyaline Cast (Auto) 0-2 (0-2) /lpf U Epithel Cells (Auto) 0-2 (0-2) /hpf Urine Bacteria (Auto) 2+ H (None Seen) Urine Yeast Present A (None Prsent) Urine Comment SARS-CoV-2 (PCR) NEGATIVE (Negative) Influenza Type A (PCR) Negative (Neg) Influenza Type B (PCR) Negative (Neg) RSV (RT-PCR) Negative (Neg) Blood Type Antibody Screen Imaging Data Attestation: I personally reviewed and interpreted this imaging study as follows: My Impression: Chest x-ray: Chest x-ray negative. Airway clear. No pneumothorax. No consolidation. No cardiomegaly or cephalization.. No free air under the diaphragm. No fractures of the skeletal structures. Pelvis x-ray: No acute fracture or dislocation Radiologist's Impression: Chest CT 06/21/25 20:15 Exam(s): CT CHEST Without Contrast EXAM: CT Chest Without Intravenous Contrast CLINICAL HISTORY: Reason for exam: trauma. TECHNIQUE: Axial computed tomography images of the chest without intravenous contrast. CTDI is 11.17 mGy and DLP is 757.17 mGy-cm. Automated exposure control was utilized for the study. A dose lowering technique was utilized adhering to the principles of ALARA. COMPARISON: CTA chest 06/07/2025 FINDINGS: Lungs: Calcification or surgical suture material in the posterior right lower lobe. Emphysema. No pulmonary contusion or airspace consolidation. Subsegmental atelectasis right lung base. Pulmonary nodule measuring 7 mm medial right lower lobe. Pleural space: Small right and trace left pleural effusions. No pneumothorax. Heart: Coronary artery atherosclerosis. No cardiomegaly or pericardial effusion. Mediastinum: Unremarkable. No mediastinal hematoma. Bones/joints: No acute fracture or dislocation. Old right scapular body fracture. Soft tissues: Unremarkable. Vasculature: No aortic aneurysm. Normal caliber main pulmonary artery. Lymph nodes: No lymphadenopathy. IMPRESSION: 1. No acute traumatic findings. 2. Small right and trace left pleural effusions, decreased from prior. 3. Pulmonary nodule measuring 7 mm medial right lower lobe. This is stable from most recent prior exam and appears to abut the right pulmonary fissural, possibly representing an intrapulmonary lymph node. Fleischner Society Guidelines for high-risk patients (smoking history or other known risk factors) initial follow-up chest CT at 6-12 months and if unchanged, 18-24 months. Electronically signed by: Mahi Baron M.D. 06/21/25 21:25 PM Chest X-Ray 06/21/25 20:15 Exam(s): XR CXR 1 VIEW EXAM: XR Chest, 1 View CLINICAL HISTORY: Reason for exam: Sepsis. TECHNIQUE: Frontal view of the chest. COMPARISON: 06/12/2025 FINDINGS: Lungs: No consolidation. Pleural space: No significant pleural effusion. No pneumothorax. Heart: No cardiomegaly or pulmonary vascular congestion. Bones/joints: No acute fracture. No dislocation. IMPRESSION: No evidence of acute cardiopulmonary disease. Electronically signed by: Mahi Baron M.D. 06/21/25 20:56 PM Pelvis X-Ray 06/21/25 20:15 Exam(s): XR PELVIS, 1-2 views EXAM: XR Pelvis, 1 or 2 Views CLINICAL HISTORY: Reason for exam: trauma. TECHNIQUE: Frontal view of the pelvis. COMPARISON: No relevant prior studies available. FINDINGS: Bones/joints: No acute fracture. No dislocation. Soft tissues: Unremarkable. IMPRESSION: No acute osseous findings. Electronically signed by: Mahi Baron M.D. 06/21/25 20:56 PM Abdomen/Pelvis CT 06/21/25 20:16 Exam(s): CT ABDOMEN + PELVIS Without Contrast EXAM: CT Abdomen and Pelvis Without Intravenous Contrast CLINICAL HISTORY: Reason for exam: trauma. TECHNIQUE: Axial computed tomography images of the abdomen and pelvis without intravenous contrast. CTDI is 11.17 mGy and DLP is 757.17 mGy-cm. Automated exposure control was utilized for the study. A dose lowering technique was utilized adhering to the principles of ALARA. COMPARISON: 01/09/2025 FINDINGS: There is cholelithiasis without cholecystitis or biliary dilatation. Liver, spleen, pancreas, and adrenal glands demonstrate unremarkable unenhanced appearance. Aorta is calcified but normal in caliber. There is no adenopathy, free fluid, or free air. 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 There is stable moderate left-sided hydroureteronephrosis. 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 The upper pole moiety demonstrates a nondilated ureter. The midpole moiety demonstrates mild ureteral dilatation, similar to prior, as well as internal hyperdensity measuring up to 50 Hounsfield units. Simple right kidney midpole cyst warrants no further follow-up and is stable from prior. No radiopaque urinary stones are visualized. There are postoperative small bowel changes related to ileal conduit creation. There is no mechanical bowel obstruction. Appendix is not identified. There are no bowel inflammatory changes. Bones are demineralized. There are age-related degenerative changes of the spine. There are no acute osseous findings. IMPRESSION: 1. No acute traumatic findings. 2. Cystoprostatectomy and surgical urinary diversion. 3. Persistent moderate left-sided hydroureteronephrosis. 4. As on prior, duplex right renal collecting system with ureter arising from the midpole remaining mildly dilated and containing hyperdense material which is nonspecific. A urothelial lesion is not excluded. Electronically signed by: Mahi Baron M.D. 06/21/25 21:[address] 06/21/25 20:17 Exam(s): CT C SPINE EXAM: CT Cervical Spine Without Intravenous Contrast CLINICAL HISTORY: Reason for exam: trauma. TECHNIQUE: Axial computed tomography images of the cervical spine without intravenous contrast. CTDI is 24.02 mGy and DLP is 495.69 mGy-cm. Automated exposure control was utilized for the study. A dose lowering technique was utilized adhering to the principles of ALARA. COMPARISON: 04/27/2025 FINDINGS: Vertebrae: Osteopenia. No acute fracture or traumatic subluxation. Discs/spinal canal/neural foramina: Multilevel disc, facet, and uncovertebral joint degeneration. Mild central canal narrowing at multiple cervical levels with varying degrees of bilateral foraminal narrowing. Soft tissues: Unremarkable. IMPRESSION: No acute findings in the cervical spine. Electronically signed by: Mahi Baron M.D. 06/21/25 21:[address] 06/21/25 20:17 Exam(s): CT HEAD Without Contrast EXAM: CT Head Without Intravenous Contrast CLINICAL HISTORY: Reason for exam: trauma. TECHNIQUE: Axial computed tomography images of the head/brain without intravenous contrast. CTDI is 37.22 mGy and DLP is 624.41 mGy-cm. Automated exposure control was utilized for the study. A dose lowering technique was utilized adhering to the principles of ALARA. COMPARISON: 06/12/2025 FINDINGS: Brain: Generalized parenchymal volume loss. Periventricular and deep cerebral white matter hypoattenuation suggesting chronic small vessel ischemic change. Yanez-white matter differentiation maintained. No parenchymal edema. No acute intracranial hemorrhage or abnormal extra- axial collection. No mass effect or midline shift. Multiple lacunar infarcts in the bilateral basal ganglia, right thalamus. Ventricles: No hydrocephalus. Bones/joints: No acute fracture. Soft tissues: Unremarkable. Vasculature: Intracranial atherosclerosis. Sinuses: Unremarkable as visualized. Mastoid air cells: No significant mastoid effusion. Orbits: Lens replacements. IMPRESSION: No acute intracranial process. Electronically signed by: Mahi Baron M.D. 06/21/25 21:19 PM ECG Data Attestation: I personally reviewed and interpreted this ECG as follows: Rate (beats per minute): 91 Rhythm: + normal sinus ECG Intervals/blocks: + Normal QRS, + Normal WI and + Normal QT-c ECG ST segments: + Normal ST segments [facility] Narrative 2009: The patient was evaluated in room B2. A complete history and physical exam was performed Cardiac monitoring: An order was placed for continuous cardiac monitoring. The monitor shows a rate of 90 with sinus rhythm interpreted by me 2140: Vital signs stable. Labs are unremarkable. Urinalysis concerning for UTI. Imaging shows no acute traumatic injury. Given the patient's complicated UTI patient will be treated with ertapenem and [facility] to [facility]. Impression & Plan Recurrent falls, Acute UTI Discharge Plan Visit Data Chief Complaint: Tachycardia Stated Complaint: Tachycardia ED Provider: Radha,Tadeo Discharge Problem: Recurrent falls, Acute UTI Patient Disposition: Admitted As Inpatient Condition: Fair Forms Stand Alone Forms: My [facility] Prescriptions Prescriptions: No Action cholecalciferol (vitamin D3) 50 mcg (2,000 unit) capsule 50 mcg PO QAM pantoprazole 40 mg tablet,delayed release (DR/EC) 40 mg PO BID Qty: 200 3RF cyanocobalamin (vitamin B-12) 1,000 mcg tablet 1,000 mcg PO QAM tamsulosin 0.4 mg capsule 0.4 mg PO QAM folic acid 1 mg Tablet 1 mg PO QAM 30 Days Qty: 30 0RF melatonin 3 mg tablet 9 mg PO HS potassium chloride 20 mEq tablet extended release 20 meq PO QAM sertraline 25 mg tablet 25 mg PO QAM pravastatin 10 mg tablet 10 mg PO QPM acetaminophen 325 mg Tablet 650 mg PO Q6 MDD 3g PRN (Reason: temp > 100) acetaminophen [Tylenol] 325 mg tablet 650 mg PO Q6 MDD 3g PRN (Reason: Pain) Referrals Referrals: Pilar Cartagena MD [Primary Care Provider] -
[2025-06-21 20:43] LABS: Hematocrit (blood only) 29.9 % (42.0-52.0); Hemoglobin 9.1 g/dL (14.0-18.0); Immature Granulocytes # (auto) 0.03 K/uL (0.01-0.20); Immature Granulocytes % (auto) 0.4 %; Mean Corpuscular Hemoglobin 24.7 pg (25.0-34.0); Mean Corpuscular Volume 81.3 fL (80.0-100.0); Platelet Count 328 K/uL (130-400); RDW Standard Deviation 51.9 fL (36.4-46.3); Red Blood Count 3.68 M/uL (4.70-6.10); White Blood Count 6.67 K/ul (4.8-10.8)
--- NOTE | 2025-06-21 20:57 | XRay Report ---
Exam(s): XR CXR 1 VIEW EXAM: XR Chest, 1 View CLINICAL HISTORY: Reason for exam: Sepsis. TECHNIQUE: Frontal view of the chest. COMPARISON: 06/12/2025 FINDINGS: Lungs: No consolidation. Pleural space: No significant pleural effusion. No pneumothorax. Heart: No cardiomegaly or pulmonary vascular congestion. Bones/joints: No acute fracture. No dislocation. IMPRESSION: No evidence of acute cardiopulmonary disease. Electronically signed by: Mahi Baron M.D. 06/21/25 20:56 PM
--- NOTE | 2025-06-21 20:57 | XRay Report ---
Exam(s): XR PELVIS, 1-2 views EXAM: XR Pelvis, 1 or 2 Views CLINICAL HISTORY: Reason for exam: trauma. TECHNIQUE: Frontal view of the pelvis. COMPARISON: No relevant prior studies available. FINDINGS: Bones/joints: No acute fracture. No dislocation. Soft tissues: Unremarkable. IMPRESSION: No acute osseous findings. Electronically signed by: Mahi Baron M.D. 06/21/25 20:56 PM
[2025-06-21 21:01] LABS: Alanine Aminotransferase 16.0 U/L (7-52); Albumin Level 3.7 gm/dl (3.4-5.0); Alkaline Phosphatase 248.0 U/L (34-104); Anion Gap 7.0 (3-11); Bilirubin,Total 0.5 mg/dl (0.2-1.0); Blood Urea Nitrogen 22.0 mg/dl (6-23); Calcium 9.2 mg/dl (8.6-10.3); Carbon Dioxide 26.0 mmol/L (21-32); Chloride 107.0 mmol/L (98-107); Creatinine Clr Calc Pharmacy 34.1 ml/min; Glucose 110.0 mg/dl (70-99(Fasting)); Magnesium 1.6 mg/dl (1.7-2.4); Potassium 3.8 mmol/L (3.5-5.1); Sodium 140.0 mmol/L (136-145); Total Protein 7.5 gm/dl (6.0-8.3)
[2025-06-21 21:13] LABS: Appearance Urine Cloudy (Clear); Bacteria Urine Automated 2+ (None Seen); Cast Urine Automated 0-2 /lpf (0-2); Epithelial Cell Urine Auto 0-2 /hpf (0-2); Glucose Urine UA Negative (Negative); RBC Urine Automated >20 /hpf (0-2); WBC Urine Automated 21-50 /hpf (0-5)
[2025-06-21 21:14] LABS: INR 1.0 (0.9-1.1); Partial Thromboplastin Time 26 Seconds (21-31); Prothrombin Time 10.2 Seconds (9.0-12.0)
--- NOTE | 2025-06-21 21:20 | CT Scan Report ---
Exam(s): CT HEAD Without Contrast EXAM: CT Head Without Intravenous Contrast CLINICAL HISTORY: Reason for exam: trauma. TECHNIQUE: Axial computed tomography images of the head/brain without intravenous contrast. CTDI is 37.22 mGy and DLP is 624.41 mGy-cm. Automated exposure control was utilized for the study. A dose lowering technique was utilized adhering to the principles of ALARA. COMPARISON: 06/12/2025 FINDINGS: Brain: Generalized parenchymal volume loss. Periventricular and deep cerebral white matter hypoattenuation suggesting chronic small vessel ischemic change. Yanez-white matter differentiation maintained. No parenchymal edema. No acute intracranial hemorrhage or abnormal extra- axial collection. No mass effect or midline shift. Multiple lacunar infarcts in the bilateral basal ganglia, right thalamus. Ventricles: No hydrocephalus. Bones/joints: No acute fracture. Soft tissues: Unremarkable. Vasculature: Intracranial atherosclerosis. Sinuses: Unremarkable as visualized. Mastoid air cells: No significant mastoid effusion. Orbits: Lens replacements. IMPRESSION: No acute intracranial process. Electronically signed by: Mahi Baron M.D. 06/21/25 21:19 PM
--- NOTE | 2025-06-21 21:26 | CT Scan Report ---
Exam(s): CT CHEST Without Contrast EXAM: CT Chest Without Intravenous Contrast CLINICAL HISTORY: Reason for exam: trauma. TECHNIQUE: Axial computed tomography images of the chest without intravenous contrast. CTDI is 11.17 mGy and DLP is 757.17 mGy-cm. Automated exposure control was utilized for the study. A dose lowering technique was utilized adhering to the principles of ALARA. COMPARISON: CTA chest 06/07/2025 FINDINGS: Lungs: Calcification or surgical suture material in the posterior right lower lobe. Emphysema. No pulmonary contusion or airspace consolidation. Subsegmental atelectasis right lung base. Pulmonary nodule measuring 7 mm medial right lower lobe. Pleural space: Small right and trace left pleural effusions. No pneumothorax. Heart: Coronary artery atherosclerosis. No cardiomegaly or pericardial effusion. Mediastinum: Unremarkable. No mediastinal hematoma. Bones/joints: No acute fracture or dislocation. Old right scapular body fracture. Soft tissues: Unremarkable. Vasculature: No aortic aneurysm. Normal caliber main pulmonary artery. Lymph nodes: No lymphadenopathy. IMPRESSION: 1. No acute traumatic findings. 2. Small right and trace left pleural effusions, decreased from prior. 3. Pulmonary nodule measuring 7 mm medial right lower lobe. This is stable from most recent prior exam and appears to abut the right pulmonary fissural, possibly representing an intrapulmonary lymph node. Fleischner Society Guidelines for high-risk patients (smoking history or other known risk factors) initial follow-up chest CT at 6-12 months and if unchanged, 18-24 months. Electronically signed by: Mahi Baron M.D. 06/21/25 21:25 PM
--- NOTE | 2025-06-21 21:38 | CT Scan Report ---
Exam(s): CT ABDOMEN + PELVIS Without Contrast EXAM: CT Abdomen and Pelvis Without Intravenous Contrast CLINICAL HISTORY: Reason for exam: trauma. TECHNIQUE: Axial computed tomography images of the abdomen and pelvis without intravenous contrast. CTDI is 11.17 mGy and DLP is 757.17 mGy-cm. Automated exposure control was utilized for the study. A dose lowering technique was utilized adhering to the principles of ALARA. COMPARISON: 01/09/2025 FINDINGS: There is cholelithiasis without cholecystitis or biliary dilatation. Liver, spleen, pancreas, and adrenal glands demonstrate unremarkable unenhanced appearance. Aorta is calcified but normal in caliber. There is no adenopathy, free fluid, or free air. 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 There is stable moderate left-sided hydroureteronephrosis. 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 The upper pole moiety demonstrates a nondilated ureter. The midpole moiety demonstrates mild ureteral dilatation, similar to prior, as well as internal hyperdensity measuring up to 50 Hounsfield units. Simple right kidney midpole cyst warrants no further follow-up and is stable from prior. No radiopaque urinary stones are visualized. There are postoperative small bowel changes related to ileal conduit creation. There is no mechanical bowel obstruction. Appendix is not identified. There are no bowel inflammatory changes. Bones are demineralized. There are age-related degenerative changes of the spine. There are no acute osseous findings. IMPRESSION: 1. No acute traumatic findings. 2. Cystoprostatectomy and surgical urinary diversion. 3. Persistent moderate left-sided hydroureteronephrosis. 4. As on prior, duplex right renal collecting system with ureter arising from the midpole remaining mildly dilated and containing hyperdense material which is nonspecific. A urothelial lesion is not excluded. Electronically signed by: Mahi Baron M.D. 06/21/25 21:38 PM
--- NOTE | 2025-06-21 21:39 | CT Scan Report ---
Exam(s): CT C SPINE EXAM: CT Cervical Spine Without Intravenous Contrast CLINICAL HISTORY: Reason for exam: trauma. TECHNIQUE: Axial computed tomography images of the cervical spine without intravenous contrast. CTDI is 24.02 mGy and DLP is 495.69 mGy-cm. Automated exposure control was utilized for the study. A dose lowering technique was utilized adhering to the principles of ALARA. COMPARISON: 04/27/2025 FINDINGS: Vertebrae: Osteopenia. No acute fracture or traumatic subluxation. Discs/spinal canal/neural foramina: Multilevel disc, facet, and uncovertebral joint degeneration. Mild central canal narrowing at multiple cervical levels with varying degrees of bilateral foraminal narrowing. Soft tissues: Unremarkable. IMPRESSION: No acute findings in the cervical spine. Electronically signed by: Mahi Baron M.D. 06/21/25 21:38 PM
[2025-06-21 21:43] LABS: Influenza A virus by PCR Negative (Neg); Influenza B virus by PCR Negative (Neg); SARS CoV2 RNA(COVID-19) Ceph NEGATIVE (Negative)
[2025-06-21] MEDS: ERTAPENEM 1000MG 1,000 MG/10 ML SYR IV STA (21:43)
--- NOTE | 2025-06-21 22:08 | History & Physical Report ---
Date of Service June 21, 2025 Assessment & Plan (1) Acute UTI: (2) Recurrent falls: (3) Tachycardia: (4) Hypertension: (5) Hyperlipidemia: Plan 74yo male with history of bladder cancer s/p radical cystoprostatectomy with urostomy in place, recent hospital admission from 06/09 - 06/18 with ESBL UTI s/p 10 days of Ertapenem. Over the last three days patient has been in a detention - has been more confused, sustained several falls. Also with notes indicating an episode of atrial fibrillation with HR of 137. #Acute UTI - UA suggestive of infection. Patient with prior cystoprostatectomy with urostomy in place. UA with bacteria present as well as yeast. He is afebrile, HD stable and non-toxic in appearance. No sepsis -Admit to medical with telemetry -Follow urine culture -Continue Ertapenem for now -Fluconazole 100mg PO daily -Tylenol PRN pain or fever #Recurrent falls - likely multifactorial, acute UTI as well as deconditioning from his recent hospitalization. -PT/OT evaluation appreciated -Fall precautions #Hypomagnesemia - Mg=1.6 -Magnesium 2gm IV ordered #Report of atrial fibrillation from detention - no AF noted on our monitor at this time -Telemetry monitoring -HR presently 69bpm - will hold off on beta blockers at this time #Mental health -Continue Sertraline 25mg po qAM *No report of abdominal pain - does have elevation of AP to 248. Recently had choledocholithiasis s/p ERCP with sphincterotomy performed at [facility] on 04/30/25 complicated by enterococcus bacteremia s/p Zosyn and Augmentin. Repeat LFTs ordered for AM. Cholelithiasis present on abdominal CT with no cholecystitis or biliary dilatation. History of Present Illness Chief Complaint: falls, generalized weakness Primary Care Provider: Pilar Cartagena MD Raul Vera is a 74yo male with history of bladder cancer s/p radical cystoprostatectomy with ileal conduit/urostomy creation, recent hospital admission from 06/09 - 06/18/25 with ESBL Klebsiella UTI s/p treatment with Ertapenem x 10d course. Patient also with anemia, iron deficiency and was given 3 doses of Venofer. Patient transferred to SNF. Over the last several days at the SNF he has had several falls. Also with some confusion. Notes from the detention indicate that patient had an episode of tachycardia with HR to 137 and irregular. EKG confirmed atrial fibrillation - patient started on Metoprolol 25mg po BID and patient's requested that he come to the ER. Patient with no specific complaints. He does recall falling earlier today - states he was trying to put on his long pants and he lost his balance. States he did not hit his head or lose consciousness. In the ER patient is afebrile, HD stable Allergies Allergy/AdvReac Type Severity Reaction Status Date / Time No Known Allergies Allergy Verified 06/21/25 21:23 Home Medications Medication Instructions Recorded Confirmed Type cholecalciferol (vitamin D3) 50 50 mcg PO QAM 01/14/23 06/21/25 History mcg (2,000 unit) capsule cyanocobalamin (vitamin B-12) 1,000 mcg PO QAM 02/26/25 06/21/25 History 1,000 mcg tablet pantoprazole 40 mg tablet,delayed 40 mg PO BID #200 tabs 02/26/25 06/21/25 Rx release tamsulosin 0.4 mg capsule 0.4 mg PO QAM 06/05/25 06/21/25 History folic acid 1 mg tablet 1 mg PO QAM 30 days #30 tabs 06/18/25 06/21/25 Rx acetaminophen 325 mg tablet 650 mg PO Q6 PRN temp > 100 06/21/25 06/21/25 History acetaminophen 325 mg tablet 650 mg PO Q6 PRN Pain 06/21/25 06/21/25 History (Tylenol) melatonin 3 mg tablet 9 mg PO HS 06/21/25 06/21/25 History potassium chloride 20 mEq 20 meq PO QAM 06/21/25 06/21/25 History tablet,extended release pravastatin 10 mg tablet 10 mg PO QPM 06/21/25 06/21/25 History sertraline 25 mg tablet 25 mg PO QAM 06/21/25 06/21/25 History Past Med/Surg History Problem List (Updated 06/22/25 @ 00:16 by Britt Mujica DO) Tachycardia Acute UTI (Acute) Recurrent falls (Acute) Ureteral stent present History of bladder cancer Dysphagia CKD (chronic kidney disease) (Acute) Anemia (Acute) Leukopenia (Acute) Urinary tract infection due to ESBL Klebsiella (Acute) CKD stage 3b, GFR 30-44 ml/min Iron deficiency anemia Wilkins's esophagus determined by biopsy (Chronic) Chronic kidney disease (Chronic) Essential tremor (Chronic) Hypertension (Chronic) Medical History Hyperlipidemia Lung nodules History of CVA (cerebrovascular accident) (2015) with speech difficulty, right sided hemiparesis Vitamin D deficiency Bladder cancer hx chemotherapy (Fall 2020), s/p cystectomy / ileal conduit 2021 Surgical History S/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 Dr Quintero, [facility] History of cystoscopy History of bladder surgery TURBT (07/07/21): LMA#5 at [facility] History of bilateral cataract extraction Family History Son Family history of diabetes mellitus Other No family history of adverse response to anesthesia Social History Smoking Status: Never smoker Tobacco Type: Cigarettes Cigarettes Per Day: Quit pipe 6 yrs ago, Quit cigs 40 yrs ago; Second Hand Exposure: No; Do You Dip or Chew Tobacco: No; Hx Alcohol Use: Yes Alcohol type: beer Hx Substance Use: No Preferred Language: Cape Verdean Communication Ability: Effective Payroll Supervisor Required: No Beliefs That Will Affect Care: None marital status: Current Living Situation: Spouse current occupational status: retired How many Children do You have: 2 Feels Safe at Home: Yes Childhood Exposure to Second-Hand Smoke: Yes Diet: regular caffeine: Yes Dental Care, Regularly: No Physical Activity Frequency: Daily Physical Activity Frequency Comment: Walks outside daily Seatbelt Use: always Sunscreen Use: No Assistive Devices: Walker Review of Systems Review of Systems: All systems reviewed & are unremarkable except as noted in HPI & below Physical Exam Physical Exam: General: patient resting comfortably, NAD, non-toxic in appearance, AA&O to person and year, states he is at [facility] Skin: warm, dry, intact, no rashes or lesions HEENT: NC/AT, PERRL, EOMI, anicteric sclera, conjunctiva without injection, external ear normal to inspection and nontender, nares patent, moist mucus membranes, dentition intact, no oropharyngeal lesions, neck supple, trachea midline, no LAD, no thyromegaly, no JVD Heart: +S1/S2, regular, no m/r/g Lungs: equal air entry bilaterally, no rales/rhonchi/wheezes Abd: +BS, soft, NT/ND, no masses/organomegaly/ascites, urostomy in place with cloudy urine in the bag with sediment Ext: warm, 2+ pulses in UE/LE bilaterally, no clubbing/cyanosis or edema Neuro: nonfocal, patient AA&O x 2, speech somewhat garbled, right facial droop, moving all extremities on command with equal strength 5/5 (patient with baseline right facial droop and dysarthria) Results & Data Results & Data Vital Signs (Past 12 Hours) Vital Signs Temp Pulse Pulse Resp BP BP Pulse Ox 06/21/25 21:12 81 17 132/84 96 06/21/25 21:00 90 28 H 93 06/21/25 21:00 132/84 06/21/25 21:00 132/84 06/21/25 21:00 132/84 06/21/25 21:00 132/84 06/21/25 21:00 132/84 06/21/25 20:51 79 21 96 06/21/25 20:42 78 16 120/80 98 06/21/25 20:30 120/80 06/21/25 20:30 120/80 06/21/25 20:30 120/80 06/21/25 20:30 120/80 06/21/25 20:30 120/80 06/21/25 20:30 84 17 06/21/25 20:21 92 H 17 06/21/25 20:15 94 H 16 98 06/21/25 20:15 98 06/21/25 20:15 36.5 C 75 16 145/85 H 98 06/21/25 20:12 97 H 24 90 06/21/25 20:11 145/85 H 06/21/25 20:11 145/85 H 06/21/25 20:11 145/85 H 06/21/25 20:11 145/85 H 06/21/25 20:11 145/85 H O2 Del Method 06/21/25 21:12 06/21/25 21:00 06/21/25 21:00 06/21/25 21:00 06/21/25 21:00 06/21/25 21:00 06/21/25 21:00 06/21/25 20:51 06/21/25 20:42 Room Air 06/21/25 20:30 06/21/25 20:30 06/21/25 20:30 06/21/25 20:30 06/21/25 20:30 06/21/25 20:30 06/21/25 20:21 06/21/25 20:15 Room Air 06/21/25 20:15 Room Air 06/21/25 20:15 Room Air 06/21/25 20:12 06/21/25 20:11 06/21/25 20:11 06/21/25 20:11 06/21/25 20:11 06/21/25 20:11 Laboratory Results Laboratory Results WBC 6.67 K/ul (4.8-10.8) 06/21/25 20: RBC 3.68 M/uL (4.70-6.10) L 06/21/25 20: Hgb 9.1 g/dL (14.0-18.0) L 06/21/25 20: POC Hgb 9.9 g/dl (14.0-18.0) L 06/21/25 20: Hct 29.9 % (42.0-52.0) L 06/21/25 20: POC Hct 29 % (42-52) L 06/21/25 20: MCV 81.3 fL (80.0-100.0) 06/21/25 20: MCH 24.7 pg (25.0-34.0) L 06/21/25 20: MCHC 30.4 g/dL (32.0-36.0) L 06/21/25 20: RDW Std Deviation 51.9 fL (36.4-46.3) H 06/21/25 20: RDW Coeff of Concha 17.9 % (11.5-14.5) H 06/21/25 20: Plt Count 328 K/uL (130-400) 06/21/25 20: MPV 9.7 fL (9.4-12.4) 06/21/25 20: Immature Gran % (Auto) 0.4 % 06/21/25 20: Neut % (Auto) 76.3 % 06/21/25 20: Lymph % (Auto) 14.7 % 06/21/25 20: [place] % (Auto) 7.9 % 06/21/25 20: Eos % (Auto) 0.4 % 06/21/25 20: Baso % (Auto) 0.3 % 06/21/25: Neut # (Auto) 5.08 K/uL (1.40-6.50) 06/21/25 20: Lymph # (Auto) 0.98 K/uL (1.20-3.40) L 06/21/25 20: [place] # (Auto) 0.53 K/uL (0.11-0.59) 06/21/25 20: Eos # (Auto) 0.03 K/uL (0.00-0.50) 06/21/25 20: Baso # (Auto) 0.02 K/uL (0.00-0.20) 06/21/25 20: Immature Gran # (Auto) 0.03 K/uL (0.01-0.20) 06/21/25 20: PT 10.2 Seconds (9.0-12.0) 06/21/25 20: INR 1.0 (0.9-1.1) 06/21/25 20: APTT 26 Seconds (21-31) 06/21/25 20: PTT Ratio 1.0 06/21/25 20: POC Sodium 142 mmol/L (135-144) 06/21/25 20: Sodium 140 mmol/L (136-145) 06/21/25 20: POC Potassium 4.0 mmol/L (3.3-5.0) 06/21/25 20: Potassium 3.8 mmol/L (3.5-5.1) 06/21/25 20: POC Chloride 104 mmol/L (101-112) 06/21/25 20: Chloride 107 mmol/L (98-107) 06/21/25 20: Carbon Dioxide 26 mmol/L (21-32) 06/21/25 20: POC Total CO2 25 mmol/L (24-31) 06/21/25 20: Anion Gap 7 (3-11) 06/21/25 20: POC Anion Gap 19.0 mmol/L (16-25) 06/21/25 20: POC BUN 24 mg/dl (7-18) H 06/21/25 20: BUN 22 mg/dl (6-23) 06/21/25 20: Creatinine 1.64 mg/dl (0.6-1.4) H 06/21/25 20: POC Creatinine 1.8 mg/dl (0.6-1.3) H 06/21/25 20: Est Cr Clr Drug Dosing 34.1 ml/min 06/21/25 20: eGFR 44.17 06/21/25 20: BUN/Creatinine Ratio 13.4 (10-20) 06/21/25 20: Glucose 110 mg/dl (70-99(Fasting)) H 06/21/25 20: POC Glucose (other) 105 mg/dl (70-99) H 06/21/25 20: Lactate 1.0 mmol/L (0.4-2.0) 06/21/25 20: Calcium 9.2 mg/dl (8.6-10.3) 06/21/25 20: POC Ioniz Calcium Miles 1.16 mmol/l (1.12-1.32) 06/21/25: Magnesium 1.6 mg/dl (1.7-2.4) L 06/21/25: Total Bilirubin 0.5 mg/dl (0.2-1.0) 06/21/25 20: Direct Bilirubin 0.1 mg/dl (0-0.2) 06/21/25 20: AST 23 U/L (13-39) 06/21/25 20: ALT 16 U/L (7-52) 06/21/25 20: Alkaline Phosphatase 248 U/L (34-104) H 06/21/25 20: Troponin I High Sens 8.0 pg/ml (0-20) 06/21/25 20: Total Protein 7.5 gm/dl (6.0-8.3) 06/21/25 20: Albumin 3.7 gm/dl (3.4-5.0) 06/21/25 20:27 Procalcitonin 0.13 ng/ml (0-0.5) 06/21/25 20:27 Urine Color Yellow 06/21/25 Unknown Urine Appearance Cloudy (Clear) A 06/21/25 Unknown Urine pH 6.5 (4.5-7.5) 06/21/25 Unknown Ur Specific [place] 1.017 (1.000-1.030) 06/21/25 Unknown Urine Protein 2+ (Negative) H 06/21/25 Unknown Urine Glucose (UA) Negative (Negative) 06/21/25 Unknown Urine Ketones Trace (Negative) H 06/21/25 Unknown Urine Blood 3+ (Negative) H 06/21/25 Unknown Urine Nitrite Negative (Negative) 06/21/25 Unknown Urine Bilirubin Negative (Negative) 06/21/25 Unknown Urine Urobilinogen Negative (Negative) 06/21/25 Unknown Ur Leukocyte Esterase 2+ (Negative) H 06/21/25 Unknown Urine WBC (Auto) 21-50 /hpf (0-5) H 06/21/25 Unknown Urine RBC (Auto) >20 /hpf (0-2) H 06/21/25 Unknown U Hyaline Cast (Auto) 0-2 /lpf (0-2) 06/21/25 Unknown U Epithel Cells (Auto) 0-2 /hpf (0-2) 06/21/25 Unknown Urine Bacteria (Auto) 2+ (None Seen) H 06/21/25 Unknown Urine Yeast Present (None Prsent) A 06/21/25 Unknown Urine Comment 06/21/25 Unknown SARS-CoV-2 (PCR) NEGATIVE (Negative) 06/21/25 Unknown Influenza Type A (PCR) Negative (Neg) 06/21/25 Unknown Influenza Type B (PCR) Negative (Neg) 06/21/25 Unknown RSV (RT-PCR) Negative (Neg) 06/21/25 Unknown Blood Type O Positive 06/21/25 20:52 Antibody Screen NEGATIVE 06/21/25 20:[address] 06/21/25 20:15 Exam(s): CT CHEST Without Contrast EXAM: CT Chest Without Intravenous Contrast CLINICAL HISTORY: Reason for exam: trauma. TECHNIQUE: Axial computed tomography images of the chest without intravenous contrast. CTDI is 11.17 mGy and DLP is 757.17 mGy-cm. Automated exposure control was utilized for the study. A dose lowering technique was utilized adhering to the principles of ALARA. COMPARISON: CTA chest 06/07/2025 FINDINGS: Lungs: Calcification or surgical suture material in the posterior right lower lobe. Emphysema. No pulmonary contusion or airspace consolidation. Subsegmental atelectasis right lung base. Pulmonary nodule measuring 7 mm medial right lower lobe. Pleural space: Small right and trace left pleural effusions. No pneumothorax. Heart: Coronary artery atherosclerosis. No cardiomegaly or pericardial effusion. Mediastinum: Unremarkable. No mediastinal hematoma. Bones/joints: No acute fracture or dislocation. Old right scapular body fracture. Soft tissues: Unremarkable. Vasculature: No aortic aneurysm. Normal caliber main pulmonary artery. Lymph nodes: No lymphadenopathy. IMPRESSION: 1. No acute traumatic findings. 2. Small right and trace left pleural effusions, decreased from prior. 3. Pulmonary nodule measuring 7 mm medial right lower lobe. This is stable from most recent prior exam and appears to abut the right pulmonary fissural, possibly representing an intrapulmonary lymph node. Fleischner Society Guidelines for high-risk patients (smoking history or other known risk factors) initial follow-up chest CT at 6-12 months and if unchanged, 18-24 months. Electronically signed by: Mahi Baron M.D. 06/21/25 21:25 PM Chest X-Ray 06/21/25 20:15 Exam(s): XR CXR 1 VIEW EXAM: XR Chest, 1 View CLINICAL HISTORY: Reason for exam: Sepsis. TECHNIQUE: Frontal view of the chest. COMPARISON: 06/12/2025 FINDINGS: Lungs: No consolidation. Pleural space: No significant pleural effusion. No pneumothorax. Heart: No cardiomegaly or pulmonary vascular congestion. Bones/joints: No acute fracture. No dislocation. IMPRESSION: No evidence of acute cardiopulmonary disease. Electronically signed by: Mahi Baron M.D. 06/21/25 20:56 PM Pelvis X-Ray 06/21/25 20:15 Exam(s): XR PELVIS, 1-2 views EXAM: XR Pelvis, 1 or 2 Views CLINICAL HISTORY: Reason for exam: trauma. TECHNIQUE: Frontal view of the pelvis. COMPARISON: No relevant prior studies available. FINDINGS: Bones/joints: No acute fracture. No dislocation. Soft tissues: Unremarkable. IMPRESSION: No acute osseous findings. Electronically signed by: Mahi Baron M.D. 06/21/25 20:56 PM Abdomen/Pelvis CT 06/21/25 20:16 Exam(s): CT ABDOMEN + PELVIS Without Contrast EXAM: CT Abdomen and Pelvis Without Intravenous Contrast CLINICAL HISTORY: Reason for exam: trauma. TECHNIQUE: Axial computed tomography images of the abdomen and pelvis without intravenous contrast. CTDI is 11.17 mGy and DLP is 757.17 mGy-cm. Automated exposure control was utilized for the study. A dose lowering technique was utilized adhering to the principles of ALARA. COMPARISON: 01/09/2025 FINDINGS: There is cholelithiasis without cholecystitis or biliary dilatation. Liver, spleen, pancreas, and adrenal glands demonstrate unremarkable unenhanced appearance. Aorta is calcified but normal in caliber. There is no adenopathy, free fluid, or free air. 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 There is stable moderate left-sided hydroureteronephrosis. 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 The upper pole moiety demonstrates a nondilated ureter. The midpole moiety demonstrates mild ureteral dilatation, similar to prior, as well as internal hyperdensity measuring up to 50 Hounsfield units. Simple right kidney midpole cyst warrants no further follow-up and is stable from prior. No radiopaque urinary stones are visualized. There are postoperative small bowel changes related to ileal conduit creation. There is no mechanical bowel obstruction. Appendix is not identified. There are no bowel inflammatory changes. Bones are demineralized. There are age-related degenerative changes of the spine. There are no acute osseous findings. IMPRESSION: 1. No acute traumatic findings. 2. Cystoprostatectomy and surgical urinary diversion. 3. Persistent moderate left-sided hydroureteronephrosis. 4. As on prior, duplex right renal collecting system with ureter arising from the midpole remaining mildly dilated and containing hyperdense material which is nonspecific. A urothelial lesion is not excluded. Electronically signed by: Mahi Baron M.D. 06/21/25 21:[address] 06/21/25 20:17 Exam(s): CT C SPINE EXAM: CT Cervical Spine Without Intravenous Contrast CLINICAL HISTORY: Reason for exam: trauma. TECHNIQUE: Axial computed tomography images of the cervical spine without intravenous contrast. CTDI is 24.02 mGy and DLP is 495.69 mGy-cm. Automated exposure control was utilized for the study. A dose lowering technique was utilized adhering to the principles of ALARA. COMPARISON: 04/27/2025 FINDINGS: Vertebrae: Osteopenia. No acute fracture or traumatic subluxation. Discs/spinal canal/neural foramina: Multilevel disc, facet, and uncovertebral joint degeneration. Mild central canal narrowing at multiple cervical levels with varying degrees of bilateral foraminal narrowing. Soft tissues: Unremarkable. IMPRESSION: No acute findings in the cervical spine. Electronically signed by: Mahi Baron M.D. 06/21/25 21:[address] 06/21/25 20:17 Exam(s): CT HEAD Without Contrast EXAM: CT Head Without Intravenous Contrast CLINICAL HISTORY: Reason for exam: trauma. TECHNIQUE: Axial computed tomography images of the head/brain without intravenous contrast. CTDI is 37.22 mGy and DLP is 624.41 mGy-cm. Automated exposure control was utilized for the study. A dose lowering technique was utilized adhering to the principles of ALARA. COMPARISON: 06/12/2025 FINDINGS: Brain: Generalized parenchymal volume loss. Periventricular and deep cerebral white matter hypoattenuation suggesting chronic small vessel ischemic change. Yanez-white matter differentiation maintained. No parenchymal edema. No acute intracranial hemorrhage or abnormal extra- axial collection. No mass effect or midline shift. Multiple lacunar infarcts in the bilateral basal ganglia, right thalamus. Ventricles: No hydrocephalus. Bones/joints: No acute fracture. Soft tissues: Unremarkable. Vasculature: Intracranial atherosclerosis. Sinuses: Unremarkable as visualized. Mastoid air cells: No significant mastoid effusion. Orbits: Lens replacements. IMPRESSION: No acute intracranial process. Electronically signed by: Mahi Baron M.D. 06/21/25 21:19 PM PG Care Time/CCT Total # of Minutes Spent Total Time Spent with Patient: Total time spent is greater than 50% in coordination of care (as documented) at patient's floor/unit and/or counseling patient: Coding Level of Care Code 34651 INT INP/OBS CARE 3/75MIN Diagnoses Acute UTI N39.0 Recurrent falls R29.6 Tachycardia R00.0 Hypertension I10 Hyperlipidemia E78.5
[2025-06-21] MEDS ORDERED: ACETAMINOPHEN 325 MG TAB PO PRN (23:50)
[2025-06-22] MEDS: MAGNESIUM SULFATE / D5W 1 GM/100 ML BAG IV SCH (00:25)
[2025-06-22 06:17] LABS: Hematocrit (blood only) 27.9 % (42.0-52.0); Hemoglobin 8.5 g/dL (14.0-18.0); Mean Corpuscular Hemoglobin 25.1 pg (25.0-34.0); Mean Corpuscular Volume 82.3 fL (80.0-100.0); Platelet Count 293 K/uL (130-400); RDW Standard Deviation 52.9 fL (36.4-46.3); Red Blood Count 3.39 M/uL (4.70-6.10); White Blood Count 4.76 K/ul (4.8-10.8)
[2025-06-22 06:38] LABS: Alanine Aminotransferase 12.0 U/L (7-52); Albumin Level 3.4 gm/dl (3.4-5.0); Alkaline Phosphatase 202.0 U/L (34-104); Anion Gap 8.0 (3-11); Bilirubin,Total 0.4 mg/dl (0.2-1.0); Blood Urea Nitrogen 20.0 mg/dl (6-23); Calcium 8.8 mg/dl (8.6-10.3); Carbon Dioxide 25.0 mmol/L (21-32); Chloride 107.0 mmol/L (98-107); Creatinine Clr Calc Pharmacy 36.5 ml/min; Glucose 94.0 mg/dl (70-99(Fasting)); Potassium 3.4 mmol/L (3.5-5.1); Sodium 140.0 mmol/L (136-145); Total Protein 6.5 gm/dl (6.0-8.3)
[2025-06-22] MEDS: HEPARIN SOD 5,000 UNIT/0.5 ML VIAL SQ SCH (09:28)
[2025-06-22] MEDS: FLUCONAZOLE 100 MG TAB PO SCH (09:28)
[2025-06-22] MEDS: SERTRALINE HCL 50 MG TABLET PO SCH (09:28)
[2025-06-22] MEDS: TAMSULOSIN HCL 0.4 MG CAP PO SCH (09:28)
--- NOTE | 2025-06-22 12:46 | Hospitalist Progress Note ---
Date of Service June 22, 2025 Assessment & Plan (1) Acute UTI: (2) Recurrent falls: (3) Tachycardia: (4) Hypertension: Plan 74yo male with history of bladder cancer s/p radical cystoprostatectomy with urostomy in place, recent hospital admission from 06/09 - 06/18 with ESBL UTI s/p 10 days of Ertapenem. Over the last three days patient has been in a [facility] - has been more confused, sustained several falls. Also with notes indicating an episode of atrial fibrillation with HR of 137. #Acute UTI - UA suggestive of infection. Patient with prior cystoprostatectomy with urostomy in place. UA with bacteria present as well as yeast. He is afebrile, HD stable and non-toxic in appearance. No sepsis -Follow urine culture - CT imaging indicates persistent moderate left-sided hydroureteronephrosis,? If needs review with urology. distal right renal collecting system with the ureter arising from the midpole remaining mildly dilated with hyperdense material which is nonspecific, urothelial lesion not excluded. -Continue Ertapenem for now -Fluconazole 100mg PO daily -Tylenol PRN pain or fever #Recurrent falls - likely multifactorial, acute UTI as well as deconditioning from his recent hospitalization. -PT/OT evaluation appreciated -Fall precautions #Hypomagnesemia - Replete as needed based on labs, will check repeat in the a.m. #Report of atrial fibrillation from [facility] - no AF noted on our monitor at this time -Telemetry monitoring #Mental health -Continue Sertraline 25mg po qAM Admission and Anticipated Discharge Date Admission Date: June 21, 2025 Subjective patient seen and examined. He denies any complaints at this time. He has had no nausea or vomiting. No fevers or chills. He denies having any chest discomfort. Physical Exam Physical Exam: Gen-pt in NAD, awake and alert CVS-+s1,s2, RRR, no murmurs Lungs-CTA b/l GI-BS normoactive,+ urostomy Ext-no edema, no cyanosis Neuro-grossly intact Results & Data Results & Data Vital Signs (Past 12 Hours) Vital Signs Temp Pulse Resp BP Pulse Ox O2 Del Method 06/22/25 07:20 79 06/22/25 05:00 140/74 06/22/25 05:00 79 19 140/74 97 Room Air 06/22/25 04:00 78 15 127/71 96 Room Air 06/22/25 03:00 76 16 132/73 97 Room Air 06/22/25 02:21 83 16 136/75 96 Room Air 06/22/25 01:12 79 19 96 Room Air 06/22/25 01:03 92 H 16 143/87 H 95 Room Air 06/22/25 01:00 Room Air 06/22/25 01:00 36.9 C Room Air Laboratory Results 06/21/25 Unknown Urine Culture - Pending Urine,Clean Catch 06/21/25 20:27 Aerobic Blood Culture - Pending Blood Anaerobic Blood Culture - Pending 06/21/25 20:16 Aerobic Blood Culture - Pending Blood Anaerobic Blood Culture - Pending 06/22/25 06/22/25 06/21/25 Unknown 04:57 Unknown WBC 4.76 L RBC 3.39 L Hgb 8.5 L POC Hgb Hct 27.9 L POC Hct MCV 82.3 MCH 25.1 MCHC 30.5 L RDW Std Deviation 52.9 H RDW Coeff of [place] 18.2 H Plt Count 293 MPV 10.1 Immature Gran % (Auto) Neut % (Auto) Lymph % (Auto) [place] % (Auto) Eos % (Auto) Baso % (Auto) Neut # (Auto) Lymph # (Auto) [place] # (Auto) Eos # (Auto) Baso # (Auto) Immature Gran # (Auto) PT INR APTT PTT Ratio POC Sodium Sodium 140 POC Potassium Potassium 3.4 L POC Chloride Chloride 107 Carbon Dioxide 25 POC Total CO2 Anion Gap 8 POC Anion Gap POC BUN BUN 20 Creatinine 1.50 H POC Creatinine Est Cr Clr Drug Dosing 36.5 eGFR 49.16 BUN/Creatinine Ratio 13.3 Glucose 94 POC Glucose (other) Lactate Calcium 8.8 POC Ioniz Calcium Miles Magnesium Total Bilirubin 0.4 Direct Bilirubin 0.1 AST 19 ALT 12 Alkaline Phosphatase 202 H Troponin I High Sens Total Protein 6.5 Albumin 3.4 Procalcitonin Urine Color Yellow Urine Appearance Cloudy A Urine pH 6.5 Ur Specific [place] 1.017 Urine Protein 2+ H Urine Glucose (UA) Negative Urine Ketones Trace H Urine Blood 3+ H Urine Nitrite Negative Urine Bilirubin Negative Urine Urobilinogen Negative Ur Leukocyte Esterase 2+ H Urine WBC (Auto) 21-50 H Urine RBC (Auto) >20 H U Hyaline Cast (Auto) 0-2 U Epithel Cells (Auto) 0-2 Urine Bacteria (Auto) 2+ H Urine Yeast Present A Urine Comment Nasal Screen MRSA (PCR) Negative SARS-CoV-2 (PCR) NEGATIVE Influenza Type A (PCR) Negative Influenza Type B (PCR) Negative RSV (RT-PCR) Negative Blood Type Antibody Screen 06/21/25 06/21/25 06/21/25 20:52 20:27 20:26 WBC 6.67 RBC 3.68 L Hgb 9.1 L POC Hgb 9.9 L Hct 29.9 L POC Hct 29 L MCV 81.3 MCH 24.7 L MCHC 30.4 L RDW Std Deviation 51.9 H RDW Coeff of [place] 17.9 H Plt Count 328 MPV 9.7 Immature Gran % (Auto) 0.4 Neut % (Auto) 76.3 Lymph % (Auto) 14.7 [place] % (Auto) 7.9 Eos % (Auto) 0.4 Baso % (Auto) 0.3 Neut # (Auto) 5.08 Lymph # (Auto) 0.98 L [place] # (Auto) 0.53 Eos # (Auto) 0.03 Baso # (Auto) 0.02 Immature Gran # (Auto) 0.03 PT 10.2 INR 1.0 APTT 26 PTT Ratio 1.0 POC Sodium 142 Sodium 140 POC Potassium 4.0 Potassium 3.8 POC Chloride 104 Chloride 107 Carbon Dioxide 26 POC Total CO2 25 Anion Gap 7 POC Anion Gap 19.0 POC BUN 24 H BUN 22 Creatinine 1.64 H POC Creatinine 1.8 H Est Cr Clr Drug Dosing 34.1 eGFR 44.17 BUN/Creatinine Ratio 13.4 Glucose 110 H POC Glucose (other) 105 H Lactate 1.0 Calcium 9.2 POC Ioniz Calcium Miles 1.16 Magnesium 1.6 L Total Bilirubin 0.5 Direct Bilirubin 0.1 AST 23 ALT 16 Alkaline Phosphatase 248 H Troponin I High Sens 8.0 Total Protein 7.5 Albumin 3.7 Procalcitonin 0.13 Urine Color Urine Appearance Urine pH Ur Specific [place] Urine Protein Urine Glucose (UA) Urine Ketones Urine Blood Urine Nitrite Urine Bilirubin Urine Urobilinogen Ur Leukocyte Esterase Urine WBC (Auto) Urine RBC (Auto) U Hyaline Cast (Auto) U Epithel Cells (Auto) Urine Bacteria (Auto) Urine Yeast Urine Comment Nasal Screen MRSA (PCR) SARS-CoV-2 (PCR) Influenza Type A (PCR) Influenza Type B (PCR) RSV (RT-PCR) Blood Type O Positive Antibody Screen NEGATIVE Diagnostic Findings Chest CT 06/21/25 20:15 Exam(s): CT CHEST Without Contrast EXAM: CT Chest Without Intravenous Contrast CLINICAL HISTORY: Reason for exam: trauma. TECHNIQUE: Axial computed tomography images of the chest without intravenous contrast. CTDI is 11.17 mGy and DLP is 757.17 mGy-cm. Automated exposure control was utilized for the study. A dose lowering technique was utilized adhering to the principles of ALARA. COMPARISON: CTA chest 06/07/2025 FINDINGS: Lungs: Calcification or surgical suture material in the posterior right lower lobe. Emphysema. No pulmonary contusion or airspace consolidation. Subsegmental atelectasis right lung base. Pulmonary nodule measuring 7 mm medial right lower lobe. Pleural space: Small right and trace left pleural effusions. No pneumothorax. Heart: Coronary artery atherosclerosis. No cardiomegaly or pericardial effusion. Mediastinum: Unremarkable. No mediastinal hematoma. Bones/joints: No acute fracture or dislocation. Old right scapular body fracture. Soft tissues: Unremarkable. Vasculature: No aortic aneurysm. Normal caliber main pulmonary artery. Lymph nodes: No lymphadenopathy. IMPRESSION: 1. No acute traumatic findings. 2. Small right and trace left pleural effusions, decreased from prior. 3. Pulmonary nodule measuring 7 mm medial right lower lobe. This is stable from most recent prior exam and appears to abut the right pulmonary fissural, possibly representing an intrapulmonary lymph node. Fleischner Society Guidelines for high-risk patients (smoking history or other known risk factors) initial follow-up chest CT at 6-12 months and if unchanged, 18-24 months. Electronically signed by: Mahi Baron M.D. 06/21/25 21:25 PM Chest X-Ray 06/21/25 20:15 Exam(s): XR CXR 1 VIEW EXAM: XR Chest, 1 View CLINICAL HISTORY: Reason for exam: Sepsis. TECHNIQUE: Frontal view of the chest. COMPARISON: 06/12/2025 FINDINGS: Lungs: No consolidation. Pleural space: No significant pleural effusion. No pneumothorax. Heart: No cardiomegaly or pulmonary vascular congestion. Bones/joints: No acute fracture. No dislocation. IMPRESSION: No evidence of acute cardiopulmonary disease. Electronically signed by: Mahi Baron M.D. 06/21/25 20:56 PM Pelvis X-Ray 06/21/25 20:15 Exam(s): XR PELVIS, 1-2 views EXAM: XR Pelvis, 1 or 2 Views CLINICAL HISTORY: Reason for exam: trauma. TECHNIQUE: Frontal view of the pelvis. COMPARISON: No relevant prior studies available. FINDINGS: Bones/joints: No acute fracture. No dislocation. Soft tissues: Unremarkable. IMPRESSION: No acute osseous findings. Electronically signed by: Mahi Baron M.D. 06/21/25 20:56 PM Abdomen/Pelvis CT 06/21/25 20:16 Exam(s): CT ABDOMEN + PELVIS Without Contrast EXAM: CT Abdomen and Pelvis Without Intravenous Contrast CLINICAL HISTORY: Reason for exam: trauma. TECHNIQUE: Axial computed tomography images of the abdomen and pelvis without intravenous contrast. CTDI is 11.17 mGy and DLP is 757.17 mGy-cm. Automated exposure control was utilized for the study. A dose lowering technique was utilized adhering to the principles of ALARA. COMPARISON: 01/09/2025 FINDINGS: There is cholelithiasis without cholecystitis or biliary dilatation. Liver, spleen, pancreas, and adrenal glands demonstrate unremarkable unenhanced appearance. Aorta is calcified but normal in caliber. There is no adenopathy, free fluid, or free air. 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 There is stable moderate left-sided hydroureteronephrosis. 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 The upper pole moiety demonstrates a nondilated ureter. The midpole moiety demonstrates mild ureteral dilatation, similar to prior, as well as internal hyperdensity measuring up to 50 Hounsfield units. Simple right kidney midpole cyst warrants no further follow-up and is stable from prior. No radiopaque urinary stones are visualized. There are postoperative small bowel changes related to ileal conduit creation. There is no mechanical bowel obstruction. Appendix is not identified. There are no bowel inflammatory changes. Bones are demineralized. There are age-related degenerative changes of the spine. There are no acute osseous findings. IMPRESSION: 1. No acute traumatic findings. 2. Cystoprostatectomy and surgical urinary diversion. 3. Persistent moderate left-sided hydroureteronephrosis. 4. As on prior, duplex right renal collecting system with ureter arising from the midpole remaining mildly dilated and containing hyperdense material which is nonspecific. A urothelial lesion is not excluded. Electronically signed by: Mahi Baron M.D. 06/21/25 21:[address] 06/21/25 20:17 Exam(s): CT C SPINE EXAM: CT Cervical Spine Without Intravenous Contrast CLINICAL HISTORY: Reason for exam: trauma. TECHNIQUE: Axial computed tomography images of the cervical spine without intravenous contrast. CTDI is 24.02 mGy and DLP is 495.69 mGy-cm. Automated exposure control was utilized for the study. A dose lowering technique was utilized adhering to the principles of ALARA. COMPARISON: 04/27/2025 FINDINGS: Vertebrae: Osteopenia. No acute fracture or traumatic subluxation. Discs/spinal canal/neural foramina: Multilevel disc, facet, and uncovertebral joint degeneration. Mild central canal narrowing at multiple cervical levels with varying degrees of bilateral foraminal narrowing. Soft tissues: Unremarkable. IMPRESSION: No acute findings in the cervical spine. Electronically signed by: Mahi Baron M.D. 06/21/25 21:[address] 06/21/25 20:17 Exam(s): CT HEAD Without Contrast EXAM: CT Head Without Intravenous Contrast CLINICAL HISTORY: Reason for exam: trauma. TECHNIQUE: Axial computed tomography images of the head/brain without intravenous contrast. CTDI is 37.22 mGy and DLP is 624.41 mGy-cm. Automated exposure control was utilized for the study. A dose lowering technique was utilized adhering to the principles of ALARA. COMPARISON: 06/12/2025 FINDINGS: Brain: Generalized parenchymal volume loss. Periventricular and deep cerebral white matter hypoattenuation suggesting chronic small vessel ischemic change. Yanez-white matter differentiation maintained. No parenchymal edema. No acute intracranial hemorrhage or abnormal extra- axial collection. No mass effect or midline shift. Multiple lacunar infarcts in the bilateral basal ganglia, right thalamus. Ventricles: No hydrocephalus. Bones/joints: No acute fracture. Soft tissues: Unremarkable. Vasculature: Intracranial atherosclerosis. Sinuses: Unremarkable as visualized. Mastoid air cells: No significant mastoid effusion. Orbits: Lens replacements. IMPRESSION: No acute intracranial process. Electronically signed by: Mahi Baron M.D. 06/21/25 21:19 PM PG Care Time/CCT Total # of Minutes Spent Total Time Spent with Patient: Total time spent is greater than 50% in coordination of care (as documented) at patient's floor/unit and/or counseling patient: Coding Level of Care Code 59738 SUB INP/OBS CARE 2/35MIN Diagnoses Acute UTI N39.0 Recurrent falls R29.6 Tachycardia R00.0 Hypertension I10
[2025-06-22] MEDS: PRAVASTATIN SOD 10 MG TAB PO SCH (21:36)
[2025-06-22] MEDS: MELATONIN 3 MG TAB PO SCH (21:36)
[2025-06-22] MEDS: ACETAMINOPHEN 325 MG TAB PO PRN (21:36)
[2025-06-23] MEDS ORDERED: PHA DELIRIUM CONSULT PRN (00:58)
[2025-06-23 07:35] LABS: Hematocrit (blood only) 30.2 % (42.0-52.0); Hemoglobin 9.1 g/dL (14.0-18.0); Immature Granulocytes # (auto) 0.01 K/uL (0.01-0.20); Immature Granulocytes % (auto) 0.3 %; Mean Corpuscular Hemoglobin 25.1 pg (25.0-34.0); Mean Corpuscular Volume 83.4 fL (80.0-100.0); Platelet Count 280 K/uL (130-400); RDW Standard Deviation 54.2 fL (36.4-46.3); Red Blood Count 3.62 M/uL (4.70-6.10); White Blood Count 3.52 K/ul (4.8-10.8)
[2025-06-23 07:56] LABS: Alanine Aminotransferase 13.0 U/L (7-52); Albumin Globulin Ratio 1.1 (0.9-2); Albumin Level 3.5 gm/dl (3.4-5.0); Alkaline Phosphatase 210.0 U/L (34-104); Anion Gap 8.0 (3-11); Bilirubin,Total 0.7 mg/dl (0.2-1.0); Blood Urea Nitrogen 19.0 mg/dl (6-23); Calcium 8.8 mg/dl (8.6-10.3); Carbon Dioxide 25.0 mmol/L (21-32); Chloride 107.0 mmol/L (98-107); Creatinine Clr Calc Pharmacy 33.6 ml/min; Globulin 3.2 gm/dl (2.5-4.0); Glucose 98.0 mg/dl (70-99(Fasting)); Magnesium 2.1 mg/dl (1.7-2.4); Potassium 3.6 mmol/L (3.5-5.1); Sodium 140.0 mmol/L (136-145); Total Protein 6.7 gm/dl (6.0-8.3)
[2025-06-23] MEDS: POTASSIUM CHLORIDE CRTAB 20 MEQ TABCR PO STA (08:25)
[2025-06-23] MEDS: SODIUM CHLORIDE 0.9% 1,000 ML IV SCH (08:28)
--- NOTE | 2025-06-23 13:46 | Urology Consultation ---
Date of Consultation June 23, 2025 Assessment & Plan (1) Bladder cancer: (2) Parkinsonism: (3) Pyelonephritis: (4) Ileus: (5) Acute UTI: (6) Tachycardia: (7) History of bladder cancer: (8) Recurrent falls: (9) Dysphagia: (10) CKD stage 3b, GFR 30-44 ml/min: (11) History of bladder surgery: (12) S/P radical cystoprostatectomy: (13) History of CVA (cerebrovascular accident): Plan Patient with history of bladder cancer status post ileal conduit diversion with radical cystoprostatectomy. Patient had been discovered to have recurrence of disease and concern for development of upper tract UCC. Has transferred his care to the [facility] urology group for advanced management of advanced cancer. Patient is being set up with the medical oncology team with Dr. Foote in the [place] area. Has been dealing with issues with recurrent UTIs. Had developed obstructive issues that required intervention. 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 Patient had a nephrostomy tube in place at 1 point but this was subsequently removed. Has dealt with bleeding issues. Most specifically the however has been dealing with worsening UTIs and problems. Patient has known dementia/Parkinson issues. Has a known tremor. Patient's family was bedside and were concerned with worsening confusion. Does have mild cognitive issues at baseline. Does have some mild exacerbation of it with the acute hospitalization likely secondary to significant UTI and deconditioning. Patient independently assessed, examined, interviewed, and evaluated. Patient's vitals and labs were all reviewed. Pertinent values in the HPI and plan section. Hemoglobin 9.1. White count 3.52. Creatinine 1.63. PSA from last year was undetectable. Vitals were all reviewed and stable. Blood pr essure 133/74. Pulse 61 respiration 16 temperature 36.6. Oxygen saturation 97% on room air. Imaging was reviewed interpreted by myself. Patient has left- sided hydronephrosis. 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 Patient has persistent dilation of the system possibly secondary to reflux. Urostomy in the left lower quadrant. Otherwise agree with read. Vitals were reviewed. Discussed findings extensively with patient and family. Reviewed with nurse practitioner as well as consulting physicians/team. Patient's complicated medical and surgical history was reviewed and summarized above. Patient's surgical, medical, social, and family history were all reviewed with pertinent values as above. Discussed patient's current diagnosis as well as concerns and issues. Reviewed different options moving forward. Discussed potential risks and benefits as well as possible options and concerns. Reviewed potential surgical options and interventions. Discussed potential issues and concerns related to intervention. Risk and benefits were discussed extensively with patient and any available family. Discussed potential risks related to anesthesia. Discussed risks of bleeding infection and injury. At this point patient's urostomy appear to be working well. Urine appears to be clear. No sign of significant debris or clots. No significant hematuria. Reviewed patient's current plan. Had previously been on ertapenem in the last week due to significant UTI. Has had severely resistant infections in the past. At this point the cultures are not yet available. Would recommend continuing with current treatment. May need to escalate or de-escalate depending on findings on culture. If patient is discovered to have a gram-positive or other infection that may need addition of another agent may need to consider this moving forward. Additionally discussed possible options for intervention however at this point no sign of significant hematuria would likely defer to observation and supportive care with resuscitation. Additionally patient has been undergoing hydration due to JN as well as to assist in management of the systemic infection. Did review possible need for transfer. If patient's issues and obstruction become more significant or if infection issues continue to be bother without significant improvement on antibiotics may need to consider transfer to a larger tertiary center that has IR available for placement of drain. Retrograde placement of stent is not possible per previous assessment. Would need antegrade placement with nephrostomy tube. Extensive conversation with patient's family today. Discussed his increasing issues. Possibly dealing with a degree of encephalopathy secondary to acute illness. May explain exacerbation of baseline dementia issues as well as worsening of his known tremor and other issues. Patient was going to be established for possible immuno/monoclonal antibody therapy with the [facility] oncology team with Dr. Foote. This has been delayed secondary to his ongoing issues with infections. Will plan to continue with maximal drainage continue supportive care continue with antibiotic coverage. Will await culture results. Patient's complicated medical and surgical history is reviewed and surmise above all imaging was reviewed interpreted by myself and the labs are reviewed. Will plan to coordinate with Dr. Quintero and his team and may need to coordinate further with the [facility] urology and [facility] oncology teams for further management. Plan to continue with supportive care and await culture results. If patient's issues significantly worsen if JN or significant bleeding or other issues develop or if infection issues are not improving with antibiotic coverage will need to consider possible reimaging versus transfer for nephrostomy tube placement. Retrograde placement was deemed not possible on previous assessment. Would need antegrade placement with nephrostomy tubes and would need to be transferred to center with interventional radiology coverage. History of Present Illness Attending Physician: Yumi Flowers MD History of Present Illness Consult for urinary issues with infection with obstruction. 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 Has ileal conduit diversion. Developed upper tract UCC and has subsequently been working with [facility] urology for management of upper tract disease. Had to undergo an antegrade intervention. Patient subsequently had the nephrostomy tube removed. Had signs of bilateral hydro process on imaging. Had ablation of tumor. Due to the large volume of tumor however were going to need further intervention. Concern for possible advanced disease. With the patient has mild to moderate discomfort in pelvis and groin going to back and side in waves. Has been dealing with intermittent infections that have been going on and worsening in severity. Patient also is developing worsening confusion and issues with his tremor. Is dealing with acute illness. Has been deconditioned from this. Has decreased mobility significantly with acute issues. Denies significant previous episodes of hematuria. Is still able to void. No severe nausea or vomiting. Currently no fevers. No significant family history. Patient does have a extremely complicated urologic history with known bladder cancer and now upper tract UCC. Allergies Allergy/AdvReac Type Severity Reaction Status Date / Time No Known Allergies Allergy Verified 06/21/25 21:23 Home Medications Medication Instructions Recorded Confirmed Type cholecalciferol (vitamin D3) 50 50 mcg PO QAM 01/14/23 06/21/25 History mcg (2,000 unit) capsule cyanocobalamin (vitamin B-12) 1,000 mcg PO QAM 02/26/25 06/21/25 History 1,000 mcg tablet pantoprazole 40 mg tablet,delayed 40 mg PO BID #200 tabs 02/26/25 06/21/25 Rx release tamsulosin 0.4 mg capsule 0.4 mg PO QAM 06/05/25 06/21/25 History folic acid 1 mg tablet 1 mg PO QAM 30 days #30 tabs 06/18/25 06/21/25 Rx acetaminophen 325 mg tablet 650 mg PO Q6 PRN temp > 100 06/21/25 06/21/25 History acetaminophen 325 mg tablet 650 mg PO Q6 PRN Pain 06/21/25 06/21/25 History (Tylenol) melatonin 3 mg tablet 9 mg PO HS 06/21/25 06/21/25 History potassium chloride 20 mEq 20 meq PO QAM 06/21/25 06/21/25 History tablet,extended release pravastatin 10 mg tablet 10 mg PO QPM 06/21/25 06/21/25 History sertraline 25 mg tablet 25 mg PO QAM 06/21/25 06/21/25 History Patient History Medical History Hyperlipidemia Lung nodules History of CVA (cerebrovascular accident) (2015) with speech difficulty, right sided hemiparesis Vitamin D deficiency Bladder cancer hx chemotherapy (Fall 2020), s/p cystectomy / ileal conduit 2021 Surgical History S/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 Dr Quintero, [facility] History of cystoscopy History of bladder surgery TURBT (07/07/21): LMA#5 at [facility] History of bilateral cataract extraction Family History Son Family history of diabetes mellitus Other No family history of adverse response to anesthesia Social History Smoking Status: Former smoker Tobacco Type: Cigarettes Cigarettes Per Day: Quit pipe 6 yrs ago, Quit cigs 40 yrs ago; Second Hand Exposure: No; Do You Dip or Chew Tobacco: No; Hx Alcohol Use: Yes Alcohol type: beer Hx Substance Use: No Preferred Language: Divehi Communication Ability: Impaired Cut Out Stitcher Required: No Beliefs That Will Affect Care: None marital status: Current Living Situation: Senior Living Current Living Situation Comment: [place] [facility] current occupational status: retired How many Children do You have: 2 Feels Safe at Home: Yes Safety Concerns: Feels Safe At This Time Childhood Exposure to Second-Hand Smoke: Yes Diet: regular caffeine: Yes Dental Care, Regularly: No Physical Activity Frequency: Daily Physical Activity Frequency Comment: Walks outside daily Seatbelt Use: always Sunscreen Use: No Assistive Devices: Walker Review of Systems Review of Systems: All systems reviewed & are unremarkable except as noted in HPI & below Physical Exam Physical Exam: General: Alert and oriented x 3 in no acute distress. Advanced age. Tremor. Not agitated HEENT: Normocephalic Atraumatic. Inspection normal. Cranial Nerves 2-12 Grossly intact. Nares are clear. Neck is supple. Normal inspection of face. Normal inspection of neck. Neurologic: No deficits on inspection. Baseline for motor function and sensory. Psychologic: Normal affect. Mild confusion, mildly increased from baseline Respiratory: Nonlabored. No use of accessory muscles. No tachypnea or dyspnea. Cardiovascular: No tachycardia Skin: [place] and Dry. No rashes or visible lesions. Extremities: Moving without issues. No motor deficits on inspection Lymphatics: No edema Abdomen: Soft Non-distended. Urostomy in right lower quadrant with clear yellow urine. No rebound or guarding. : Urostomy draining clear yellow urine. Results & Data Vital Signs (Past 12 Hours) Vital Signs Temp Pulse Pulse Resp BP Pulse Ox O2 Del Method 06/23/25 12:11 36.6 C 61 16 133/74 97 Room Air 06/23/25 09:01 Room Air 06/23/25 08:14 36.5 C 64 16 143/77 H 94 Room Air 06/23/25 07:04 68 06/23/25 04:37 36.3 C L 60 18 132/80 97 Room Air PG Care Time/CCT Total # of Minutes Spent Total Time Spent with Patient: Total time spent is greater than 50% in coordination of care (as documented) at patient's floor/unit and/or counseling patient: Coding Level of Care Code 20985 INT INP/OBS CARE 375MIN Diagnoses Bladder cancer C67.9 Parkinsonism G20 Pyelonephritis N12 Ileus K56.7 Acute UTI N39.0 Tachycardia R00.0 History of bladder cancer Z85.51 Recurrent falls R29.6 Dysphagia R13.10 CKD stage 3b, GFR 30-44 ml/min N18.32 History of bladder surgery Z98.890 S/P radical cystoprostatectomy Z90.79; Z90.6 History of CVA (cerebrovascular accident) Z86.73
--- NOTE | 2025-06-23 18:49 | Hospitalist Progress Note ---
Date of Service June 23, 2025 Assessment & Plan (1) Acute UTI: (2) Recurrent falls: (3) Tachycardia: (4) Hypertension: Plan 74 yo male with history of bladder cancer s/p radical cystoprostatectomy with urostomy in place, recent hospital admission from 06/09 - 06/18 with ESBL UTI s/p 10 days of Ertapenem. Over the last three days patient has been in a group home - has been more confused, sustained several falls. Also with notes indicating an episode of atrial fibrillation with HR of 137. #Acute UTI - UA suggestive of infection. Patient with prior cystoprostatectomy with urostomy in place. UA with bacteria present as well as yeast. He is afebrile, HD stable and non-toxic in appearance. No sepsis -Follow urine culture - CT imaging indicates persistent moderate left-sided hydroureteronephrosis,? If needs review with urology. Distal right renal collecting system with the ureter arising from the midpole remaining mildly dilated with hyperdense material which is nonspecific, urothelial lesion not excluded. -Continue Ertapenem for no, cultures are pending. May require infectious disease input. -May require transfer to tertiary care for possible IR procedure/nephrostomy. -Fluconazole 100mg PO daily -Tylenol PRN pain or fever #Encephalopathy -Ammonia levels within normal limits -CT of the head with no acute findings -Possible cause due to acute infectious process #Recurrent falls - likely multifactorial, acute UTI as well as deconditioning from his recent hospitalization. -PT/OT evaluation appreciated -Fall precautions #Hypomagnesemia - Replete as needed based on labs, will check repeat in the a.m. #Report of atrial fibrillation from group home - no AF noted on our monitor at this time -Telemetry monitoring #Mental health -Continue Sertraline 25mg po qAM Admission and Anticipated Discharge Date Admission Date: June 21, 2025 Subjective patient seen and examined. He remains quite weak, and limited mobility. No nausea or vomiting. No fevers or chills. Physical Exam Physical Exam: Gen-pt in NAD, awake and alert CVS-+s1,s2, RRR, no murmurs Lungs-CTA b/l GI-BS normoactive,+ urostomy Ext-no edema, no cyanosis Neuro-grossly intact Results & Data Results & Data Vital Signs (Past 12 Hours) Vital Signs Temp Pulse Pulse Resp BP Pulse Ox O2 Del Method 06/23/25 15:08 82 06/23/25 14:28 36.8 C 92 H 16 135/74 98 Room Air 06/23/25 12:11 36.6 C 61 16 133/74 97 Room Air 06/23/25 09:01 Room Air 06/23/25 08:14 36.5 C 64 16 143/77 H 94 Room Air 06/23/25 07:04 68 PG Care Time/CCT Total # of Minutes Spent Total Time Spent with Patient: Total time spent is greater than 50% in coordination of care (as documented) at patient's floor/unit and/or counseling patient: Coding Level of Care Code 80160 SUB INP/OBS CARE 3/50MIN Diagnoses Acute UTI N39.0 Recurrent falls R29.6 Tachycardia R00.0 Hypertension I10
--- NOTE | 2025-06-23 20:42 | Electrocardiogram Report ---
Test Reason : Blood Pressure : */* mmHG Vent. Rate : 91 BPM Atrial Rate : 91 BPM P-R Int : 154 ms QRS Dur : 88 ms QT Int : 378 ms P-R-T Axes : 72 62 25 degrees QTcB Int : 464 ms Normal sinus rhythm Normal ECG When compared with ECG of 15-Jun-2025 09:43, No significant change was found Confirmed by Rosalind Rosado (Aneesh) on 06/23/2025 8:41:29 PM Referred By: REFERRED SELF Confirmed By: Rosalind Rosado
[2025-06-23] MEDS: ERTAPENEM 1000MG 1,000 MG/10 ML SYR IV SCH (21:22)
[2025-06-24 05:59] LABS: Hematocrit (blood only) 30.7 % (42.0-52.0); Hemoglobin 9.3 g/dL (14.0-18.0); Immature Granulocytes # (auto) 0.01 K/uL (0.01-0.20); Immature Granulocytes % (auto) 0.2 %; Mean Corpuscular Hemoglobin 25.1 pg (25.0-34.0); Mean Corpuscular Volume 83.0 fL (80.0-100.0); Platelet Count 271 K/uL (130-400); RDW Standard Deviation 53.8 fL (36.4-46.3); Red Blood Count 3.70 M/uL (4.70-6.10); White Blood Count 4.19 K/ul (4.8-10.8)
[2025-06-24 06:20] LABS: Alanine Aminotransferase 12.0 U/L (7-52); Albumin Globulin Ratio 1.1 (0.9-2); Albumin Level 3.4 gm/dl (3.4-5.0); Alkaline Phosphatase 197.0 U/L (34-104); Anion Gap 8.0 (3-11); Bilirubin,Total 0.5 mg/dl (0.2-1.0); Blood Urea Nitrogen 17.0 mg/dl (6-23); Calcium 8.6 mg/dl (8.6-10.3); Carbon Dioxide 23.0 mmol/L (21-32); Chloride 109.0 mmol/L (98-107); Creatinine Clr Calc Pharmacy 33.0 ml/min; Globulin 3.1 gm/dl (2.5-4.0); Glucose 99.0 mg/dl (70-99(Fasting)); Magnesium 1.8 mg/dl (1.7-2.4); Potassium 3.9 mmol/L (3.5-5.1); Sodium 140.0 mmol/L (136-145); Total Protein 6.5 gm/dl (6.0-8.3)
--- NOTE | 2025-06-24 07:51 | Infectious Disease Consult ---
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 Notes from correction indicate that pt had an episode of tachycardia to HR 137, irregular, with EKG showing afib and was started on metoprolol 25 mg PO BID. On presentation, pt was afebrile, VSS. Pt had no specific complaints. Labs showed WBC 6.67, procal 0.13, UA with 21-50 WBCs and yeast present. COVID- 19/flu/RSV negative. CXR and pelvis XR negative. CT CAP showed no acute findings, persistent moderate L sided hydroureteronephrosis. As on prior, duplex R renal collecting system with ureter arising from the midpole remaining mildly dilated and containing hyperdense material which is nonspecific; a urothelial lesion is not excluded. CT head and C spine negative. He was started on ertapenem and fluconazole due to concern for UTI. Urology was consulted and recommended continuation of antibiotics and following up urine culture. Per their note, pt follows with [facility] urology and oncology, was going to start possible immuno/monoclonal antibody therapy but delayed due to issues with infections. Discussion: Seems less likely that pt has a true UTI--pt was afebrile without leukocytosis, without particular complaints, and just recently completed a 10 day course of ertapenem on 06/18. UCx here is growing Eryn tropicalis and E faecium, but it is expected that a urine culture obtained from an ileal conduit will always be positive due to colonization. Pt has been stable without coverage of the E faecium, as he has been on ertapenem this admission. Recommendations: - Discontinued ertapenem and fluconazole - Monitor off antimicrobials Will sign off. Consultation Information This patient recommendation is based on a telemedicine consult request which was completed asynchronously through chart review and information provided by the primary physician. The patient was not seen or examined today. The evaluation is consultative in nature and all patient care and treatment decisions can either be accepted or rejected by the patient's primary hospital-based treating physician using their own independent medical judgment for their patient. [facility] contact information: Please call [facility] . 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 Notes from correction indicate that pt had an episode of tachycardia to HR 137, irregular, with EKG showing afib and was started on metoprolol 25 mg PO BID. On presentation, pt was afebrile, VSS. Pt had no specific complaints. Labs showed WBC 6.67, procal 0.13, UA with 21-50 WBCs and yeast present. COVID- 19/flu/RSV negative. CXR and pelvis XR negative. CT CAP showed no acute findings, persistent moderate L sided hydroureteronephrosis. As on prior, duplex R renal collecting system with ureter arising from the midpole remaining mildly dilated and containing hyperdense material which is nonspecific; a urothelial lesion is not excluded. CT head and C spine negative. He was started on ertapenem and fluconazole due to concern for UTI. Urology was consulted and recommended continuation of antibiotics and following up urine culture. Per their note, pt follows with [facility] urology and oncology, was going to start possible immuno/monoclonal antibody therapy but delayed due to issues with infections. Allergies Allergy/AdvReac Type Severity Reaction Status Date / Time No Known Allergies Allergy Verified 06/21/25 21:23 Home Medications Medication Instructions Recorded Confirmed Type cholecalciferol (vitamin D3) 50 50 mcg PO QAM 01/14/23 06/21/25 History mcg (2,000 unit) capsule cyanocobalamin (vitamin B-12) 1,000 mcg PO QAM 02/26/25 06/21/25 History 1,000 mcg tablet pantoprazole 40 mg tablet,delayed 40 mg PO BID #200 tabs 02/26/25 06/21/25 Rx release tamsulosin 0.4 mg capsule 0.4 mg PO QAM 06/05/25 06/21/25 History folic acid 1 mg tablet 1 mg PO QAM 30 days #30 tabs 06/18/25 06/21/25 Rx acetaminophen 325 mg tablet 650 mg PO Q6 PRN temp > 100 06/21/25 06/21/25 History acetaminophen 325 mg tablet 650 mg PO Q6 PRN Pain 06/21/25 06/21/25 History (Tylenol) melatonin 3 mg tablet 9 mg PO HS 06/21/25 06/21/25 History potassium chloride 20 mEq 20 meq PO QAM 06/21/25 06/21/25 History tablet,extended release pravastatin 10 mg tablet 10 mg PO QPM 06/21/25 06/21/25 History sertraline 25 mg tablet 25 mg PO QAM 06/21/25 06/21/25 History Patient History Medical History Hyperlipidemia Lung nodules History of CVA (cerebrovascular accident) (2015) with speech difficulty, right sided hemiparesis Vitamin D deficiency Bladder cancer hx chemotherapy (Fall 2020), s/p cystectomy / ileal conduit 2021 Surgical History S/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 Dr Quintero, [facility] History of cystoscopy History of bladder surgery TURBT (07/07/21): LMA#5 at [facility] History of bilateral cataract extraction Family History Son Family history of diabetes mellitus Other No family history of adverse response to anesthesia Social History Smoking Status: Former smoker Tobacco Type: Cigarettes Cigarettes Per Day: Quit pipe 6 yrs ago, Quit cigs 40 yrs ago; Second Hand Exposure: No; Do You Dip or Chew Tobacco: No; Hx Alcohol Use: Yes Alcohol type: beer Hx Substance Use: No Preferred Language: B[place] Communication Ability: Impaired Molecular Biology Director Required: No Beliefs That Will Affect Care: None marital status: Current Living Situation: Alf Current Living Situation Comment: [facility] current occupational status: retired How many Children do You have: 2 Feels Safe at Home: Yes Safety Concerns: Feels Safe At This Time Childhood Exposure to Second-Hand Smoke: Yes Diet: regular caffeine: Yes Dental Care, Regularly: No Physical Activity Frequency: Daily Physical Activity Frequency Comment: Walks outside daily Seatbelt Use: always Sunscreen Use: No Assistive Devices: Walker Results & Data Vital Signs (Past 12 Hours) Vital Signs Temp Pulse Pulse Resp BP Pulse Ox O2 Del Method 06/24/25 03:46 36.5 C 69 20 159/79 H 98 Room Air 06/23/25 22:11 37 C 69 18 139/78 94 Room Air 06/23/25 21:42 69 06/23/25 21:15 Room Air
--- NOTE | 2025-06-24 09:51 | Magnetic Resonance Report ---
MRI OF THE BRAIN WITHOUT IV CONTRAST CLINICAL HISTORY: Confusion. Weakness. Evaluate for stroke. COMPARISON STUDY: Head CT June 21, 2025. MRI of the brain September 01, 2023. TECHNIQUE: MRI of the brain was performed utilizing various T1 and T2-weighted sequences in the axial , sagittal, and coronal planes. IV contrast was not administered for this examination. FINDINGS: This exam is mildly compromised by motion artifact. Coronal FLAIR sequence could not be obt ained. There are no foci of restricted diffusion to suggest acute infarct. No acute intracranial hemo rrhage, midline shift or mass effect is present. Ventricular system is unremarkable. Basal cisterns a re patent. There are no extra axial collections. No intracranial masses identified on unenhanced exam . White matter T2 hyperintense foci suggest small vessel disease. There are several small old infarct s within the bilateral basal ganglia and the right thalami. IMPRESSION: 1. No acute intracranial findings. Exam moderately compromised by motion artifact. 2. 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 ACT 112: Negative or not required by law. Electronically signed by: Ronen Cartagena M.D. 06/24/2025 9:50 AM
--- NOTE | 2025-06-24 11:04 | Urology Progress Note ---
Date of Service June 24, 2025 Assessment & Plan (1) History of bladder cancer: (2) S/P radical cystoprostatectomy: Plan: Urine culture: UCx here is growing Eryn tropicalis and E faecium blood culture showing no growth Defer antibiotic recommendations to ID. ID has recommended discontinuing ertapenam and fluconazole and monitoring off antibiotics. He did have a brain MRI today. FINDINGS: This exam is mildly compromised by motion artifact. Coronal FLAIR sequence could not be obtained. There are no foci of restricted diffusion to suggest acute infarct. No acute intracranial hemorrhage, midline shift or mass effect is present. Ventricular system is unremarkable. Basal cisterns are patent. There are no extra axial collections. No intracranial masses identified on unenhanced exam. White matter T2 hyperintense foci suggest small vessel di sease. There are several small old infarcts within the bilateral basal ganglia and the right thalami. IMPRESSION: 1. No acute intracranial findings. Exam moderately compromised by motion artifact. 2. 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 Did review possible need for transfer. If patient's issues and obstruction become more significant or if infection issues continue to be bother without significant improvement on antibiotics may need to consider transfer to a larger tertiary center that has IR available for placement of drain. Retrograde placement of stent is not possible per previous assessment. Would need antegrade placement with nephrostomy tube. (3) Acute UTI: (4) Ureteral stent present: Admission and Anticipated Discharge Date Admission Date: June 21, 2025 Subjective Patient with history of bladder cancer status post ileal conduit diversion with radical cystoprostatectomy. Patient had been discovered to have recurrence of disease and concern for development of upper tract UCC. Had worsening confusion, falls, weakness, concerns for UTI. No particular complaints this morning. Infectious disease consult today: recommended discontinuing ertapenam and fluconazole, monitor off antimicrobials. Physical Exam Physical Exam: awake, alert, NAD vital signs stable, afebrile. wbc 4.19 hgb 9.3 BUN/Cr 17/1.66 abdomen soft, nontender Results & Data Vital Signs (Past 12 Hours) Vital Signs Temp Pulse Resp BP Pulse Ox O2 Del Method 06/24/25 07:53 36.7 C 78 20 133/76 93 Room Air 06/24/25 03:46 36.5 C 69 20 159/79 H 98 Room Air PG Care Time/CCT Total # of Minutes Spent Total Time Spent with Patient: Total time spent is greater than 50% in coordination of care (as documented) at patient's floor/unit and/or counseling patient: Coding Level of Care Code 40130 SUB INP/OBS CARE 235MIN Diagnoses History of bladder cancer Z85.51 S/P radical cystoprostatectomy Z90.79; Z90.6 Acute UTI N39.0 Ureteral stent present Z96.0
[2025-06-24 11:39] LABS: Base Excess VBG -3.4 mEq/L; HCO3 VBG 20 mmol/L; Oxygen Saturation VBG 100.0 %; PCO2 VBG 31 mmHg (38-50); PO2 VBG 130 mmHg; pH VBG 7.42 (7.36-7.41)
--- NOTE | 2025-06-24 16:31 | Electroencephalogram ---
EEG Procedure Note Date of Service June 24, 2025 Start / End Times Start Time: 2:19 PM End Time: 2:39 PM Referring Physician History Altered mental status, evaluate for seizures Home Medication List Medication Instructions Recorded Confirmed Type cholecalciferol (vitamin D3) 50 50 mcg PO QAM 01/14/23 06/21/25 History mcg (2,000 unit) capsule cyanocobalamin (vitamin B-12) 1,000 mcg PO QAM 02/26/25 06/21/25 History 1,000 mcg tablet pantoprazole 40 mg tablet,delayed 40 mg PO BID #200 tabs 02/26/25 06/21/25 Rx release tamsulosin 0.4 mg capsule 0.4 mg PO QAM 06/05/25 06/21/25 History folic acid 1 mg tablet 1 mg PO QAM 30 days #30 tabs 06/18/25 06/21/25 Rx acetaminophen 325 mg tablet 650 mg PO Q6 PRN temp > 100 06/21/25 06/21/25 History acetaminophen 325 mg tablet 650 mg PO Q6 PRN Pain 06/21/25 06/21/25 History (Tylenol) melatonin 3 mg tablet 9 mg PO HS 06/21/25 06/21/25 History potassium chloride 20 mEq 20 meq PO QAM 06/21/25 06/21/25 History tablet,extended release pravastatin 10 mg tablet 10 mg PO QPM 06/21/25 06/21/25 History sertraline 25 mg tablet 25 mg PO QAM 06/21/25 06/21/25 History Inpatient Medication List Acetaminophen (Acetaminophen 325 Mg Tab) 650 mg PO Q6 PRN PRN Reason: Pain Stop: 07/21/25 23:49 Last Admin: 06/23/25 21:22 Dose: 650 mg Documented By: Admin: 06/22/25 21:36 Dose: 650 mg Documented By: SIXTO Heparin Sodium (Porcine) (Heparin Sod 5,000 Unit/0.5 Ml Vial) 5,000 units SQ Q12 THOR Stop: 07/22/25 08:59 Last Admin: 06/24/25 10:46 Dose: 5,000 units Documented By: symone Admin: 06/23/25 21:22 Dose: 5,000 units Documented By: Admin: 06/23/25 08:25 Dose: 5,000 units Documented By: Admin: 06/22/25 21:37 Dose: 5,000 units Documented By: Admin: 06/22/25 09:28 Dose: 5,000 units Documented By: KIANNA Sodium Chloride (Nss) 1,000 mls @ 80 mls/hr IV .[id number] THOR Stop: 06/26/25 08:14 Last Admin: 06/24/25 15:40 Dose: 80 mls/hr Documented By: symone Infusion: 06/24/25 09:51 Dose: Infused Documented By: symone Admin: 06/23/25 21:21 Dose: 80 mls/hr Documented By: Infusion: 06/23/25 21:21 Dose: Infused Documented By: Admin: 06/23/25 08:28 Dose: 80 mls/hr Documented By: SARA Melatonin (Melatonin 3 Mg Tab) 9 mg PO HS THOR Stop: 07/22/25 20:59 Last Admin: 06/23/25 21:22 Dose: 9 mg Documented By: Admin: 06/22/25 21:36 Dose: 9 mg Documented By: SIXTO Pantoprazole Sodium (Pantoprazole 40 Mg Tab) 40 mg PO BID THOR Stop: 07/22/25 08:59 Last Admin: 06/24/25 10:47 Dose: 40 mg Documented By: symone Admin: 06/23/25 21:23 Dose: 40 mg Documented By: Admin: 06/23/25 08:25 Dose: 40 mg Documented By: Admin: 06/22/25 21:36 Dose: 40 mg Documented By: Admin: 06/22/25 09:28 Dose: 40 mg Documented By: KIANNA Pravastatin Sodium (Pravastatin Sod 10 Mg Tab) 10 mg PO QPM THOR Stop: 07/22/25 20:59 Last Admin: 06/23/25 21:23 Dose: 10 mg Documented By: Admin: 06/22/25 21:36 Dose: 10 mg Documented By: SIXTO Sertraline HCl (Sertraline Hcl 50 Mg Tablet) 25 mg PO QAM THOR Stop: 07/22/25 08:59 Last Admin: 06/24/25 10:46 Dose: 25 mg Documented By: symone Admin: 06/23/25 08:25 Dose: 25 mg Documented By: Admin: 06/22/25 09:28 Dose: 25 mg Documented By: KIANNA Tamsulosin HCl (Tamsulosin Hcl 0.4 Mg Cap) [facility] [place] Stop: 07/22/25 08:59 Last Admin: 06/24/25 10:46 Dose: 0.4 mg Documented By: symone Admin: 06/23/25 08:25 Dose: 0.4 mg Documented By: Admin: 06/22/25 09:28 Dose: 0.4 mg Documented By: KIANNA Discontinued Medications Fluconazole (Fluconazole 100 Mg Tab) [facility] [place] Stop: 07/22/25 08:59 Last Admin: 06/23/25 08:25 Dose: 100 mg Documented By: Admin: 06/22/25 09:28 Dose: 100 mg Documented By: KIANNA Ertapenem (Invanz 1000mg) 1,000 mg in 10 mls @ 2 mls/min IV NOW STA Stop: 06/21/25 21:36 Last Admin: 06/21/25 21:43 Dose: 2 mls/min Documented By: PRIYA Ertapenem (Invanz 1000mg) 1,000 mg in 10 mls @ 2 mls/min IV Q24H THOR Stop: 07/03/25 20:59 Last Admin: 06/23/25 21:22 Dose: 2 mls/min Documented By: SIXTO Magnesium Sulfate/Dextrose (Magnesium Sulfate / D5w) 1 gm in 100 mls @ 50 mls/hr IV Q2H [facility] Stop: 06/22/25 03:49 Last Infusion: 06/22/25 05:13 Dose: Infused Documented By: Admin: 06/22/25 02:51 Dose: 50 mls/hr Documented By: Infusion: 06/22/25 02:25 Dose: Infused Documented By: Admin: 06/22/25 00:25 Dose: 50 mls/hr Documented By: RUPERTO Potassium Chloride (Potassium Chloride Crtab 20 Meq Tabcr) 20 meq PO NOW STA Stop: 06/23/25 08:12 Last Admin: 06/23/25 08:25 Dose: 20 meq Documented By: SARA Description This is a 21 electrode EEG with a single channel dedicated to limited EKG. The electrodes were placed in accordance with the International 10-20 system. Predominant rhythm consists of generalized 5 to 6 Hz theta activity. There is a symmetric frontal beta rhythm. Photic stimulation is unremarkable. There are right temporal polyspikes. There is a right frontotemporal sharp and slow wave focus corresponding to clinical seizure activity as indicated by the aircraft avionics technician nologist. Interpretation Abnormal awake/drowsy EEG with evidence of seizure activity, right frontotemporal seizure focus. Clinical Correlation Results discussed with hospitalist. [facility] EEG Procedure Codes Indication for Procedure (1) Seizure: Neurology Neurology: 51060 EEG include record awake & drowsy
--- NOTE | 2025-06-24 17:25 | Neurology Consultation ---
Date of Consultation June 24, 2025 Assessment & Plan (1) Seizure: (2) Encephalopathy: (3) History of bladder cancer: (4) Ureteral stent present: Plan 74-year-old male with a history of bladder cancer, post radical cystoprostatectomy, ureteral stent, recent admission to [facility] for complicated urinary tract infection, admitted with recurrent falls, confusion, agitation, some concern for persistent urinary tract infection although has been seen by infectious disease, no convincing signs of active infection at this time. Has also been seen by urology, some concern for obstruction and potential need to transfer to a tertiary center noted. He did have a brain MRI completed this morning that was negative for acute process, but did reveal multiple chronic bilateral basal ganglia lacunar infarcts, cerebrovascular disease, and mild to moderate generalized atrophy. An EEG completed this afternoon captured a clinical and electrographic seizure suggestive of a right frontotemporal seizure focus. Results discussed with hospitalist physician, patient has been given a loading dose of Keppra, 1500 mg IV x 1 with instructions for maintenance dosage of 500 mg IV every 12 hours. It is possible that this patient's persistent confusion is related to, unreco gnized seizure activity. He does have some complex urological issues as well although does not appear to have obvious signs of infection or gross metabolic derangement that would explain his encephalopathy. In looking at his brain MRI, I would expect that he may have some underlying cognitive difficulties, possibly mild cognitive impairment. In looking at his previous discharge summary, there was some suspicion for underlying MCI as well. He is currently confused, mildly disoriented, has impaired attention, and some impairment of memory. To what extent his current cognitive status could be related to postictal confusion is not entirely clear. However, I would anticipate some further improvement in his cognitive status with ongoing control of seizures. As above, continue with Keppra 500 mg IV every 12 hours. May transition to p.o. at the same dosage when medically appropriate. Patient may follow-up with myself or an DEMARCO in neurology clinic in 2 to 3 weeks after discharge. History of Present Illness Reason for Consultation: encephalopathy Requesting Physician: Attending Physician: Yumi Flowers MD History of Present Illness The patient is a 74-year-old male who was admitted to the [facility] June 21, 2025, alf resident, had presented with multiple falls, confusion, agitation. He had been recently discharged from the [facility] on June 18, 2025, history of bladder cancer, post radical cystoprostatectomy with ileal conduit/urostomy creation, had been admitted with ESBL Klebsiella UTI. There has been some concern for persistent urinary tract infection. Patient was seen by infectious diseases earlier this morning, was not felt to have an active urinary tract infection, however. Patient has also been seen by urology there was some concern regarding possible urinary obstruction, possible infection, consideration to transfer to a tertiary center depending on neurologic status going forward. The patient is currently confused and is an unreliable historian. I did independently review the brain MRI completed today. No evidence of acute process, there is chronic small vessel ischemic disease and chronic bilateral basal ganglia lacunar infarcts. There is mild to moderate generalized atrophy. The patient had an EEG completed this afternoon as well. The patient did have a clinical and electrographic seizure during this study with a right frontotemporal seizure focus. I discussed these results with the hospitalist physician and recommended administering a Keppra loading dose, 1500 mg IV, followed by 500 mg IV every 12 hours, maintenance dose. Allergies Allergy/AdvReac Type Severity Reaction Status Date / Time No Known Allergies Allergy Verified 06/21/25 21:23 Home Medications Medication Instructions Recorded Confirmed Type cholecalciferol (vitamin D3) 50 50 mcg PO QAM 01/14/23 06/21/25 History mcg (2,000 unit) capsule cyanocobalamin (vitamin B-12) 1,000 mcg PO QAM 02/26/25 06/21/25 History 1,000 mcg tablet pantoprazole 40 mg tablet,delayed 40 mg PO BID #200 tabs 02/26/25 06/21/25 Rx release tamsulosin 0.4 mg capsule 0.4 mg PO QAM 06/05/25 06/21/25 History folic acid 1 mg tablet 1 mg PO QAM 30 days #30 tabs 06/18/25 06/21/25 Rx acetaminophen 325 mg tablet 650 mg PO Q6 PRN temp > 100 06/21/25 06/21/25 History acetaminophen 325 mg tablet 650 mg PO Q6 PRN Pain 06/21/25 06/21/25 History (Tylenol) melatonin 3 mg tablet 9 mg PO HS 06/21/25 06/21/25 History potassium chloride 20 mEq 20 meq PO QAM 06/21/25 06/21/25 History tablet,extended release pravastatin 10 mg tablet 10 mg PO QPM 06/21/25 06/21/25 History sertraline 25 mg tablet 25 mg PO QAM 06/21/25 06/21/25 History Patient History Medical History Hyperlipidemia Lung nodules History of CVA (cerebrovascular accident) (2015) with speech difficulty, right sided hemiparesis Vitamin D deficiency Bladder cancer hx chemotherapy (Fall 2020), s/p cystectomy / ileal conduit 2021 Surgical History S/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: 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 Beliefs That Will Affect Care: None marital status: Current Living Situation: Skilled Nursing Current Living Situation Comment: [facility] current occupational status: retired How many Children do You have: 2 Feels Safe at Home: Yes Safety Concerns: Feels Safe At This Time Childhood Exposure to Second-Hand Smoke: Yes Diet: regular caffeine: Yes Dental Care, Regularly: No Physical Activity Frequency: Daily Physical Activity Frequency Comment: Walks outside daily Seatbelt Use: always Sunscreen Use: No Assistive Devices: Walker Review of Systems Review of Systems: Unobtainable due to cognitive status Exam (Neuro) Constitutional: well developed and + frail appearing Eyes: normal visual wallace by confrontation, PERRL and EOM intact bilaterally; no nystagmus Neurologic: Oriented to:: Person and Place; negative Time Memory: negative Short Term Intact Attention: negative Span Intact Speech Fluency: negative Dysarthria or Dysfluency Speech Aphasia: negative Aphasia Fund of Knowledge: Vocabulary; negative Current Events or Past History Cranial Nerves: Normal II, III, IV, , V, VII, VIII, IX, X, XI and XII Motor Strength: Normal Lower Extremities and Normal Upper Extremities Motor Tone: Normal Lower Extremities and Normal Upper Extremities Muscle Bulk/Involuntary Movements: No Involuntary Movements; negative Muscle Atrophy Sensation: Light Touch Intact, Pain/Temperature Intact and Proprioception Intact Coordination: negative Dysdiadochokinesia, Finger-Nose Abnormal or Heel-Singh Abnormal Deep Tendon Reflexes: Rt Triceps: 2+, Lt Triceps: 2+, Rt Biceps: 2+, Lt Biceps: 2+, Rt Brachioradialis: 2+, Lt Brachioradialis: 2+, Rt Patellar: 2+, Lt Patellar: 2+, Rt Ankle: 1+ and Lt Ankle: 1+ Special Tests: negative Babinski Present Results & Data Vital Signs (Past 12 Hours) Vital Signs Temp Pulse Pulse Resp BP Pulse Ox O2 Del Method 06/24/25 15:45 36.8 C 76 16 117/65 97 Room Air 06/24/25 12:11 36.6 C 78 20 129/81 92 Room Air 06/24/25 10:00 Room Air 06/24/25 08:00 76 06/24/25 07:53 36.7 C 78 20 133/76 93 Room Air Laboratory Results WBC 4.19, hemoglobin 9.3, hematocrit 30.7, platelet count 271, sodium 140, potassium 3.9, BUN 17, creatinine 1.66, glucose 99, calcium 8.6, magnesium 1.8, AST 18, ALT 12 Diagnostic Findings Electrocardiogram, June 21, 2025, normal sinus rhythm, 91 bpm Coding Level of Care Code 40275 INT INP/OBS CARE 75MIN Diagnoses Seizure R56.9 Encephalopathy G93.40 History of bladder cancer Z85.51 Ureteral stent present Z96.0 Time Spent (min) 90 Comment Total time includes patient contact, chart review, counseling, note preparation
--- NOTE | 2025-06-24 18:09 | Hospitalist Progress Note ---
Date of Service June 24, 2025 Assessment & Plan (1) Acute UTI: (2) Recurrent falls: (3) Tachycardia: (4) Hypertension: Plan 74 yo male with history of bladder cancer s/p radical cystoprostatectomy with urostomy in place, recent hospital admission from 06/09 - 06/18 with ESBL UTI s/p 10 days of Ertapenem. Over the last three days patient has been in a senior living - has been more confused, sustained several falls. Also with notes indicating an episode of atrial fibrillation with HR of 137. #Acute UTI - UA suggestive of infection. Patient with prior cystoprostatectomy with urostomy in place. UA with bacteria present as well as yeast. He is afebrile, HD stable and non-toxic in appearance. No sepsis - Urine culture on 1225 grew Eryn and Enterococcus - Requested infectious disease consultation due to repeat urinary tract infections, infectious disease on 1228 does not believe that the patient's current confusion is in relation to infectious source. They believe that the patient has some level of colonization due to urostomy. They recommended stopping all antibiotics and monitoring patient. - CT imaging indicates persistent moderate left-sided hydroureteronephrosis,? If needs review with urology. Distal right renal collecting system with the ureter arising from the midpole remaining mildly dilated with hyperdense material which is nonspecific, urothelial lesion not excluded. -May require transfer to tertiary care for possible IR procedure/nephrostomy. -Tylenol PRN pain or fever #Encephalopathy -Ammonia levels within normal limits -CT of the head with no acute findings - Patient underwent MRI of the brain on 1228 with no evidence of acute CVA/Acute findings. - he also underwent an EEG which showed abnormal awake/drowsy EEG with evidence of seizure activity right frontotemporal seizure focus. -Neurology consulted, recommendations are for IV Keppra load and 500 mg IV every 12 Keppra dosing. - Reviewed with the patient's oncologist as well and they are recommending MRI with contrast of the brain and spine to rule out metastatic disease. - Patient may benefit from ongoing close monitoring by neurology make sure antiepileptics are assisting with ongoing seizures. May benefit from video EEG monitoring. #Recurrent falls - likely multifactorial, acute UTI as well as deconditioning from his recent hospitalization. -PT/OT evaluation appreciated -Fall precautions #Hypomagnesemia - Replete as needed based on labs, will check repeat in the a.m. #Report of atrial fibrillation from senior living - no AF noted on our monitor at this time -Telemetry monitoring #Mental health -Continue Sertraline 25mg po qAM #Disposition -Patient's familywife has requested a transfer to a tertiary level care center, called [facility] per 's request and they have accepted the patient under their care. Admission and Anticipated Discharge Date Admission Date: June 21, 2025 Subjective Patient seen and examined. He asked multiple times when he is going home. Intermittent tremors of the lower extremities. He denies having any chest pain or trouble breathing. Physical Exam Physical Exam: Gen-pt in NAD, awake and alert CVS-+s1,s2, RRR, no murmurs Lungs-CTA b/l GI-BS normoactive,+ urostomy Ext-no edema, no cyanosis Neuro-grossly intact Results & Data Results & Data Vital Signs (Past 12 Hours) Vital Signs Temp Pulse Pulse Resp BP Pulse Ox O2 Del Method 06/24/25 15:45 36.8 C 76 16 117/65 97 Room Air 06/24/25 12:11 36.6 C 78 20 129/81 92 Room Air 06/24/25 10:00 Room Air 06/24/25 08:00 76 06/24/25 07:53 36.7 C 78 20 133/76 93 Room Air Laboratory Results 06/21/25 Unknown Urine Culture - Preliminary Urine,Clean Catch Eryn tropicalis Enterococcus faecium 06/21/25 20:16 Aerobic Blood Culture - Preliminary Blood No growth in Aerobic bottle after 48 hours. Anaerobic Blood Culture - Preliminary No growth in Anaerobic bottle after 48 hours. 06/21/25 20:27 Aerobic Blood Culture - Preliminary Blood No growth in Aerobic bottle after 48 hours. Anaerobic Blood Culture - Preliminary No growth in Anaerobic bottle after 48 hours. 06/24/25 06/24/25 06/24/25 11:23 07:42 05:31 WBC 4.19 L RBC 3.70 L Hgb 9.3 L Hct 30.7 L MCV 83.0 MCH 25.1 MCHC 30.3 L RDW Std Deviation 53.8 H RDW Coeff of [place] 18.5 H Plt Count 271 MPV 9.7 Immature Gran % (Auto) 0.2 Neut % (Auto) 61.1 Lymph % (Auto) 26.7 [place] % (Auto) 9.8 Eos % (Auto) 1.7 Baso % (Auto) 0.5 Neut # (Auto) 2.56 Lymph # (Auto) 1.12 L [place] # (Auto) 0.41 Eos # (Auto) 0.07 Baso # (Auto) 0.02 Immature Gran # (Auto) 0.01 VBG pH 7.42 H VBG pCO2 31 L VBG pO2 130 VBG HCO3 20 VBG O2 Saturation 100.0 VBG Base Excess -3.4 Sodium 140 Potassium 3.9 Chloride 109 H Carbon Dioxide 23 Anion Gap 8 BUN 17 Creatinine 1.66 H Est Cr Clr Drug Dosing 33.0 eGFR 43.53 BUN/Creatinine Ratio 10.2 Glucose 99 POC Glucose 94 Calcium 8.6 Magnesium 1.8 Total Bilirubin 0.5 AST 18 ALT 12 Alkaline Phosphatase 197 H Total Protein 6.5 Albumin 3.4 Globulin 3.1 Albumin/Globulin Ratio 1.1 Diagnostic Findings Brain MRI 06/24/25 08:19 MRI OF THE BRAIN WITHOUT IV CONTRAST CLINICAL HISTORY: Confusion. Weakness. Evaluate for stroke. COMPARISON STUDY: Head CT June 21, 2025. MRI of the brain September 01, 2023. TECHNIQUE: MRI of the brain was performed utilizing various T1 and T2-weighted sequences in the axial, sagittal, and coronal planes. IV contrast was not administered for this examination. FINDINGS: This exam is mildly compromised by motion artifact. Coronal FLAIR sequence could not be obtained. There are no foci of restricted diffusion to suggest acute infarct. No acute intracranial hemorrhage, midline shift or mass effect is present. Ventricular system is unremarkable. Basal cisterns are p atent. There are no extra axial collections. No intracranial masses identified on unenhanced exam. White matter T2 hyperintense foci suggest small vessel disease. There are several small old infarcts within the bilateral basal ganglia and the right thalami. IMPRESSION: 1. No acute intracranial findings. Exam moderately compromised by motion artifact. 2. 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 ACT 112: Negative or not required by law. Electronically signed by: Ronen Cartagena M.D. 06/24/2025 9:50 AM PG Care Time/CCT Total # of Minutes Spent Total Time Spent with Patient: Total time spent is greater than 50% in coordination of care (as documented) at patient's floor/unit and/or counseling patient: Coding Level of Care Code 36875 SUB INP/OBS CARE 3/50MIN Diagnoses Acute UTI N39.0 Recurrent falls R29.6 Tachycardia R00.0 Hypertension I10
--- NOTE | 2025-06-24 18:48 | Discharge Summary ---
Discharge Summary Date of Service June 25, 2025 Principal Dx & Hospital Course #1 = Principal Diagnosis (1) Seizure: (2) Encephalopathy: Plan 74 yo male with history of bladder cancer s/p radical cystoprostatectomy with urostomy in place, recent hospital admission from 06/09 - 06/18 with ESBL UTI s/p 10 days of Ertapenem. Over the last three days patient has been in a assisted - has been more confused, sustained several falls. Also with notes indicating an episode of atrial fibrillation with HR of 137. #Acute UTI - UA suggestive of infection. Patient with prior cystoprostatectomy with urostomy in place. UA with bacteria present as well as yeast. He is afebrile, HD stable and non-toxic in appearance. No sepsis - Urine culture on 1225 grew Eryn and Enterococcus - Requested infectious disease consultation due to repeat urinary tract infections, infectious disease on 1228 does not believe that the patient's current confusion is in relation to infectious source. They believe that the patient has some level of colonization due to urostomy. They recommended stopping all antibiotics and monitoring patient. - CT imaging indicates persistent moderate left-sided hydroureteronephrosis,? If needs review with urology. Distal right renal collecting system with the ureter arising from the midpole remaining mildly dilated with hyperdense material which is nonspecific, urothelial lesion not excluded. -May require transfer to tertiary care for possible IR procedure/nephrostomy. -Tylenol PRN pain or fever #Encephalopathy #Seizures/ Status epilepticus -Ammonia levels within normal limits -CT of the head with no acute findings - Patient underwent MRI of the brain on 1228 with no evidence of acute CVA/Acute findings. - he also underwent an EEG which showed abnormal awake/drowsy EEG with evidence of seizure activity right frontotemporal seizure focus. -Neurology consulted, recommendations are for IV Keppra load and 500 mg IV every 12 Keppra dosing. - Reviewed with the patient's oncologist as well and they are recommending MRI with contrast of the brain and spine to rule out metastatic disease. - patient's mentation remains somewhat limited on 1238, requested urgent neurology evaluation along with EEG. EEG indicates ongoing focal seizure activity, neurology has recommended changing AED to Depakote, 50 mg IV x 1 dose along with 500 mg Q8. - Neurology has also recommended that the patient be on continuous EEG monitoring, transfer to facility that can facilitate video EEG monitoring. patient transferred to PCU for closer monitoring, made n.p.o. at this time. #Recurrent falls - likely multifactorial, acute UTI as well as deconditioning from his recent hospitalization. -PT/OT evaluation appreciated -Fall precautions #Hypomagnesemia - Replete as needed based on labs, will check repeat in the a.m. #Report of atrial fibrillation from assisted - no AF noted on our monitor at this time -Telemetry monitoring #Mental health -Continue Sertraline 25mg po qAM #Disposition - Patient is being transferred to a tertiary care center for closer monitoring along with continuous video EEG. Patient's family requested transfer to [facility],bed available on 06/25. Admission HPI Per Admitting Provider Raul Vera is a 74yo male with history of bladder cancer s/p radical cystoprostatectomy with ileal conduit/urostomy creation, recent hospital admission from 06/09 - 06/18/25 with ESBL Klebsiella UTI s/p treatment with Ertapenem x 10d course. Patient also with anemia, iron deficiency and was given 3 doses of Venofer. Patient transferred to SNF. Over the last several days at the SNF he has had several falls. Also with some confusion. Notes from the assisted indicate that patient had an episode of tachycardia with HR to 137 and irregular. EKG confirmed atrial fibrillation - patient started on Metoprolol 25mg po BID and patient's requested that he come to the ER. Patient with no specific complaints. He does recall falling earlier today - states he was trying to put on his long pants and he lost his balance. States he did not hit his head or lose consciousness. In the ER patient is afebrile, HD stable Discharge Plan Discharge Items Patient Disposition: Transfer Acute Care Hospital Reason For Visit: TACHYCARDIA, CONFUSION, FALLS Discharge Diagnosis: Encephalopahty Seizures Condition on Discharge: Fair Activity: Per Instructions section Lifting: None Exercise/Sports: None Weightbearing: Full weightbearing Non-emergency contact: Primary Care Provider Call non-emergency contact if: you have any medication questions Follow-up/Referrals: Pilar Cartagena MD [Primary Care Provider] - Diet: Nothing by Mouth Diet Texture: Easy to Chew Addtl Attending Provider Instructions: Refer to dc summary Pending Studies at Discharge: No Stand-Alone Forms: [employer] Skilled Items Patient informed of condition?: Yes DNR: No Discharge Level of Care: Other Communicable Disease: No Discharge Prognosis: Stable Lines: Peripheral IV Urinary Catheter: Yes Medications and DC Order Prescriptions: Continued cholecalciferol (vitamin D3) 50 mcg (2,000 unit) capsule 50 mcg PO QAM pantoprazole 40 mg tablet,delayed release (DR/EC) 40 mg PO BID Qty: 200 3RF cyanocobalamin (vitamin B-12) 1,000 mcg tablet 1,000 mcg PO QAM tamsulosin 0.4 mg capsule 0.4 mg PO QAM folic acid 1 mg Tablet 1 mg PO QAM 30 Days Qty: 30 0RF melatonin 3 mg tablet 9 mg PO HS potassium chloride 20 mEq tablet extended release 20 meq PO QAM sertraline 25 mg tablet 25 mg PO QAM pravastatin 10 mg tablet 10 mg PO QPM acetaminophen 325 mg Tablet 650 mg PO Q6 MDD 3g PRN (Reason: temp > 100) acetaminophen [Tylenol] 325 mg tablet 650 mg PO Q6 MDD 3g PRN (Reason: Pain) Discharge Orders: Discharge Order (Routine); Ordered 06/24/25 Ordered By: Yumi Flowers Admission Data Admit Date/Time: 06/21/25 22:18 Attending Provider: Yumi Flowers Admit Provider: Britt Mujica Primary Care Provider: Pilar Cartagena Other Providers: Britt Mujica; Lucio Quintero; Lakisha Nielsen; Davidson Gamboa; Neena Jessica; Gomez Martinez; Norma Blanchard; John Wilson; Amos Beasley; Eddie Daniel; Ajay Thurman; Amanda Morillo; Machelle Saenz; Harriet Marlow; Mikaela Knight; Sarah Navarro; Camilo Franco; Pavel Ovalles; Robbie Marino; Muna Krishna; Alee Malone; Char Torres Other Interventions: Discharge Summary Assessment (RN) Last Done: 06/25/25 15:30 Hospital Stay Data Consultations 06/21/25 21:40 ED Decision to Admit Stat 06/23/25 08:13 Consult Urology Routine 06/23/25 18:45 Consult Infectious Diseases Routine 06/24/25 15:32 Consult Neurology Routine Diagnostic Imagining Performed Chest CT 06/21/25 20:15 Exam(s): CT CHEST Without Contrast EXAM: CT Chest Without Intravenous Contrast CLINICAL HISTORY: Reason for exam: trauma. TECHNIQUE: Axial computed tomography images of the chest without intravenous contrast. CTDI is 11.17 mGy and DLP is 757.17 mGy-cm. Automated exposure control was utilized for the study. A dose lowering technique was utilized adhering to the principles of ALARA. COMPARISON: CTA chest 06/07/2025 FINDINGS: Lungs: Calcification or surgical suture material in the posterior right lower lobe. Emphysema. No pulmonary contusion or airspace consolidation. Subsegmental atelectasis right lung base. Pulmonary nodule measuring 7 mm medial right lower lobe. Pleural space: Small right and trace left pleural effusions. No pneumothorax. Heart: Coronary artery atherosclerosis. No cardiomegaly or pericardial effusion. Mediastinum: Unremarkable. No mediastinal hematoma. Bones/joints: No acute fracture or dislocation. Old right scapular body fracture. Soft tissues: Unremarkable. Vasculature: No aortic aneurysm. Normal caliber main pulmonary artery. Lymph nodes: No lymphadenopathy. IMPRESSION: 1. No acute traumatic findings. 2. Small right and trace left pleural effusions, decreased from prior. 3. Pulmonary nodule measuring 7 mm medial right lower lobe. This is stable from most recent prior exam and appears to abut the right pulmonary fissural, possibly representing an intrapulmonary lymph node. Fleischner Society Guidelines for high-risk patients (smoking history or other known risk factors) initial follow-up chest CT at 6-12 months and if unchanged, 18-24 months. Electronically signed by: Mahi Baron M.D. 06/21/25 21:25 PM Chest X-Ray 06/21/25 20:15 Exam(s): XR CXR 1 VIEW EXAM: XR Chest, 1 View CLINICAL HISTORY: Reason for exam: Sepsis. TECHNIQUE: Frontal view of the chest. COMPARISON: 06/12/2025 FINDINGS: Lungs: No consolidation. Pleural space: No significant pleural effusion. No pneumothorax. Heart: No cardiomegaly or pulmonary vascular congestion. Bones/joints: No acute fracture. No dislocation. IMPRESSION: No evidence of acute cardiopulmonary disease. Electronically signed by: Mahi Baron M.D. 06/21/25 20:56 PM Pelvis X-Ray 06/21/25 20:15 Exam(s): XR PELVIS, 1-2 views EXAM: XR Pelvis, 1 or 2 Views CLINICAL HISTORY: Reason for exam: trauma. TECHNIQUE: Frontal view of the pelvis. COMPARISON: No relevant prior studies available. FINDINGS: Bones/joints: No acute fracture. No dislocation. Soft tissues: Unremarkable. IMPRESSION: No acute osseous findings. Electronically signed by: Mahi Baron M.D. 06/21/25 20:56 PM Abdomen/Pelvis CT 06/21/25 20:16 Exam(s): CT ABDOMEN + PELVIS Without Contrast EXAM: CT Abdomen and Pelvis Without Intravenous Contrast CLINICAL HISTORY: Reason for exam: trauma. TECHNIQUE: Axial computed tomography images of the abdomen and pelvis without intravenous contrast. CTDI is 11.17 mGy and DLP is 757.17 mGy-cm. Automated exposure control was utilized for the study. A dose lowering technique was utilized adhering to the principles of ALARA. COMPARISON: 01/09/2025 FINDINGS: There is cholelithiasis without cholecystitis or biliary dilatation. Liver, spleen, pancreas, and adrenal glands demonstrate unremarkable unenhanced appearance. Aorta is calcified but normal in caliber. There is no adenopathy, free fluid, or free air. 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 There is stable moderate left-sided hydroureteronephrosis. 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 The upper pole moiety demonstrates a nondilated ureter. The midpole moiety demonstrates mild ureteral dilatation, similar to prior, as well as internal hyperdensity measuring up to 50 Hounsfield units. Simple right kidney midpole cyst warrants no further follow-up and is stable from prior. No radiopaque urinary stones are visualized. There are postoperative small bowel changes related to ileal conduit creation. There is no mechanical bowel obstruction. Appendix is not identified. There are no bowel inflammatory changes. Bones are demineralized. There are age-related degenerative changes of the spine. There are no acute osseous findings. IMPRESSION: 1. No acute traumatic findings. 2. Cystoprostatectomy and surgical urinary diversion. 3. Persistent moderate left-sided hydroureteronephrosis. 4. As on prior, duplex right renal collecting system with ureter arising from the midpole remaining mildly dilated and containing hyperdense material which is nonspecific. A urothelial lesion is not excluded. Electronically signed by: Mahi Baron M.D. 06/21/25 21:[address] 06/21/25 20:17 Exam(s): CT C SPINE EXAM: CT Cervical Spine Without Intravenous Contrast CLINICAL HISTORY: Reason for exam: trauma. TECHNIQUE: Axial computed tomography images of the cervical spine without intravenous contrast. CTDI is 24.02 mGy and DLP is 495.69 mGy-cm. Automated exposure control was utilized for the study. A dose lowering technique was utilized adhering to the principles of ALARA. COMPARISON: 04/27/2025 FINDINGS: Vertebrae: Osteopenia. No acute fracture or traumatic subluxation. Discs/spinal canal/neural foramina: Multilevel disc, facet, and uncovertebral joint degeneration. Mild central canal narrowing at multiple cervical levels with varying degrees of bilateral foraminal narrowing. Soft tissues: Unremarkable. IMPRESSION: No acute findings in the cervical spine. Electronically signed by: Mahi Baron M.D. 06/21/25 21:[address] 06/21/25 20:17 Exam(s): CT HEAD Without Contrast EXAM: CT Head Without Intravenous Contrast CLINICAL HISTORY: Reason for exam: trauma. TECHNIQUE: Axial computed tomography images of the head/brain without intravenous contrast. CTDI is 37.22 mGy and DLP is 624.41 mGy-cm. Automated exposure control was utilized for the study. A dose lowering technique was utilized adhering to the principles of ALARA. COMPARISON: 06/12/2025 FINDINGS: Brain: Generalized parenchymal volume loss. Periventricular and deep cerebral white matter hypoattenuation suggesting chronic small vessel ischemic change. Yanez-white matter differentiation maintained. No parenchymal edema. No acute intracranial hemorrhage or abnormal extra- axial collection. No mass effect or midline shift. Multiple lacunar infarcts in the bilateral basal ganglia, right thalamus. Ventricles: No hydrocephalus. Bones/joints: No acute fracture. Soft tissues: Unremarkable. Vasculature: Intracranial atherosclerosis. Sinuses: Unremarkable as visualized. Mastoid air cells: No significant mastoid effusion. Orbits: Lens replacements. IMPRESSION: No acute intracranial process. Electronically signed by: Mahi Baron M.D. 06/21/25 21:19 PM Brain MRI 06/24/25 08:19 MRI OF THE BRAIN WITHOUT IV CONTRAST CLINICAL HISTORY: Confusion. Weakness. Evaluate for stroke. COMPARISON STUDY: Head CT June 21, 2025. MRI of the brain September 01, 2023. TECHNIQUE: MRI of the brain was performed utilizing various T1 and T2-weighted sequences in the axial, sagittal, and coronal planes. IV contrast was not administered for this examination. FINDINGS: This exam is mildly compromised by motion artifact. Coronal FLAIR sequence could not be obtained. There are no foci of restricted diffusion to suggest acute infarct. No acute intracranial hemorrhage, midline shift or mass effect is present. Ventricular system is unremarkable. Basal cisterns are patent. There are no extra axial collections. No intracranial masses identified on unenhanced exam. White matter T2 hyperintense foci suggest small vessel disease. There are several small old infarcts within the bilateral basal ganglia and the right thalami. IMPRESSION: 1. No acute intracranial findings. Exam moderately compromised by motion artifact. 2. 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 ACT 112: Negative or not required by law. Electronically signed by: Ronen Cartagena M.D. 06/24/2025 9:50 AM 06/21/25 20:15 CT chest diagnostic wo con Stat 06/21/25 20:16 CT abd pelvis wo con Stat 06/21/25 20:17 CT cervical spine wo con Stat CT head/brain wo con Stat 06/24/25 08:19 MR brain wo con Routine 06/24/25 15:29 MRI Brain [MR brain wo/w con] Routine 06/24/25 15:34 MRI Spine [MR cervical spine wo/w con] Routine MRI Spine [MR lumbar spine wo/w con] Routine MRI Spine [MR thoracic spine wo/w con] Routine Pending Results Patient Have Any Pending Studies at Discharge: No Discharge Instructions Given to Patient (Per Discharging Provider) Refer to dc summary Total Time Total Time Spent Total Time Spent (In Minutes): greater than 45 minutes was spent in the discharge coordination and care of this patient. Coding Level of Care Code 76621 INP/OBS DISCH >30 MIN Diagnoses Seizure R56.9 Encephalopathy G93.40
[2025-06-25 07:54] LABS: Hematocrit (blood only) 32.8 % (42.0-52.0); Hemoglobin 10.0 g/dL (14.0-18.0); Immature Granulocytes # (auto) 0.01 K/uL (0.01-0.20); Immature Granulocytes % (auto) 0.3 %; Mean Corpuscular Hemoglobin 25.0 pg (25.0-34.0); Mean Corpuscular Volume 82.0 fL (80.0-100.0); Platelet Count 267 K/uL (130-400); RDW Standard Deviation 53.7 fL (36.4-46.3); Red Blood Count 4.00 M/uL (4.70-6.10); White Blood Count 3.36 K/ul (4.8-10.8)
[2025-06-25 08:14] LABS: Alanine Aminotransferase 10.0 U/L (7-52); Albumin Globulin Ratio 1.2 (0.9-2); Albumin Level 3.4 gm/dl (3.4-5.0); Alkaline Phosphatase 177.0 U/L (34-104); Anion Gap 8.0 (3-11); Bilirubin,Total 0.5 mg/dl (0.2-1.0); Blood Urea Nitrogen 12.0 mg/dl (6-23); Calcium 8.4 mg/dl (8.6-10.3); Carbon Dioxide 23.0 mmol/L (21-32); Chloride 110.0 mmol/L (98-107); Creatinine Clr Calc Pharmacy 37.8 ml/min; Globulin 2.9 gm/dl (2.5-4.0); Glucose 103.0 mg/dl (70-99(Fasting)); Magnesium 1.6 mg/dl (1.7-2.4); Potassium 3.7 mmol/L (3.5-5.1); Sodium 141.0 mmol/L (136-145); Total Protein 6.3 gm/dl (6.0-8.3)
[2025-06-25] MEDS: DOCUSATE SODIUM 100 MG CAP PO PRN (08:37)
--- NOTE | 2025-06-25 11:29 | Electroencephalogram ---
EEG Procedure Note Date of Service June 25, 2025 Start / End Times Start Time: 10:58 AM End Time: 11:18 AM Referring Physician History Encephalopathy, seizures Home Medication List Medication Instructions Recorded Confirmed Type cholecalciferol (vitamin D3) 50 50 mcg PO QAM 01/14/23 06/21/25 History mcg (2,000 unit) capsule cyanocobalamin (vitamin B-12) 1,000 mcg PO QAM 02/26/25 06/21/25 History 1,000 mcg tablet pantoprazole 40 mg tablet,delayed 40 mg PO BID #200 tabs 02/26/25 06/21/25 Rx release tamsulosin 0.4 mg capsule 0.4 mg PO QAM 06/05/25 06/21/25 History folic acid 1 mg tablet 1 mg PO QAM 30 days #30 tabs 06/18/25 06/21/25 Rx acetaminophen 325 mg tablet 650 mg PO Q6 PRN temp > 100 06/21/25 06/21/25 History acetaminophen 325 mg tablet 650 mg PO Q6 PRN Pain 06/21/25 06/21/25 History (Tylenol) melatonin 3 mg tablet 9 mg PO HS 06/21/25 06/21/25 History potassium chloride 20 mEq 20 meq PO QAM 06/21/25 06/21/25 History tablet,extended release pravastatin 10 mg tablet 10 mg PO QPM 06/21/25 06/21/25 History sertraline 25 mg tablet 25 mg PO QAM 06/21/25 06/21/25 History levetiracetam 500 mg/5 mL 500 mg (5 mL) IV Q12H #125 mL 06/24/25 Rx intravenous solution (Keppra) Inpatient Medication List Acetaminophen (Acetaminophen 325 Mg Tab) 650 mg PO Q6 PRN PRN Reason: Pain Stop: 07/21/25 23:49 Last Admin: 06/23/25 21:22 Dose: 650 mg Documented By: Admin: 06/22/25 21:36 Dose: 650 mg Documented By: SIXTO Docusate Sodium (Docusate Sodium 100 Mg Cap) 100 mg PO BID PRN PRN Reason: Constipation Stop: 07/21/25 23:49 Last Admin: 06/25/25 08:37 Dose: 100 mg Documented By: symone Heparin Sodium (Porcine) (Heparin Sod 5,000 Unit/0.5 Ml Vial) 5,000 units SQ Q12 THOR Stop: 07/22/25 08:59 Last Admin: 06/25/25 08:37 Dose: 5,000 units Documented By: symone Admin: 06/24/25 20:54 Dose: 5,000 units Documented By: edin Admin: 06/24/25 10:46 Dose: 5,000 units Documented By: symone Admin: 06/23/25 21:22 Dose: 5,000 units Documented By: Admin: 06/23/25 08:25 Dose: 5,000 units Documented By: Admin: 06/22/25 21:37 Dose: 5,000 units Documented By: Admin: 06/22/25 09:28 Dose: 5,000 units Documented By: KIANNA Sodium Chloride (Nss) 1,000 mls @ 80 mls/hr IV .[id number] THOR Stop: 06/26/25 08:14 Last Admin: 06/25/25 04:15 Dose: 80 mls/hr Documented By: edin Infusion: 06/25/25 04:14 Dose: Infused Documented By: edin Admin: 06/24/25 15:40 Dose: 80 mls/hr Documented By: symone Infusion: 06/24/25 09:51 Dose: Infused Documented By: symone Admin: 06/23/25 21:21 Dose: 80 mls/hr Documented By: Infusion: 06/23/25 21:21 Dose: Infused Documented By: Admin: 06/23/25 08:28 Dose: 80 mls/hr Documented By: SARA Levetiracetam (Levetiracetam 500 Mg/5 Ml Vial) 500 mg IV Q12H THOR Stop: 07/25/25 03:59 Last Admin: 06/25/25 04:15 Dose: 500 mg Documented By: edin Melatonin (Melatonin 3 Mg Tab) 9 mg PO HS THOR Stop: 07/22/25 20:59 Last Admin: 06/24/25 20:55 Dose: 9 mg Documented By: edin Admin: 06/23/25 21:22 Dose: 9 mg Documented By: Admin: 06/22/25 21:36 Dose: 9 mg Documented By: SIXTO Pantoprazole Sodium (Pantoprazole 40 Mg Tab) 40 mg PO BID THOR Stop: 07/22/25 08:59 Last Admin: 06/25/25 08:36 Dose: 40 mg Documented By: symone Admin: 06/24/25 20:55 Dose: 40 mg Documented By: edin Admin: 06/24/25 10:47 Dose: 40 mg Documented By: symone Admin: 06/23/25 21:23 Dose: 40 mg Documented By: Admin: 06/23/25 08:25 Dose: 40 mg Documented By: Admin: 06/22/25 21:36 Dose: 40 mg Documented By: Admin: 06/22/25 09:28 Dose: 40 mg Documented By: KIANNA Pravastatin Sodium (Pravastatin Sod 10 Mg Tab) 10 mg PO QPM [facility] Stop: 07/22/25 20:59 Last Admin: 06/24/25 20:55 Dose: 10 mg Documented By: edin Admin: 06/23/25 21:23 Dose: 10 mg Documented By: Admin: 06/22/25 21:36 Dose: 10 mg Documented By: SIXTO Sertraline HCl (Sertraline Hcl 50 Mg Tablet) [facility] [place] Stop: 07/22/25 08:59 Last Admin: 06/25/25 08:36 Dose: 25 mg Documented By: symone Admin: 06/24/25 10:46 Dose: 25 mg Documented By: symone Admin: 06/23/25 08:25 Dose: 25 mg Documented By: Admin: 06/22/25 09:28 Dose: 25 mg Documented By: KIANNA Tamsulosin HCl (Tamsulosin Hcl 0.4 Mg Cap) 0.4 mg PO [facility] Stop: 07/22/25 08:59 Last Admin: 06/25/25 08:36 Dose: 0.4 mg Documented By: symone Admin: 06/24/25 10:46 Dose: 0.4 mg Documented By: symone Admin: 06/23/25 08:25 Dose: 0.4 mg Documented By: Admin: 06/22/25 09:28 Dose: 0.4 mg Documented By: KIANNA Discontinued Medications Fluconazole (Fluconazole 100 Mg Tab) [facility] [place] Stop: 07/22/25 08:59 Last Admin: 06/23/25 08:25 Dose: 100 mg Documented By: Admin: 06/22/25 09:28 Dose: 100 mg Documented By: KIANNA Ertapenem (Invanz 1000mg) 1,000 mg in 10 mls @ 2 mls/min IV NOW STA Stop: 06/21/25 21:36 Last Admin: 06/21/25 21:43 Dose: 2 mls/min Documented By: PRIYA Ertapenem (Invanz 1000mg) 1,000 mg in 10 mls @ 2 mls/min IV Q24H THOR Stop: 07/03/25 20:59 Last Admin: 06/23/25 21:22 Dose: 2 mls/min Documented By: SIXTO Magnesium Sulfate/Dextrose (Magnesium Sulfate / D5w) 1 gm in 100 mls @ 50 mls/hr IV Q2H THOR Stop: 06/22/25 03:49 Last Infusion: 06/22/25 05:13 Dose: Infused Documented By: Admin: 06/22/25 02:51 Dose: 50 mls/hr Documented By: Infusion: 06/22/25 02:25 Dose: Infused Documented By: Admin: 06/22/25 00:25 Dose: 50 mls/hr Documented By: RUPERTO Levetiracetam (Levetiracetam 500 Mg/5 Ml Vial) 1,500 mg IV ONCE ONE Stop: 06/24/25 16:43 Last Admin: 06/24/25 17:13 Dose: 1,500 mg Documented By: symone Potassium Chloride (Potassium Chloride Crtab 20 Meq Tabcr) 20 meq PO NOW STA Stop: 06/23/25 08:12 Last Admin: 06/23/25 08:25 Dose: 20 meq Documented By: SARA Description This is a 21 electrode EEG with a single channel dedicated to limited EKG. The electrodes were placed in accordance with the International 10-20 system. The predominant rhythm consists of generalized 5 to 6 Hz low amplitude theta activity. There is a fairly continuous right frontal sharp and slow wave focus. There are several episodes of paroxysmal right frontotemporal paroxysmal fast activity. Interpretation Abnormal awake/drowsy EEG with continued evidence of a right frontotemporal seizure focus and nonspecific encephalopathy. Clinical Correlation Results discussed with attending hospitalist [facility] EEG Procedure Codes Indication for Procedure (1) Seizure: (2) Encephalopathy: Neurology Neurology: [id number] EEG include record awake & drowsy
[2025-06-25] MEDS: VALPROATE SOD 500 MG in DEXTROSE 5% 50 ML IV SCH (13:35)
[2025-06-25 14:59] VITALS: BP 131/54; RESP 18; TEMP 97.7; O2SAT 100
[2025-06-25 18:36] VITALS: PULSE 66
== END 2025-06-25 19:35 | disposition short-term general hospital (02) | DRG 101 ==
LOC: ED 20:06 → EDINP 22:18 → SUATTDRO 22:18 → 2W 06-22 16:24 → 4W 06-25 14:54